=== PATIENT | male | born 1970 | race Caucasian/White ===

== ENCOUNTER 2016-11-27 19:35 | Observation (INO) ==
--- NOTE | 2016-11-27 19:54 | Emergency Department Note ---
Disposition Clinical Impression: Altered mental status Qualifiers: Altered mental status type: unspecified Qualified Code(s): R41.82 - Altered mental status, unspecified Leukopenia Qualifiers: Leukopenia type: unspecified Qualified Code(s): D72.819 - Decreased white blood cell count, unspecified Anemia Qualifiers: Anemia type: unspecified type Qualified Code(s): D64.9 - Anemia, unspecified Chest pain Qualifiers: Chest pain type: unspecified Qualified Code(s): R07.9 - Chest pain, unspecified Hypothyroidism Qualifiers: Hypothyroidism type: unspecified Qualified Code(s): E03.9 - Hypothyroidism, unspecified Disposition: Admitted As Inpatient Condition: Fair Time of Disposition: 21:48 Chest Pain HPI - General Chief Complaint: ED Chest Pain Stated Complaint: Chest Pain Time Seen by Provider: 11/27/16 19:48 Source: EMS Mode of arrival: EMS Limitations: no limitations Vital Signs Reviewed: Yes Nursing Notes Reviewed: Yes - History of Present Illness HPI Narrative: Patient is a 46-year-old male with past medical history of hyperlipidemia, GERD , hypothyroidism, stage IV colorectal cancer with mets to liver and currently on oral chemotherapy pills on 2 weeks and off 2 weeks. Currently on ""off week " and took last pill this past Sunday. He presents today via EMS due to chest pain, possible LOC. states that the patient has had some trouble with memory over the past couple weeks. Today, the patient stated that he did not fill well, states that he then passed out while he was standing in front of her. When he woke up, he is complaining of left-sided chest pain that was radiating to his left arm. He did not take any aspirin or nitroglycerin at home. Denies any cardiac history or stenting. On arrival, the patient says that his chest pain has resolved. EMS says that the patient has "gone in and out of consciousness" on their trip over, but they described this as the patient closing his eyes and going quite but was still interactive and followed commands during these episodes. Patient only complaint currently is that he feels confused. He was oriented to person and place but not time. Currently denies any chest pain, shortness of breath, nausea. Patient had one episode of vomiting en route via EMS. Patient does have a history of anxiety and depression but says that he has never had a panic attack in the past. Severity scale (1-10): 0 - Related Data Home Medications Medication Instructions Recorded Confirmed Metformin HCl [Glucophage Xr] 1,000 mg PO BID 02/23/15 11/27/16 Insulin Glargine,Hum.rec.anlog 0 unit SQ HS PRN 03/10/15 11/27/16 [Lantus Solostar] Cyclobenzaprine [Flexeril] 10 mg PO TID PRN 07/16/15 11/27/16 Zolpidem [Ambien] 10 mg PO HS PRN 10/03/16 11/27/16 Atorvastatin [Lipitor] 10 mg PO HS 11/27/16 11/27/16 Levothyroxine [Synth[place]] [place] [address]/27/16 11/27/16 Omeprazole [PriLOSEC] 40 mg PO DAILY 11/27/16 11/27/16 Pioglitazone HCl [Actos] 30 mg PO DAILY 11/27/16 11/27/16 Previous Rx's Medication Instructions Recorded Acetaminophen/Butalbital/Caffe 1 each PO TID PRN #90 tablet 04/13/15 [Fioricet] Prochlorperazine Maleate 10 mg PO Q6HR PRN #120 tablet 02/07/16 [Compazine] Ondansetron HCl [Zofran] 4 mg PO Q6H PRN #30 tablet 03/24/16 OxyCODONE/APAP 7.5/325 [Percocet 1 each PO Q6H PRN #30 tablet 03/24/16 7.5/325 MG] Hydromorphone HCl [Dilaudid] 1 tab PO Q6H PRN #90 tablet 04/17/16 Triamcinolone Acet 0.1% OINT 1 appl TP TID #1 tube 10/20/16 [Kenalog] Trifluridine/Tipiracil HCl 4 tab PO BID #80 tablet 11/01/16 [Lonsurf 20 mg-8.19 mg Tablet] Citalopram Hydrobromide [Celexa] 20 mg PO DAILY #90 tablet 11/20/16 Allergies Allergy/AdvReac Type Severity Reaction Status Date / Time capecitabine [From Xeloda] Allergy Hallucinati Verified 11/22/16 11:12 ng All systems ED: reviewed and negative except as stated. Constitutional: Denies: fever Cardiovascular: Reports: chest pain. Denies: palpitations Respiratory: Reports: dyspnea. Denies: cough, wheezes Gastrointestinal: Reports: vomiting. Denies: abdominal pain, nausea, diarrhea, constipation Genitourinary: Denies: urgency, dysuria Neurological: Reports: other (LOC). Denies: weakness, numbness, paresthesias Psychiatric: Reports: anxiety, depression Chest Pain PMH - Past Medical History Medical history: Reports: arthritis, cancer, diabetes, GERD, thyroid disease, other Surgical history: Reports: other Psychiatric history: Reports: anxiety, depression - Social History Smoking Status: Former smoker Alcohol use: Reports: none Drug use: Reports: none Physical Exam - General Limitations: no limitations General appearance: alert - Head Head exam: atraumatic, normocephalic, normal inspection - Eye Eye exam: Present: normal appearance, PERRL, EOMI - ENT ENT exam: normal exam, normal oropharynx, mucous membranes moist - Neck Neck exam: Present: normal inspection, full ROM, trachea midline - Chest Chest inspection: Present: normal inspection, symmetric chest wall rise. Absent : tenderness - Respiratory Respiratory exam: Present: normal lung sounds bilaterally. Absent: respiratory distress, wheezes - Cardiovascular Cardiovascular exam: Present: regular rate, normal rhythm, normal heart sounds - Abdominal Exam Abdominal exam: Present: soft, Non-Tender. Absent: tenderness, distention, guarding, rebound, rigidity - Extremities Exam Extremities exam: Present: normal inspection, full ROM. Absent: tenderness, pedal edema - Neurological Exam Neurological exam: Present: alert, CN II-XII intact, other (Oriented to person and place. During interview, patient closes his eyes and goes quiet but does not lose consciousness during these episodes.). Absent: motor sensory deficit - Psychiatric Psychiatric exam: Present: flat affect - Skin Skin exam: Present: warm, dry, intact, normal color Course Course Narrative: Vitals within normal limits on exam. Physical exam shows heart regular rate and rhythm, lungs clear to auscultation, abdominal exam benign. Neuro exam shows no focal deficits. However, patient only oriented to person and place. During interview, patient closes his eyes and goes quiet but does not lose consciousness during these episodes. However, he is answering questions appropriately once aroused. We will obtain altered mental status workup including CT of the head, basic blood work, urinalysis and urine drug screen, ethanol level. We will also obtain EKG, chest x-ray, troponin for evaluation of chest pain. Also obtain CT of the chest due to concern for possible PE with patient's active cancer, chest pain and shortness of breath, possible LOC, tachycardia noted per EMS. 21:45 EKG shows normal sinus rhythm with no acute ST changes. Chest x-ray negative. Head CT negative for any acute intracranial abnormality. Chest CT negative for PE. Troponin negative. Labs show leukopenia, anemia that is worsened from baseline, hypothyroidism. We will obtain the free T4 and T3. We will admit the patient for altered mental status, chest pain, leukopenia, anemia , hypothyroidism. Chest X-Ray 11/27/16 19:52 IMPRESSION: 1. No acute cardiopulmonary disease. D/ / Byron Zhong MD / Byron Zhong MD Interpreting Provider: Byron Zhong MD Head CT 11/27/16 19:52 IMPRESSION: No acute intracranial abnormality. D/ / Leyla Baron Cha, MD / Leyla Baron Cha, MD Interpreting Provider: Leyla Baron Cha, MD Chest CTA 11/27/16 19:53 IMPRESSION: No evidence of pulmonary embolism or acute pulmonary abnormality. D/ / Roland Card MD / Roland Card MD Interpreting Provider: Roland Card MD Vital Signs Temperature 0 F L 11/27/16 19:37 Pulse Rate 98 11/27/16 19:37 Respiratory Rate 18 11/27/16 19:37 Blood Pressure 133/84 11/27/16 19:37 O2 Sat by Pulse Oximetry 96 11/27/16 19:37 Temperature 98.7 F 11/27/16 23:19 Pulse Rate 70 11/27/16 23:19 Respiratory Rate 15 11/27/16 23:19 Blood Pressure 144/92 11/27/16 23:19 O2 Sat by Pulse Oximetry 99 11/27/16 23:19 Oxygen Delivery Oxygen Delivery Room Air Chest Pain - MDM Narrative Medical decision making narrative: EKG shows normal sinus rhythm with no acute ST changes. Chest x-ray negative. Head CT negative for any acute intracranial abnormality. Chest CT negative for PE. Troponin negative. Labs show leukopenia, anemia that is worsened from baseline, hypothyroidism. We will obtain the free T4 and T3. We will admit the patient for altered mental status, chest pain, leukopenia, anemia, hypothyroidism. - Medical Records Medical records reviewed: Yes I reviewed the patient's medical records. - Lab Data Lab results reviewed: Yes I reviewed the patient's lab results. Result diagrams: 11/27/16 19:56 11/27/16 19:56 Lab Results 11/27/16 11/27/16 11/27/16 Range/Units 19:56 19:56 19:56 WBC 3.9 L (4.3-11.1) K/mcL RBC 3.58 L (4.19-5.50) M/mcL Hgb 10.3 L (12.9-16.9) g/dL Hct 30.6 L (37.5-50.1) % MCV 85.5 (83.0-100.0) fL MCH 28.8 (28.0-33.3) pg MCHC 33.7 (31.6-35.5) g/dL RDW 13.5 (11.5-14.5) % Plt Count 92 L (140-400) K/mcL MPV 9.2 L (9.4-12.4) fL Immature Gran % 0.5 (0-4) % Seg Neutrophils % 65.6 % Lymphocytes % 27.2 % Monocytes % 5.1 % Eosinophils % 1.3 % Basophils % 0.3 % Neutrophils # 2.6 (1.6-8.9) K/mcL Lymphocytes # 1.1 (0.6-4.6) K/mcL Monocytes # 0.2 (0.0-1.3) K/mcL Eosinophils # 0.1 (0.0-0.6) K/mcL Basophils # 0.0 (0.0-0.2) K/mcL PT 13.1 H (9.4-12.1) Seconds INR 1.2 APTT 27.8 (26.0-36.0) Seconds Sodium (136-145) mEq/L Potassium (3.5-4.5) mEq/L Chloride (98-109) mEq/L Carbon Dioxide (19-29) mEq/L BUN (8-26) mg/dL Creatinine (0.72-1.25) mg/dL Est GFR ( Amer) (> 60) Est GFR (Non-Af Amer) (> 60) BUN/Creatinine Ratio (6-26) Glucose (70-99) mg/dL Calculated Osmolality (280-300) Calcium (8.6-10.8) mg/dL Total Bilirubin (0.2-1.2) mg/dL Direct Bilirubin (0.0-0.5) mg/dL Indirect Bilirubin (0.0-1.2) mg/dL AST (5-34) Units/L ALT (0-55) Units/L Alkaline Phosphatase (38-126) Units/L Ammonia 17 L (18-72) mcmol/L Troponin I (0-0.03) ng/mL Serum Total Protein (6.0-8.3) g/dL Albumin (3.5-5.0) g/dL Globulin (2.4-3.5) g/dL Albumin/Globulin Ratio (1.1-2.2) TSH (0.350-4.840) mcIU/mL Free T4 (0.70-1.48) ng/dl Free T3 (1.71-3.71) pg/mL Urine Color (Yellow) Urine Clarity (Clear) Urine pH (5.0-8.0) pH Units Ur Specific [place] (1.010-1.025) Urine Protein (Neg-Trace) mg/dL Urine Glucose (UA) (Normal) mg/dL Urine Ketones (Negative) mg/dL Urine Blood (Negative) Urine Nitrite (Negative) Urine Bilirubin (Negative) Urine Urobilinogen (Normal) mg/dL Ur Leukocyte Esterase (Negative) Ur Culture Indicated? (NO) Urine Opiates Screen (Mcbnkn=198) ng/mL Ur Barbiturates Screen (Uvfufo=806) ng/mL Ur Phencyclidine Scrn (Cutoff=25) ng/mL Ur Amphetamines Screen (Aczqwu=5239) ng/mL U Benzodiazepines Scrn (Fvtkzq=079) ng/mL Urine Cocaine Screen (Cutoff= 300) ng/mL U Marijuana (THC) Screen (Cutoff = 50) ng/mL Ethyl Alcohol (0-10) mg/dL 11/27/16 11/27/16 11/27/16 Range/Units 19:56 19:56 19:56 WBC (4.3-11.1) K/mcL RBC (4.19-5.50) M/mcL Hgb (12.9-16.9) g/dL Hct (37.5-50.1) % MCV (83.0-100.0) fL MCH (28.0-33.3) pg MCHC (31.6-35.5) g/dL RDW (11.5-14.5) % Plt Count (140-400) K/mcL MPV (9.4-12.4) fL Immature Gran % (0-4) % Seg Neutrophils % % Lymphocytes % % Monocytes % % Eosinophils % % Basophils % % Neutrophils # (1.6-8.9) K/mcL Lymphocytes # (0.6-4.6) K/mcL Monocytes # (0.0-1.3) K/mcL Eosinophils # (0.0-0.6) K/mcL Basophils # (0.0-0.2) K/mcL PT (9.4-12.1) Seconds INR APTT (26.0-36.0) Seconds Sodium 133 L (136-145) mEq/L Potassium 3.6 (3.5-4.5) mEq/L Chloride 97 L (98-109) mEq/L Carbon Dioxide 28 (19-29) mEq/L BUN 10 (8-26) mg/dL Creatinine 0.83 (0.72-1.25) mg/dL Est GFR ( Amer) > 60 (> 60) Est GFR (Non-Af Amer) > 60 (> 60) BUN/Creatinine Ratio 12 (6-26) Glucose 162 H (70-99) mg/dL Calculated Osmolality 279 L (280-300) Calcium 9.4 (8.6-10.8) mg/dL Total Bilirubin 1.3 H (0.2-1.2) mg/dL Direct Bilirubin 0.5 (0.0-0.5) mg/dL Indirect Bilirubin 0.8 (0.0-1.2) mg/dL AST 20 (5-34) Units/L ALT 25 (0-55) Units/L Alkaline Phosphatase 124 (38-126) Units/L Ammonia (18-72) mcmol/L Troponin I 0.01 (0-0.03) ng/mL Serum Total Protein 7.1 (6.0-8.3) g/dL Albumin 3.5 (3.5-5.0) g/dL Globulin 3.6 H (2.4-3.5) g/dL Albumin/Globulin Ratio 1.0 L (1.1-2.2) TSH 5.637 H (0.350-4.840) mcIU/mL Free T4 1.22 (0.70-1.48) ng/dl Free T3 2.61 (1.71-3.71) pg/mL Urine Color (Yellow) Urine Clarity (Clear) Urine pH (5.0-8.0) pH Units Ur Specific [place] (1.010-1.025) Urine Protein (Neg-Trace) mg/dL Urine Glucose (UA) (Normal) mg/dL Urine Ketones (Negative) mg/dL Urine Blood (Negative) Urine Nitrite (Negative) Urine Bilirubin (Negative) Urine Urobilinogen (Normal) mg/dL Ur Leukocyte Esterase (Negative) Ur Culture Indicated? (NO) Urine Opiates Screen (Oiwcao=990) ng/mL Ur Barbiturates Screen (Hwduuz=309) ng/mL Ur Phencyclidine Scrn (Cutoff=25) ng/mL Ur Amphetamines Screen (Yslnul=8507) ng/mL U Benzodiazepines Scrn (Rhlfbk=763) ng/mL Urine Cocaine Screen (Cutoff= 300) ng/mL U Marijuana (THC) Screen (Cutoff = 50) ng/mL Ethyl Alcohol < 10 (0-10) mg/dL 11/27/16 11/27/16 Range/Units 21:12 21:12 WBC (4.3-11.1) K/mcL RBC (4.19-5.50) M/mcL Hgb (12.9-16.9) g/dL Hct (37.5-50.1) % MCV (83.0-100.0) fL MCH (28.0-33.3) pg MCHC (31.6-35.5) g/dL RDW (11.5-14.5) % Plt Count (140-400) K/mcL MPV (9.4-12.4) fL Immature Gran % (0-4) % Seg Neutrophils % % Lymphocytes % % Monocytes % % Eosinophils % % Basophils % % Neutrophils # (1.6-8.9) K/mcL Lymphocytes # (0.6-4.6) K/mcL Monocytes # (0.0-1.3) K/mcL Eosinophils # (0.0-0.6) K/mcL Basophils # (0.0-0.2) K/mcL PT (9.4-12.1) Seconds INR APTT (26.0-36.0) Seconds Sodium (136-145) mEq/L Potassium (3.5-4.5) mEq/L Chloride (98-109) mEq/L Carbon Dioxide (19-29) mEq/L BUN (8-26) mg/dL Creatinine (0.72-1.25) mg/dL Est GFR ( Amer) (> 60) Est GFR (Non-Af Amer) (> 60) BUN/Creatinine Ratio (6-26) Glucose (70-99) mg/dL Calculated Osmolality (280-300) Calcium (8.6-10.8) mg/dL Total Bilirubin (0.2-1.2) mg/dL Direct Bilirubin (0.0-0.5) mg/dL Indirect Bilirubin (0.0-1.2) mg/dL AST (5-34) Units/L ALT (0-55) Units/L Alkaline Phosphatase (38-126) Units/L Ammonia (18-72) mcmol/L Troponin I (0-0.03) ng/mL Serum Total Protein (6.0-8.3) g/dL Albumin (3.5-5.0) g/dL Globulin (2.4-3.5) g/dL Albumin/Globulin Ratio (1.1-2.2) TSH (0.350-4.840) mcIU/mL Free T4 (0.70-1.48) ng/dl Free T3 (1.71-3.71) pg/mL Urine Color Yellow (Yellow) Urine Clarity Clear (Clear) Urine pH 7.0 (5.0-8.0) pH Units Ur Specific [place] 1.016 (1.010-1.025) Urine Protein Negative (Neg-Trace) mg/dL Urine Glucose (UA) Normal (Normal) mg/dL Urine Ketones Negative (Negative) mg/dL Urine Blood Negative (Negative) Urine Nitrite Negative (Negative) Urine Bilirubin Negative (Negative) Urine Urobilinogen Normal (Normal) mg/dL Ur Leukocyte Esterase Negative (Negative) Ur Culture Indicated? NO (NO) Urine Opiates Screen Negative (Zwoyop=311) ng/mL Ur Barbiturates Screen Negative (Ltrevp=966) ng/mL Ur Phencyclidine Scrn Negative (Cutoff=25) ng/mL Ur Amphetamines Screen Negative (Offhtj=0148) ng/mL U Benzodiazepines Scrn Negative (Behdxp=516) ng/mL Urine Cocaine Screen Negative (Cutoff= 300) ng/mL U Marijuana (THC) Screen Negative (Cutoff = 50) ng/mL Ethyl Alcohol (0-10) mg/dL - Radiology Data Radiology results reviewed: Yes I reviewed the patient's radiology results. Chest X-Ray 11/27/16 19:52 IMPRESSION: 1. No acute cardiopulmonary disease. D/ / Byron Zhong MD / Byron Zhong MD Interpreting Provider: Byron Zhong MD Head CT 11/27/16 19:52 IMPRESSION: No acute intracranial abnormality. D/ / Leyla Baron Cha, MD / Leyla Baron Cha, MD Interpreting Provider: Leyla Baron Cha, MD Chest CTA 11/27/16 19:53 IMPRESSION: No evidence of pulmonary embolism or acute pulmonary abnormality. D/ / Roland Card MD / Roland Card MD Interpreting Provider: Roland Card MD - EKG Data EKG attestation: Yes I reviewed and interpreted this EKG. EKG results narrative: 11/27/2016 at 19:43. Normal sinus rhythm. Rate 96. DC 155. QRS 90. QTc 49. No acute ST elevation or depression. Heart Score - Score History: Moderately Suspicious EKG: Normal Age: 45-65 Risk Factors: 1-2 risk factors Troponin: Less than normal limit HEART Score Total: 3 Attestation Statement - Attestation Attestation: I, Niranjan Lopez, examined this patient and my medical decision-making was reviewed with the [employer]/PA/Advanced Practice Nurse/Resident Physician. I agree with the documented findings, disposition and treatment plan as described except to the extent set forth below. 46-year-old male brought in by EMS after family was concerned about altered mental status. Patient takes chemotherapy for stage IV colorectal cancer however he has not taken it within the past 1-2 weeks. No history of fever. No recent history of trauma. Family states the patient is more fatigued with altered mental status today compared to what he usually is. Patient has difficulty answering questions secondary to his fatigue state however he is able to answer questions. Patient does not have any focal neurologic deficits on our initial exam. EMS state the patient "syncopized" multiple times during the EMS trip to the hospital however he was interactive with them at that time and he did not have any change in his vital signs or heart rate on the monitor at that time. Head CT was negative for acute intracranial hemorrhage or mass. TSH was elevated however I do not believe the patient is in myxedema coma. Initial troponin was negative. Urinalysis was negative UTI. Patient will be admitted to the hospital for further care and evaluation of altered mental status and elevated TSH.
[2016-11-27 20:10] LABS: Basophils % 0.3 %; Eosinophils # 0.1 K/mcL (0.0-0.6); Eosinophils % 1.3 %; Hematocrit 30.6 % (37.5-50.1); Hemoglobin 10.3 g/dL (12.9-16.9); Immature Granulocytes % 0.5 % (0-4); Lymphocytes # 1.1 K/mcL (0.6-4.6); Lymphocytes % 27.2 %; Mean Corpuscular HGB Conc 33.7 g/dL (31.6-35.5); Mean Corpuscular Hemoglobin 28.8 pg (28.0-33.3); Mean Corpuscular Volume 85.5 fL (83.0-100.0); Mean Platelet Volume 9.2 fL (9.4-12.4); Monocytes # 0.2 K/mcL (0.0-1.3); Monocytes % 5.1 %; Neutrophils # 2.6 K/mcL (1.6-8.9); Red Blood Count 3.58 M/mcL (4.19-5.50); Red Cell Distribution Width 13.5 % (11.5-14.5); Segmented Neutrophils % 65.6 %
[2016-11-27 20:11] LABS: Platelet Count 92 K/mcL (140-400)
[2016-11-27 20:17] LABS: INR 1.2; Prothrombin Time 13.1 Seconds (9.4-12.1)
[2016-11-27 20:19] LABS: Activated Partial Thrombo Time 27.8 Seconds (26.0-36.0)
[2016-11-27 20:25] LABS: Alanine Aminotransferase 25 Units/L (0-55); Albumin 3.5 g/dL (3.5-5.0); Alkaline Phosphatase 124 Units/L (38-126); Aspartate Amino Transferase 20 Units/L (5-34); BUN/Creatinine Ratio 12 (6-26); Bilirubin,Direct 0.5 mg/dL (0.0-0.5); Bilirubin,Indirect 0.8 mg/dL (0.0-1.2); Bilirubin,Total 1.3 mg/dL (0.2-1.2); Blood Urea Nitrogen 10 mg/dL (8-26); Calcium 9.4 mg/dL (8.6-10.8); Carbon Dioxide 28 mEq/L (19-29); Chloride 97 mEq/L (98-109); Globulin 3.6 g/dL (2.4-3.5); Glucose 162 mg/dL (70-99); Osmolality,Calculated 279 (280-300); Potassium 3.6 mEq/L (3.5-4.5); Sodium 133 mEq/L (136-145); Total Protein 7.1 g/dL (6.0-8.3); eGFR For African Americans > 60 (> 60); eGFR For Non-African Americans > 60 (> 60)
[2016-11-27 20:27] LABS: Ethanol < 10 mg/dL (0-10)
[2016-11-27 20:47] LABS: Thyroid Stimulating Hormone 5.637 mcIU/mL (0.350-4.840)
[2016-11-27 21:23] LABS: Bilirubin,Urine Negative (Negative); Blood,Urine Negative (Negative); Clarity,Urine Clear (Clear); Color,Urine Yellow (Yellow); Glucose,Urine (UA) Normal (Normal); Ketones,Urine Negative (Negative); Leukocyte Esterase,Urine Negative (Negative); Nitrite,Urine Negative (Negative); Protein,Urine Negative (Neg-Trace); Specific Gravity,Urine 1.016 (1.010-1.025); Urobilinogen,Urine Normal (Normal)
[2016-11-27 21:37] LABS: Amphetamine Screen,Urine Negative ng/mL (Cutoff=1000); Barbiturate Screen,Urine Negative ng/mL (Cutoff=200); Benzodiazepines Screen,Urine Negative ng/mL (Cutoff=200); Cannabinoid Screen,Urine Negative ng/mL (Cutoff = 50); Cocaine Screen,Urine Negative ng/mL (Cutoff= 300); Opiate Screen,Urine Negative ng/mL (Cutoff=300); Phencyclidine Screen,Urine Negative ng/mL (Cutoff=25)
[2016-11-27 22:25] LABS: Triiodothyronine (T3) Free 2.61 pg/mL (1.71-3.71)
--- NOTE | 2016-11-28 00:26 | Internal Med History&Physical ---
Date of Encounter: 11/28/16 Time of Encounter: 00:26 Assessment and Plan (1) Syncope Current visit: Yes Status: Acute Trend troponins. Echocardiogram. Neurology consultation Qualifiers: Syncope type: unspecified Qualified Code(s): R55 - Syncope and collapse (2) Chest pain Current visit: Yes Status: Acute Trend troponins. Echo. Consider cardiology consult Qualifiers: Chest pain type: unspecified Qualified Code(s): R07.9 - Chest pain, unspecified (3) TIA (transient ischemic attack) Current visit: Yes Status: Acute Acute right sided wekaness. CT head is negative. Discussed with Neurology at [facility] - not for TPA. MRI brain, echo, carotid doppler; Neurology consult. PT eval Qualifiers: Transient cerebral ischemia type: unspecified Qualified Code(s): G45.9 - Transient cerebral ischemic attack, unspecified (4) Acute right-sided weakness Current visit: Yes Status: Acute Acute right sided wekaness. CT head is negative. Discussed with Neurology at [facility] - not for TPA. MRI brain, echo, carotid doppler; Neurology consult. PT eval (5) Leukopenia Current visit: Yes Status: Chronic Monitor Qualifiers: Leukopenia type: unspecified Qualified Code(s): D72.819 - Decreased white blood cell count, unspecified (6) Anemia Current visit: Yes Status: Chronic normocytic. 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 Chaidez is a 46 year old male with past medical history of hyperlipidemia, GERD, hypothyroidism, stage IV colorectal cancer with mets to liver and currently on oral chemotherapy pills on 2 weeks and off 2 weeks. History obtained from pts , who is at the bedside (pt does not remember what happened at home). He apparently reported to his that he was not feeling well and tried to sleep for some time. After about 20 minutes he felt unwell and reported left-sided chest pain, radiating to the left upper extremity. He apparently passed out multiple times, while he was sitting. He apparently looked pale, but did not lose pulse. EMS was called and was brought to the ER. He is admitted to the hospitalist service for further management. At 11:59 PM, I was paged to see the pt, because of the concern that his right arm is now going numb and right leg feels harder to lift. He reports that he does not remember what happened at home, but felt OK when he came to the floor and symptoms started after coming to the medical floor. He reported numbness in the right upper extremity, with weakness (right handed person) and his right lower extremity feels heavy. He denies any facial weakness/numbness, difficulty speech, blurry vision, weakness of the left side, urinary or bowel incontinence. He reports mild diffuse headache. He denies nausea, vomiting, chest pain, shortness of breath, fever, chills, abdominal pain, dysuria, hematuria. Code stroke was called immediately and patient was taken for CT scan of the head without contrast. Radiologist called report at 00:32, and reported no acute intracranial lesions. Discussed with stroke Neurologist ([facility]), who indicated that the pt is not suitable for TPA. Recommended MRI of the brain with and w/o contrast to exclude cerebral metastases. Past Med Surg Social Fam HX - Past Medical History Medical history: arthritis, cancer, diabetes, GERD, thyroid disease, other Psychiatric history: anxiety, depression - Past Surgical History Surgical History: other - Social History Smoking Status: Former smoker Smokeless Tobacco Status: Yes Alcohol use: none Drug use: none - Family History Mother Hx Family Cardiac Disorders: Yes Internal Medicine - H&P: Meds Metformin HCl [Glucophage Xr] 1,000 mg PO BID 02/23/15 [History] Insulin Glargine,Hum.rec.anlog [Lantus Solostar] 0 unit SQ HS PRN 03/10/15 [ History] Acetaminophen/Butalbital/Caffe [Fioricet] 1 each PO TID PRN #90 tablet 04/13/15 [Rx] Cyclobenzaprine [Flexeril] 10 mg PO TID PRN 07/16/15 [History] Prochlorperazine Maleate [Compazine] 10 mg PO Q6HR PRN #120 tablet 02/07/16 [Rx] Ondansetron HCl [Zofran] 4 mg PO Q6H PRN #30 tablet 03/24/16 [Rx] OxyCODONE/APAP 7.5/325 [Percocet 7.5/325 MG] 1 each PO Q6H PRN #30 tablet [Rx] Hydromorphone HCl [Dilaudid] 1 tab PO Q6H PRN #90 tablet 04/17/16 [Rx] Zolpidem [Ambien] 10 mg PO HS PRN 10/03/16 [History] Triamcinolone Acet 0.1% OINT [Kenalog] 1 appl TP TID #1 tube 10/20/16 [Rx] Trifluridine/Tipiracil HCl [Lonsurf 20 mg-8.19 mg Tablet] 4 tab PO BID #80 tablet 11/01/16 [Rx] Citalopram Hydrobromide [Celexa] 20 mg PO DAILY #90 tablet 11/20/16 [Rx] Atorvastatin [Lipitor] 10 mg PO HS 11/27/16 [History] Levothyroxine [Synthroid] 75 mcg PO 0630 11/27/16 [History] Omeprazole [PriLOSEC] 40 mg PO DAILY 11/27/16 [History] Pioglitazone HCl [Actos] 30 mg PO DAILY 11/27/16 [History] Allergies capecitabine [From Xeloda] Allergy (Verified 11/22/16 11:12) Hallucinating All Systems PM: A 10-system review of systems was performed and is negative for pertinent findings except as documented above in the HPI. - Constitutional Vitals: Temp Pulse Resp BP Pulse Ox 98.7 F 70 15 144/92 99 11/27/16 23:19 11/27/16 23:19 11/27/16 23:19 11/27/16 23:19 11/27/16 23:19 Exam: General: Not in acute distress at the time of my evaluation HEENT: Oral mucosa is moist. No conjunctival palor or scleral icterus Neck: No obvious neck swellings Lungs: Clear to auscultation Cardiac: Regular rate and rhythm. No significant murmurs Abdomen: Soft, non tender. Bowel sounds present Genitourinary: No abraham catheter Neurological: Alert and oriented. RUE: pronator drift; power 4+/5; RLE: power: 4 /5. Plantars: Right: upgoing Psych: Not aggressive or agitated Extremities: no significant leg edema Skin: No generalized rash Internal Med - H&P Results - Labs CBC & Chem 7: 11/28/16 00:24 11/28/16 00:24 - EKG Data -: EKG Interpreted by Myself EKG shows normal: sinus rhythm Rate: normal - Impressions ITS Impressions Chest X-Ray 11/27/16 19:52 IMPRESSION: 1. No acute cardiopulmonary disease. D/ / Byron Zhong MD / Byron Zhogn MD Interpreting Provider: Byron Zhong MD Head CT 11/27/16 19:52 IMPRESSION: No acute intracranial abnormality. D/ / Leyla Baron Cha, MD / Leyla Baron Cha, MD Interpreting Provider: Leyla Baron Cha, MD Chest CTA 11/27/16 19:53 IMPRESSION: No evidence of pulmonary embolism or acute pulmonary abnormality. D/ / Roland Card MD / Roland Card MD Interpreting Provider: Roland Card MD Head CT 11/28/16 00:05 IMPRESSION: No acute intracranial abnormality. Advanced intracranial atherosclerosis for age. Findings were discussed with Edis Cabral at 12:32 am on 11/28/2016. D/ / Grecia Dubose MD / Grecia Dubose MD Interpreting Provider: Grecia Dubose MD
[2016-11-28 01:30] LABS: Basophils % 0.3 %; Eosinophils % 1.1 %; Hematocrit 33.1 % (37.5-50.1); Immature Granulocytes % 0.5 % (0-4); Mean Corpuscular HGB Conc 33.2 g/dL (31.6-35.5); Mean Corpuscular Hemoglobin 28.5 pg (28.0-33.3); Mean Corpuscular Volume 85.8 fL (83.0-100.0); Mean Platelet Volume 9.5 fL (9.4-12.4); Monocytes # 0.2 K/mcL (0.0-1.3); Monocytes % 5.4 %; Neutrophils # 2.4 K/mcL (1.6-8.9); Platelet Count 100 K/mcL (140-400); Red Blood Count 3.86 M/mcL (4.19-5.50); Red Cell Distribution Width 13.6 % (11.5-14.5); Segmented Neutrophils % 65.7 %
[2016-11-28 01:34] LABS: INR 1.2; Prothrombin Time 13.2 Seconds (9.4-12.1)
[2016-11-28 01:37] LABS: Activated Partial Thrombo Time 27.9 Seconds (26.0-36.0)
[2016-11-28 01:40] LABS: BUN/Creatinine Ratio 10 (6-26); Blood Urea Nitrogen 9 mg/dL (8-26); Calcium 9.5 mg/dL (8.6-10.8); Carbon Dioxide 27 mEq/L (19-29); Chloride 96 mEq/L (98-109); Glucose 208 mg/dL (70-99); Osmolality,Calculated 279 (280-300); Potassium 3.7 mEq/L (3.5-4.5); Sodium 132 mEq/L (136-145); eGFR For African Americans > 60 (> 60); eGFR For Non-African Americans > 60 (> 60)
[2016-11-28] MEDS ORDERED: Naloxone 0.4 MG/ML INJ IVP PRN (01:54)
[2016-11-28] MEDS ORDERED: Aspirin 325 MG TABLET PO ONE (01:57)
[2016-11-28] MEDS ORDERED: *HR* OxyCODONE/APAP 7.5/325 TABLET PO PRN (02:06)
[2016-11-28] MEDS ORDERED: Acetaminophen/Butalbital/CaffeineTABLET PO PRN (02:06)
[2016-11-28] MEDS ORDERED: *HR* HYDROmorphone 2 MG TABLET PO PRN (02:06)
[2016-11-28] MEDS ORDERED: *HR* Dextrose 50 % in Water (Syg) 50 ML SYRINGE IVP PRN (05:11)
[2016-11-28] MEDS ORDERED: Dextrose Gel 15 GM PO PRN ×2 (05:11)
[2016-11-28] MEDS ORDERED: D5% in Water 1,000 ML IVC PRN (05:11)
[2016-11-28] MEDS: Insulin LISPRO 300 UNITS/3 ML VIAL SQ SCH ×3 (09:08→17:35)
--- NOTE | 2016-11-28 13:34 | Neurology - Consult Note ---
Date of Encounter: 11/28/16 Time of Encounter: 13:29 Assessment and Plan (1) Altered mental status Current Visit: Yes Status: Acute It seems that Mr. Chaidez has experienced an episode of altered consciousness. At this time I am unable to identify a specific mechanism or cause for this. Currently he is completely back to normal. The differential diagnosis for transient alteration in mental status might include; TIA, stroke, seizure, vasovagal event, cardiac event, medication effect, anxiety and panic attack. Transient toxin exposure might also be added to this list. MRI scan of the head is pending. If the MRI scan of the head is negative then I would attribute this episode to some other nonneurologic etiology. I am not convinced that this was an episode of seizure. Further recommendations will be made pending the outcome of the MRI study. Qualifiers: Altered mental status type: unspecified Qualified Code(s): R41.82 - Altered mental status, unspecified History of Present Illness HPI: Mr. Chaidez is a 46 year old male with a history of colorectal cancer with metastasis to the liver, and diabetes mellitus who is being seen for neurologic evaluation secondary to his episode of confusion. On the day of admission he apparently simply just felt tired and drained. He told his that he did not feel good. He did complain of some chest pain. About 20 or 30 minutes later he appeared to be increasingly anxious and then passed out. He several more than one occasion to his that he felt like he could not breathe. He felt as though he had left arm numbness. He later felt as though his right arm was numb. He does have a previous history of migraines but this did not experience a headache at the time of this event. Apparently symptoms persisted for about 5-6 hours. Currently he feels back to his normal baseline. He has had 2 CAT scans of the brain which revealed no evidence of any acute process however did reveal advanced intracranial atherosclerosis considering his age. There was no generalized tonic-clonic activity. He does not have a prior history of panic or anxiety attacks. Initial troponins were negative, carotid duplex Doppler study was negative, echocardiogram was negative. He denies any lasting sequela. Past Med Surg Social Fam HX - Past Medical History Medical history: arthritis, cancer, diabetes, GERD, thyroid disease, other Psychiatric history: anxiety, depression - Past Surgical History Surgical History: other - Social History Smoking Status: Former smoker Smokeless Tobacco Status: Yes Alcohol use: none Drug use: none - Family History Mother Hx Family Cardiac Disorders: Yes Medications and Allergies Metformin HCl [Glucophage Xr] 1,000 mg PO BID 02/23/15 [History] Insulin Glargine,Hum.rec.anlog [Lantus Solostar] 0 unit SQ HS PRN 03/10/15 [ History] Acetaminophen/Butalbital/Caffe [Fioricet] 1 each PO TID PRN #90 tablet 04/13/15 [Rx] Cyclobenzaprine [Flexeril] 10 mg PO TID PRN 07/16/15 [History] Prochlorperazine Maleate [Compazine] 10 mg PO Q6HR PRN #120 tablet 02/07/16 [Rx] Ondansetron HCl [Zofran] 4 mg PO Q6H PRN #30 tablet 03/24/16 [Rx] OxyCODONE/APAP 7.5/325 [Percocet 7.5/325 MG] 1 each PO Q6H PRN #30 tablet [Rx] Hydromorphone HCl [Dilaudid] 1 tab PO Q6H PRN #90 tablet 04/17/16 [Rx] Zolpidem [Ambien] 10 mg PO HS PRN 10/03/16 [History] Triamcinolone Acet 0.1% OINT [Kenalog] 1 appl TP TID #1 tube 10/20/16 [Rx] Trifluridine/Tipiracil HCl [Lonsurf 20 mg-8.19 mg Tablet] 4 tab PO BID #80 tablet 11/01/16 [Rx] Citalopram Hydrobromide [Celexa] 20 mg PO DAILY #90 tablet 11/20/16 [Rx] Atorvastatin [Lipitor] 10 mg PO HS 11/27/16 [History] Levothyroxine [Synthroid] 75 mcg PO 0630 11/27/16 [History] Omeprazole [PriLOSEC] 40 mg PO DAILY 11/27/16 [History] Pioglitazone HCl [Actos] 30 mg PO DAILY 11/27/16 [History] Allergies capecitabine [From Xeloda] Allergy (Verified 11/22/16 11:12) Hallucinating All Systems: A 10-system review of systems was performed and is negative for pertinent findings except as documented above in the HPI. Review of Systems: A 10 point review of systems is consistent with a history of present illness and is otherwise negative. Physical Examination - Vital Signs Vital Signs: Initial Vital Signs Temp Pulse Resp BP Pulse Ox 0 F L 98 18 133/84 96 11/27/16 19:37 11/27/16 19:37 11/27/16 19:37 11/27/16 19:37 11/27/16 19:37 - Neurologic Detailed motor examination: full strength in all major muscle groups Motor examination - right side: 5/5: deltoids, biceps, triceps, wrist flexion, wrist extension, society reporter, hip flexors, tibialis Anterior, quadriceps, toe extension (EHL), plantarflexion Motor examination - left side: 5/5: deltoids, biceps, triceps, wrist flexion, wrist extension, hip flexors, society reporter, quadriceps, tibialis Anterior, toe extension (EHL), plantarflexion Mental Status Examination: awake, alert, oriented to person, oriented to place, oriented to time, follows commands appropriately, answers questions appropriately, no agnosia, no aphasia, no aproxia Cranial nerve examination: PERRL, EOMI, visual castellanos intact, corneal reflexes brisk symmetrically, sensory to face intact, mastication intact, no facial asymmetry is present, no dysarthria, hearing is intact symmetrically, soft palate elevates bilaterally upon phonation, gag reflex intact, flexes SCM and trapezius muscles symmetrically with full power, tongue protrudes midline, no atrophy or facial fasiculations present Cerebellar examination: no dysmetria, performs finger to nose and heel to hager symmetrically without ataxia, no gait ataxia, no truncal ataxia, no difficulty with rapid alternating movements Results - Laboratory Findings CBC and BMP: 11/28/16 00:24 11/28/16 00:24 Abnormal lab findings: Abnormal lab results WBC 3.7 K/mcL (4.3-11.1) L 11/28/16 00:24 RBC 3.86 M/mcL (4.19-5.50) L 11/28/16 00:24 Hgb 11.0 g/dL (12.9-16.9) L 11/28/16 00:24 Hct 33.1 % (37.5-50.1) L 11/28/16 00:24 Plt Count 100 K/mcL (140-400) L 11/28/16 00:24 PT 13.2 Seconds (9.4-12.1) H 11/28/16 00:24 Sodium 132 mEq/L (136-145) L 11/28/16 00:24 Chloride 96 mEq/L (98-109) L 11/28/16 00:24 Glucose 208 mg/dL (70-99) H 11/28/16 00:24 POC Glucose 146 (58-89) H 11/27/16 23:25 Calculated Osmolality 279 (280-300) L 11/28/16 00:24 Total Bilirubin 1.3 mg/dL (0.2-1.2) H 11/27/16 19:56 Ammonia 17 mcmol/L (18-72) L 11/27/16 19:56 Globulin 3.6 g/dL (2.4-3.5) H 11/27/16 19:56 Albumin/Globulin Ratio 1.0 (1.1-2.2) L 11/27/16 19:56 HDL Cholesterol 31 mg/dL (40-59) L 11/28/16 05:38 TSH 5.637 mcIU/mL (0.350-4.840) H 11/27/16 19:56 Consult Discharge Plan - Plan Referrals: Ander Patel MD [Primary Care Provider] -
--- NOTE | 2016-11-28 19:30 | Internal Med Progress Note ---
Date of Encounter: 11/28/16 Time of Encounter: 19:24 - Assessment and plan (1) Leukopenia Current Visit: Yes Status: Chronic Qualifiers: Leukopenia type: unspecified Qualified Code(s): D72.819 - Decreased white blood cell count, unspecified (2) Anemia Current Visit: Yes Status: Chronic Qualifiers: Anemia type: unspecified type Qualified Code(s): D64.9 - Anemia, unspecified (3) Syncope Current Visit: Yes Status: Acute Qualifiers: Syncope type: unspecified Qualified Code(s): R55 - Syncope and collapse (4) Chest pain Current Visit: Yes Status: Acute Qualifiers: Chest pain type: unspecified Qualified Code(s): R07.9 - Chest pain, unspecified (5) TIA (transient ischemic attack) Current Visit: Yes Status: Acute Qualifiers: Transient cerebral ischemia type: unspecified Qualified Code(s): G45.9 - Transient cerebral ischemic attack, unspecified (6) Diabetes mellitus Current Visit: No Status: Chronic Qualifiers: Diabetes mellitus type: type 2 Diabetes mellitus complication status: with hyperglycemia Diabetes mellitus halfway insulin use: with halfway use Qualified Code(s): E11.65 - Type 2 diabetes mellitus with hyperglycemia; Z79.4 - medical terminologist (current) use of insulin (7) Rectal cancer metastasized to liver Current Visit: Yes Status: Chronic - Subjective Interval history: Adrien Coulter is a 46-year-old male who was brought in by family after he was noted to be not feeling well and had recurrent episodes during which she would pass out for a few seconds. He also complained of left-sided recurrent substernal chest pain and felt dyspneic. As EMT were called his vitals were noted in the stable range. Patient to noted to have right-sided weakness. At this time clinically she is absolutely fine well awake alert and his examination showed no focal exam. His right-sided weakness have resolved and there is no pronator shift or abnormal reflexes. His who witnessed him denies noticing any tonic-clonic activity or loss of bladder or bowel control. No recent history of trauma no prior history of coronary artery disease though he has always major risk factors including diabetes hypertension dyslipidemia and smoking. Neurology is involved and patient had non-contrast CT had echocardiogram and ultrasound of the carotids reported negative. Apparently patient has been diagnosed with colon cancer which has metastasized to liver. He is on chemoradiation treatment and his last chemotherapy was only last week. Neurology has not put any particular reason for his symptoms though these appear to be fit well with the diagnosis of TIA. Considering history of metastatic cancer I will order an MRI with contrast and also consult his oncologist to see if chemotherapy treatment has to play any role with his symptoms. Since his echocardiogram as well as troponins are negative therefore though he needs I stress stress but that needs to be delayed for 3-4 weeks considering the fact that we are considering primary neurological disorder. Plan discussed with patient - Constitutional Vitals: Temp Pulse Resp BP Pulse Ox 97.5 F L 87 13 120/73 96 11/28/16 15:22 11/28/16 15:22 11/28/16 15:22 11/28/16 15:22 11/28/16 15:22 - Head Head exam: Present: atraumatic, normocephalic - Eye Eye exam: Present: PERRL, conjuntiva pink, sclera anicteric Pupils: Present: PERRL - Neck Neck exam general surgery: Present: supple, trachea midline. Absent: lymphadenopathy - Respiratory Respiratory exam: Present: CTAB. Absent: accessory muscle use, rales, rhonchi, wheezes - Cardiovascular Cardiovascular exam: Present: RRR, +S1, +S2. Absent: diastolic murmur, gallop, rubs, systolic murmur - GI/Abdominal GI/Abdominal exam: Present: normal bowel sounds, soft, no peritoneal signs. Absent: distended, tenderness - Extremities Exam Extremities exam: Present: warm, radial pulses palpable and symetrical. Absent : calf tenderness, cyanotic, pedal edema - Neurological Exam Neurological exam: Present: CN II-XII intact, oriented X3, no focal deficits. Absent: pronater drift, facial droop, speech deficit - Skin Skin exam: Present: dry, intact Internal Medicine: Result - Labs CBC & Chem 7: 11/28/16 00:24 11/28/16 00:24 Labs: Short CBC 11/28/16 Range/Units 00:24 WBC 3.7 L (4.3-11.1) K/mcL Hgb 11.0 L (12.9-16.9) g/dL Hct 33.1 L (37.5-50.1) % Plt Count 100 L (140-400) K/mcL Neutrophils # 2.4 (1.6-8.9) K/mcL BMP 11/28/16 00:24 Sodium 132 L Potassium 3.7 Chloride 96 L Carbon Dioxide 27 BUN 9 Creatinine 0.86 Glucose 208 H Calcium 9.5 Cardiac Enzymes 11/28/16 11/28/16 Range/Units 00:24 05:38 Troponin I 0.01 0.01 (0-0.03) ng/mL - ABG Interpretation ABG results: PT/INR, D-dimer PT 13.2 Seconds (9.4-12.1) H 11/28/16 00:24 - Impressions Impressions Head CT 11/28/16 00:05 IMPRESSION: No acute intracranial abnormality. Advanced intracranial atherosclerosis for age. Findings were discussed with Edis Cabral at 12:32 am on 11/28/2016. D/ / Grecia Dubose MD / Grecia Dubose MD Interpreting Provider: Grecia Dubose MD Consult Discharge Plan - Plan Referrals: Ander Patel MD [Primary Care Provider] -
[2016-11-28] MEDS ORDERED: Insulin LISPRO 300 UNITS/3 ML VIAL SQ SCH (21:00)
[2016-11-29 05:51] LABS: Alanine Aminotransferase 25 Units/L (0-55); Albumin 3.1 g/dL (3.5-5.0); Albumin/Globulin Ratio 0.9 (1.1-2.2); Alkaline Phosphatase 138 Units/L (38-126); Aspartate Amino Transferase 18 Units/L (5-34); BUN/Creatinine Ratio 11 (6-26); Bilirubin,Total 0.4 mg/dL (0.2-1.2); Blood Urea Nitrogen 9 mg/dL (8-26); Carbon Dioxide 28 mEq/L (19-29); Chloride 98 mEq/L (98-109); Globulin 3.5 g/dL (2.4-3.5); Glucose 348 mg/dL (70-99); Osmolality,Calculated 289 (280-300); Potassium 4.1 mEq/L (3.5-4.5); Sodium 133 mEq/L (136-145); Total Protein 6.6 g/dL (6.0-8.3); eGFR For African Americans > 60 (> 60); eGFR For Non-African Americans > 60 (> 60)
--- NOTE | 2016-11-29 07:45 | Carotid Imaging Report ---
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 Findings Carotid Duplex: Right: There is nonstenotic plaque in the right bifurcation. There is smooth heterogeneous plaque. Left: There is nonstenotic plaque in the left bifurcation. There is smooth heterogeneous plaque. Prior Study: No prior study available for comparison. Carotid Results Right PSV EDV Assessment Proximal CCA 99 24 Normal Mid CCA 100 29 Normal Distal CCA 110 33 Normal Bifurcation 94 31 Non Stenotic Plaque Proximal ICA 66 31 Normal Mid ICA 86 40 Normal Distal ICA 90 38 Normal ECA 147 19 Normal Vertebral Artery 39 11 Antegrade Flow Left PSV EDV Assessment Proximal CCA 111 28 Normal Mid CCA 118 27 Normal Distal CCA 77 26 Normal Bifurcation 94 31 Non Stenotic Plaque Proximal ICA 69 28 Normal Mid ICA 89 41 Normal Distal ICA 82 37 Normal ECA 146 28 Normal Vertebral Artery 51 23 Antegrade Flow Ratio's Right ICA/CCA Ratio: 0.90 ICA/CCA Values: 90/100 Left ICA/CCA Ratio: 0.75 ICA/CCA Values: 89/118 Updated by Sebastian Singh MD on 11/29/2016 7:40:12 AM electronically signed on 11/29/2016 7:40:24 AM with status of Final
--- NOTE | 2016-11-29 08:23 | Oncology Inp Consult Note ---
Date of Encounter: 11/29/16 Time of Encounter: 08:20 - Data of Consult Patient: known to practice within the last 3 years Consult date: 11/29/16 Requesting Physician: Liv Clemons Primary Care Provider: Ander Patel MD - Consult Narrative Reason for consult: Colorectal cancer History of present illness: Mr. Chaidez is a 46 year old gentleman who is established with the cancer grant for ongoing management of metastatic colorectal cancer with liver involvement. I have summarized patient's heme/onc background below based on Dr. Melchor's most recent office report 11/22/16. 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 K-pallavi mutation status done at [facility] and K-pallavi wild type on 08/04/2012 Chronic thrombocytopenia. TREATMENT: 1. Irinotecan, Xeloda, Avastin. After one dose he had confusion and psychotic episodes and Xeloda dropped. 2. Irinotecan with cetuximab and he did have headaches during that but he had a good response. 3. Cetuximab 500 mg mg/m2 IV every two weeks from 12/17/2012 to 02/11/2013. 4. Completed concurrent chemoradiation to the rectum with 5-FU infusion for residual 2-cm mass. 5. Panitumumab stopped after 2 doses because of significant rash on 04-22-13 6. On a 5-FU bolus and infusion D"Gramont regiemn through the port since April 2013. to September 2013. Since then he had a break in treatment 7. Increased CEA to 85 on 04-13-14. PET scan on 04-08-14 Re demonstrated about 5 lesions which was present in last PET scan in 2012. Highest SUV 11.9. Irinotecan 140 mg per meter squared every 2 weeks with cetuximab 200 mg per meter squared weekly after loading dose cycle one on 04-16-14. He developed significant rash in the scalp and face and chest wall. He has hydrocortisone cream and clindamycin ointment. Because of grade 3 rash changed chemotherapy. 8. Irinotecan 140 milligram per meter square 5-FU 200 mg per meter square bolus followed by 1800 mg per meter squared over 46 hours. Treatment from to 08/18/2014. 9. Y-90 administration to the liver right side on 09/29/2014. Had overnight admission and the pain improved rapidly 10. Oxaliplatin 70 milligrams per meter square with 5-FU infusion 2400 mg per 24 hours every 2 weeks. Cycle one on 03/30/2015 to 07/20/2015 . Increased oxaliplatin to 75 mg/m from cycle 2. Added Ramucirumab from Cycle 4 at 8 milligrams per KG on 05/11/2015. His CEA since then has come down from 45-35. He is tolerating Ramucirumab fairly well. MRI abd w/ w/o contrast on 11/13/15 shows several metastatic right hepatic lobe lesions, 2 of which increases in size since the prior postcontrast study. CEA went up to 75 on November 2015 11. Restarted chemotherapy as above oxaliplatin 20 mg/m 5-FU and a 400 mg/m over 46 hours and Ramucirumab 8 mg per KG every 2 weeks. Treatment dates from 12/06/2015 to 02/28/2016 12. He was evaluated by Dr. Jensen and received Y 90 treatment to the right lobe of the liver through right hepatic artery dose 41.85 mCi on 03/23/2016. He responded well to that treatment. CEA on 05/12/16 was 5.3 as compared to 10.4 on 04/17/16 13. 10/02/16: PET shows progression through thickening rectosigmoid, also numerous hepatic lesions. Also, CEA now 53.1 on 09/28/16. Panitumumab milligrams per KG IV every 2 weeks cycle one on 10/12/2016 he developed grade 3 rash just after 3 days. The acneform rash continued to get worse He is using clindamycin topical doxycycline 100 mg by mouth twice a day we will add triamcinolone 0.1 mg topical ointment. I did postpone cycle 2 for 12/02/2016 but with this rash getting worse he wants to stop panitumumab which is reasonable 14. Discussed at the colon tumor board 11/03/2016. The consensus is to give systemic treatment. Lonsurf 20 mg 4 tablets twice a day Sunday through Sunday for 2 consecutive weeks followed by 2 weeks off. Cycle one started on 11/13/2016 Assessment: 1. Metastatic rectal cancer. Had multiple treatments as mentioned above. PET scan on 09/21/16 shows progression through thickening rectosigmoid with hypermetabolic activity, numerous hepatic lesions. Also, CEA now increased 53.1 on 09/28/16. Genetic testing K-pallavi wild type. Complete PALLAVI panel also negative on 10/12/2016 Microsatellites stable on 11/07/2016 Lonsurf 20 mg 4 tablets by mouth twice a day Sunday through Sunday for 2 consecutive weeks followed by 2 weeks off Cycle one 11/13/2016. Tolerating it well CEA on 11/20/16 was 110.4 compared to 127.0 on 10/31/16 Continue to monitor CBC for cytopenias 2. Most of his disease is in the right lobe of the liver. He had Y 90 treatment to right lobe of the liver twice. Discussed at GI tumor Board 2016. May consider chemoembolization in the future current decision is to give systemic treatment May also consider referral to [facility] in the near future if he fails standard treatment. 3. Colonoscopy Dr. Head on 03-18-14 showed sessile mass in the mid rectum biopsy tubular adenoma with high-grade dysplasia. Currently PET scan showed increased uptake the rectosigmoid region. He had another colonoscopy scheduled with Dr. Head for 12/13/2016 4. Thrombocytopenia. Probably related to fatty liver from diabetes. Platelets table between 100-120 K Also low B12 of 230. B12 1000 g IM. This has helped Likely accounting for 225,000 in October 2016 5. Type 2 diabetes mellitus. Blood glucose improved 6. Mild hypothyroidism. On Synthroid 100 g a day for the last 2 years or so. TSH normal on October 2016 Patient is currently hospitalized for suspected syncopal episodes versus TIA after presenting with recurrent spells of passing out. Oncology is consulted re: Concern about contribution from recently started Lonsurf to his current presentation. Patient seen and examined at bedside. Chart review for details of ongoing care of the hospitalist team which is much appreciated. Shannan was present in at time of evaluation and provided additional information. He completed his most recent cycle of Lonsurf around the time of his last visit with Dr. Dsouza. He thinks he has returned to his usual baseline and feeling much better this morning. Neurology has been following and initial head CT was unremarkable. He is scheduled for brain MRI later today. I reviewed Dr. Quesada's consultation report and I proceed his input. His workup is otherwise significant for mild pancytopenia which may be related to ongoing Lonsurf therapy. Imaging studies of the brain, chest etc. unremarkable so far for acute abnormality. Patient reports similar episodes of acute neurocognitive symptoms with Xeloda and is wondering if his current episode maybe similarly related to antineoplastic therapy. Rest of past medical, surgical, family, social history detailed below and verified with patient today. Review of systems: 12 point review of systems performed with patient and positive findings noted in history of present illness. All other systems are negative: Physical exam: Vital Signs Temp 97.8 F 11/29/16 06:33 Pulse 83 11/29/16 06:33 Resp 14 11/29/16 06:33 BP 130/76 11/29/16 06:33 Pulse Ox 99 11/29/16 06:33 GENERAL: Alert and oriented, comfortable appearing. Mental Status: Affect appropriate for circumstances HEENT: Sclerae anicteric. No mucositis or thrush. No other oral or pharyngeal lesions or erythema. Skin: No rashes or petechiae. No evidence of skin malignancy Lymph nodes: No cervical, supraclavicular, axillary, or inguinal adenopathy. Lungs: Clear to auscultation bilaterally. Clear to percussion bilaterally. Cardiovascular: Regular rate and rhythm. No gallops, murmurs, or rubs. Abdomen: Soft, nontender; No organomegaly or masses palpable. Extremities: No edema. No calf swelling or tenderness. No joint deformity. Neurologic: Alert, normal gait; no focal weakness or sensory abnormalities. Results: Laboratory Last Values WBC 3.7 K/mcL (4.3-11.1) L 11/28/16 00:24 RBC 3.86 M/mcL (4.19-5.50) L 11/28/16 00:24 Hgb 11.0 g/dL (12.9-16.9) L 11/28/16 00:24 Hct 33.1 % (37.5-50.1) L 11/28/16 00:24 MCV 85.8 fL (83.0-100.0) 11/28/16 00:24 MCH 28.5 pg (28.0-33.3) 11/28/16 00:24 MCHC 33.2 g/dL (31.6-35.5) 11/28/16 00:24 RDW 13.6 % (11.5-14.5) 11/28/16 00:24 Plt Count 100 K/mcL (140-400) L 11/28/16 00:24 MPV 9.5 fL (9.4-12.4) 11/28/16 00:24 Immature Gran % 0.5 % (0-4) 11/28/16 00:24 Seg Neutrophils % 65.7 % 11/28/16 00:24 Lymphocytes % 27.0 % 11/28/16 00:24 Monocytes % 5.4 % 11/28/16 00:24 Eosinophils % 1.1 % 11/28/16 00:24 Basophils % 0.3 % 11/28/16 00:24 Neutrophils # 2.4 K/mcL (1.6-8.9) 11/28/16 00:24 Lymphocytes # 1.0 K/mcL (0.6-4.6) 11/28/16 00:24 Monocytes # 0.2 K/mcL (0.0-1.3) 11/28/16 00:24 Eosinophils # 0.0 K/mcL (0.0-0.6) 11/28/16 00:24 Basophils # 0.0 K/mcL (0.0-0.2) 11/28/16 00:24 PT 13.2 Seconds (9.4-12.1) H 11/28/16 00:24 INR 1.2 11/28/16 00:24 APTT 27.9 Seconds (26.0-36.0) 11/28/16 00:24 Sodium 133 mEq/L (136-145) L 11/29/16 04:22 Potassium 4.1 mEq/L (3.5-4.5) 11/29/16 04:22 Chloride 98 mEq/L (98-109) 11/29/16 04:22 Carbon Dioxide 28 mEq/L (19-29) 11/29/16 04:22 BUN 9 mg/dL (8-26) 11/29/16 04:22 Creatinine 0.83 mg/dL (0.72-1.25) 11/29/16 04:22 Est GFR ( Amer) > 60 (> 60) 11/29/16 04:22 Est GFR (Non-Af Amer) > 60 (> 60) 11/29/16 04:22 BUN/Creatinine Ratio 11 (6-26) 11/29/16 04:22 Glucose 348 mg/dL (70-99) H 11/29/16 04:22 POC Glucose 257 (58-89) H 11/28/16 12:22 Calculated Osmolality 289 (280-300) 11/29/16 04:22 Calcium 9.0 mg/dL (8.6-10.8) 11/29/16 04:22 Total Bilirubin 0.4 mg/dL (0.2-1.2) 11/29/16 04:22 Direct Bilirubin 0.5 mg/dL (0.0-0.5) 11/27/16 19:56 Indirect Bilirubin 0.8 mg/dL (0.0-1.2) 11/27/16 19:56 AST 18 Units/L (5-34) 11/29/16 04:22 ALT 25 Units/L (0-55) 11/29/16 04:22 Alkaline Phosphatase 138 Units/L (38-126) H 11/29/16 04:22 Ammonia 17 mcmol/L (18-72) L 11/27/16 19:56 Troponin I 0.01 ng/mL (0-0.03) 11/28/16 05:38 Serum Total Protein 6.6 g/dL (6.0-8.3) 11/29/16 04:22 Albumin 3.1 g/dL (3.5-5.0) L 11/29/16 04:22 Globulin 3.5 g/dL (2.4-3.5) 11/29/16 04:22 Albumin/Globulin Ratio 0.9 (1.1-2.2) L 11/29/16 04:22 Triglycerides 119 mg/dL (< 150) 11/28/16 05:38 Cholesterol 125 mg/dL (< 200) 11/28/16 05:38 LDL Cholesterol, Calc 70 mg/dL (0-99) 11/28/16 05:38 VLDL Cholesterol, Calc 24 mg/dL (< 31) 11/28/16 05:38 HDL Cholesterol 31 mg/dL (40-59) L 11/28/16 05:38 Cholesterol/HDL Ratio 4.0 (0-4.9) 11/28/16 05:38 TSH 5.637 mcIU/mL (0.350-4.840) H 11/27/16 19:56 Free T4 1.22 ng/dl (0.70-1.48) 11/27/16 19:56 Free T3 2.61 pg/mL (1.71-3.71) 11/27/16 19:56 Urine Color Yellow (Yellow) 11/27/16 21:12 Urine Clarity Clear (Clear) 11/27/16 21:12 Urine pH 7.0 pH Units (5.0-8.0) 11/27/16 21:12 Ur Specific [place] 1.016 (1.010-1.025) 11/27/16 21:12 Urine Protein Negative mg/dL (Neg-Trace) 11/27/16 21:12 Urine Glucose (UA) Normal mg/dL (Normal) 11/27/16 21:12 Urine Ketones Negative mg/dL (Negative) 11/27/16 21:12 Urine Blood Negative (Negative) 11/27/16 21:12 Urine Nitrite Negative (Negative) 11/27/16 21:12 Urine Bilirubin Negative (Negative) 11/27/16 21:12 Urine Urobilinogen Normal mg/dL (Normal) 11/27/16 21:12 Ur Leukocyte Esterase Negative (Negative) 11/27/16 21:12 Ur Culture Indicated? NO (NO) 11/27/16 21:12 Urine Opiates Screen Negative ng/mL (Cupwtt=227) 11/27/16 21:12 Ur Barbiturates Screen Negative ng/mL (Dzzpgp=365) 11/27/16 21:12 Ur Phencyclidine Scrn Negative ng/mL (Cutoff=25) 11/27/16 21:12 Ur Amphetamines Screen Negative ng/mL (Yxigxy=5538) 11/27/16 21:12 U Benzodiazepines Scrn Negative ng/mL (Hvivqp=283) 11/27/16 21:12 Urine Cocaine Screen Negative ng/mL (Cutoff= 300) 11/27/16 21:12 U Marijuana (THC) Screen Negative ng/mL (Cutoff = 50) 11/27/16 21:12 Ethyl Alcohol < 10 mg/dL (0-10) 11/27/16 19:56 Blood Type O POSITIVE 11/28/16 00:24 Antibody Screen NEGATIVE 11/28/16 00:24 Radiographic studies: I personally reviewed and interpreted patient's most recent imaging studies dated 11/27-09/11. I discussed the findings with the patient today. Chest X-Ray 11/27/16 19:52 IMPRESSION: 1. No acute cardiopulmonary disease. D/ / Byron Zhong MD / Byron Zhong MD Interpreting Provider: Byron Zhong MD Chest CTA 11/27/16 19:53 IMPRESSION: No evidence of pulmonary embolism or acute pulmonary abnormality. D/ / Roland Card MD / Roland Card MD Interpreting Provider: Roland Card MD Head CT 11/28/16 00:05 IMPRESSION: No acute intracranial abnormality. Advanced intracranial atherosclerosis for age. Findings were discussed with Edis Cabral at 12:32 am on 11/28/2016. D/ / Grecia Dubose MD / Grecia Dubose MD Interpreting Provider: Grecia Dubose MD Impression/recommendations: Metastatic colorectal cancer. Liver involvement. Currently on Lonsurf therapy. Appears to be tolerating treatment relatively well with no unexpected side effects. We reviewed side effects of TAS-102 patient, his and myself today. Neurocognitive symptoms is not a common side effect. In spite of that, this is a relatively new agent and if extensive neurologic workup returns negative otherwise, he will need to be monitored for recurrence of similar symptoms with subsequent cycles which would point to contribution from medication to his neurocognitive symptoms. Otherwise, since he is running out of treatment options for his metastatic colorectal cancer, I think is prudent to ascertain contribution from this medication to his presentation prior to stopping. He still has another week off medication at least prior to resuming a new cycle and he will get in to see Dr. Melchor prior to starting his new treatment cycle. No acute symptoms attributable to colorectal cancer on Lonsurf today. Pancytopenia: Mild severity. Likely related to Lonsurf. No intervention needed for his current counts. We will continue to monitor his counts and outpatient and if needed we will consider transfusion support/growth factors per Dr. Melchor. Acute neurologic symptoms: Symptoms appear to have completely resolved this morning. Neurologist following appreciative input. I will follow along with the recommendations. We will follow the patient further with you. Please call with questions. Thanks for your excellent ongoing care and for allowing us to see him while in- house. Past Med Surg Social Fam HX - Past Medical History Medical history: arthritis, cancer, diabetes, GERD, thyroid disease, other Psychiatric history: anxiety, depression - Past Surgical History Surgical History: other - Social History Smoking Status: Former smoker Smokeless Tobacco Status: Yes Alcohol use: none Drug use: none - Family History Mother Hx Family Cardiac Disorders: Yes Medications and Allergies Metformin HCl [Glucophage Xr] 1,000 mg PO BID 02/23/15 [History] Insulin Glargine,Hum.rec.anlog [Lantus Solostar] 0 unit SQ HS PRN 03/10/15 [ History] Acetaminophen/Butalbital/Caffe [Fioricet] 1 each PO TID PRN #90 tablet 04/13/15 [Rx] Cyclobenzaprine [Flexeril] 10 mg PO TID PRN 07/16/15 [History] Prochlorperazine Maleate [Compazine] 10 mg PO Q6HR PRN #120 tablet 02/07/16 [Rx] Ondansetron HCl [Zofran] 4 mg PO Q6H PRN #30 tablet 03/24/16 [Rx] OxyCODONE/APAP 7.5/325 [Percocet 7.5/325 MG] 1 each PO Q6H PRN #30 tablet [Rx] Hydromorphone HCl [Dilaudid] 1 tab PO Q6H PRN #90 tablet 04/17/16 [Rx] Zolpidem [Ambien] 10 mg PO HS PRN 10/03/16 [History] Triamcinolone Acet 0.1% OINT [Kenalog] 1 appl TP TID #1 tube 10/20/16 [Rx] Trifluridine/Tipiracil HCl [Lonsurf 20 mg-8.19 mg Tablet] 4 tab PO BID #80 tablet 11/01/16 [Rx] Citalopram Hydrobromide [Celexa] 20 mg PO DAILY #90 tablet 11/20/16 [Rx] Atorvastatin [Lipitor] 10 mg PO HS 11/27/16 [History] Levothyroxine [Synthroid] 75 mcg PO 0630 11/27/16 [History] Omeprazole [PriLOSEC] 40 mg PO DAILY 11/27/16 [History] Pioglitazone HCl [Actos] 30 mg PO DAILY 11/27/16 [History] Allergies capecitabine [From Xeloda] Allergy (Verified 11/22/16 11:12) Hallucinating Oncology - Exam - Constitutional Vitals: Temp Pulse Resp BP Pulse Ox 97.8 F 83 14 130/76 99 11/29/16 06:33 11/29/16 06:33 11/29/16 06:33 11/29/16 06:33 11/29/16 06:33 Oncology - Results - Labs Labs: [facility] 11/29/16 04:22 Sodium 133 L Potassium 4.1 Chloride 98 Carbon Dioxide 28 BUN 9 Creatinine 0.83 Glucose 348 H Calcium 9.0 Liver Function 11/29/16 Range/Units 04:22 Total Bilirubin 0.4 (0.2-1.2) mg/dL AST 18 (5-34) Units/L ALT 25 (0-55) Units/L Alkaline Phosphatase 138 H (38-126) Units/L Albumin 3.1 L (3.5-5.0) g/dL Consult Discharge Plan - Plan Referrals: Ander Patel MD [Primary Care Provider] -
[2016-11-29] MEDS: Insulin LISPRO 300 UNITS/3 ML VIAL SQ SCH ×2 (10:47→12:28)
--- NOTE | 2016-11-29 13:11 | Electrocardiograph Report ---
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
[2016-11-29 14:10] VITALS: BP 113/76
--- NOTE | 2016-11-29 15:41 | Neurology Progress Note ---
Date of Encounter: 11/29/16 Time of Encounter: 15:39 Assessment and Plan (1) Altered mental status Current Visit: Yes Status: Acute At this juncture Mr. Chaidez is back at his normal neurologic baseline. I am not able to identify a specific etiology to explain this phenomenon. However etiologies to consider waking and include TIA, vasovagal event, medication event , anxiety/panic attack as well as transient global amnesia. I am not convinced that this is a seizure. However, believe that from a neurologic perspective is stable for discharge. I will reevaluate him at your request. Qualifiers: Altered mental status type: unspecified Qualified Code(s): R41.82 - Altered mental status, unspecified Subjective Interval history: I had the pleasure of following up with Adrien Chaidez today regarding an episode of altered mental status. His mental status has been back to baseline since admission. He did have an MRI scan of his brain completed which is essentially normal. He reveals no evidence of an acute infarct, reveals no evidence of a metastatic process. There is no focal atrophy. At this point he is back at his normal baseline at least from a neurologic perspective. Objective - Constitutional Vitals: Temp Pulse Resp BP Pulse Ox 98.5 F 92 16 113/76 100 11/29/16 14:08 11/29/16 14:08 11/29/16 14:08 11/29/16 14:08 11/29/16 14:08 - Neurological Exam Motor Examination: Present: full strength in all major muscle groups Motor examination - right side: 5/5: deltoids, biceps, triceps, wrist flexion, wrist extension, public policy coordinator, hip flexors, tibialis Anterior, quadriceps, toe extension (EHL), plantarflexion Motor examination - left side: 5/5: deltoids, biceps, triceps, wrist flexion, wrist extension, hip flexors, public policy coordinator, quadriceps, tibialis Anterior, toe extension (EHL), plantarflexion Sensation intact: Present: intact Mental Status Examination: Present: awake, alert, oriented to person, oriented to place, oriented to time, follows commands appropriately, answers questions appropriately, no agnosia, no aphasia, no aproxia Cranial nerve examination: Present: PERRL, EOMI, visual castellanos intact, corneal reflexes brisk symmetrically, sensory to face intact, mastication intact, no facial asymmetry is present, no dysarthria, hearing is intact symmetrically, soft palate elevates bilaterally upon phonation, gag reflex intact, flexes SCM and trapezius muscles symmetrically with full power, tongue protrudes midline, no atrophy or facial fasiculations present Cerebellar examination: Present: no dysmetria, performs finger to nose and heel to hager symmetrically without ataxia, no gait ataxia, no truncal ataxia, no difficulty with rapid alternating movements Results - Laboratory Findings CBC and BMP: 11/28/16 00:24 11/29/16 04:22 Abnormal lab findings: Abnormal lab results WBC 3.7 K/mcL (4.3-11.1) L 11/28/16 00:24 RBC 3.86 M/mcL (4.19-5.50) L 11/28/16 00:24 Hgb 11.0 g/dL (12.9-16.9) L 11/28/16 00:24 Hct 33.1 % (37.5-50.1) L 11/28/16 00:24 Plt Count 100 K/mcL (140-400) L 11/28/16 00:24 PT 13.2 Seconds (9.4-12.1) H 11/28/16 00:24 Sodium 133 mEq/L (136-145) L 11/29/16 04:22 Glucose 348 mg/dL (70-99) H 11/29/16 04:22 POC Glucose 293 (58-89) H 11/28/16 19:52 Alkaline Phosphatase 138 Units/L (38-126) H 11/29/16 04:22 Ammonia 17 mcmol/L (18-72) L 11/27/16 19:56 Albumin 3.1 g/dL (3.5-5.0) L 11/29/16 04:22 Albumin/Globulin Ratio 0.9 (1.1-2.2) L 11/29/16 04:22 HDL Cholesterol 31 mg/dL (40-59) L 11/28/16 05:38 TSH 5.637 mcIU/mL (0.350-4.840) H 11/27/16 19:56 Consult Discharge Plan - Plan Referrals: Ander Patel MD [Primary Care Provider] -
--- NOTE | 2016-11-29 17:21 | Discharge Summary ---
Date of Encounter: 11/29/16 Time of Encounter: 17:16 - Discharge Diagnosis (1) Leukopenia Priority: Secondary Status: Chronic Qualifiers: Leukopenia type: unspecified Qualified Code(s): D72.819 - Decreased white blood cell count, unspecified (2) Anemia Priority: Secondary Status: Chronic Qualifiers: Anemia type: unspecified type Qualified Code(s): D64.9 - Anemia, unspecified (3) Syncope Priority: Primary Status: Acute Qualifiers: Syncope type: unspecified Qualified Code(s): R55 - Syncope and collapse (4) Chest pain Priority: Primary Status: Acute Qualifiers: Chest pain type: unspecified Qualified Code(s): R07.9 - Chest pain, unspecified (5) TIA (transient ischemic attack) Priority: Primary Status: Acute Qualifiers: Transient cerebral ischemia type: unspecified Qualified Code(s): G45.9 - Transient cerebral ischemic attack, unspecified (6) Diabetes mellitus Priority: Secondary Status: Chronic Qualifiers: Diabetes mellitus type: type 2 Diabetes mellitus complication status: with hyperglycemia Diabetes mellitus detention insulin use: with detention use Qualified Code(s): E11.65 - Type 2 diabetes mellitus with hyperglycemia; Z79.4 - residential (current) use of insulin (7) Rectal cancer metastasized to liver Priority: Secondary Status: Chronic - Discharge Medications Prescriptions: Aspirin [Ecotrin] 325 mg PO QAM #30 tablet.dr Acharya Medications: Metformin HCl [Glucophage Xr] 1,000 mg PO BID 02/23/15 [History] Insulin Glargine,Hum.rec.anlog [Lantus Solostar] 0 unit SQ HS PRN 03/10/15 [ History] Acetaminophen/Butalbital/Caffe [Fioricet] 1 each PO TID PRN #90 tablet 04/13/15 [Rx] Cyclobenzaprine [Flexeril] 10 mg PO TID PRN 07/16/15 [History] Prochlorperazine Maleate [Compazine] 10 mg PO Q6HR PRN #120 tablet 02/07/16 [Rx] Ondansetron HCl [Zofran] 4 mg PO Q6H PRN #30 tablet 03/24/16 [Rx] OxyCODONE/APAP 7.5/325 [Percocet 7.5/325 MG] 1 each PO Q6H PRN #30 tablet [Rx] Hydromorphone HCl [Dilaudid] 1 tab PO Q6H PRN #90 tablet 04/17/16 [Rx] Zolpidem [Ambien] 10 mg PO HS PRN 10/03/16 [History] Triamcinolone Acet 0.1% OINT [Kenalog] 1 appl TP TID #1 tube 10/20/16 [Rx] Trifluridine/Tipiracil HCl [Lonsurf 20 mg-8.19 mg Tablet] 4 tab PO BID #80 tablet 11/01/16 [Rx] Citalopram Hydrobromide [Celexa] 20 mg PO DAILY #90 tablet 11/20/16 [Rx] Atorvastatin [Lipitor] 10 mg PO HS 11/27/16 [History] Levothyroxine [Synthroid] 75 mcg PO 0630 11/27/16 [History] Omeprazole [PriLOSEC] 40 mg PO DAILY 11/27/16 [History] Pioglitazone HCl [Actos] 30 mg PO DAILY 11/27/16 [History] Aspirin [Ecotrin] 325 mg PO QAM #30 tablet. 11/29/16 [Rx] Allergies/Adverse Reactions: Allergies capecitabine [From Xeloda] Allergy (Verified 11/22/16 11:12) Hallucinating Procedures/tests Complete & Pending: Procedures Performed prior 72 hours Category Date Time Status CT stroke alert head wo con [CT] Stat Cat Scan 11/28/16 00:05 Completed MR head/brain wo/w con [MR] Routine MRI 11/28/16 02:04 Completed EV carotid duplex imaging BI Routine Y 11/28/16 02:04 Completed EV echocardiogram Routine Y 11/28/16 02:04 Completed Date of admission: 11/27/16 22:50 Primary care physician: Ander Patel MD Consults: 11/28/16 02:04 Consult to Neurology [CONS] Routine Consulting Provider: Neurology [facility] Reason for Consult: Syncope; suspected TIA/CVA Call Completed: No PT [Consult to Physical Therapy] [CONS] Routine Comment: Evaluate, develop and implement POC Reason for Consult: Syncope; suspected TIA/CVA 11/28/16 19:31 Consult to Oncology [CONS] Routine Consulting Provider: On[facility] Reason for Consult: TIA question related to chemotherapy Time Notified: 19:32 Call Completed: No Discharging clinician: Ann Smith Anticipated date of discharge: 11/29/16 - Patient Status Disposition: Home, Self-Care Condition: Fair Overall status at discharge: patient is back to baseline - Discharge Instructions Instructions: Transient Ischemic Attack (DC) Follow Up With: Ander Patel MD [Primary Care Provider] - - Diet and Activity Diet: advance to your usual diet Interval History: Adrien Coulter is a 46-year-old male who was brought in by family after he was noted to be not feeling well and had recurrent episodes during which she would pass out for a few seconds. He also complained of left-sided recurrent substernal chest pain and felt dyspneic. As EMT were called his vitals were noted in the stable range. Patient to noted to have right-sided weakness. At this time clinically she is absolutely fine well awake alert and his examination showed no focal exam. His right-sided weakness have resolved and there is no pronator shift or abnormal reflexes. His who witnessed him denies noticing any tonic-clonic activity or loss of bladder or bowel control. No recent history of trauma no prior history of coronary artery disease though he has always major risk factors including diabetes hypertension dyslipidemia and smoking. Neurology is involved and patient had non-contrast CT had echocardiogram and ultrasound of the carotids reported negative. Apparently patient has been diagnosed with colon cancer which has metastasized to liver. He is on chemoradiation treatment and his last chemotherapy was only last week. Neurology has not put any particular reason for his symptoms though these appear to be fit well with the diagnosis of TIA. Considering history of metastatic cancer I will order an MRI with contrast and also consult his oncologist to see if chemotherapy treatment has to play any role with his symptoms. Since his echocardiogram as well as troponins are negative therefore though he needs I stress stress but that needs to be delayed for 3-4 weeks considering the fact that we are considering primary neurological disorder. Plan discussed with patient Hospital course: Adrien Coulter is a 46-year-old male who was brought in by family after he was noted to be not feeling well and had recurrent episodes during which she would pass out for a few seconds. He also complained of left-sided recurrent substernal chest pain and felt dyspneic. As EMT were called his vitals were noted in the stable range. Patient to noted to have right-sided weakness. At this time clinically he is absolutely fine well awake alert and his examination showed no focal exam. His right-sided weakness have resolved and there is no pronator shift or abnormal reflexes. His who witnessed him denies noticing any tonic-clonic activity or loss of bladder or bowel control. No recent history of trauma no prior history of coronary artery disease though he has always major risk factors including diabetes hypertension dyslipidemia and smoking. Neurology is involves and non-contrast CT had echocardiogram and ultrasound of the carotids reported negative. Apparently patient has been diagnosed with colon cancer which has metastasized to liver. He is on chemoradiation treatment and his last chemotherapy was only last week. Neurology has not put any particular reason for his symptoms though these appear to be fit well with the diagnosis of TIA. Considering history of metastatic cancer I will order an MRI with contrast and also consult his oncologist to see if chemotherapy treatment has to play any role with his symptoms. Since his echocardiogram as well as troponins are negative therefore though he needs I stress stress but that needs to be delayed for 3-4 weeks considering the fact that we are considering primary neurological disorder. Plan discussed with patient - Time Spent with Patient Total time spent providing and/or coordinating discharge services: Greater than 30 minutes - Constitutional Vitals: Temp Pulse Resp BP Pulse Ox 98.5 F 92 16 113/76 100 11/29/16 14:08 11/29/16 14:08 11/29/16 14:08 11/29/16 14:08 11/29/16 14:08 - Head Head exam: Present: atraumatic, normocephalic - Eye Eye exam: Present: PERRL, conjuntiva pink, sclera anicteric Pupils: Present: PERRL - Neck Neck exam general surgery: Present: supple, trachea midline. Absent: lymphadenopathy - Respiratory Respiratory exam: Present: CTAB. Absent: accessory muscle use, rales, rhonchi, wheezes - Cardiovascular Cardiovascular exam: Present: RRR, +S1, +S2. Absent: diastolic murmur, gallop, rubs, systolic murmur - GI/Abdominal GI/Abdominal exam: Present: normal bowel sounds, soft, no peritoneal signs. Absent: distended, tenderness - Extremities Exam Extremities exam: Present: warm, radial pulses palpable and symetrical. Absent : calf tenderness, cyanotic, pedal edema - Neurological Exam Neurological exam: Present: CN II-XII intact, oriented X3, no focal deficits. Absent: pronater drift, facial droop, speech deficit - Skin Skin exam: Present: dry, intact
== END 2016-11-29 17:41 | disposition home or self-care (01) ==
LOC: EMEROO 19:35 → 3BNU 19:35
PROVIDERS: ADMIT Internal Medicine; ATTEND Nurse Practitioner Family

== ENCOUNTER 2017-05-18 10:07 | Inpatient (IN) ==
[2017-05-18] MEDS ORDERED: 0.9 % Sodium Chloride 1,000 ML IVC ONE (10:51)
[2017-05-18] MEDS ORDERED: Vancomycin 1,500 MG in D5% in Water 250 ML IVPB ONE (10:51)
[2017-05-18] MEDS ORDERED: Piperacillin/Tazobactam 3.375 GM in Water for inj. (sterile) 20 ML IVP ONE (10:51)
[2017-05-18] MEDS ORDERED: Ondansetron 4 MG/2 ML VIAL IVP ONE (11:05)
[2017-05-18] MEDS ORDERED: *HR* Morphine 2 MG/ML SYRINGE IVP ONE (11:05)
--- NOTE | 2017-05-18 11:05 | Emergency Department Note ---
Disposition Clinical Impression: Colitis Abdominal pain Qualifiers: Abdominal location: generalized Qualified Code(s): R10.84 - Generalized abdominal pain Anemia Qualifiers: Anemia type: unspecified type Qualified Code(s): D64.9 - Anemia, unspecified Ascites Qualifiers: Ascites type: malignant Qualified Code(s): R18.0 - Malignant ascites Disposition: Admitted As Inpatient Condition: Fair Referrals: Ander Patel MD [Primary Care Provider] - Forms: ED Satisfaction Letter, Work/School Release Time of Disposition: 13:34 General Adult HPI - General Chief complaint: ED Abdominal Pain Stated complaint: abd pain/distention Time Seen by Provider: 05/18/17 10:29 Source: patient Mode of arrival: ambulatory Limitations: no limitations Nursing Notes Reviewed: Yes Vital Signs Reviewed: Yes - History of Present Illness HPI Narrative: Patient presents to emergency room with complaint of abdominal pain distention and decreased stool output. Patient has long-standing history of liver cancer as well as colon cancer. He had a recent colectomy and colostomy placed. Patient has noticed some abdominal distention bloating and pain radiating up under his diaphragm. Denies any chest pain shortness of breath fevers chills nausea vomiting or diarrhea. Denies any headache or vision change. Urine output is been about the same as it always has been. Patient denies any acute changes or issues no trauma or injury at this time. Just concerned because of the distention and pain Onset (ago): day(s) Location: abdomen Radiation: non-radiation Pain Severity: moderate Pain Scale: 10 Quality: constant Consistency: constant Improves with: nothing Associated symptoms: Reports: fever/chills, loss of appetite, malaise Treatments Prior to Arrival: none - Related Data Home Medications Medication Instructions Recorded Confirmed Metformin HCl [Glucophage Xr] 1,000 mg PO BID 02/23/15 05/15/17 Cyclobenzaprine [Flexeril] 10 mg PO TID PRN 07/16/15 05/15/17 Zolpidem [Ambien] 10 mg PO HS PRN 10/03/16 05/15/17 Atorvastatin [Lipitor] 10 mg PO HS 11/27/16 05/15/17 Levothyroxine [Synthroid] 75 mcg PO 0630 11/27/16 05/15/17 Omeprazole [PriLOSEC] 40 mg PO DAILY 11/27/16 05/15/17 Pioglitazone HCl [Actos] 30 mg PO DAILY 11/27/16 05/15/17 Docusate [Colace] 100 mg PO BID 05/15/17 05/15/17 Gabapentin [Neurontin] 300 mg PO TID 05/15/17 05/15/17 Methocarbamol [Robaxin] 500 mg PO Q8HR PRN 05/15/17 05/15/17 Previous Rx's Medication Instructions Recorded Acetaminophen/Butalbital/Caffe 1 each PO TID PRN #90 tablet 04/13/15 [Fioricet] Prochlorperazine Maleate 10 mg PO Q6HR PRN #120 tablet 02/07/16 [Compazine] Ondansetron HCl [Zofran] 4 mg PO Q6H PRN #30 tablet 03/24/16 OxyCODONE/APAP 7.5/325 [Percocet 1 each PO Q6H PRN #30 tablet 03/24/16 7.5/325 MG] Hydromorphone HCl [Dilaudid] 1 tab PO Q6H PRN #90 tablet 04/17/16 Citalopram Hydrobromide [Celexa] 20 mg PO DAILY #90 tablet 11/20/16 Allergies Allergy/AdvReac Type Severity Reaction Status Date / Time capecitabine [From Xeloda] AdvReac Hallucinati Verified 05/18/17 13:17 ng All systems ED: reviewed and negative except as stated. Review of Systems: As Per HPI Constitutional: Reports: fever. Denies: chills, weakness Cardiovascular: Denies: chest pain, palpitations, dyspnea on exertion, orthopnea Respiratory: Reports: dyspnea. Denies: cough, wheezes, hemoptysis, stridor, sputum production Gastrointestinal: Reports: abdominal pain. Denies: nausea, vomiting, diarrhea, constipation Genitourinary: Denies: urgency, dysuria, frequency Musculoskeletal: Denies: back pain, neck pain Integumentary: Denies: rash Neurological: Denies: headache Psychiatric: Denies: anxiety Past Medical History - Past Medical History Attestation: Yes The following information was validated with the patient. Source: patient Medical history: Reports: arthritis, cancer, diabetes, GERD, thyroid disease, other Surgical history: Reports: other Psychiatric history: Reports: anxiety, depression - Social History Smoking Status: Former smoker Smokeless Tobacco Status: No Alcohol use: Reports: rarely Drug use: Reports: none Physical Exam - General Limitations: no limitations General appearance: alert - Head Head exam: atraumatic, normocephalic, normal inspection - Eye Eye exam: Present: normal appearance. Absent: scleral icterus, conjunctival injection - ENT ENT exam: normal exam, normal oropharynx, mucous membranes moist - Neck Neck exam: Present: normal inspection, full ROM, trachea midline. Absent: tenderness, meningismus, lymphadenopathy - Chest Chest inspection: Present: normal inspection, symmetric chest wall rise. Absent : tenderness - Respiratory Respiratory exam: Present: normal lung sounds bilaterally. Absent: respiratory distress, wheezes, stridor, accessory muscle use - Cardiovascular Cardiovascular exam: Present: normal rhythm, tachycardia, normal heart sounds - Abdominal Exam Abdominal exam: Present: soft, tenderness, distention. Absent: guarding, rebound, rigidity, normal bowel sounds, Jones's sign, Rovsing's sign, tenderness at McBurney's Point - Extremities Exam Extremities exam: Present: normal inspection, full ROM, normal capillary refill. Absent: tenderness, pedal edema - Back Exam Back exam: Present: normal inspection, full ROM. Absent: tenderness - Neurological Exam Neurological exam: Present: alert, oriented X3, CN II-XII intact, normal gait - Skin Skin exam: Present: warm, dry, intact, normal color Course Course Narrative: Patient seen and examined the time of arrival. See history of present illness. 46-year-old male presents to emergency room with chief complaint of abdominal distention pain and decreased output from his colostomy. Patient had a colostomy placed on 04/03/17 secondary to colon cancer. This colon cancer required a total colectomy. This was done in [facility]. Patient denied any complications or issues since the event. On presentation here patient is resting in the bed he does appear to be slightly pale with possible anicteric presentation to the skin. No jaundice noted on eye exam. Patient has dry mucous membranes. Abdomen is distended and tender to palpation diffusely. The ostomy appears to be patent with pink coloration to the ostomy site at this time with what appears to be firm output. Patient has no acute signs of abscesses or herniation at the laparoscopic incision sites. Patient's lungs are clear heart is regular but tachycardic. Patient does not have a fever. He is concerning for infectious or intra-abdominal pathology including ascites, progression of his cancer, SPEP, obstruction, intestinal inflammation or urinary tract symptoms with stone. Patient will have definitive evaluation treated at this time. Sepsis order set utilized that initial presentation including IV vancomycin and Zosyn. Patient will also have the screening laboratory workup included urinalysis chest x-ray and CT imaging of the abdomen without contrast. Bedside ultrasound completed showing what appears to be some mild free fluid around the intestine at this time consistent with ascites. Patient is afebrile. Disposition pending workup and treatment course. Patient will most likely need admission and is requesting to stay at this facility if we are capable of treating his conditions here. Patient is not currently in chemotherapy or radiation treatment. It has been over 3 months since his last chemotherapy treatment. - Reevaluation(s) Reevaluation #1: Patient's pain is better at this time. Will repeat dose at this point. Patient is what appears to be inflammatory transverse colitis with potential for metastases. He also has inflammatory versus metastatic ascites in the abdomen. Of note there is a renal stone in the proximal ureter at the opening. There is mild hydronephrosis. Patient has never had an obstructing stone in the past. Multiple medical issues presenting at this time including tachycardia abdominal discomfort along with possible intra-abdominal infectious etiology. Patient does not meet sepsis criteria at this time. Fluids and pain medication to be provided antibiotic regimen are restarted. Disposition will be admission to this facility. Hospitalist paged at this time Time: 13:08 Reevaluation #2: Detailed discussion was had with the hospitalist Dr. Harp. No other recommendations at this time. Patient will be admitted for symptomatic treatment and disposition. Time: 13:33 Vital Signs Temperature 98.6 F 05/18/17 10:25 Pulse Rate 125 05/18/17 10:25 Respiratory Rate 20 05/18/17 10:25 Blood Pressure 131/92 05/18/17 10:25 O2 Sat by Pulse Oximetry 96 05/18/17 10:25 Temperature 98.6 F 05/18/17 10:25 Pulse Rate 112 05/18/17 12:21 Respiratory Rate 20 05/18/17 12:21 Blood Pressure 128/90 05/18/17 12:21 O2 Sat by Pulse Oximetry 100 05/18/17 12:21 Oxygen Delivery Oxygen Delivery Nasal Cannula Medical Decision Making - MDM Narrative Medical decision making narrative: Abdominal pain, distention - Medical Records Medical records reviewed: Yes I reviewed the patient's medical records. - Lab Data Lab results reviewed: Yes I reviewed the patient's lab results. Result diagrams: 05/18/17 11:06 05/18/17 11:06 Lab Results 05/18/17 05/18/17 05/18/17 Range/Units 11:06 11:06 11:06 WBC 5.2 (4.3-11.1) K/mcL RBC 3.55 L (4.19-5.50) M/mcL Hgb 9.7 L (12.9-16.9) g/dL Hct 32.2 L (37.5-50.1) % MCV 90.7 (83.0-100.0) fL MCH 27.3 L (28.0-33.3) pg MCHC 30.1 L (31.6-35.5) g/dL RDW 14.6 H (11.5-14.5) % Plt Count 131 L (140-400) K/mcL MPV 10.2 (9.4-12.4) fL Immature Gran % 0.4 (0-4) % Seg Neutrophils % 77.0 % Lymphocytes % 11.2 % Monocytes % 10.6 % Eosinophils % 0.6 % Basophils % 0.2 % Neutrophils # 4.0 (1.6-8.9) K/mcL Lymphocytes # 0.6 (0.6-4.6) K/mcL Monocytes # 0.6 (0.0-1.3) K/mcL Eosinophils # 0.0 (0.0-0.6) K/mcL Basophils # 0.0 (0.0-0.2) K/mcL PT 14.1 H (9.4-12.1) Seconds INR 1.3 APTT 30.0 (26.0-36.0) Seconds Sodium 136 (136-145) mEq/L Potassium 3.0 L (3.5-5.1) mEq/L Chloride 98 (98-107) mEq/L Carbon Dioxide 29 (23-29) mEq/L BUN 9 (6-20) mg/dL Creatinine 0.46 L (0.70-1.30) mg/dL Est GFR ( Amer) > 60 (> 60) Est GFR (Non-Af Amer) > 60 (> 60) BUN/Creatinine Ratio 20 (6-26) Glucose 228 H (70-105) mg/dL Calculated Osmolality 288 (280-300) Lactic Acid (0.5-2.2) mmol/L Calcium 8.9 (8.6-10.3) mg/dL Phosphorus 2.6 L (2.7-4.5) mg/dL Magnesium 1.4 L (1.6-2.6) mg/dL Total Bilirubin 0.9 (0.3-1.0) mg/dL Direct Bilirubin 0.2 (0.0-0.2) mg/dL Indirect Bilirubin 0.7 (0.0-1.2) mg/dL AST 36 (13-39) Units/L ALT 19 (7-52) Units/L Alkaline Phosphatase 155 H (34-104) Units/L Ammonia (16-53) mcmol/L Troponin I (< 0.04) ng/mL B-Natriuretic Peptide (Less than 100) pg/mL Serum Total Protein 7.5 (6.4-8.9) g/dL Albumin 2.7 L (3.5-5.7) g/dL Globulin 4.8 H (2.4-3.5) g/dL Albumin/Globulin Ratio 0.6 L (1.1-2.2) Lipase 5 L (11-82) Units/L Blood Type Antibody Screen 05/18/17 05/18/17 05/18/17 Range/Units 11:06 11:06 11:06 WBC (4.3-11.1) K/mcL RBC (4.19-5.50) M/mcL Hgb (12.9-16.9) g/dL Hct (37.5-50.1) % MCV (83.0-100.0) fL MCH (28.0-33.3) pg MCHC (31.6-35.5) g/dL RDW (11.5-14.5) % Plt Count (140-400) K/mcL MPV (9.4-12.4) fL Immature Gran % (0-4) % Seg Neutrophils % % Lymphocytes % % Monocytes % % Eosinophils % % Basophils % % Neutrophils # (1.6-8.9) K/mcL Lymphocytes # (0.6-4.6) K/mcL Monocytes # (0.0-1.3) K/mcL Eosinophils # (0.0-0.6) K/mcL Basophils # (0.0-0.2) K/mcL PT (9.4-12.1) Seconds INR APTT (26.0-36.0) Seconds Sodium (136-145) mEq/L Potassium (3.5-5.1) mEq/L Chloride (98-107) mEq/L Carbon Dioxide (23-29) mEq/L BUN (6-20) mg/dL Creatinine (0.70-1.30) mg/dL Est GFR ( Amer) (> 60) Est GFR (Non-Af Amer) (> 60) BUN/Creatinine Ratio (6-26) Glucose (70-105) mg/dL Calculated Osmolality (280-300) Lactic Acid 1.5 (0.5-2.2) mmol/L Calcium (8.6-10.3) mg/dL Phosphorus (2.7-4.5) mg/dL Magnesium (1.6-2.6) mg/dL Total Bilirubin (0.3-1.0) mg/dL Direct Bilirubin (0.0-0.2) mg/dL Indirect Bilirubin (0.0-1.2) mg/dL AST (13-39) Units/L ALT (7-52) Units/L Alkaline Phosphatase (34-104) Units/L Ammonia (16-53) mcmol/L Troponin I < 0.03 (< 0.04) ng/mL B-Natriuretic Peptide 47 (Less than 100) pg/mL Serum Total Protein (6.4-8.9) g/dL Albumin (3.5-5.7) g/dL Globulin (2.4-3.5) g/dL Albumin/Globulin Ratio (1.1-2.2) Lipase (11-82) Units/L Blood Type Antibody Screen 05/18/17 05/18/17 Range/Units 11:06 11:21 WBC (4.3-11.1) K/mcL RBC (4.19-5.50) M/mcL Hgb (12.9-16.9) g/dL Hct (37.5-50.1) % MCV (83.0-100.0) fL MCH (28.0-33.3) pg MCHC (31.6-35.5) g/dL RDW (11.5-14.5) % Plt Count (140-400) K/mcL MPV (9.4-12.4) fL Immature Gran % (0-4) % Seg Neutrophils % % Lymphocytes % % Monocytes % % Eosinophils % % Basophils % % Neutrophils # (1.6-8.9) K/mcL Lymphocytes # (0.6-4.6) K/mcL Monocytes # (0.0-1.3) K/mcL Eosinophils # (0.0-0.6) K/mcL Basophils # (0.0-0.2) K/mcL PT (9.4-12.1) Seconds INR APTT (26.0-36.0) Seconds Sodium (136-145) mEq/L Potassium (3.5-5.1) mEq/L Chloride (98-107) mEq/L Carbon Dioxide (23-29) mEq/L BUN (6-20) mg/dL Creatinine (0.70-1.30) mg/dL Est GFR ( Amer) (> 60) Est GFR (Non-Af Amer) (> 60) BUN/Creatinine Ratio (6-26) Glucose (70-105) mg/dL Calculated Osmolality (280-300) Lactic Acid (0.5-2.2) mmol/L Calcium (8.6-10.3) mg/dL Phosphorus (2.7-4.5) mg/dL Magnesium (1.6-2.6) mg/dL Total Bilirubin (0.3-1.0) mg/dL Direct Bilirubin (0.0-0.2) mg/dL Indirect Bilirubin (0.0-1.2) mg/dL AST (13-39) Units/L ALT (7-52) Units/L Alkaline Phosphatase (34-104) Units/L Ammonia 29 (16-53) mcmol/L Troponin I (< 0.04) ng/mL B-Natriuretic Peptide (Less than 100) pg/mL Serum Total Protein (6.4-8.9) g/dL Albumin (3.5-5.7) g/dL Globulin (2.4-3.5) g/dL Albumin/Globulin Ratio (1.1-2.2) Lipase (11-82) Units/L Blood Type O POSITIVE Antibody Screen NEGATIVE - Radiology Data Radiology results reviewed: Yes I reviewed the patient's radiology results. - EKG Data EKG #1 EKG attestation: Yes I reviewed and interpreted this EKG. EKG results narrative: EKG shows sinus tachycardia. Intervals appear to be within normal limits. No acute signs of ST segment elevation or myocardial infarction. [place] appears to be normal. No acute signs of WPW, Brugada syndrome, electrolyte abnormality this time. No comparable EKG noted at this point Critical Care Time Critical Care Time: Yes Total Critical Care Time: 35 Attestation: Critical care performed: Time is exclusive of separately billable procedures. Time includes: direct patient care, patient reassessment, coordination of patient care, interpretation of data (laboratory data, radiology data, and respiratory data), review of patient's medical records, medical consultation and documentation of patient care. Procedures included in critical care time: Procedures excluded from critical care time:
[2017-05-18 11:15] LABS: Basophils % 0.2 %; Eosinophils % 0.6 %; Hematocrit 32.2 % (37.5-50.1); Hemoglobin 9.7 g/dL (12.9-16.9); Immature Granulocytes % 0.4 % (0-4); Lymphocytes # 0.6 K/mcL (0.6-4.6); Lymphocytes % 11.2 %; Mean Corpuscular HGB Conc 30.1 g/dL (31.6-35.5); Mean Corpuscular Hemoglobin 27.3 pg (28.0-33.3); Mean Corpuscular Volume 90.7 fL (83.0-100.0); Mean Platelet Volume 10.2 fL (9.4-12.4); Monocytes # 0.6 K/mcL (0.0-1.3); Monocytes % 10.6 %; Platelet Count 131 K/mcL (140-400); Red Blood Count 3.55 M/mcL (4.19-5.50); Red Cell Distribution Width 14.6 % (11.5-14.5)
[2017-05-18 11:20] LABS: INR 1.3; Prothrombin Time 14.1 Seconds (9.4-12.1)
[2017-05-18 11:44] LABS: Alanine Aminotransferase 19 Units/L (7-52); Albumin 2.7 g/dL (3.5-5.7); Albumin/Globulin Ratio 0.6 (1.1-2.2); Alkaline Phosphatase 155 Units/L (34-104); Aspartate Amino Transferase 36 Units/L (13-39); BUN/Creatinine Ratio 20 (6-26); Bilirubin,Direct 0.2 mg/dL (0.0-0.2); Bilirubin,Indirect 0.7 mg/dL (0.0-1.2); Bilirubin,Total 0.9 mg/dL (0.3-1.0); Blood Urea Nitrogen 9 mg/dL (6-20); Calcium 8.9 mg/dL (8.6-10.3); Carbon Dioxide 29 mEq/L (23-29); Chloride 98 mEq/L (98-107); Globulin 4.8 g/dL (2.4-3.5); Glucose 228 mg/dL (70-105); Lipase 5 Units/L (11-82); Magnesium 1.4 mg/dL (1.6-2.6); Osmolality,Calculated 288 (280-300); Phosphorous 2.6 mg/dL (2.7-4.5); Sodium 136 mEq/L (136-145); Total Protein 7.5 g/dL (6.4-8.9); eGFR For African Americans > 60 (> 60); eGFR For Non-African Americans > 60 (> 60)
[2017-05-18] MEDS ORDERED: Magnesium Sulfate 1 GM in D5% in Water 100 ML IVPB ONE (11:45)
[2017-05-18] MEDS ORDERED: Potassium Chloride 40 MEQ, Lidocaine 1% 2 ML in D5% in Water 500 ML IVPB ONE (11:46)
[2017-05-18] MEDS ORDERED: *HR* HYDROmorphone (PF) 1 MG/ML SYRINGE IVP ONE (13:08)
[2017-05-18] MEDS ORDERED: *HR* Promethazine 25 MG/ML VIAL IVP PRN (14:26)
[2017-05-18] MEDS ORDERED: Naloxone 0.4 MG/ML INJ IVP PRN (14:26)
[2017-05-18] MEDS ORDERED: Methocarbamol 500 MG TABLET PO PRN (14:36)
[2017-05-18] MEDS ORDERED: Acetaminophen/Butalbital/CaffeineTABLET PO PRN (14:36)
[2017-05-18] MEDS ORDERED: *HR* OxyCODONE/APAP 7.5/325 TABLET PO PRN (14:36)
[2017-05-18] MEDS ORDERED: Pantoprazole 40 MG VIAL IVP SCH (14:45)
--- NOTE | 2017-05-18 15:05 | Internal Med History&Physical ---
Date of Encounter: 05/18/17 Time of Encounter: 14:00 Assessment and Plan (1) Colitis Current visit: Yes Status: Acute Acute abdominal pain related to acute colitis versus metastatic disease. CT of the abdomen/pelvis today without contrast shows interval mural wall thickening and surrounding inflammatory change of the descending/proximal transverse colon. Findings may represent acute colitis however underlying malignancy/ metastatic disease is possible. Pt. reports bleeding from his colostomy yesterday. After admission, pt. began to bleed bright blood from colostomy. Surgery consult ordered and discussed w/Dr. Pena w/recommendation for NG tube placement, close monitoring of bleeding, and possible transfer if pts. bleeding increases. I appreciate the consult. IVPB Zosyn 3.375 gm Q8 for infection coverage. Stair-step pain medication for pain mgmt. Monitor I&O. Pt. discussed w /Dr. Harp who agrees w/plan of care. Pt. is at high risk for further morbidity based on suspected colitis, hx of metastatic cancer, sx, and risk factors. Inpatient. (2) Abdominal pain Current visit: Yes Status: Acute Acute abdominal pain and swelling for the past week. Pt. reports SOB associated w/increased pressure under his ribcage and diaphragm. Will continue pts. pain medications and add Dilaudid for severe pain. Monitor pt. for signs of pain. Qualifiers: Abdominal location: generalized Qualified Code(s): R10.84 - Generalized abdominal pain (3) Ascites Current visit: Yes Status: Acute Acute increased abdominal girth and pain over the past week. CT of the abdomen/ pelvis today without contrast shows interval distal colonic/rectal resection. Left lower quadrant colostomy. Moderate to large amount of ascites is either postsurgical or possibly related to malignant ascites. IR consult placed/ message left on IR voicemail for possible tapping to remove moderate to large amount of fluid. Qualifiers: Ascites type: malignant Qualified Code(s): R18.0 - Malignant ascites (4) Left ureteral stone Current visit: Yes Status: Acute CT of the abdomen/pelvis today shows interval migration of left lower pole renal calculus now within the proximal left ureter resulting in mild hydronephrosis. Monitor I&O. Urology consult ordered and discussed with Dr. Dsouza and I appreciate consult. (5) Tachycardia Current visit: Yes Status: Acute Pt. is acutely tachycardic most likely d/t current pain and SOB r/t ascites. Continuous cardiac telemetry. Pt. received 1L fluid bolus in ED. Will administer 75 mL/HR w/one 500 mL bag d/t bleeding from colostomy. Monitor pt. closely for signs of cardiac and/or respiratory distress. 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 reports dx of colorectal cancer and placement of colostomy in March [address] Chavis in [place]. Pt. reports bleeding from his colostomy yesterday. After admission, pt. began to bleed bright blood from colostomy. Surgery consult ordered and discussed w/Dr. Pena w/recommendation for NG tube placement , close monitoring of bleeding, and possible transfer if pts. bleeding increases. I appreciate the consult. H/H Q6. Continuous cardiac telemetry. Pt. to be monitored closely. (7) Metastatic cancer Current visit: Yes Status: Chronic Hx of chronic colorectal cnacer with placement of colostomy on April 03. Pt. also has hs of metastatic liver cancer and adenocarcinoma of the rectum. Oncology consult ordered and discussed w/Camille Iirzarry and I appreciate the consult. Oncology diet ordered. Nutrition consult ordered for PO supplementation. (8) Anemia Current visit: Yes Status: Chronic Hx of chronic anemia. Pts. Hgb is 9.7 and Hct is 32.2 on admission which is at or near his recent baseline. Will monitor H/H in a.m. labs and pt. for signs of bleeding. Qualifiers: Anemia type: unspecified type Qualified Code(s): D64.9 - Anemia, unspecified (9) Type 2 diabetes mellitus Current visit: Yes Status: Chronic Hx of diabetes controlled with oral anti-hyperglycemic medications. Will hold oral meds and administer low-dose correction insulin sliding scale and hypoglycemia protocol. BG checks before meals and at bedtime. A1c in a.m. labs. Qualifiers: Diabetes mellitus complication status: with unspecified complications Diabetes mellitus predatory animal exterminator insulin use: without predatory animal exterminator use Qualified Code( s): E11.8 - Type 2 diabetes mellitus with unspecified complications (10) DVT prophylaxis Current visit: Yes Status: Acute Bilateral SCDs on LEs for DVT prophylaxis d/t pts. report of bright red blood in colostomy bag yesterday. Monitor pt. for signs of bleeding. Internal Medicine - H&P: HPI Chief complaint: Abdominal pain/Swelling Admitted From: Emergency Dept Plans for Post Hospital Care: Home History of present illness: Mr. Chaidez is a 46 year old male with medical history of arthritis, colorectal cancer, metastatic liver cancer, adenocarcinoma of the rectum, diabetes controlled by oral antihyperglycemic medications, GERD, and thyroid disease presents from the ED with chief complaint of abdominal pain and swelling , decreased stool output, and shortness of breath related to abdominal pain for the past week. Patient reports bright blood in his colostomy bag yesterday. Patient states he was diagnosed with colorectal cancer and had colostomy bag placed on April 03. Patient reports weakness and loss of appetite but denies recent illness, fever, chills, nausea, vomiting , changes in vision, headache, numbness, tingling, chest pain, palpitations, pre-syncope, or syncope. Past Med Surg Social Fam HX - Past Medical History Source: patient, old records reviewed, obtained from family Medical history: arthritis, cancer (Colorectal, metastatic liver, adenocarcinoma of the rectum), diabetes, GERD (Controlled by oral anti- hyperglycemic medications), thyroid disease, other Psychiatric history: anxiety, depression - Past Surgical History Surgical History: colostomy, other - Social History Smoking Status: Former smoker Packs per day: 1-1.5 PPD - Reports quitting 20 years ago Smokeless Tobacco Status: Yes (Quit many years ago) Alcohol use: rarely Drug use: none Current living situation: Home, With Family Activity Level: Independent ambulation Recent Out of Country Travel Within the Last 8 Weeks: No Exposure or Possible Exposure to Illness During Travel: No - Family History Mother History Unknown: Yes Adopted: Yes Hx Family Cardiac Disorders: Yes Father History Unknown: Yes Adopted: Yes Sister Race: Family Member Ethnicity: Non- Living Status: Still Living Hx Family Medical Disorders: No Internal Medicine - H&P: Meds Metformin HCl [Glucophage Xr] 1,000 mg PO BID 02/23/15 [History] Acetaminophen/Butalbital/Caffe [Fioricet] 1 each PO TID PRN #90 tablet 04/13/15 [Rx] Cyclobenzaprine [Flexeril] 10 mg PO TID PRN 07/16/15 [History] Prochlorperazine Maleate [Compazine] 10 mg PO Q6HR PRN #120 tablet 02/07/16 [Rx] Ondansetron HCl [Zofran] 4 mg PO Q6H PRN #30 tablet 10/28/16 [Rx] OxyCODONE/APAP 7.5/325 [Percocet 7.5/325 MG] 1 each PO Q6H PRN #30 tablet [Rx] Hydromorphone HCl [Dilaudid] 1 tab PO Q6H PRN #90 tablet 04/17/16 [Rx] Zolpidem [Ambien] 10 mg PO HS PRN 10/03/16 [History] Citalopram Hydrobromide [Celexa] 20 mg PO DAILY #90 tablet 11/20/16 [Rx] Atorvastatin [Lipitor] 10 mg PO HS 11/27/16 [History] Levothyroxine [Synthroid] 75 mcg PO 30 11/27/16 [History] Omeprazole [PriLOSEC] 40 mg PO DAILY 11/27/16 [History] Pioglitazone HCl [Actos] 30 mg PO DAILY 11/27/16 [History] Docusate [Colace] 100 mg PO BID 05/15/17 [History] Gabapentin [Neurontin] 300 mg PO TID 05/15/17 [History] Methocarbamol [Robaxin] 500 mg PO Q8HR PRN 05/15/17 [History] 3 Allergy/AdvReac Type Severity Reaction Status Date / Time capecitabine [From Xeloda] AdvReac Hallucinati Verified 05/18/17 13:17 ng All Systems PM: A 10-system review of systems was performed and is negative for pertinent findings except as documented above in the HPI. - Constitutional Constitutional: as per HPI, anorexia, weakness, no chills, no fever(s), no night sweats - EENT Eyes: no change in vision, no discharge, no pain, no photophobia Ears: no ear discharge, no ear pain, no tinnitus Nose, mouth and throat: no dysphagia, no nasal discharge, no neck pain, no sore throat - Breasts Breasts: as per HPI - Cardiovascular Cardiovascular ROS IM: as per HPI, dyspnea, dyspnea on exertion, no chest pain, no diaphoresis, no lightheadedness, no palpitations, no syncope - Respiratory Respiratory: as per HPI, dyspnea, dyspnea on exertion, no cough, no wheezing, no excessive phlegm production - Gastrointestinal Gastrointestinal: as per HPI, abdominal pain, change in bowel habits, hematochezia, other (Abdominal swelling), no diarrhea, no hematemesis, no melena , no nausea, no vomiting - Genitourinary Genitourinary ROS male: as per HPI - Musculoskeletal Musculoskeletal ROS IM: no numbness, no tingling - Integumentary Integumentary IM: no rash, no unusual bruising - Neurological Neurological ROS: as per HPI, weakness, no confusion, no convulsions, no focal weakness, no numbness, no tingling, no tremor(s) - Psychiatric Psychiatric: as per HPI - Endocrine Endocrine IM: as per HPI - Hematologic/Lymphatic Hematologic/Lymphatic: no easy bruising - Allergic/Immunologic Allergic/Immunologic: as per HPI - Constitutional Vitals: Temp Pulse Resp BP Pulse Ox 98.6 F 72 16 129/88 98 05/18/17 10:25 05/18/17 14:13 05/18/17 14:32 05/18/17 14:32 05/18/17 14:13 General appearance: Present: cooperative, mild distress, A&O X 3, pleasant, obese, answers questions appropriately - Head Head exam: Present: atraumatic, normocephalic - Eye Eye exam: Present: PERRL, conjuntiva pink, sclera anicteric Pupils: Present: PERRL - ENT ENT exam: Present: normal exam, normal external ear exam - Neck Neck exam general surgery: Present: normal inspection, supple, trachea midline. Absent: lymphadenopathy - Respiratory Respiratory exam: Present: CTAB. Absent: accessory muscle use, rales, rhonchi, wheezes - Cardiovascular Cardiovascular exam: Present: +S1, +S2, tachycardia - GI/Abdominal GI/Abdominal exam: Present: diminished bowel sounds, soft, no peritoneal signs. Absent: distended, tenderness - Rectal Rectal exam: Present: deferred - Additional comments: exam deferred. - Extremities Exam Extremities exam: Present: warm, radial pulses palpable and symmetrical. Absent : calf tenderness, cyanotic, pedal edema - Back Exam Back exam: Present: normal inspection - Neurological Exam Neurological exam: Present: CN II-XII intact, oriented X3, no focal deficits. Absent: pronater drift, facial droop, speech deficit - Psychiatric Psychiatric exam: Present: normal affect, normal mood - Skin Skin exam: Present: dry, intact Internal Med - H&P Results - Labs CBC & Chem 7: 05/18/17 17:39 05/18/17 11:06 - EKG Data EKG shows normal: sinus rhythm Rate: tachycardia - EKG Data Prior EKG available for review: no Interpretation IM: suggestive of ischemia EKG comments: 05/18/17 15:12 EKG dated 05/18/17 shows sinus tachycardia with possible anterior myocardial infarction, probably old.
[2017-05-18] MEDS ORDERED: *HR* Dextrose 50 % in Water (Syg) 50 ML SYRINGE IVP PRN (15:21)
[2017-05-18] MEDS ORDERED: Dextrose Gel 15 GM/37.5 ML TUBE PO PRN ×2 (15:21)
[2017-05-18] MEDS ORDERED: D5% in Water 1,000 ML IVC PRN (15:21)
[2017-05-18] MEDS: *HR* HYDROmorphone (PF) 1 MG/ML SYRINGE IVP PRN ×2 (16:24→20:37)
[2017-05-18] MEDS: Gabapentin 300 MG CAPSULE PO SCH ×2 (16:24→19:46)
[2017-05-18] MEDS: Insulin LISPRO 300 UNITS/3 ML VIAL SQ SCH (16:24)
--- NOTE | 2017-05-18 17:21 | Oncology Inp Consult Note ---
Date of Encounter: 05/18/17 Time of Encounter: 16:30 Assessment and Plan (1) Abdominal pain Status: Acute Assessment and plan: Stage IV adenocarcinoma rectum s/p APR on 04/03/17. Possible malignant ascitis, consider paracentesis with cytology for both diagnostic and therapeutic reasoning. Pain currently controlled with use of IV Dilaudid. Patient has received multiple treatments since 2012 with resistance and progression of metastatic disease, most recent treatment included Lonsurf which was stopped due to progression in January. Bleeding from ostomy site-s/p AP resection 04/13, appreciate GI/surgical evaluation for recommendation and management. Anemia likely from recent surgery and bleeding, chronic thrombocytopenia likely related to cirrhosis secondary to uncontrolled type 2 diabetes. Due to recent APR, unable to determine at this time whether changes on CT are related to inflammatory response/colitis vs malignant disease. Qualifiers: Abdominal location: generalized Qualified Code(s): R10.84 - Generalized abdominal pain - Data of Consult Requesting Physician: Jason Corey Primary Care Provider: Ander Patel MD - Consult Narrative Reason for consult: Stage IV Adenocarcinoma rectum History of present illness: Mr. Chaidez is a 46 year old male with past medical history significant for arthritis, diabetes controlled by oral antihyperglycemic medications, GERD, thyroid disease, chronic thrombocytopenia likely from cirrhosis and Stage IV adenocarcinoma of the rectum [id number] with multiple liver metastases originally diagnosed in 2012, presents from the ED with chief complaint of worsening abdominal pain and ascites, decreased stool output/blood in colostomy bag, and shortness of breath related to abdominal pain for the past week. Patient has received multiple treatments since 2012 with resistance and progression of metastatic disease, most recent treatment included Lonsurf which was stopped due to progression in January. Underwent APR on 04/03/17 with permanent colostomy. He is not a candidate for liver resection. Dr. Melchor, his treating oncologist, had planned to recovery from APR prior to beginning further systemic chemotherapy. Past Med Surg Social Fam HX - Past Medical History Medical history: arthritis, cancer (Colorectal, metastatic liver, adenocarcinoma of the rectum), diabetes, GERD (Controlled by oral anti- hyperglycemic medications), thyroid disease, other Psychiatric history: anxiety, depression - Past Surgical History Surgical History: colostomy, other - Social History Smoking Status: Former smoker Packs per day: 1-1.5 PPD - Reports quitting 20 years ago Smokeless Tobacco Status: Yes (Quit many years ago) Alcohol use: rarely Drug use: none - Family History Father History Unknown: Yes Adopted: Yes Sister Race: Family Member Ethnicity: Non- Living Status: Still Living Hx Family Medical Disorders: No Mother History Unknown: Yes Adopted: Yes Hx Family Cardiac Disorders: Yes Medications and Allergies Metformin HCl [Glucophage Xr] 1,000 mg PO BID 02/23/15 [History] Acetaminophen/Butalbital/Caffe [Fioricet] 1 each PO TID PRN #90 tablet 04/13/15 [Rx] Cyclobenzaprine [Flexeril] 10 mg PO TID PRN 07/16/15 [History] Prochlorperazine Maleate [Compazine] 10 mg PO Q6HR PRN #120 tablet 02/07/16 [Rx] Ondansetron HCl [Zofran] 4 mg PO Q6H PRN #30 tablet 03/24/16 [Rx] OxyCODONE/APAP 7.5/325 [Percocet 7.5/325 MG] 1 each PO Q6H PRN #30 tablet [Rx] Hydromorphone HCl [Dilaudid] 1 tab PO Q6H PRN #90 tablet 04/17/16 [Rx] Zolpidem [Ambien] 10 mg PO HS PRN 10/03/16 [History] Citalopram Hydrobromide [Celexa] 20 mg PO DAILY #90 tablet 11/20/16 [Rx] Atorvastatin [Lipitor] 10 mg PO HS 11/27/16 [History] Levothyroxine [Synthroid] 75 mcg PO 0630 11/27/16 [History] Omeprazole [PriLOSEC] 40 mg PO DAILY 11/27/16 [History] Pioglitazone HCl [Actos] 30 mg PO DAILY 11/27/16 [History] Docusate [Colace] 100 mg PO BID 05/15/17 [History] Gabapentin [Neurontin] 300 mg PO TID 05/15/17 [History] Methocarbamol [Robaxin] 500 mg PO Q8HR PRN 05/15/17 [History] 3 Allergy/AdvReac Type Severity Reaction Status Date / Time capecitabine [From Xeloda] AdvReac Hallucinati Verified 12/22/17 13:17 ng Constitutional: Present: weakness. Absent: chills, fever(s), frequent falls Eyes: Absent: blurry vision Ears: Absent: decreased hearing Cardiovascular: Absent: chest pain, edema, irregular heart rhythm, palpitations Respiratory: Present: dyspnea. Absent: cough Gastrointestinal: Present: abdominal pain. Absent: nausea, vomiting Additional comments: bloody drainage in colostomy, reports bloating/abdominal fluid accumulation Additional comments: Denies dysuria or hematuria, reports decreased stream Musculoskeletal: Present: arthralgias, back pain, muscle weakness Additional comments: colostomy, continues to need dressing changes to rectal area 2x weekly for APR performed in March Neurological: Absent: abnormal hearing, dizziness, focal weakness, headache(s), vertigo Psychiatric: Absent: depression Endocrine: Absent: change in body appearance Hematologic/Lymphatic: Absent: lymphadenopathy Oncology - Exam - Constitutional Vitals: Temp Pulse Resp BP Pulse Ox 98.3 F 115 11 138/89 97 05/18/17 15:19 05/18/17 15:19 05/18/17 15:19 05/18/17 15:19 05/18/17 15:19 General appearance: cooperative, no acute distress, obese, no febrile - Head Head exam: Present: normal inspection - Eye Eye exam: Present: PERRL - ENT ENT exam: Present: mucous membranes moist - Neck Neck exam: Absent: lymphadenopathy, tenderness - Respiratory Respiratory exam: Present: CTAB - Cardiovascular Cardiovascular exam: Present: RRR - GI/Abdominal GI/Abdominal exam: Present: diminished bowel sounds, distended, tenderness - Extremities Exam Extremities exam: Present: full ROM. Absent: pedal edema - Neurological Exam Neurological exam: Present: alert, CN II-XII intact, oriented X3, strengths equal and symetr throughout - Psychiatric Psychiatric exam: Present: normal affect - Skin Skin exam: Present: normal color Oncology - Results CT/CT abd pelvis wo no iv no oral IMPRESSION: Interval migration of left lower pole renal calculus, now within the proximal left ureter resulting in mild hydronephrosis. Interval distal colonic/ rectal resection. Left lower quadrant colostomy. [id number] amount of ascites is either postsurgical or possibly related to malignant ascites. Interval mural wall thickening and surrounding inflammatory change of the ascending/proximal transverse colon. Findings may represent acute colitis, however underlying malignancy/metastatic disease is possible. Cholelithiasis. Questionable developing fluid collection within the region of the rectum with suspected diffusely tract formation to the skin surface. Direct visualization/inspection suggested. D/ / Nathan Daniel MD / Nathan Daniel MD Consult Discharge Plan - Plan Referrals: Ander Patel MD [Primary Care Provider] -
--- NOTE | 2017-05-18 17:43 | Event Note ---
Date of Encounter: 05/18/17 Time of Encounter: 17:38 Patient seen and examined with nurse practitioner. Patient presents with a main complain of abdominal pain and distention. Patient has moderate to large ascitis. Likely related to spread of his colorectal cancer. He has thickening in the colon with fluid surrounding collection so will keep on zosyn for now.Will ask for oncology evaluation regarding further management and goals of care. He wants to be full code. 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 Inpatient admission
[2017-05-18 17:58] LABS: Hematocrit 30.5 % (37.5-50.1); Hemoglobin 9.3 g/dL (12.9-16.9)
--- NOTE | 2017-05-18 17:58 | Urology - Consult Note ---
Date of Encounter: 05/18/17 Time of Encounter: 17:52 - Assessment and Plan (1) Left ureteral stone Current Visit: Yes Status: Acute Assessment and plan: 46-year-old man with metastatic colon cancer presents with a left proximal ureteral stone. His renal function is normal. His urinalysis does not appear infected. He is having some pain associated with it. I recommend proceeding with a cystoscopy and left ureteral stent placement. I discussed the risks of the surgery which include but are not limited to bleeding, infection, injury to other structures, need for further procedures, stent irritation, need for nephrostomy tube, and the risk of anesthesia. He is willing to proceed. I discussed that we would then treat his stone definitively with ureteroscopy at a later date as an outpatient. Urology [id number] Consult date: 05/18/17 Reason for consult Urology: Other (Left ureteral stone) History of present illness: 46-year-old man presented with abdominal pain, nausea, and vomiting. He has a history of metastatic colon cancer. His CT which was obtained emergency room showed evidence of approximately 6 mm left proximal ureteral stone causing some hydronephrosis. He says he is having some back pain, but attributed to his chronic back issues. He denies any fevers or chills. He reports some slowing of his stream but no other urinary issues. He denies any history of kidney stones. Past Med Surg Social Fam HX - Past Medical History Medical history: arthritis, cancer (Colorectal, metastatic liver, adenocarcinoma of the rectum), diabetes, GERD (Controlled by oral anti- hyperglycemic medications), thyroid disease, other Psychiatric history: anxiety, depression - Past Surgical History Surgical History: colostomy, other - Social History Smoking Status: Former smoker Packs per day: 1-1.5 PPD - Reports quitting 20 years ago Smokeless Tobacco Status: Yes (Quit many years ago) Alcohol use: rarely Drug use: none - Family History Father History Unknown: Yes Adopted: Yes Sister Race: Family Member Ethnicity: Non- Living Status: Still Living Hx Family Medical Disorders: No Mother History Unknown: Yes Adopted: Yes Hx Family Cardiac Disorders: Yes Medications and Allergies Metformin HCl [Glucophage Xr] 1,000 mg PO BID 02/23/15 [History] Acetaminophen/Butalbital/Caffe [Fioricet] 1 each PO TID PRN #90 tablet 04/13/15 [Rx] Cyclobenzaprine [Flexeril] 10 mg PO TID PRN 07/16/15 [History] Prochlorperazine Maleate [Compazine] 10 mg PO Q6HR PRN #120 tablet 02/07/16 [Rx] Ondansetron HCl [Zofran] 4 mg PO Q6H PRN #30 tablet 03/24/16 [Rx] OxyCODONE/APAP 7.5/325 [Percocet 7.5/325 MG] 1 each PO Q6H PRN #30 tablet [Rx] Hydromorphone HCl [Dilaudid] 1 tab PO Q6H PRN #90 tablet 04/17/16 [Rx] Zolpidem [Ambien] 10 mg PO HS PRN 10/03/16 [History] Citalopram Hydrobromide [Celexa] 20 mg PO DAILY #90 tablet 11/20/16 [Rx] Atorvastatin [Lipitor] 10 mg PO HS 11/27/16 [History] Levothyroxine [Synthroid] 75 mcg PO 0630 11/27/16 [History] Omeprazole [PriLOSEC] 40 mg PO DAILY 11/27/16 [History] Pioglitazone HCl [Actos] 30 mg PO DAILY 11/27/16 [History] Docusate [Colace] 100 mg PO BID 05/15/17 [History] Gabapentin [Neurontin] 300 mg PO TID 05/15/17 [History] Methocarbamol [Robaxin] 500 mg PO Q8HR PRN 05/15/17 [History] 3 Allergy/AdvReac Type Severity Reaction Status Date / Time capecitabine [From Xeloda] AdvReac Hallucinati Verified 05/18/17 13:17 ng Review of Systems - Constitutional no chills, no fever(s) - EENT Nose, mouth and throat: no dizziness - Cardiovascular no chest pain - Respiratory no dyspnea - Gastrointestinal nausea - Genitourinary flank pain, no hematuria - Musculoskeletal no back pain - Integumentary no erythema, no rash - Neurological no weakness - Psychiatric no suicidal ideation - Hematologic/Lymphatic no easy bleeding - Allergic/Immunologic no wheezing Exam Initial Vital Signs Temp Pulse Resp BP Pulse Ox 98.6 F 125 20 131/92 96 05/18/17 10:25 05/18/17 10:25 05/18/17 10:25 05/18/17 10:25 05/18/17 10:25 - General physical appearance Present: well developed, well nourished, no distress - Eyes Absent: icteric - ENT Present: normal mucosa - Neck Present: trachea midline - Respiratory Present: normal respiratory effort - Cardiovascular Cardiovascular exam IM: RRR - Abdomen Abdomen: Present: soft Urology Results - Labs 05/18/17 11:06 05/18/17 11:06 Abnormal lab results RBC 3.55 M/mcL (4.19-5.50) L 05/18/17 11:06 Hgb 9.7 g/dL (12.9-16.9) L 05/18/17 11:06 Hct 32.2 % (37.5-50.1) L 05/18/17 11:06 MCH 27.3 pg (28.0-33.3) L 05/18/17 11:06 MCHC 30.1 g/dL (31.6-35.5) L 05/18/17 11:06 RDW 14.6 % (11.5-14.5) H 05/18/17 11:06 Plt Count 131 K/mcL (140-400) L 05/18/17 11:06 PT 14.1 Seconds (9.4-12.1) H 05/18/17 11:06 Potassium 3.0 mEq/L (3.5-5.1) L 05/18/17 11:06 Creatinine 0.46 mg/dL (0.70-1.30) L 05/18/17 11:06 Glucose 228 mg/dL (70-105) H 05/18/17 11:06 POC Glucose 255 (58-89) H 05/18/17 15:21 Phosphorus 2.6 mg/dL (2.7-4.5) L 05/18/17 11:06 Magnesium 1.4 mg/dL (1.6-2.6) L 05/18/17 11:06 Alkaline Phosphatase 155 Units/L (34-104) H 05/18/17 11:06 Albumin 2.7 g/dL (3.5-5.7) L 05/18/17 11:06 Globulin 4.8 g/dL (2.4-3.5) H 05/18/17 11:06 Albumin/Globulin Ratio 0.6 (1.1-2.2) L 05/18/17 11:06 Lipase 5 Units/L (11-82) L 05/18/17 11:06 All other labs normal. - Imaging CT scan - abdomen: report reviewed, image reviewed CT scan - pelvis: report reviewed, image reviewed Consult Discharge Plan - Plan Referrals: Ander Patel MD [Primary Care Provider] -
--- NOTE | 2017-05-18 18:00 | Event Note ---
Date of Encounter: 05/18/17 Time of Encounter: 16:00 PAtient was seen examined and plan discussed bed side with patient and family., Pl refer to Carolyn Irizarry NP's consultation note for full details. Possible malignant ascitis, consider paracentesis diagnostic and therapeutic. Per pt multiple chemotherapy and recurrent malignancy metastatic--last Rx lonsurf prior to surgery Bleeding from ostomy site-s/p PA resection 04/13, GI/surgical evaluation. Anemia likely from recent surgery and bleeding, Ct imaging findings noted, review surg path results--per patient he has had complete resection of gross tumor.
[2017-05-18] MEDS ORDERED: Pantoprazole 80 MG in 0.9 % Sodium Chloride 250 ML IVC SCH (18:30)
[2017-05-18] MEDS: Piperacillin/Tazobactam 3.375 GM/200 ML BAG IVPB SCH (19:43)
[2017-05-18] MEDS: 0.9 % Sodium Chloride 500 ML IVC SCH (19:44)
[2017-05-18 19:47] LABS: Bilirubin,Urine Small (Negative); Blood,Urine Negative (Negative); Clarity,Urine Clear (Clear); Color,Urine Dark Yellow (Yellow); Glucose,Urine (UA) Normal (Normal); Ketones,Urine Negative (Negative); Leukocyte Esterase,Urine Trace (Negative); Nitrite,Urine Negative (Negative); Protein,Urine 30 mg/dL (Neg-Trace); Specific Gravity,Urine > 1.030 (1.010-1.025); Urobilinogen,Urine Normal (Normal)
[2017-05-18 19:51] LABS: Bacteria,Urine None Seen per hpf (None-Few); Hyaline Casts,Urine Moderate per lpf (None-Few); Squamous Epithelial Cell,Urine Many per lpf (None-Few); WBC,Urine 30-50 per hpf (0-3)
[2017-05-18] MEDS ORDERED: Insulin LISPRO 300 UNITS/3 ML VIAL SQ SCH (21:00)
[2017-05-18 23:23] LABS: Hematocrit 30.1 % (37.5-50.1); Hemoglobin 9.3 g/dL (12.9-16.9)
[2017-05-19] MEDS: 0.9 % Sodium Chloride 500 ML IVC SCH ×2 (02:00→10:19)
[2017-05-19] MEDS: Piperacillin/Tazobactam 3.375 GM/200 ML BAG IVPB SCH ×3 (02:41→18:09)
[2017-05-19 06:01] LABS: Basophils % 0.2 %; Eosinophils # 0.1 K/mcL (0.0-0.6); Eosinophils % 1.4 %; Hematocrit 27.5 % (37.5-50.1); Hemoglobin 8.3 g/dL (12.9-16.9); Immature Granulocytes % 0.2 % (0-4); Lymphocytes # 0.7 K/mcL (0.6-4.6); Lymphocytes % 17.1 %; Mean Corpuscular HGB Conc 30.2 g/dL (31.6-35.5); Mean Corpuscular Hemoglobin 27.8 pg (28.0-33.3); Mean Platelet Volume 10.5 fL (9.4-12.4); Monocytes # 0.5 K/mcL (0.0-1.3); Monocytes % 11.5 %; Platelet Count 111 K/mcL (140-400); Red Blood Count 2.99 M/mcL (4.19-5.50); Red Cell Distribution Width 14.9 % (11.5-14.5); Segmented Neutrophils % 69.6 %
[2017-05-19] MEDS: *HR* HYDROmorphone (PF) 1 MG/ML SYRINGE IVP PRN ×4 (06:11→22:49)
[2017-05-19 06:20] LABS: Alanine Aminotransferase 17 Units/L (7-52); Albumin 2.2 g/dL (3.5-5.7); Albumin/Globulin Ratio 0.6 (1.1-2.2); Alkaline Phosphatase 127 Units/L (34-104); Aspartate Amino Transferase 30 Units/L (13-39); BUN/Creatinine Ratio 15 (6-26); Bilirubin,Total 0.5 mg/dL (0.3-1.0); Blood Urea Nitrogen 7 mg/dL (6-20); Calcium 8.2 mg/dL (8.6-10.3); Carbon Dioxide 28 mEq/L (23-29); Chloride 102 mEq/L (98-107); Globulin 3.9 g/dL (2.4-3.5); Glucose 207 mg/dL (70-105); Magnesium 1.5 mg/dL (1.6-2.6); Osmolality,Calculated 286 (280-300); Phosphorous 3.3 mg/dL (2.7-4.5); Potassium 3.2 mEq/L (3.5-5.1); Sodium 136 mEq/L (136-145); Total Protein 6.1 g/dL (6.4-8.9); eGFR For African Americans > 60 (> 60); eGFR For Non-African Americans > 60 (> 60)
[2017-05-19 06:21] LABS: Hemoglobin A1C 6.4 %
--- NOTE | 2017-05-19 07:14 | Anesthesia Evaluation PreOp ---
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 Any Significant HX Other Medical History: Renal (stones), Diabetes Type II, Thyroid, GERD, Other ( hx metastatic colorectal cancer - s/p chemo (on hold due to surgery); no radiation; has colostomy) Anesthesia History: No Prior Anesthetic Complications Alcohol Use: rarely Drug use: none Medications and Allergies Metformin HCl [Glucophage Xr] 1,000 mg PO BID 02/23/15 [History] Acetaminophen/Butalbital/Caffe [Fioricet] 1 each PO TID PRN #90 tablet 04/13/15 [Rx] Cyclobenzaprine [Flexeril] 10 mg PO TID PRN 07/16/15 [History] Prochlorperazine Maleate [Compazine] 10 mg PO Q6HR PRN #120 tablet 02/07/16 [Rx] Ondansetron HCl [Zofran] 4 mg PO Q6H PRN #30 tablet 03/24/16 [Rx] OxyCODONE/APAP 7.5/325 [Percocet 7.5/325 MG] 1 each PO Q6H PRN #30 tablet [Rx] Hydromorphone HCl [Dilaudid] 1 tab PO Q6H PRN #90 tablet 04/17/16 [Rx] Zolpidem [Ambien] 10 mg PO HS PRN 10/03/16 [History] Citalopram Hydrobromide [Celexa] 20 mg PO DAILY #90 tablet 11/20/16 [Rx] Atorvastatin [Lipitor] 10 mg PO HS 11/27/16 [History] Levothyroxine [Synthroid] 75 mcg PO 0630 11/27/16 [History] Omeprazole [PriLOSEC] 40 mg PO DAILY 11/27/16 [History] Pioglitazone HCl [Actos] 30 mg PO DAILY 11/27/16 [History] Docusate [Colace] 100 mg PO BID 05/15/17 [History] Gabapentin [Neurontin] 300 mg PO TID 05/15/17 [History] Methocarbamol [Robaxin] 500 mg PO Q8HR PRN 12/19/17 [History] 3 Allergy/AdvReac Type Severity Reaction Status Date / Time capecitabine [From Xeloda] AdvReac Hallucinati Verified 05/18/17 13:17 ng - Meds/Allergy Pre-op Review Medications Reviewed: Yes Allergies Reviewed: Yes Beta Blockers on Current Med List: No Anesthesia Results - Labs 05/19/17 05:43 05/19/17 05:43 - Imaging EKG: report reviewed, image reviewed (SINUS TACHYCARDIA POSSIBLE ANTERIOR MYOCARDIAL INFARCTION [30 ms Q WAVE IN V3/V4, OR R < 0.2 mV IN V4], PROBABLY OLD ABNORMAL RHYTHM ECG) Additional studies: TTE: Impressions: LVEF 60-65%. Normal LV chamber size, wall thickness and function. Mild left ventricular diastolic dysfunction. Normal right ventricular structure and function. No evidence of PFO with agitated saline contrast. No evidence of pulmonary hypertension. No significant valvular dysfunction. 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
[2017-05-19] MEDS ORDERED: *HR* Propofol 200 MG/20 ML VIAL IVP ONE (07:30)
[2017-05-19] MEDS ORDERED: Lidocaine -MPF 2% 2 ML VIAL ONE (07:31)
[2017-05-19] MEDS ORDERED: *HR* Succinylcholine 200 MG/10 ML VIAL IVP ONE (07:31)
[2017-05-19] MEDS ORDERED: *HR* Midazolam HCl 2 MG/2 ML VIAL ONE (07:35)
[2017-05-19] MEDS ORDERED: *HR* FentaNYL (PF) 100 MCG/2 ML VIAL ONE (07:35)
[2017-05-19] MEDS ORDERED: *HR* Phenylephrine 10 MG/ML VIAL ONE (07:36)
--- NOTE | 2017-05-19 07:44 | Electrocardiograph Report ---
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
[2017-05-19] MEDS ORDERED: *HR* HYDROmorphone (PF) 1 MG/ML SYRINGE IVP PRN (08:03)
[2017-05-19] MEDS ORDERED: *HR* Promethazine 25 MG/ML VIAL IVP PRN ×2 (08:03→09:38)
--- NOTE | 2017-05-19 08:10 | Urology Progress Note ---
Date of Encounter: 05/19/17 Time of Encounter: 08:09 - Assessment and Plan (1) Left ureteral stone Current Visit: Yes Status: Acute Assessment and plan: Left ureteral stone in patient with metastatic cancer. 1. Plan for cystoscopy and left ureteral stent placement. All risks were informed. He is willing to proceed. 2. He is currently on Zosyn. Progress Note Narrative: Patient with left ureteral stone. Doing well overnight. He had some elevated PVR on bladder scan, but he feels he is voiding well. No fevers overnight. Objective Initial Vital Signs Temp Pulse Resp BP Pulse Ox 98.6 F 125 20 131/92 96 05/18/17 10:25 05/18/17 10:25 05/18/17 10:25 05/18/17 10:25 05/18/17 10:25 - General physical appearance Present: well developed, well nourished, no distress - Respiratory Present: normal respiratory effort - Abdomen Present: soft - Labs 05/19/17 05:43 05/19/17 05:43 Diabetes panel 05/19/17 05/19/17 Range/Units 05:43 05:43 Sodium 136 (136-145) mEq/L Potassium 3.2 L (3.5-5.1) mEq/L Chloride 102 (98-107) mEq/L Carbon Dioxide 28 (23-29) mEq/L BUN 7 (6-20) mg/dL Creatinine 0.48 L (0.70-1.30) mg/dL Glucose 207 H (70-105) mg/dL Hemoglobin A1c 6.4 H ( - 5.6) % Calcium 8.2 L (8.6-10.3) mg/dL AST 30 (13-39) Units/L ALT 17 (7-52) Units/L Alkaline Phosphatase 127 H (34-104) Units/L Albumin 2.2 L (3.5-5.7) g/dL Calcium panel 05/19/17 Range/Units 05:43 Calcium 8.2 L (8.6-10.3) mg/dL Phosphorus 3.3 (2.7-4.5) mg/dL Albumin 2.2 L (3.5-5.7) g/dL Pituitary panel 05/19/17 Range/Units 05:43 Sodium 136 (136-145) mEq/L Potassium 3.2 L (3.5-5.1) mEq/L Chloride 102 (98-107) mEq/L Carbon Dioxide 28 (23-29) mEq/L BUN 7 (6-20) mg/dL Creatinine 0.48 L (0.70-1.30) mg/dL Glucose 207 H (70-105) mg/dL Calcium 8.2 L (8.6-10.3) mg/dL Adrenal panel 05/19/17 Range/Units 05:43 Sodium 136 (136-145) mEq/L Potassium 3.2 L (3.5-5.1) mEq/L Chloride 102 (98-107) mEq/L Carbon Dioxide 28 (23-29) mEq/L BUN 7 (6-20) mg/dL Creatinine 0.48 L (0.70-1.30) mg/dL Glucose 207 H (70-105) mg/dL Calcium 8.2 L (8.6-10.3) mg/dL Total Bilirubin 0.5 (0.3-1.0) mg/dL AST 30 (13-39) Units/L ALT 17 (7-52) Units/L Alkaline Phosphatase 127 H (34-104) Units/L Albumin 2.2 L (3.5-5.7) g/dL Consult Discharge Plan - Plan Referrals: Ander Patel MD [Primary Care Provider] -
[2017-05-19] MEDS ORDERED: Dexamethasone 4 MG/ML VIAL ONE (08:21)
[2017-05-19] MEDS ORDERED: Ondansetron 4 MG/2 ML VIAL ONE (08:21)
[2017-05-19] MEDS ORDERED: Ketorolac 30 MG/ML VIAL ONE (08:39)
--- NOTE | 2017-05-19 08:47 | Operative Note ---
Date of procedure: 05/19/17 Pre-op diagnosis: Left ureteral stone Post-op diagnosis: same Procedure: Cystoscopy, left ureteral stent placement. Implants: 4.8 [place] x 28 cm JJ stent. Complications: none. Anesthesia: DAKSHAA Surgeon: Federico Dsouza Estimated blood loss (cc): 1 Specimen: none. Condition: stable Disposition: PACU Procedure in Detail: Indications: Mr. Chaidez is a 46-year-old male who has a history of nephrolithiasis. He had a CT which showed a left proximal ureteral stone. He elected to undergo a cystoscopy and left ureteral stent placement. He was aware of the risks of the procedure including but not limited to bleeding, infection, injury to other structures, need for further procedures, stent irritation, need for nephrostomy tube, need for open repair, risks otherwise unforeseen, and the risk of anesthesia. He is willing to proceed. Procedure in Detail: After informed consent was obtained the patient was brought back to the operating room and placed in supine position. A time out was performed. General anesthesia was administered and an endotracheal tube was placed. He was then placed in the lithotomy position. He was prepped and draped in the usual sterile fashion. There was an open wound in the perineum just anterior to the rectum with drainage of serous fluid. Cystoscopy was performed. The anterior urethra was normal. There was no evidence of bladder tumors. The ureteral orifices were in the normal orthotopic position. There was no duplication of the ureteral orifices. The Sensor wire was placed in the left ureteral orifice. The wire was then brought up into the kidney under fluoroscopic guidance with the assistance of an open-ended catheter. A 4.8 [place] by 28cm JJ stent was then placed. The dangle strings were removed. The patient was then awakened from general anesthesia and brought to recovery room in good condition. All sponge, needle, and instrument counts were correct.
[2017-05-19] MEDS ORDERED: *HR* Pioglitazone 30 MG TABLET PO SCH (09:00)
--- NOTE | 2017-05-19 09:07 | Anesthesia Evaluation Post Op ---
Date of Encounter: 05/19/17 Time of Encounter: 09:07 - Vital Signs Vital Signs: Last Vital Signs Temp 98.2 F 05/19/17 09:00 Pulse 103 05/19/17 09:00 Resp 18 05/19/17 09:00 BP 113/79 05/19/17 09:00 Pulse Ox 94 05/19/17 09:00 - Lungs Lungs: Clear Ascult./Percussion - Airway Airway: Non-obstructed - Cardiovascular Regular Rate - Mental Status Mental Status: Alert & Oriented, Answers Appropriately - Pain Pain Scale: 2 - Nausea Vomiting Nausea Vomiting: Not Present - Hydration Hydration: Ice chips - Discharge PostOp Status: Transfer Patient to floor
[2017-05-19] MEDS ORDERED: Potassium Chloride 40 MEQ, Lidocaine 1% 2 ML in D5% in Water 500 ML IVPB ONE (09:35)
[2017-05-19] MEDS ORDERED: Pantoprazole 80 MG in 0.9 % Sodium Chloride 250 ML IVC SCH (09:38)
[2017-05-19] MEDS ORDERED: Dextrose Gel 15 GM/37.5 ML TUBE PO PRN ×2 (09:38)
[2017-05-19] MEDS ORDERED: D5% in Water 1,000 ML IVC PRN (09:38)
[2017-05-19] MEDS ORDERED: Naloxone 0.4 MG/ML INJ IVP PRN (09:38)
[2017-05-19] MEDS ORDERED: Methocarbamol 500 MG TABLET PO PRN (09:38)
[2017-05-19] MEDS ORDERED: *HR* Dextrose 50 % in Water (Syg) 50 ML SYRINGE IVP PRN (09:38)
[2017-05-19] MEDS: Insulin LISPRO 300 UNITS/3 ML VIAL SQ SCH ×3 (11:49→22:51)
[2017-05-19] MEDS: *HR* OxyCODONE/APAP 7.5/325 TABLET PO PRN ×2 (12:00→20:24)
[2017-05-19] MEDS: Gabapentin 300 MG CAPSULE PO SCH ×2 (15:36→22:50)
--- NOTE | 2017-05-19 15:44 | General Surgery Consult Note ---
Date of Encounter: 05/19/17 Time of Encounter: 10:00 Assessment and Plan (1) Open wound of perineum Current Visit: Yes Status: Acute patient with what appears purulent drainage from perineum surgical wound from apr, drainage is not significant and CT scan reviewed, in area of rectum (no rectum present due to APR) there appears to be air within the fluid, concern for abscess given appearance of drainage and air in pelvis, will call and discuss with IR for possible drain placement wash perineum with soap and water, apply dry 4x4 gauze pads or ABD pads and secure with tape, change BID and prn soilage (2) Colitis Current Visit: Yes Status: Acute patient with diffuse abdominal tenderness, colon wall thickening of distal transverse and proximal ascending colon of unclear etiology - either colitis, metastatic rectal cancer, Cdiff was negative abdominal pain could also be due to ascites or combination of issues ok for paracentesis from surgery standpoint, may give patient some relief agree with and continue antibiotics trend wbc patient is a terrible operative candidate given his multiple comorbidities and what appears to be more recent development of ascites serial abdominal exams prn pain control (3) Ascites Current Visit: Yes Status: Acute Qualifiers: Ascites type: malignant Qualified Code(s): R18.0 - Malignant ascites (4) Metastatic cancer Current Visit: Yes Status: Chronic oncology following (5) DVT prophylaxis Current Visit: Yes Status: Acute heparin sq (6) Colostomy in place Current Visit: Yes Status: Chronic colostomy care ensure opening on face plate does not touch/rub on colostomy itself for any bleeding apply surgicel History of Present Illness Consult date: 05/19/17 Reason for consult: abdominal pain History of present illness: patient is a 46 yo male with diagnosis of metastatic rectal cancer in 2012. Patient underwent chemotherapy, most recently on lonsurf which was stopped in january. On april 03 due to colon obstruction patient underwent APR and diverting colostomy. He has had several days of diffuse abdominal distention and pain which is constant. He does not report nausea/emesis. No fevers but he always has sweats. He has been having bleeding into his colostomy and his thinks it is coming from the side of colostomy not from the bowel itself. CT in ED showed moderate to large ascites. Colon wall thickening of distal and transverse colon - etiology uncertain and fluid collection in rectal space tracking to peritoneum. wbc 4.3, Hb 8.3. Past Med Surg Social Fam HX - Past Medical History Source: patient Medical history: arthritis, cancer (Colorectal, metastatic liver, adenocarcinoma of the rectum), diabetes, GERD (Controlled by oral anti- hyperglycemic medications), thyroid disease, other Psychiatric history: anxiety, depression - Past Surgical History Surgical History: colostomy, other (APR 04/03/17) - Social History Smoking Status: Former smoker Packs per day: 1-1.5 PPD - Reports quitting 20 years ago Smokeless Tobacco Status: Yes (Quit many years ago) Alcohol use: rarely Drug use: none - Family History Father History Unknown: Yes Adopted: Yes Sister Race: Family Member Ethnicity: Non- Living Status: Still Living Hx Family Medical Disorders: No Mother History Unknown: Yes Adopted: Yes Hx Family Cardiac Disorders: Yes Medications and Allergies Metformin HCl [Glucophage Xr] 1,000 mg PO BID 02/23/15 [History] Acetaminophen/Butalbital/Caffe [Fioricet] 1 each PO TID PRN #90 tablet 04/13/15 [Rx] Cyclobenzaprine [Flexeril] 10 mg PO TID PRN 07/16/15 [History] Prochlorperazine Maleate [Compazine] 10 mg PO Q6HR PRN #120 tablet 02/07/16 [Rx] Ondansetron HCl [Zofran] 4 mg PO Q6H PRN #30 tablet 03/24/16 [Rx] OxyCODONE/APAP 7.5/325 [Percocet 7.5/325 MG] 1 each PO Q6H PRN #30 tablet [Rx] Hydromorphone HCl [Dilaudid] 1 tab PO Q6H PRN #90 tablet 04/17/16 [Rx] Zolpidem [Ambien] 10 mg PO HS PRN 10/03/16 [History] Citalopram Hydrobromide [Celexa] 20 mg PO DAILY #90 tablet 11/20/16 [Rx] Atorvastatin [Lipitor] 10 mg PO HS 11/27/16 [History] Levothyroxine [Synthroid] 75 mcg PO 0630 11/27/16 [History] Omeprazole [PriLOSEC] 40 mg PO DAILY 11/27/16 [History] Pioglitazone HCl [Actos] 30 mg PO DAILY 11/27/16 [History] Docusate [Colace] 100 mg PO BID 05/15/17 [History] Gabapentin [Neurontin] 300 mg PO TID 05/15/17 [History] Methocarbamol [Robaxin] 500 mg PO Q8HR PRN 05/15/17 [History] 3 Allergy/AdvReac Type Severity Reaction Status Date / Time capecitabine [From Xeloda] AdvReac Hallucinati Verified 05/18/17 13:17 ng Review of Systems All systems PM: reviewed and no additional remarkable complaints except as stated All systems PM: A 10-system review of systems was performed and is negative for pertinent findings except as documented above in the HPI. General Surgery Exam Initial Vital Signs Temp Pulse Resp BP Pulse Ox 98.6 F 125 20 131/92 96 05/18/17 10:25 05/18/17 10:25 05/18/17 10:25 05/18/17 10:25 05/18/17 10:25 - General physical appearance moderate distress, chronically ill - Eyes normal ocular movement - ENT normal mucosa, normocephalic - Neck trachea midline - Respiratory normal expansion, clear to auscultation - Cardiovascular Cardiovascular exam: Present: RRR - Abdomen Abdomen general surgery: Present: soft, distended, tender. Absent: guarding, rebound Abdominal Tenderness: Present: diffusely - Incision Incision: Present: open (perineum (APR incision)/draining small amount purulent appearing drainage ) - Integumentary Integumentary general surgery: Present: warm and dry, no abnormal pigmentation - Neurologic Present: CN 2-12 grossly intact - Musculoskeletal Present: normal posture - Psychiatric Psychiatric general surgery: Present: A&Ox3, speech is normal Exam Initial Vital Signs Temp Pulse Resp BP Pulse Ox 98.6 F 125 20 131/92 96 05/18/17 10:25 05/18/17 10:25 05/18/17 10:25 05/18/17 10:25 05/18/17 10:25 Results - Labs 05/19/17 05:43 05/19/17 05:43 Short CBC 05/19/17 05/18/17 05/18/17 Range/Units 05:43 23:11 17:39 WBC 4.3 (4.3-11.1) K/mcL Hgb 8.3 L 9.3 L 9.3 L (12.9-16.9) g/dL Hct 27.5 L 30.1 L 30.5 L (37.5-50.1) % Plt Count 111 L (140-400) K/mcL Neutrophils # 3.0 (1.6-8.9) K/mcL BMP 05/19/17 Range/Units 05:43 Sodium 136 (136-145) mEq/L Potassium 3.2 L (3.5-5.1) mEq/L Chloride 102 (98-107) mEq/L Carbon Dioxide 28 (23-29) mEq/L BUN 7 (6-20) mg/dL Creatinine 0.48 L (0.70-1.30) mg/dL Glucose 207 H (70-105) mg/dL Calcium 8.2 L (8.6-10.3) mg/dL Liver Function 05/19/17 Range/Units 05:43 Total Bilirubin 0.5 (0.3-1.0) mg/dL AST 30 (13-39) Units/L ALT 17 (7-52) Units/L Alkaline Phosphatase 127 H (34-104) Units/L Albumin 2.2 L (3.5-5.7) g/dL Urine 05/18/17 Range/Units 19:35 Urine Color Dark Yellow (Yellow) Urine Clarity Clear (Clear) Urine pH 6.0 (5.0-8.0) pH Units Ur Specific [place] > 1.030 H (1.010-1.025) Urine Protein 30 H (Neg-Trace) mg/dL Urine Glucose (UA) Normal (Normal) mg/dL Vital Signs Temp Pulse Resp BP Pulse Ox 05/19/17 09:20 98.3 F 102 18 103/78 96 05/19/17 09:10 98.3 F 101 18 105/81 94 05/19/17 09:00 98.2 F 103 18 113/79 94 05/19/17 08:50 99.8 F H 101 20 130/89 95 05/19/17 06:55 98 F 105 16 105/72 97 05/19/17 03:45 98.1 F 120 14 105/70 98 05/19/17 00:17 98.1 F 128 14 111/76 99 05/18/17 20:20 98.9 F 114 14 138/87 98 Intake and Output 05/18/17 05/19/17 05/19/17 23:59 07:59 15:59 Intake Total 200 / 200 800 / 800 320 / 320 Output Total 60 / 60 700 / 700 Balance 140 / 140 100 / 100 319 / 319 Intake: IV Fluids 200 / 200 500 / 500 200 / 200 0.9 % Sodium Chloride 500 ML @ 500 / 500 75 mls/hr IVC .[id number] ANTHONY Rx#: [id number] Zosyn Premix 3.375 GM/200 ML 3. 200 / 200 200 / 200 375 gm In 200 ml @ 50 mls/hr IVPB Q8H ANTHONY Rx#:[id number] Oral 0 / 0 300 / 300 120 / 120 Output: Urine 60 / 60 700 / 700 Stool 0 / 0 0 / 0 Estimated Blood Loss Other: Meal Lunch Percent of Meal Consumed 90% Weight 104.78 kg Blood Glucose* 181 221 227 Patient Weight 05/19/17 23:59 Weight 104.78 kg - Imaging CT scan - abdomen: report reviewed, image reviewed CT scan - pelvis: report reviewed, image reviewed Consult Discharge Plan - Plan Referrals: Ander Patel MD [Primary Care Provider] -
[2017-05-19] MEDS ORDERED: 0.9 % Sodium Chloride 250 ML ONE (16:37)
--- NOTE | 2017-05-19 16:51 | Internal Med Progress Note ---
Date of Encounter: 05/19/17 Time of Encounter: 16:49 - Assessment and plan (1) Anemia Current Visit: Yes Status: Acute Assessment and plan: Multifactorial including anemia of chronic disease in addition to acute blood loss anemia. Patient has had about funnel 50 amounts of blood in the colostomy back today. Surgery team has evaluated the patient thinks that the bleeding is due to sloughing from the colostomy end. Because patient is symptomatic with hemoglobin is 8.3 I will give them one unit of blood transfusion. Qualifiers: Qualified Code(s): D64.9 - Anemia, unspecified (2) Left ureteral stone Current Visit: Yes Status: Acute Assessment and plan: Left uretral stent with hydronephrosis status post ureteral stent placement under general anesthesia today. (3) Tachycardia Current Visit: Yes Status: Acute Assessment and plan: Likely due to sepsis, anemia, pain. Pulmonary embolism is ruled out. (4) Colon cancer metastasized to liver Current Visit: No Status: Chronic Assessment and plan: Patient has stopped chemotherapy 3 months ago. (5) Colitis Current Visit: Yes Status: Acute Assessment and plan: Etiology of colitis is unclear whether infectious inflammatory or ischemic however lactic acid was normal yesterday arguing against ischemic colitis will repeat lactic acid. C diff was negative. Continue current antibiotic regimen was Zosyn. There is concern by surgery team the patient may have fluid collection in the rectal area or possible abscess. Surgery team will discuss with interventional radiologist regarding placement [place]. I have also discussed with surgery team regarding paracentesis and we decided to wait one more day given the lack of significant accumulation of fluid abdomen (only moderate ascitis) and lack of significant effect on respiratory status - Subjective Interval history: Patient seen and examined. Patient had left ureteral stent placed today under general anesthesia. Patient still main complaint is abdominal pain and distention. Tmax is 99.8. Remain slightly tachycardic in the 100s range - Constitutional Vitals: Temp Pulse Resp BP Pulse Ox 97.5 F L 102 15 117/80 96 05/19/17 16:23 05/19/17 16:23 05/19/17 16:23 05/19/17 16:23 05/19/17 16:23 General appearance: Present: cooperative, mild distress, A&O X 3, pleasant, obese, answers questions appropriately Exam: Gen.: patient is alert oriented times 3 not in distress. Cardiac: normal S1 S2 no additional sounds, tachycardic chest: clear auscultation abdomen: distended. Diffuse tenderness. No peritoneal signs Neuro: no focal deficits LE: lax calf muscles Internal Medicine: Result - Labs CBC & Chem 7: 05/19/17 05:43 05/19/17 05:43 Labs: Short CBC 05/18/17 05/18/17 05/19/17 Range/Units 17:39 23:11 05:43 WBC 4.3 (4.3-11.1) K/mcL Hgb 9.3 L 9.3 L 8.3 L (12.9-16.9) g/dL Hct 30.5 L 30.1 L 27.5 L (37.5-50.1) % Plt Count 111 L (140-400) K/mcL Neutrophils # 3.0 (1.6-8.9) K/mcL BMP 05/19/17 05:43 Sodium 136 Potassium 3.2 L Chloride 102 Carbon Dioxide 28 BUN 7 Creatinine 0.48 L Glucose 207 H Calcium 8.2 L Liver Function 05/19/17 Range/Units 05:43 Total Bilirubin 0.5 (0.3-1.0) mg/dL AST 30 (13-39) Units/L ALT 17 (7-52) Units/L Alkaline Phosphatase 127 H (34-104) Units/L Albumin 2.2 L (3.5-5.7) g/dL Urine 05/18/17 Range/Units 19:35 Urine Color Dark Yellow (Yellow) Urine Clarity Clear (Clear) Urine pH 6.0 (5.0-8.0) pH Units Ur Specific [place] > 1.030 H (1.010-1.025) Urine Protein 30 H (Neg-Trace) mg/dL Urine Glucose (UA) Normal (Normal) mg/dL - ABG Interpretation ABG results: PT/INR, D-dimer PT 14.1 Seconds (9.4-12.1) H 05/18/17 11:06 - Impressions Impressions Chest CTA 05/18/17 18:28 IMPRESSION: 1. No evidence of pulmonary embolism or acute pulmonary abnormality. 2. Stable right lung nodules compatible with metastatic disease. 3. Stable heterogeneity of the right hepatic dome and incompletely visualized posterior segment of the right lobe of the liver are also concerning for metastatic disease. Could consider contrast-enhanced cross-sectional imaging for further evaluation, as indicated. 4. Nonspecific ascites in the incompletely visualized upper abdomen. D/ / Federico Tyler / Federico Tyler Interpreting Provider: Federico Tyler Fluoroscopy 05/19/17 08:25 IMPRESSION: Intraprocedural fluoroscopic spot images as above. See separate procedure report for more information. D/ / Atif Schulz MD / Atif Schulz MD Interpreting Provider: Atif Schulz MD X-Ray 05/19/17 08:25 IMPRESSION: Intraprocedural fluoroscopic spot images as above. See separate procedure report for more information. D/ / Atif Schulz MD / Atif Schulz MD Interpreting Provider: Atif Schulz MD Consult Discharge Plan - Plan Referrals: Ander Patel MD [Primary Care Provider] -
[2017-05-20] MEDS: Piperacillin/Tazobactam 3.375 GM/200 ML BAG IVPB SCH ×3 (02:43→17:51)
[2017-05-20 04:50] LABS: Basophils % 0.2 %; Eosinophils % 0.7 %; Hematocrit 30.4 % (37.5-50.1); Hemoglobin 9.3 g/dL (12.9-16.9); Immature Granulocytes % 0.2 % (0-4); Lymphocytes # 0.7 K/mcL (0.6-4.6); Lymphocytes % 12.8 %; Mean Corpuscular HGB Conc 30.6 g/dL (31.6-35.5); Mean Corpuscular Hemoglobin 27.8 pg (28.0-33.3); Mean Platelet Volume 10.5 fL (9.4-12.4); Monocytes # 0.5 K/mcL (0.0-1.3); Monocytes % 9.5 %; Neutrophils # 4.1 K/mcL (1.6-8.9); Platelet Count 120 K/mcL (140-400); Red Blood Count 3.34 M/mcL (4.19-5.50); Red Cell Distribution Width 15.2 % (11.5-14.5); Segmented Neutrophils % 76.6 %
[2017-05-20 04:59] LABS: Alanine Aminotransferase 16 Units/L (7-52); Albumin 2.4 g/dL (3.5-5.7); Albumin/Globulin Ratio 0.6 (1.1-2.2); Alkaline Phosphatase 126 Units/L (34-104); Aspartate Amino Transferase 27 Units/L (13-39); BUN/Creatinine Ratio 17 (6-26); Bilirubin,Total 0.5 mg/dL (0.3-1.0); Blood Urea Nitrogen 10 mg/dL (6-20); Calcium 8.6 mg/dL (8.6-10.3); Carbon Dioxide 28 mEq/L (23-29); Chloride 103 mEq/L (98-107); Globulin 4.2 g/dL (2.4-3.5); Glucose 285 mg/dL (70-105); Magnesium 1.6 mg/dL (1.6-2.6); Osmolality,Calculated 291 (280-300); Potassium 3.6 mEq/L (3.5-5.1); Sodium 136 mEq/L (136-145); Total Protein 6.6 g/dL (6.4-8.9); eGFR For African Americans > 60 (> 60); eGFR For Non-African Americans > 60 (> 60)
[2017-05-20] MEDS: Insulin LISPRO 300 UNITS/3 ML VIAL SQ SCH ×4 (08:46→21:51)
[2017-05-20] MEDS: Gabapentin 300 MG CAPSULE PO SCH ×3 (08:46→21:52)
[2017-05-20] MEDS ORDERED: *HR* HYDROmorphone 2 MG/ML SYRINGE ONE (09:16)
[2017-05-20] MEDS: *HR* HYDROmorphone (PF) 1 MG/ML SYRINGE IVP PRN ×4 (09:23→21:53)
[2017-05-20] MEDS: 0.9 % Sodium Chloride 500 ML IVC SCH ×4 (10:01→23:20)
--- NOTE | 2017-05-20 10:18 | Urology Progress Note ---
Date of Encounter: 05/20/17 Time of Encounter: : - Assessment and Plan (1) Left ureteral stone Current Visit: Yes Status: Acute Assessment and plan: Status post cystoscopy and left ureteral stent placement. We will arrange for treatment of the stone as an outpatient. Urology will sign off. Please call with any questions. Progress Note Narrative: Postoperative day #1 status post cystoscopy and left stent placement. He is doing well. He is able to urinate. Objective Initial Vital Signs Temp Pulse Resp BP Pulse Ox 98.6 F 125 20 131/92 96 05/18/17 10:25 05/18/17 10:25 05/18/17 10:25 05/18/17 10:25 05/18/17 10:25 - General physical appearance Present: well developed, well nourished, no distress - Respiratory Present: normal respiratory effort - Abdomen Present: soft - Labs 05/20/17 04:29 05/20/17 04:29 Diabetes panel 05/20/17 Range/Units 04:29 Sodium 136 (136-145) mEq/L Potassium 3.6 (3.5-5.1) mEq/L Chloride 103 (98-107) mEq/L Carbon Dioxide 28 (23-29) mEq/L BUN 10 (6-20) mg/dL Creatinine 0.59 L (0.70-1.30) mg/dL Glucose 285 H (70-105) mg/dL Calcium 8.6 (8.6-10.3) mg/dL AST 27 (13-39) Units/L ALT 16 (7-52) Units/L Alkaline Phosphatase 126 H (34-104) Units/L Albumin 2.4 L (3.5-5.7) g/dL Calcium panel 05/20/17 Range/Units 04:29 Calcium 8.6 (8.6-10.3) mg/dL Albumin 2.4 L (3.5-5.7) g/dL Pituitary panel 05/20/17 Range/Units 04:29 Sodium 136 (136-145) mEq/L Potassium 3.6 (3.5-5.1) mEq/L Chloride 103 (98-107) mEq/L Carbon Dioxide 28 (23-29) mEq/L BUN 10 (6-20) mg/dL Creatinine 0.59 L (0.70-1.30) mg/dL Glucose 285 H (70-105) mg/dL Calcium 8.6 (8.6-10.3) mg/dL Adrenal panel 05/20/17 Range/Units 04:29 Sodium 136 (136-145) mEq/L Potassium 3.6 (3.5-5.1) mEq/L Chloride 103 (98-107) mEq/L Carbon Dioxide 28 (23-29) mEq/L BUN 10 (6-20) mg/dL Creatinine 0.59 L (0.70-1.30) mg/dL Glucose 285 H (70-105) mg/dL Calcium 8.6 (8.6-10.3) mg/dL Total Bilirubin 0.5 (0.3-1.0) mg/dL AST 27 (13-39) Units/L ALT 16 (7-52) Units/L Alkaline Phosphatase 126 H (34-104) Units/L Albumin 2.4 L (3.5-5.7) g/dL - VTE Documentation of Mechanical Device: Intermittent pneumatic compression device Consult Discharge Plan - Plan Referrals: Ander Patel MD [Primary Care Provider] -
[2017-05-20] MEDS: *HR* OxyCODONE/APAP 7.5/325 TABLET PO PRN (14:13)
[2017-05-20] MEDS: Vancomycin 1,500 MG in D5% in Water 250 ML IVPB SCH (14:16)
--- NOTE | 2017-05-20 16:05 | Internal Med Progress Note ---
Date of Encounter: 05/20/17 Time of Encounter: 15:25 - Assessment and plan (1) Anemia Current Visit: Yes Status: Acute Assessment and plan: Multifactorial including anemia of chronic disease in addition to acute blood loss anemia. Patient has had some blood in colostomy. Surgery team has evaluated the patient thinks that the bleeding is due to sloughing from the colostomy end. He has received one unit of blood transfusion.. Hemoglobin 9.3. Qualifiers: Qualified Code(s): D64.9 - Anemia, unspecified (2) Left ureteral stone Current Visit: Yes Status: Acute Assessment and plan: Left uretral stent with hydronephrosis status post ureteral stent placement under general anesthesia today. (3) Tachycardia Current Visit: Yes Status: Acute Assessment and plan: Likely due to abscess in the rectal area, anemia, pain. Pulmonary embolism is ruled out. (4) Colon cancer metastasized to liver Current Visit: No Status: Chronic Assessment and plan: Patient has stopped chemotherapy 3 months ago. I have discussed with the patient as well as oncologist goals of care and consideration for palliative care and hospice care. He refuses hospice care. Await discussion with his main oncologist Dr. Melchor regarding conservation palliative care (5) Colitis Current Visit: Yes Status: Acute Assessment and plan: Etiology of colitis is unclear whether infectious inflammatory or ischemic however lactic acid was normal arguing against ischemic colitis. C diff was negative. Continue current antibiotic regimen was Zosyn. (6) Pelvic abscess Current Visit: Yes Status: Acute Assessment and plan: Patient is having an abscess in the pelvic area. Drain was placed today in the perineal area with retrieval of 25 mL of pus. Antibiotic therapy was broadened to include vancomycin to cover for Major is also on Zosyn. - Subjective Interval history: Patient seen and examined. Patient went to interventional radiology today had the drain placed in the perennial area for drainage of abscess in the rectal area. - Constitutional Vitals: Temp Pulse Resp BP Pulse Ox 98.2 F 104 17 117/80 98 05/20/17 15:00 05/20/17 15:00 05/20/17 15:00 05/20/17 15:00 05/20/17 15:00 General appearance: Present: cooperative, mild distress, A&O X 3, pleasant, obese, answers questions appropriately Exam: Gen.: patient is alert oriented times 3 not in distress. Cardiac: normal S1 S2 no additional sounds or murmurs. Chest: clear to auscultation Abdomen: distended, diffuse tenderness to deep palpation. No rebound lower extremity: lax calf muscles neuro: no focal deficit Drain placed in perineal area. Internal Medicine: Result - Labs CBC & Chem 7: 05/20/17 04:29 05/20/17 04:29 Labs: Short CBC 05/20/17 Range/Units 04:29 WBC 5.4 (4.3-11.1) K/mcL Hgb 9.3 L (12.9-16.9) g/dL Hct 30.4 L (37.5-50.1) % Plt Count 120 L (140-400) K/mcL Neutrophils # 4.1 (1.6-8.9) K/mcL BMP 05/20/17 04:29 Sodium 136 Potassium 3.6 Chloride 103 Carbon Dioxide 28 BUN 10 Creatinine 0.59 L Glucose 285 H Calcium 8.6 Liver Function 05/20/17 Range/Units 04:29 Total Bilirubin 0.5 (0.3-1.0) mg/dL AST 27 (13-39) Units/L ALT 16 (7-52) Units/L Alkaline Phosphatase 126 H (34-104) Units/L Albumin 2.4 L (3.5-5.7) g/dL - ABG Interpretation ABG results: PT/INR, D-dimer PT 14.1 Seconds (9.4-12.1) H 05/18/17 11:06 - VTE Documentation of Mechanical Device: Intermittent pneumatic compression device Consult Discharge Plan - Plan Referrals: Ander Patel MD [Primary Care Provider] -
[2017-05-21] MEDS: Vancomycin 1,500 MG in D5% in Water 250 ML IVPB SCH ×2 (01:40→13:21)
[2017-05-21] MEDS: Piperacillin/Tazobactam 3.375 GM/200 ML BAG IVPB SCH ×3 (01:45→17:39)
[2017-05-21] MEDS: *HR* HYDROmorphone (PF) 1 MG/ML SYRINGE IVP PRN ×5 (01:45→23:05)
[2017-05-21 05:09] LABS: Basophils % 0.6 %; Eosinophils # 0.1 K/mcL (0.0-0.6); Eosinophils % 1.7 %; Hematocrit 29.2 % (37.5-50.1); Immature Granulocytes % 0.8 % (0-4); Lymphocytes # 0.7 K/mcL (0.6-4.6); Lymphocytes % 19.3 %; Mean Corpuscular HGB Conc 30.8 g/dL (31.6-35.5); Mean Corpuscular Hemoglobin 28.1 pg (28.0-33.3); Mean Corpuscular Volume 91.3 fL (83.0-100.0); Mean Platelet Volume 9.9 fL (9.4-12.4); Monocytes # 0.4 K/mcL (0.0-1.3); Monocytes % 10.2 %; Neutrophils # 2.5 K/mcL (1.6-8.9); Platelet Count 126 K/mcL (140-400); Red Cell Distribution Width 15.2 % (11.5-14.5); Segmented Neutrophils % 67.4 %
[2017-05-21 05:23] LABS: Alanine Aminotransferase 16 Units/L (7-52); Albumin 2.3 g/dL (3.5-5.7); Albumin/Globulin Ratio 0.6 (1.1-2.2); Alkaline Phosphatase 148 Units/L (34-104); Aspartate Amino Transferase 29 Units/L (13-39); BUN/Creatinine Ratio 13 (6-26); Bilirubin,Total 0.4 mg/dL (0.3-1.0); Blood Urea Nitrogen 7 mg/dL (6-20); Calcium 8.4 mg/dL (8.6-10.3); Carbon Dioxide 30 mEq/L (23-29); Chloride 103 mEq/L (98-107); Glucose 243 mg/dL (70-105); Osmolality,Calculated 290 (280-300); Potassium 3.5 mEq/L (3.5-5.1); Sodium 137 mEq/L (136-145); Total Protein 6.3 g/dL (6.4-8.9); eGFR For African Americans > 60 (> 60); eGFR For Non-African Americans > 60 (> 60)
[2017-05-21] MEDS: 0.9 % Sodium Chloride 500 ML IVC SCH ×2 (05:57→19:18)
[2017-05-21] MEDS: Gabapentin 300 MG CAPSULE PO SCH ×4 (08:08→20:14)
[2017-05-21] MEDS: Insulin LISPRO 300 UNITS/3 ML VIAL SQ SCH ×5 (08:08→20:10)
[2017-05-21] MEDS: *HR* OxyCODONE/APAP 7.5/325 TABLET PO PRN ×2 (08:08→20:17)
--- NOTE | 2017-05-21 10:52 | Internal Med Progress Note ---
Date of Encounter: 05/21/17 Time of Encounter: 10:50 - Assessment and plan (1) Anemia Current Visit: Yes Status: Acute Assessment and plan: Multifactorial including anemia of chronic disease in addition to acute blood loss anemia. Patient has had some blood in colostomy. Surgery team has evaluated the patient thinks that the bleeding is due to sloughing from the colostomy end. He has received one unit of blood transfusion.. Hemoglobin stable in 9 range Qualifiers: Qualified Code(s): D64.9 - Anemia, unspecified (2) Left ureteral stone Current Visit: Yes Status: Acute (3) Tachycardia Current Visit: Yes Status: Acute Assessment and plan: Likely due to abscess in the rectal area, anemia, pain. Pulmonary embolism is ruled out. (4) Colon cancer metastasized to liver Current Visit: No Status: Chronic Assessment and plan: Patient has stopped chemotherapy 3 months ago. I have discussed with the patient as well as oncologist goals of care and consideration for palliative care and hospice care. He refuses hospice care. Await discussion with his main oncologist Dr. Melchor regarding conservation palliative care. Discuss case with Dr. Laughlin. Prefers Dr. Melchor to perform this conversation (5) Colitis Current Visit: Yes Status: Acute Assessment and plan: Etiology of colitis is unclear whether infectious inflammatory or infectious or ischemic however lactic acid was normal arguing against ischemic colitis. C diff was negative. Continue current antibiotic regimen was Zosyn. Vancomycin added for abscess till cultures are back (6) Pelvic abscess Current Visit: Yes Status: Acute Assessment and plan: Patient is having an abscess in the pelvic area. Drain was placed today in the perineal area with retrieval of 25 mL of pus. Antibiotic therapy was broadened to include vancomycin to cover for MRSA is also on Zosyn. Await cultures and sensitivity (7) DVT prophylaxis Current Visit: Yes Status: Acute Assessment and plan: Unfortunately patient is often happen because of bleeding from colostomy. He is definitely at risk of having. I have discussed this with them and encourage ambulation at home. (8) Physical deconditioning Current Visit: Yes Status: Acute Assessment and plan: Patient is very weak also drain in the perineal area limits sitting position. He will need home physical therapy on discharge. - Subjective Interval history: Patient seen and examined. Patient went had a drain placed yesterday for drainage of abscess in the rectal area. Patient is somewhat uncomfortable because of that. Has about 30 miles of thick purulent Fluid. - Constitutional Vitals: Temp Pulse Resp BP Pulse Ox 97.8 F 113 16 112/72 98 05/21/17 07:34 05/21/17 07:34 05/21/17 07:34 05/21/17 07:34 05/21/17 07:34 General appearance: Present: cooperative, mild distress, A&O X 3, pleasant, obese, answers questions appropriately Exam: Gen.: patient is alert oriented times 3 not in distress. Cardiac: normal S1 S2 no additional sounds, tachycardic chest: clear auscultation abdomen: diffuse abdominal tenderness. No rebound. Blood in colostomy bag Neuro: no focal deficits LE: no swelling Internal Medicine: Result - Labs CBC & Chem 7: 05/21/17 04:58 05/21/17 04:58 Labs: Short CBC 05/21/17 Range/Units 04:58 WBC 3.6 L (4.3-11.1) K/mcL Hgb 9.0 L (12.9-16.9) g/dL Hct 29.2 L (37.5-50.1) % Plt Count 126 L (140-400) K/mcL Neutrophils # 2.5 (1.6-8.9) K/mcL BMP 05/21/17 04:58 Sodium 137 Potassium 3.5 Chloride 103 Carbon Dioxide 30 H BUN 7 Creatinine 0.54 L Glucose 243 H Calcium 8.4 L Liver Function 05/21/17 Range/Units 04:58 Total Bilirubin 0.4 (0.3-1.0) mg/dL AST 29 (13-39) Units/L ALT 16 (7-52) Units/L Alkaline Phosphatase 148 H (34-104) Units/L Albumin 2.3 L (3.5-5.7) g/dL - ABG Interpretation ABG results: PT/INR, D-dimer PT 14.1 Seconds (9.4-12.1) H 05/18/17 11:06 - Impressions Impressions Needle Aspiration CT 05/20/17 00:00 IMPRESSION: Successful CT guided placement of pelvic abscess drainage catheter. D/ / 05/21/2017 10:37:44 More Jones MD / fred Interpreting Provider: More Jones MD - VTE Documentation of Mechanical Device: Intermittent pneumatic compression device Consult Discharge Plan - Plan Referrals: Ander Patel MD [Primary Care Provider] -
[2017-05-22 00:41] LABS: Basophils % 0.5 %; Eosinophils # 0.1 K/mcL (0.0-0.6); Eosinophils % 1.4 %; Hematocrit 27.9 % (37.5-50.1); Hemoglobin 8.6 g/dL (12.9-16.9); Immature Granulocytes % 0.8 % (0-4); Lymphocytes # 0.8 K/mcL (0.6-4.6); Lymphocytes % 20.5 %; Mean Corpuscular HGB Conc 30.8 g/dL (31.6-35.5); Mean Corpuscular Volume 90.9 fL (83.0-100.0); Mean Platelet Volume 10.4 fL (9.4-12.4); Monocytes # 0.4 K/mcL (0.0-1.3); Monocytes % 10.4 %; Neutrophils # 2.4 K/mcL (1.6-8.9); Platelet Count 122 K/mcL (140-400); Red Blood Count 3.07 M/mcL (4.19-5.50); Red Cell Distribution Width 14.9 % (11.5-14.5); Segmented Neutrophils % 66.4 %
[2017-05-22 01:39] LABS: Alanine Aminotransferase 17 Units/L (7-52); Albumin 2.4 g/dL (3.5-5.7); Albumin/Globulin Ratio 0.6 (1.1-2.2); Alkaline Phosphatase 153 Units/L (34-104); Aspartate Amino Transferase 33 Units/L (13-39); BUN/Creatinine Ratio 14 (6-26); Bilirubin,Total 0.4 mg/dL (0.3-1.0); Blood Urea Nitrogen 9 mg/dL (6-20); Calcium 8.5 mg/dL (8.6-10.3); Carbon Dioxide 30 mEq/L (23-29); Chloride 107 mEq/L (98-107); Glucose 232 mg/dL (70-105); Osmolality,Calculated 284 (280-300); Potassium 3.2 mEq/L (3.5-5.1); Sodium 134 mEq/L (136-145); Total Protein 6.4 g/dL (6.4-8.9); eGFR For African Americans > 60 (> 60); eGFR For Non-African Americans > 60 (> 60)
[2017-05-22] MEDS: *HR* HYDROmorphone (PF) 1 MG/ML SYRINGE IVP PRN ×4 (02:15→21:27)
[2017-05-22] MEDS: Piperacillin/Tazobactam 3.375 GM/200 ML BAG IVPB SCH ×3 (02:15→17:02)
[2017-05-22] MEDS: Vancomycin 1,500 MG in D5% in Water 250 ML IVPB SCH ×2 (02:16→12:47)
[2017-05-22] MEDS: Insulin LISPRO 300 UNITS/3 ML VIAL SQ SCH ×4 (08:04→21:58)
[2017-05-22] MEDS: Gabapentin 300 MG CAPSULE PO SCH ×3 (08:05→22:13)
--- NOTE | 2017-05-22 09:35 | Internal Med Progress Note ---
Date of Encounter: 05/22/17 Time of Encounter: 09:26 - Assessment and plan (1) Rectal cancer metastasized to liver Current Visit: No Status: Chronic Assessment and plan: patient was diagnosed of metastatic rectal cancer in 2012. Patient underwent chemotherapy, stopped in 01/2017. On april 03 due to colon obstruction patient underwent diverting colostomy. He has been having bleeding into his colostomy and possible abscess, surgery was consulted, IR placed a draining tube mon 05/20. Recent CT showed liver and lung matastatic disease. Patient complaint of abdominal distention, he has no stool output from colostomy bag since admission. His is at the bedside and they concern about a bowel obstruction. I discussed the option of acute abdominal series. I reviewed her medical history and consult notes, discussed with patient about advanced metastatic rectal cancer, large ascites, very poor prognosis recommended palliative care consult, they want to discuss with their own oncologist. await for oncology to talk about goal of care (2) Anemia Current Visit: Yes Status: Acute Assessment and plan: Multifactorial including anemia of chronic disease in addition to acute blood loss anemia. Patient has had some blood in colostomy. Surgery team has evaluated the patient thinks that the bleeding is due to sloughing from the colostomy end. He has received one unit of blood transfusion.. Hemoglobin stable Qualifiers: Anemia type: iron deficiency Iron deficiency anemia type: chronic blood loss Qualified Code(s): D50.0 - Iron deficiency anemia secondary to blood loss (chronic) (3) Pelvic abscess Current Visit: Yes Status: Acute Assessment and plan: Patient is having an abscess in the pelvic area. Drain was placed on in the perineal area with retrieval of 25 mL of pus. Antibiotic therapy was broadened to include vancomycin to cover for MRSA is also on Zosyn. continue ATB (4) Ascites Current Visit: Yes Status: Acute Assessment and plan: likley malignancy Qualifiers: Ascites type: malignant Qualified Code(s): R18.0 - Malignant ascites (5) Left ureteral stone Current Visit: Yes Status: Acute Assessment and plan: Left uretral stent with hydronephrosis status post ureteral stent placement under general anesthesia on 05/19. (6) Colostomy in place Current Visit: Yes Status: Chronic Assessment and plan: some dark blood, but no stool, will check acute abdominal series (7) Colitis Current Visit: Yes Status: Acute Assessment and plan: Assessment and plan: Etiology of colitis is unclear whether infectious inflammatory or infectious or ischemic however lactic acid was normal arguing against ischemic colitis. C diff was negative. Continue current antibiotic regimen was Zosyn. Vancomycin added for abscess till cultures are back (8) DVT prophylaxis Current Visit: Yes Status: Acute Assessment and plan: Unfortunately patient is often happen because of bleeding from colostomy. He is definitely at risk of having. I have discussed this with them and encourage ambulation at home. - Time Spent With Patient 25 - 35 minutes - Subjective Interval history: Mr. Chaidez is a 46 year old male with medical history of arthritis, colorectal cancer, metastatic liver cancer, adenocarcinoma of the rectum, diabetes controlled by oral antihyperglycemic medications, GERD, and thyroid disease presents from the ED with chief complaint of abdominal pain and swelling , decreased stool output, and shortness of breath related to abdominal pain for the past week. Patient states he was diagnosed with colorectal cancer and had colostomy bag placed on April 03. Patient reports weakness and loss of appetite. patient kwas admitted on 05/18 for abdominal pain from possible colitis and metastasis colon cancer. he was also found having left ureteral stone s/o stent placement on 05/19. patient was diagnosed of metastatic rectal cancer in 2012. Patient underwent chemotherapy, stopped in 01/2017. On april 03 due to colon obstruction patient underwent diverting colostomy. He has been having bleeding into his colostomy and possible abscess, surgery was consulted, IR placed a draining tube mon 05/20. Patient complaint of abdominal distention, he has no stool output from colostomy bag since admission. His is at the bedside and they concern about a bowel obstruction. I discussed the option of acute abdominal series. I reviewed her medical history and consult notes, discussed with patient about advanced metastatic rectal cancer, large ascites, very poor prognosis recommended palliative care consult, they want to discuss with their own oncologist. - Constitutional Vitals: Temp Pulse Resp BP Pulse Ox 97.9 F 115 18 102/68 97 05/22/17 07:12 05/22/17 07:12 05/22/17 07:12 05/22/17 07:12 05/22/17 08:33 General appearance: Present: cooperative, mild distress, A&O X 3, pleasant, obese, answers questions appropriately Exam: CONSTITUTIONAL: patient appears as an age appropriate male in no acute distress. EYES Clear sclerae, bilateral pupils are equal, reactive to light. EMOI. RESPIRATORY: No accessory muscle use, bilateral clear to auscultation, no wheezing, no crackles/rales. CARDIOVASCULAR: Regular heart rate, normal S1 and S2, no murmurs GASTROINTESTINAL: bowel sounds present, distended abdomen, no tenderness. MUSCULOSKELETAL: Joints in normal range of motion, no clubbing, no edema, no cyanosis. Bilateral peripheral pulses 2+. NEUROLOGIC: CN II to XII are grossly intact, no focal neurological deficit. Internal Medicine: Result - Labs CBC & Chem 7: 05/22/17 00:22 05/22/17 00:22 Labs: Short CBC 05/22/17 Range/Units 00:22 WBC 3.7 L (4.3-11.1) K/mcL Hgb 8.6 L (12.9-16.9) g/dL Hct 27.9 L (37.5-50.1) % Plt Count 122 L (140-400) K/mcL Neutrophils # 2.4 (1.6-8.9) K/mcL BMP 05/22/17 00:22 Sodium 134 L Potassium 3.2 L Chloride 107 Carbon Dioxide 30 H BUN 9 Creatinine 0.64 L Glucose 232 H Calcium 8.5 L Liver Function 05/22/17 Range/Units 00:22 Total Bilirubin 0.4 (0.3-1.0) mg/dL AST 33 (13-39) Units/L ALT 17 (7-52) Units/L Alkaline Phosphatase 153 H (34-104) Units/L Albumin 2.4 L (3.5-5.7) g/dL - ABG Interpretation ABG results: PT/INR, D-dimer PT 14.1 Seconds (9.4-12.1) H 05/18/17 11:06 - Impressions Impressions Needle Aspiration CT 05/20/17 00:00 IMPRESSION: Successful CT guided placement of pelvic abscess drainage catheter. D/ / 05/21/2017 10:37:44 More Jones MD / fred Interpreting Provider: More Jones MD - VTE Documentation of Mechanical Device: Intermittent pneumatic compression device Consult Discharge Plan - Plan Referrals: Ander Patel MD [Primary Care Provider] -
[2017-05-22] MEDS ORDERED: Potassium Chloride 40 MEQ, Lidocaine 1% 2 ML in D5% in Water 500 ML IVPB ONE (10:08)
[2017-05-22] MEDS: *HR* OxyCODONE/APAP 7.5/325 TABLET PO PRN ×2 (12:53→19:30)
--- NOTE | 2017-05-22 16:55 | Oncology Inp Progress Note ---
Date of Encounter: 05/22/17 Time of Encounter: 17:00 (1) Metastatic cancer Current Visit: Yes Status: Chronic Assessment and plan: Metastatic, recurrent colon cancer status post reresection/APR, which showed adenocarcinoma moderately differentiated up to 8 cm no lymphovascular invasion 22 lymph nodes were negative for carcinoma, circumferential resection margin was positive for carcinoma patient was maintained on lonsurf prior to that We reviewed the surgical findings, radiology report again with patient and palliative treatment options available. It appears that pt had not progressed on lonsurf, this may be an option to consider vs regorafenib/other therapies (pallavi not mutated). Code status addressed--patient wants to be a full code and is not willing to consider hospice. Gm negative rods--fluid cx, continue abcx Imaging ileus pattern. Continue aggressive supportive treatment Will re-visit comfort care options at later date Discussed with patient's primary oncologist Dr Melchor. Patient and family are aware of the above plan Oncology: Subj Interval history: Patient and family seen bedside. Abd discomfort +. New drainage tube sero sanguinous fluid draining+, ostomy drainage with some blood. - Constitutional Vitals: Vital Signs Temp Pulse Resp BP Pulse Ox 05/22/17 16:11 98.3 F 112 18 117/77 99 05/22/17 11:12 98.1 F 113 18 110/73 99 05/22/17 08:33 97 05/22/17 07:12 97.9 F 115 18 102/68 97 05/22/17 03:24 97.8 F 118 14 99/68 97 05/21/17 23:56 97.9 F 106 17 101/68 97 05/21/17 20:25 100 05/21/17 20:17 98.1 F 107 17 113/76 100 Intake and Output 05/22/17 05/22/17 05/22/17 07:59 15:59 23:59 Intake Total 750 / 750 1602 / 1602 120 / 120 Output Total 0 / 0 475 / 475 700 / 700 Balance 750 / 750 1127 / 1127 -580 / -580 Intake: IV Fluids 650 / 650 1022 / 1022 Magnesium Sulfate Premix 2gm/ 50 / 50 50mL 2 gm In 50 ml @ 48.077 mls /hr IVPB ONCE ONE Rx#: [id number] Zosyn Premix 3.375 GM/200 ML 3. 400 / 400 200 / 200 375 gm In 200 ml @ 50 mls/hr IVPB Q8H [facility] [place] Rx#:[id number] KCl 40 MEQ Xylocaine 2 ML In 522 / 522 Dextrose 5% 500 ML @ 130.5 mls/ hr IVPB ONCE ONE Rx#:[id number] Vancocin 1,500 MG In Dextrose 5 250 / 250 250 / 250 % 250 ML @ 167 mls/hr IVPB Q12H [facility] [place] Rx#:[id number] Oral 100 / 100 580 / 580 120 / 120 Output: Urine 0 / 0 475 / 475 700 / 700 Wound Drainage 0 / 0 0 / 0 Sacrum 0 / 0 0 / 0 Other: Meal Lunch Percent of Meal Consumed 100% Blood Glucose* 186 165 274 General appearance: no acute distress - Head Head exam: Present: atraumatic, normal inspection - Eye Eye exam: Present: sclera anicteric - ENT ENT exam: Present: mucous membranes moist - Respiratory Respiratory exam: Present: CTAB - Cardiovascular Cardiovascular exam: Present: +S1, +S2 - GI/Abdominal GI/Abdominal exam: Present: normal bowel sounds, soft Additional comments: BS+, diff tender. Distension+ - Extremities Exam Additional comments: no edema - Neurological Exam Neurological exam: Present: alert, CN II-XII intact, oriented X3 - Psychiatric Psychiatric exam: Present: normal mood Oncology: Obj Data - Labs CBC & Chem 7: 05/22/17 00:22 05/22/17 00:22 Labs: Laboratory Results - last 24 hr 05/21/17 05/22/17 05/22/17 20:08 00:22 00:22 WBC 3.7 L RBC 3.07 L Hgb 8.6 L Hct 27.9 L MCV 90.9 MCH 28.0 MCHC 30.8 L RDW 14.9 H Plt Count 122 L MPV 10.4 Immature Gran % 0.8 Seg Neutrophils % 66.4 Lymphocytes % 20.5 Monocytes % 10.4 Eosinophils % 1.4 Basophils % 0.5 Neutrophils # 2.4 Lymphocytes # 0.8 Monocytes # 0.4 Eosinophils # 0.1 Basophils # 0.0 Sodium 134 L Potassium 3.2 L Chloride 107 Carbon Dioxide 30 H BUN 9 Creatinine 0.64 L Est GFR ( Amer) > 60 Est GFR (Non-Af Amer) > 60 BUN/Creatinine Ratio 14 Glucose 232 H POC Glucose 169 H Calculated Osmolality 284 Calcium 8.5 L Magnesium Total Bilirubin 0.4 AST 33 ALT 17 Alkaline Phosphatase 153 H Serum Total Protein 6.4 Albumin 2.4 L Globulin 4.0 H Albumin/Globulin Ratio 0.6 L Vancomycin Trough 05/22/17 05/22/17 05/22/17 00:22 00:22 07:11 WBC RBC Hgb Hct MCV MCH MCHC RDW Plt Count MPV Immature Gran % Seg Neutrophils % Lymphocytes % Monocytes % Eosinophils % Basophils % Neutrophils # Lymphocytes # Monocytes # Eosinophils # Basophils # Sodium Potassium Chloride Carbon Dioxide BUN Creatinine Est GFR ( Amer) Est GFR (Non-Af Amer) BUN/Creatinine Ratio Glucose POC Glucose 186 H Calculated Osmolality Calcium Magnesium 1.4 L Total Bilirubin AST ALT Alkaline Phosphatase Serum Total Protein Albumin Globulin Albumin/Globulin Ratio Vancomycin Trough 13.4 05/22/17 05/22/17 11:21 16:06 WBC RBC Hgb Hct MCV MCH MCHC RDW Plt Count MPV Immature Gran % Seg Neutrophils % Lymphocytes % Monocytes % Eosinophils % Basophils % Neutrophils # Lymphocytes # Monocytes # Eosinophils # Basophils # Sodium Potassium Chloride Carbon Dioxide BUN Creatinine Est GFR ( Amer) Est GFR (Non-Af Amer) BUN/Creatinine Ratio Glucose POC Glucose 165 H 274 H Calculated Osmolality Calcium Magnesium Total Bilirubin AST ALT Alkaline Phosphatase Serum Total Protein Albumin Globulin Albumin/Globulin Ratio Vancomycin Trough - Impressions Impressions Chest/Abdomen X-ray 05/22/17 10:09 IMPRESSION: 1. New multiple dilated loops of small bowel throughout the abdomen favoring an adynamic ileus rather than a partial small bowel obstruction. D/ / Atif Holcomb MD / Atif Holcomb MD Interpreting Provider: Atif Holcomb MD - ABG Interpretation ABG results: PT/INR, D-dimer PT 14.1 Seconds (9.4-12.1) H 05/18/17 11:06 Consult Discharge Plan - Plan Referrals: Ander Patel MD [Primary Care Provider] -
[2017-05-23] MEDS: Insulin LISPRO 300 UNITS/3 ML VIAL SQ SCH ×5 (00:31→20:11)
[2017-05-23] MEDS: *HR* HYDROmorphone (PF) 1 MG/ML SYRINGE IVP PRN ×5 (01:20→20:14)
[2017-05-23] MEDS: Vancomycin 1,500 MG in D5% in Water 250 ML IVPB SCH ×2 (01:20→15:49)
[2017-05-23] MEDS: Piperacillin/Tazobactam 3.375 GM/200 ML BAG IVPB SCH (03:22)
[2017-05-23 05:41] LABS: Basophils % 0.6 %; Eosinophils % 0.8 %; Immature Granulocytes % 0.6 % (0-4); Lymphocytes # 0.7 K/mcL (0.6-4.6); Lymphocytes % 18.8 %; Mean Corpuscular Hemoglobin 27.4 pg (28.0-33.3); Mean Corpuscular Volume 91.5 fL (83.0-100.0); Mean Platelet Volume 10.6 fL (9.4-12.4); Monocytes # 0.4 K/mcL (0.0-1.3); Monocytes % 11.2 %; Neutrophils # 2.4 K/mcL (1.6-8.9); Platelet Count 136 K/mcL (140-400); Red Blood Count 3.28 M/mcL (4.19-5.50)
[2017-05-23 05:55] LABS: Alanine Aminotransferase 16 Units/L (7-52); Albumin 2.5 g/dL (3.5-5.7); Albumin/Globulin Ratio 0.6 (1.1-2.2); Alkaline Phosphatase 163 Units/L (34-104); Aspartate Amino Transferase 30 Units/L (13-39); BUN/Creatinine Ratio 13 (6-26); Bilirubin,Total 0.4 mg/dL (0.3-1.0); Blood Urea Nitrogen 9 mg/dL (6-20); Calcium 8.8 mg/dL (8.6-10.3); Carbon Dioxide 28 mEq/L (23-29); Chloride 102 mEq/L (98-107); Globulin 4.1 g/dL (2.4-3.5); Glucose 193 mg/dL (70-105); Osmolality,Calculated 288 (280-300); Potassium 3.6 mEq/L (3.5-5.1); Sodium 137 mEq/L (136-145); Total Protein 6.6 g/dL (6.4-8.9); eGFR For African Americans > 60 (> 60); eGFR For Non-African Americans > 60 (> 60)
[2017-05-23] MEDS: Gabapentin 300 MG CAPSULE PO SCH ×3 (07:35→20:10)
[2017-05-23] MEDS: cefTRIAXone 2,000 MG in Water for inj. (sterile) 20 ML 20 ML IVP SCH (08:53)
[2017-05-23] MEDS: *HR* OxyCODONE/APAP 7.5/325 TABLET PO PRN ×2 (10:37→18:03)
--- NOTE | 2017-05-23 15:41 | Internal Med Progress Note ---
Date of Encounter: 05/23/17 Time of Encounter: 11:15 - Assessment and plan (1) Pelvic abscess Current Visit: Yes Status: Acute Assessment and plan: With multiple bacteria growing. Infectious disease consult placed. For now change antibiotics to ceftriaxone and Flagyl and continue vancomycin. Moderate risk for complications. (2) Anemia Current Visit: Yes Status: Chronic Assessment and plan: Hemoglobin levels are stable. We will continue to monitor. Qualifiers: Anemia type: iron deficiency Iron deficiency anemia type: chronic blood loss Qualified Code(s): D50.0 - Iron deficiency anemia secondary to blood loss (chronic) (3) Ascites Current Visit: Yes Status: Acute Assessment and plan: Malignant ascites related to rectal cancer with metastases to liver. Qualifiers: Ascites type: malignant Qualified Code(s): R18.0 - Malignant ascites (4) Colitis Current Visit: Yes Status: Acute Assessment and plan: Currently being treated as infective colitis. Antibiotics have been changed to ceftriaxone. We will stop Zosyn and add Flagyl. C. difficile negative. Could also be related to underlying malignancy. WBC count. Patient has not had any fever. (5) Colostomy in place Current Visit: Yes Status: Chronic Assessment and plan: No signs of obstruction. Patient started to have formed stools (6) Left ureteral stone Current Visit: Yes Status: Acute Assessment and plan: Status post ureteral stent placement. Patient is doing well. Having good urine output. (7) Rectal cancer metastasized to liver Current Visit: Yes Status: Chronic Assessment and plan: Oncology consult appreciated. Patient appears to be responding to Lonsurf. Currently not considering hospice. Remains full code. Follow-up outpatient after discharge with oncology. (8) DVT prophylaxis Current Visit: Yes Status: Acute Assessment and plan: Not on medical anticoagulation due to recent bleeding from colostomy site. SCDs in place - Subjective Interval history: Patient is doing better today. Still has some drainage from his pelvic abscess drain. Starting to have some solid stools. Denies any fever or chills. No nausea or vomiting. No fever or chills reported overnight. - Constitutional Vitals: Temp Pulse Resp BP Pulse Ox 98.0 F 117 18 127/87 96 05/23/17 14:00 05/23/17 14:00 05/23/17 14:00 05/23/17 14:00 05/23/17 14:00 General appearance: Present: cooperative, mild distress, A&O X 3, pleasant, obese, answers questions appropriately - Neck Neck exam general surgery: Present: supple, trachea midline. Absent: lymphadenopathy - Respiratory Respiratory exam: Present: CTAB. Absent: accessory muscle use, rales, rhonchi, wheezes - Cardiovascular Cardiovascular exam: Present: RRR, +S1, +S2. Absent: diastolic murmur, gallop, rubs, systolic murmur - GI/Abdominal GI/Abdominal exam: Present: normal bowel sounds, soft, no peritoneal signs. Absent: distended, tenderness Additional comments: Stools present in colostomy bag. Pelvic abscess drain in place - Extremities Exam Extremities exam: Present: warm, radial pulses palpable and symmetrical. Absent : calf tenderness, cyanotic, pedal edema - Neurological Exam Neurological exam: Present: alert, oriented X3, no focal deficits. Absent: facial droop, speech deficit - Skin Skin exam: Present: dry, intact Internal Medicine: Result - Labs CBC & Chem 7: 05/23/17 04:58 05/23/17 04:58 Labs: Short CBC 05/23/17 Range/Units 04:58 WBC 3.6 L (4.3-11.1) K/mcL Hgb 9.0 L (12.9-16.9) g/dL Hct 30.0 L (37.5-50.1) % Plt Count 136 L (140-400) K/mcL Neutrophils # 2.4 (1.6-8.9) K/mcL BMP 05/23/17 04:58 Sodium 137 Potassium 3.6 Chloride 102 Carbon Dioxide 28 BUN 9 Creatinine 0.67 L Glucose 193 H Calcium 8.8 Liver Function 05/23/17 Range/Units 04:58 Total Bilirubin 0.4 (0.3-1.0) mg/dL AST 30 (13-39) Units/L ALT 16 (7-52) Units/L Alkaline Phosphatase 163 H (34-104) Units/L Albumin 2.5 L (3.5-5.7) g/dL - ABG Interpretation ABG results: PT/INR, D-dimer PT 14.1 Seconds (9.4-12.1) H 05/18/17 11:06 - Impressions Impressions Abdomen/Pelvis CT 05/22/17 16:47 IMPRESSION: No change in small bowel dilation or volume of ascites. No identifiable residual fluid collection in the perirectal space after drain placement. D/ / Valente Franklin MD / Valente Franklin MD Interpreting Provider: Valente Franklin MD - VTE Documentation of Mechanical Device: Intermittent pneumatic compression device Consult Discharge Plan - Plan Referrals: Ander Patel MD [Primary Care Provider] -
[2017-05-23] MEDS: metroNIDAZOLE 500 MG TABLET PO SCH (20:10)
[2017-05-24] MEDS: Vancomycin 1,500 MG in D5% in Water 250 ML IVPB SCH ×2 (04:16→16:03)
[2017-05-24] MEDS: *HR* OxyCODONE/APAP 7.5/325 TABLET PO PRN ×3 (04:16→17:26)
[2017-05-24] MEDS: Insulin LISPRO 300 UNITS/3 ML VIAL SQ SCH ×4 (07:46→21:52)
[2017-05-24] MEDS: Gabapentin 300 MG CAPSULE PO SCH ×3 (09:07→21:52)
[2017-05-24] MEDS: metroNIDAZOLE 500 MG TABLET PO SCH ×3 (09:07→21:51)
[2017-05-24] MEDS: cefTRIAXone 2,000 MG in Water for inj. (sterile) 20 ML 20 ML IVP SCH (09:07)
[2017-05-24] MEDS: *HR* HYDROmorphone (PF) 1 MG/ML SYRINGE IVP PRN ×4 (10:17→21:52)
--- NOTE | 2017-05-24 16:16 | Internal Med Progress Note ---
Date of Encounter: 05/24/17 Time of Encounter: 09:50 - Assessment and plan (1) Pelvic abscess Current Visit: Yes Status: Acute Assessment and plan: Status post drainage with RACHANA drain in place. Patient has had about 60 mL out since this morning. Cultures positive for Escherichia coli, Klebsiella, enterococcus faecalis and group B streptococcus. Patient is currently on vancomycin, ceftriaxone. We will continue these antibiotics. Infectious disease has been consulted but currently would not be available until at least tomorrow. (2) Anemia Current Visit: Yes Status: Chronic Assessment and plan: Hemoglobin levels are stable. Continue current management. Qualifiers: Anemia type: iron deficiency Iron deficiency anemia type: chronic blood loss Qualified Code(s): D50.0 - Iron deficiency anemia secondary to blood loss (chronic) (3) Ascites Current Visit: Yes Status: Acute Assessment and plan: Follow-up outpatient with oncology after discharge Qualifiers: Ascites type: malignant Qualified Code(s): R18.0 - Malignant ascites (4) Colitis Current Visit: Yes Status: Acute Assessment and plan: Continue Flagyl and ceftriaxone. (5) Colostomy in place Current Visit: Yes Status: Chronic Assessment and plan: Good colostomy output. Continue local colostomy care (6) Left ureteral stone Current Visit: Yes Status: Acute (7) Rectal cancer metastasized to liver Current Visit: Yes Status: Chronic Assessment and plan: Follow-up outpatient with oncology (8) DVT prophylaxis Current Visit: Yes Status: Acute Assessment and plan: [facility] medical anticoagulation due to recent bleeding from colostomy site (9) Type 2 diabetes mellitus Current Visit: Yes Status: Chronic Assessment and plan: Continue current insulin coverage. We will add long-acting insulin as patient' s blood sugars were persistently greater than 200. Qualifiers: Diabetes mellitus complication status: with unspecified complications Diabetes mellitus terminal press operator insulin use: without terminal press operator use Qualified Code( s): E11.8 - Type 2 diabetes mellitus with unspecified complications - Subjective Interval history: Patient continues to improve. Abdominal pain is improving overall. Feels less distended today. Does continue to have drainage into his pelvic abscess drain. No fever or chills reported. - Constitutional Vitals: Temp Pulse Resp BP Pulse Ox 97.9 F 116 16 119/82 95 05/24/17 14:50 05/24/17 14:50 05/24/17 14:50 05/24/17 14:50 05/24/17 14:50 General appearance: Present: cooperative, mild distress, A&O X 3, pleasant, obese, answers questions appropriately - Neck Neck exam general surgery: Present: supple, trachea midline. Absent: lymphadenopathy - Respiratory Respiratory exam: Present: CTAB. Absent: accessory muscle use, rales, rhonchi, wheezes - Cardiovascular Cardiovascular exam: Present: RRR, +S1, +S2, tachycardia. Absent: diastolic murmur, gallop, rubs, systolic murmur - GI/Abdominal GI/Abdominal exam: Present: normal bowel sounds, soft, no peritoneal signs. Absent: distended, tenderness - Extremities Exam Extremities exam: Present: warm, radial pulses palpable and symmetrical. Absent : calf tenderness, cyanotic, pedal edema Internal Medicine: Result - Labs CBC & Chem 7: 05/23/17 04:58 05/23/17 04:58 - ABG Interpretation ABG results: PT/INR, D-dimer PT 14.1 Seconds (9.4-12.1) H 05/18/17 11:06 - VTE Documentation of Mechanical Device: Intermittent pneumatic compression device Consult Discharge Plan - Plan Referrals: Ander Patel MD [Primary Care Provider] -
[2017-05-24] MEDS: Insulin DETEMIR 100 UNIT/ML X5UNITS SQ SCH (21:53)
[2017-05-25 03:16] LABS: Basophils % 0.5 %; Eosinophils # 0.1 K/mcL (0.0-0.6); Eosinophils % 1.2 %; Hematocrit 27.8 % (37.5-50.1); Hemoglobin 8.4 g/dL (12.9-16.9); Immature Granulocytes % 0.5 % (0-4); Immature Platelets 2.9 % (1.1-6.1); Lymphocytes # 0.7 K/mcL (0.6-4.6); Lymphocytes % 15.9 %; Mean Corpuscular HGB Conc 30.2 g/dL (31.6-35.5); Mean Corpuscular Hemoglobin 27.5 pg (28.0-33.3); Mean Corpuscular Volume 91.1 fL (83.0-100.0); Mean Platelet Volume 10.1 fL (9.4-12.4); Monocytes # 0.4 K/mcL (0.0-1.3); Monocytes % 10.1 %; Platelet Count 121 K/mcL (140-400); Red Blood Count 3.05 M/mcL (4.19-5.50); Red Cell Distribution Width 15.1 % (11.5-14.5); Segmented Neutrophils % 71.8 %
[2017-05-25 03:35] LABS: BUN/Creatinine Ratio 13 (6-26); Blood Urea Nitrogen 13 mg/dL (6-20); Calcium 8.8 mg/dL (8.6-10.3); Carbon Dioxide 28 mEq/L (23-29); Chloride 103 mEq/L (98-107); Glucose 207 mg/dL (70-105); Osmolality,Calculated 292 (280-300); Potassium 3.3 mEq/L (3.5-5.1); Sodium 138 mEq/L (136-145); eGFR For African Americans > 60 (> 60); eGFR For Non-African Americans > 60 (> 60)
[2017-05-25] MEDS: *HR* HYDROmorphone (PF) 1 MG/ML SYRINGE IVP PRN ×5 (04:00→22:09)
[2017-05-25] MEDS: cefTRIAXone 2,000 MG in Water for inj. (sterile) 20 ML 20 ML IVP SCH (08:51)
[2017-05-25] MEDS: metroNIDAZOLE 500 MG TABLET PO SCH ×3 (08:52→22:09)
[2017-05-25] MEDS: Gabapentin 300 MG CAPSULE PO SCH ×3 (08:52→22:09)
[2017-05-25] MEDS: Insulin LISPRO 300 UNITS/3 ML VIAL SQ SCH ×4 (08:52→21:57)
[2017-05-25] MEDS ORDERED: Lidocaine -MPF 1% 5 ML AMPUL INFILT ONE (10:25)
--- NOTE | 2017-05-25 14:05 | Internal Med Progress Note ---
Date of Encounter: 05/25/17 Time of Encounter: 09:40 - Assessment and plan (1) Pelvic abscess Current Visit: Yes Status: Acute Assessment and plan: CT scan of the abdomen and pelvis done today. No residual abscess. Will DC RACHANA drain. Continue current antibiotics. Given the multiple organisms growing in the abscess, consulted infectious disease but currently not available for consults. Patient is currently on ceftriaxone and vancomycin to cover the organisms growing from his pelvic abscess. Would recommend treatment with IV antibiotics for a total duration of at least 2 weeks at this time pending infectious disease consultation. (2) Anemia Current Visit: Yes Status: Chronic Assessment and plan: Hemoglobin levels are stable. We will place patient on iron supplements. Qualifiers: Anemia type: iron deficiency Iron deficiency anemia type: chronic blood loss Qualified Code(s): D50.0 - Iron deficiency anemia secondary to blood loss (chronic) (3) Ascites Current Visit: Yes Status: Acute Assessment and plan: Malignant ascites. Likely causing his significant pain and abdominal distention. May consider palliative paracentesis if continues to get worse. Qualifiers: Ascites type: malignant Qualified Code(s): R18.0 - Malignant ascites (4) Colitis Current Visit: Yes Status: Acute Assessment and plan: Patient has been treated with antibiotics since hospitalization. Currently on ceftriaxone and Flagyl. Would recommend stopping Flagyl after 10 days of treatment. Today is day 8. (5) Colostomy in place Current Visit: Yes Status: Chronic (6) Left ureteral stone Current Visit: Yes Status: Acute Assessment and plan: Status post left ureteral stent placement. Follow-up outpatient with urology (7) Rectal cancer metastasized to liver Current Visit: Yes Status: Chronic Assessment and plan: With significant cancer related pain. We will consult palliative care to help manage patient's pain. CT scan of the abdomen and pelvis done today showed multiple new and enlarging hepatic masses suggesting progression of metastatic disease of the liver. Also right lower lobe subpleural nodule is also increasing in size concerning for possible metastasis. Oncology following. (8) DVT prophylaxis Current Visit: Yes Status: Acute Assessment and plan: Patient not on medical anticoagulation due to recent episodes of sloughing and bleeding from colostomy site. On IPCD's. (9) Type 2 diabetes mellitus Current Visit: Yes Status: Chronic Assessment and plan: Started on Levemir last night with some improvement in and his blood sugars. Will monitor and add long-acting insulin coverage in the morning also. Qualifiers: Diabetes mellitus complication status: with unspecified complications Diabetes mellitus custodial insulin use: without termite technician use Qualified Code( s): E11.8 - Type 2 diabetes mellitus with unspecified complications (10) Cancer related pain Current Visit: Yes Status: Acute Assessment and plan: Patient having significant abdominal pain. Most likely related to his cancer. We will consult palliative care to help manage his condition. Currently receiving intravenous Dilaudid. High risk for complications. - Subjective Interval history: 46-year-old male patient with history of rectal cancer with metastatic lesions to the liver status post colostomy admitted for colitis, gastritis and pelvic abscess. Patient also had a left ureteral stone. She underwent stenting for the left ureteral stone. Underwent RACHANA drain placement for the pelvic abscess. Hematology/oncology followed regarding patient's rectal cancer and reported that he has had good response to Lonsurf. However patient continues to have pain in his abdomen likely due to malignant ascites. Patient complains of abdominal pain and distention and also complains of some distention in the lower back pelvic region just above the site of his pelvic abscess drainage catheter. He does report a decrease in his stool output. Denies any fever or chills. No nausea or vomiting. Tolerating oral diet well. Minimal output from pelvic abscess. - Constitutional Vitals: Temp Pulse Resp BP Pulse Ox 98 F 114 16 130/82 94 05/25/17 11:09 05/25/17 11:09 05/25/17 11:09 05/25/17 11:09 05/25/17 11:09 General appearance: Present: cooperative, mild distress, A&O X 3, pleasant, obese, answers questions appropriately - Neck Neck exam general surgery: Present: supple, trachea midline. Absent: lymphadenopathy - Respiratory Respiratory exam: Present: CTAB. Absent: accessory muscle use, rales, rhonchi, wheezes - Cardiovascular Cardiovascular exam: Present: RRR, +S1, +S2. Absent: diastolic murmur, gallop, rubs, systolic murmur - GI/Abdominal GI/Abdominal exam: Present: normal bowel sounds, soft, no peritoneal signs. Absent: distended, tenderness Additional comments: Colostomy site appears clean. Patient does have some tenderness in the left lumbar paraspinal region. Do not appreciate any significant swelling in this region. Pelvic abscess draining catheter has minimal drainage. - Extremities Exam Extremities exam: Present: warm, radial pulses palpable and symmetrical. Absent : calf tenderness, cyanotic, pedal edema - Neurological Exam Neurological exam: Present: CN II-XII intact, oriented X3, no focal deficits. Absent: facial droop, speech deficit - Skin Skin exam: Present: dry, intact Internal Medicine: Result - Labs CBC & Chem 7: 05/25/17 03:06 05/25/17 03:06 Labs: Short CBC 05/25/17 Range/Units 03:06 WBC 4.2 L (4.3-11.1) K/mcL Hgb 8.4 L (12.9-16.9) g/dL Hct 27.8 L (37.5-50.1) % Plt Count 121 L (140-400) K/mcL Neutrophils # 3.0 (1.6-8.9) K/mcL BMP 05/25/17 03:06 Sodium 138 Potassium 3.3 L Chloride 103 Carbon Dioxide 28 BUN 13 Creatinine 0.98 Glucose 207 H Calcium 8.8 - ABG Interpretation ABG results: PT/INR, D-dimer PT 14.1 Seconds (9.4-12.1) H 05/18/17 11:06 - Impressions Impressions Abdomen/Pelvis CT 05/25/17 09:25 IMPRESSION: Trans gluteal percutaneous drainage catheter in the presacral space without significant measurable remaining fluid collection. Moderate to large amount of abdominal and pelvic ascites stable to slightly increased in amount compared to prior examination. Postsurgical changes status post rectal resection and left lower quadrant colostomy. No evidence of bowel obstruction. Mild distention of the small and large bowel suggesting mild postoperative ileus. Multiple new and enlarging hepatic masses compared to January examinations suggesting progression of metastatic disease of the liver. Splenomegaly again noted. Right lower lobe subpleural 9 mm nodule that is slowly increasing when compared to 2016 examination suspicious for possible metastasis. D/ / 05/25/2017 10:48:04 Angelo Guevara MD / bcarter Interpreting Provider: Angelo Guevara MD - VTE Documentation of Mechanical Device: Intermittent pneumatic compression device Consult Discharge Plan - Plan Referrals: Ander Patel MD [Primary Care Provider] -
--- NOTE | 2017-05-25 14:32 | Palliative - Consult Note ---
<Naren Galan - Last Filed: 05/25/17 15:34> Date of Encounter: 05/25/17 Time of Encounter: 14:29 - Assessment and Plan (1) Goals of care, counseling/discussion Current Visit: Yes Status: Acute Assessment and plan: Patient in room with Mother (Dinorah) during visit. Discussed goals of care: Patient has expressed wishes to live as long as possible to see grandchildren grow up, is comfortable if he has to use wheelchair for the rest of his life due to weakness, reports plan is to restart chemotherapy after this hospital stay, discussed code status and understands scenarios and prefers to be Full Code, will be making POA (-Meredith), would like to draft the paperwork. Pain: abdominal pain radiating to back, stretching sensation, 10/10, not well controlled at home while on dilaudid and oxycodone, controlled on current pain regimen in hospital (2mg dilaudid and percocet 7.5mg) to 3-4/10 and lower, no significant sedation from medication Bowels: colostomy. Reportedly regular bowel movements while on pain medications N/V: good appetites, no nausea, no vomiting OARRS reviewed and had multiple providers providing multiple medications. Past month had Oxycodone 10mg and Dilaudid 2mg as well as gabapentin 300mg. Previously was on percocet and oxycodone and gabapentin. Recommendations: Palliative Medicine is not available over this weekend and will be available again on Sunday. Because we will not be available over the weekend, we will not be managing this patient's pain medication orders and will be making only recommendations and will not be filling this medication for the patient. CODE: FULL CODE Pain: Dilaudid 2mg po q3h and oxycodone 10mg q4h prn. Avoid Percocet due to the liver mets and concern for acetaminophen toxicity. Wean down Dilaudid IV during hospital stay. Recommend patient use one provider who will prescribe the pain medication to provide continuity of pain management. May continue to use the gabapentin as prescribed by Sports Medicine physician. Bowel regimen: continue current bowel regimen POA/Advance Directives: Patient has expressed that (Meredith) is to be his POA, but will attempt to draft the paperwork on Sunday if the patient is still here or to have completed when following up with Cancer Center. 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 Current Visit: Yes Status: Chronic (3) Cancer related pain Current Visit: Yes Status: Acute (4) Abdominal pain Current Visit: Yes Status: Acute Qualifiers: Abdominal location: generalized Qualified Code(s): R10.84 - Generalized abdominal pain (5) Colitis Current Visit: Yes Status: Acute (6) Ascites Current Visit: Yes Status: Acute Qualifiers: Ascites type: malignant Qualified Code(s): R18.0 - Malignant ascites (7) Left ureteral stone Current Visit: Yes Status: Acute (8) Tachycardia Current Visit: Yes Status: Acute (9) Type 2 diabetes mellitus Current Visit: Yes Status: Chronic Qualifiers: Diabetes mellitus complication status: with unspecified complications Diabetes mellitus [employer] insulin use: without [employer] use Qualified Code( s): E11.8 - Type 2 diabetes mellitus with unspecified complications (10) Hypothyroidism Current Visit: Yes Status: Chronic Qualifiers: Hypothyroidism type: unspecified Qualified Code(s): E03.9 - Hypothyroidism , unspecified Palliative-CN HPI - Data of Consult Consult date: 05/25/17 Requesting Physician: Niles Nunez MD Primary Care Provider: Ander Patel MD - Consult Narrative Reason for consult: Pain management, goals of care History of present illness: Mr. Chaidez is a 46 year old male with history of colorectal cancer with mets to liver with diverting colostomy 04/03/17, type II diabetes, hypothyroidism, gerd, low back pain, hld, hx of TIA, arthritis, gerd, and anxiety and depression who presented to the ED on 05/18/17 with complaint of abdominal pain and swelling, decreased stool output, and hematochezia. During this hospital stay patient has had active problems of colitis on antibiotics, acute blood loss anemia, hematochezia, ascites, rectal cancer with mets, and pelvic abscess s/p IR drain placement 05/20/17. Our team was consulted to discuss goals of care and recommendations for pain management. Patient was alert and awake when entering room with mother (Dinorah) present in the room. Patient reports that he has been fighting this colorectal cancer for the past 5 years and has been undergoing chemotherapy up until 01/2017 when it was stopped prior to diverting colostomy surgery. Lives at home with hist (Meredith), arvind, arvind's girlfriend, and two grandchildren. Reports that during his past five years he has been keeping active around the house and mows his multiple acres regularly. Past couple months has had increasing weakness which resulted in 3 falls. He does walk at home without assistance, but has a cane that he uses at times. Currently not working, previously worked at [employer] , currently on disability since cancer diagnosis. His goal is to "live as long as possible." He would like to partake in additional cancer treatments and reports the plan is for him to restart chemotherapy once he is better from his current hospitalization. He reports that he wants to live as long as possible to watch his grandchildren grow up. He has said he is open to using a wheelchair for the rest of his life if we are unable to improve his weakness enough for him to walk safely. Discussed with patient about code status and patient has consistently expressed that he would live everything done possible to prolong his life. He has expressed understanding the possible poor outcomes of resuscitation and has expressed understanding that he would be okay to be intubated on ventilator for a short period of time after resuscitation and if prolonged ventilation is necessary his POA () would make the final decision. He has expressed that he would like to draft the POA paperwork at this visit. Reports no nausea or vomiting over the past couple months. Had significant nausea and vomiting with 40Lb weight loss when first starting chemotherapy years ago. Patient reports that his appetite is good and he has not lost significant weight recently. Reports pain is "manageable" at home to a point, but could use improvement. Reports he was taking oxycontin and percocet for pain, denied using dilaudid. Because of the uncertainty we checked OARRS. Has received script for oxycodone 10mg, dilaudid 2mg, and gabapentin 300mg over the past month from provider at [facility] and sports med physician at [place]. Looking further back the patient has previously had some percocets and oxycodone, no previous scripts of dilaudid. Has had multiple different providers over the past couple months. Pain is mainly located over entire abdomen and stretching to lower back, but patient reports chronic low back pain. Reports pain is 10/ 10 and the 2mg dilaudid iv during this stay has decreased pain to 3-4/10 and the additional percocet brings the pain to almost none. No significant sedation from meds. Reports constant achy feeling of the pain and stretching sensation over entire abdomen. Has some areas, particularly epigastric region that is more painful than other areas. Worsening of pain when trying to get up from a supine position and is so severe at times he is unable to get out of bed. Reports being in bed for the past 2 days, but was able to get to standing position to urinate in urinal without any assistance. Bowel movements have been regular while on medication regimen at home and while in hospital, no additional hematochezia. Denies fevers, chills, sweats, nausea, vomiting, chest pain, shortness of breath , changes in urination, or rash. CC: Niles Nunez MD Past Med Surg Social Fam HX - Past Medical History Medical history: arthritis, cancer (Colorectal, metastatic liver, adenocarcinoma of the rectum), diabetes, GERD (Controlled by oral anti- hyperglycemic medications), thyroid disease, other Psychiatric history: anxiety, depression - Past Surgical History Surgical History: colostomy, other (04/03/17) - Social History Smoking Status: Former smoker Packs per day: 1-1.5 PPD - Reports quitting 20 years ago Smokeless Tobacco Status: Yes (Quit many years ago) Alcohol use: rarely Drug use: none - Family History Father History Unknown: Yes Adopted: Yes Sister Race: Family Member Ethnicity: Non- Living Status: Still Living Hx Family Medical Disorders: No Mother History Unknown: Yes Adopted: Yes Hx Family Cardiac Disorders: Yes Medications and Allergies Metformin HCl [Glucophage Xr] 1,000 mg PO BID 02/23/15 [History] Acetaminophen/Butalbital/Caffe [Fioricet] 1 each PO TID PRN #90 tablet 04/13/15 [Rx] Cyclobenzaprine [Flexeril] 10 mg PO TID PRN 07/16/15 [History] Prochlorperazine Maleate [Compazine] 10 mg PO Q6HR PRN #120 tablet 02/07/16 [Rx] Ondansetron HCl [Zofran] 4 mg PO Q6H PRN #30 tablet 03/24/16 [Rx] OxyCODONE/APAP 7.5/325 [Percocet 7.5/325 MG] 1 each PO Q6H PRN #30 tablet [Rx] Hydromorphone HCl [Dilaudid] 1 tab PO Q6H PRN #90 tablet 04/17/16 [Rx] Zolpidem [Ambien] 10 mg PO HS PRN 10/03/16 [History] Citalopram Hydrobromide [Celexa] 20 mg PO DAILY #90 tablet 11/20/16 [Rx] Atorvastatin [Lipitor] 10 mg PO HS 11/27/16 [History] Levothyroxine [Synthroid] 75 mcg PO 0630 11/27/16 [History] Omeprazole [PriLOSEC] 40 mg PO DAILY 11/27/16 [History] Pioglitazone HCl [Actos] 30 mg PO DAILY 11/27/16 [History] Docusate [Colace] 100 mg PO BID 05/15/17 [History] Gabapentin [Neurontin] 300 mg PO TID 05/15/17 [History] Methocarbamol [Robaxin] 500 mg PO Q8HR PRN 05/15/17 [History] 3 Allergy/AdvReac Type Severity Reaction Status Date / Time capecitabine [From Xeloda] AdvReac Hallucinati Verified 05/18/17 13:17 ng - Constitutional Constitutional ROS PAL: as per HPI - EENT Eyes: as per HPI Ears: as per HPI - Cardiovascular Cardiovascular ROS: as per HPI - Respiratory Respiratory: as per HPI - Gastrointestinal Gastrointestinal: as per HPI, abdominal pain - Genitourinary Genitourinary ROS male: as per HPI - Musculoskeletal Musculoskeletal ROS IM: as per HPI, back pain, muscle weakness - Integumentary ROS Integumentary: as per HPI - Neurological Neurological ROS: as per HPI Palliative Care-Exam - Constitutional Vitals: Temp Pulse Resp BP Pulse Ox 98 F 114 16 130/82 94 05/25/17 11:09 05/25/17 11:09 05/25/17 11:09 05/25/17 11:09 05/25/17 11:09 General appearance: Present: no acute distress - Head Head Exam: Present: atraumatic, normal inspection, normocephalic - Eye Eye exam: Present: EOMI, PERRL. Absent: scleral icterus - ENT ENT exam: Present: mucous membranes moist, normal external ear exam, normal oropharynx - Neck Neck exam: Present: full ROM - Respiratory Respiratory exam: Present: CTAB. Absent: rales, rhonchi, wheezes - Cardiovascular Cardiovascular exam: Present: +S1, +S2, tachycardia. Absent: JVD - GI/Abdominal Exam GI/Abdominal exam: Present: distended, normal bowel sounds, tenderness. Absent : rebound, rigid additional comments: colostomy LLQ with brown loose stool, multiple surgical scars - Expanded GI/Abdominal Exam GI/Abdominal exam: Present: ascites - Extremities Exam Extremities exam: Present: pedal edema (2+ pitting edema bilateral lower ext). Absent: tenderness - Neurological Exam Neurological exam: Present: alert, oriented X3, no focal deficits, strengths equal and symetr throughout - Psychiatric Psychiatric exam: Present: normal affect, normal mood - Skin Skin exam: Present: dry, intact, normal color, warm. Absent: rash Internal Medicine - CN: Reslt - Labs CBC & Chem 7: 05/25/17 03:06 05/25/17 03:06 Labs: Short CBC 05/25/17 Range/Units 03:06 WBC 4.2 L (4.3-11.1) K/mcL Hgb 8.4 L (12.9-16.9) g/dL Hct 27.8 L (37.5-50.1) % Plt Count 121 L (140-400) K/mcL Neutrophils # 3.0 (1.6-8.9) K/mcL BMP 05/25/17 03:06 Sodium 138 Potassium 3.3 L Chloride 103 Carbon Dioxide 28 BUN 13 Creatinine 0.98 Glucose 207 H Calcium 8.8 - ABG Interpretation ABG results: PT/INR, D-dimer PT 14.1 Seconds (9.4-12.1) H 05/18/17 11:06 - Impressions Impressions Abdomen/Pelvis CT 05/25/17 09:25 IMPRESSION: Trans gluteal percutaneous drainage catheter in the presacral space without significant measurable remaining fluid collection. Moderate to large amount of abdominal and pelvic ascites stable to slightly increased in amount compared to prior examination. Postsurgical changes status post rectal resection and left lower quadrant colostomy. No evidence of bowel obstruction. Mild distention of the small and large bowel suggesting mild postoperative ileus. Multiple new and enlarging hepatic masses compared to January examinations suggesting progression of metastatic disease of the liver. Splenomegaly again noted. Right lower lobe subpleural 9 mm nodule that is slowly increasing when compared to 2016 examination suspicious for possible metastasis. D/ / 05/25/2017 10:48:04 Angelo Guevara MD / [email or web address] Interpreting Provider: Angelo Guevara MD Consult Discharge Plan - Plan Referrals: Ander Patel MD [Primary Care Provider] - Palliative Quality Palliative Quality: Screen for Code Status: Yes, Screen for Goals of Care: Yes, Screen for Pain: Yes, If Pain Regimen Started, Initiate Bowel Regimen: Yes, Screen for Nausea/Vomitting: Yes Code Status: 05/18/17 14:26 Resuscitation Status: Active [RES] Routine Comment: Resuscitation Status: Full Code <Jeffrey Parmar L - Last Filed: 05/25/17 16:27> Date of Encounter: 05/25/17 Palliative-CN HPI - Data of Consult Requesting Physician: Niles Nunez MD Primary Care Provider: Ander Patel MD - Consult Narrative History of present illness: Mr. Chaidez is a 46 year old male CC: Niles Nunez MD Palliative Care-Exam - Constitutional Vitals: Temp Pulse Resp BP Pulse Ox 98.4 F 114 16 123/81 96 05/25/17 15:40 05/25/17 15:40 05/25/17 15:40 05/25/17 15:40 05/25/17 15:40 Internal Medicine - CN: Reslt - Labs CBC & Chem 7: 05/25/17 03:06 05/25/17 03:06 Labs: Short CBC 05/25/17 Range/Units 03:06 WBC 4.2 L (4.3-11.1) K/mcL Hgb 8.4 L (12.9-16.9) g/dL Hct 27.8 L (37.5-50.1) % Plt Count 121 L (140-400) K/mcL Neutrophils # 3.0 (1.6-8.9) K/mcL BMP 05/25/17 03:06 Sodium 138 Potassium 3.3 L Chloride 103 Carbon Dioxide 28 BUN 13 Creatinine 0.98 Glucose 207 H Calcium 8.8 - ABG Interpretation ABG results: PT/INR, D-dimer PT 14.1 Seconds (9.4-12.1) H 05/18/17 11:06 - Impressions Impressions Abdomen/Pelvis CT 05/25/17 09:25 IMPRESSION: Trans gluteal percutaneous drainage catheter in the presacral space without significant measurable remaining fluid collection. Moderate to large amount of abdominal and pelvic ascites stable to slightly increased in amount compared to prior examination. Postsurgical changes status post rectal resection and left lower quadrant colostomy. No evidence of bowel obstruction. Mild distention of the small and large bowel suggesting mild postoperative ileus. Multiple new and enlarging hepatic masses compared to January examinations suggesting progression of metastatic disease of the liver. Splenomegaly again noted. Right lower lobe subpleural 9 mm nodule that is slowly increasing when compared to 2016 examination suspicious for possible metastasis. D/ / 05/25/2017 10:48:04 Angelo Guevara MD / asia Interpreting Provider: Angelo Guevara MD - Attending Attestation I examined this patient and my medical decision-making was reviewed with the Resident Physician. I agree with the documented findings, disposition and treatment plan as described except to the extent set forth below. Palliative Quality Code Status: 05/18/17 14:26 Resuscitation Status: Active [RES] Routine Comment: Resuscitation Status: Full Code
--- NOTE | 2017-05-25 15:32 | Oncology Inp Progress Note ---
Date of Encounter: 05/25/17 Time of Encounter: 15:32 (1) Abdominal pain Current Visit: Yes Status: Acute Assessment and plan: Stage IV adenocarcinoma rectum s/p APR on 04/03/17. Discussed CT Abdomen/Pelvis results from today with patient which shows progression of liver lesions along with moderate to large amount stable to slightly increased ascites, discussed for consideration of paracentesis with cytology with hospitalist for both diagnostic and therapeutic reasoning. Palliative care consulted for pain control, appreciate recommendations. Code status and goals of care discussion initiated, patient continues to request full code status and aggressive treatment. Plan for pain control and medical clearance for discharge, followed with outpatient oncology follow up for discussion on systemic treatment options. Shall his performance status regress or adequate pain control become unobtainable, code status and treatment options will need to be readdressed at that juncture. Surgical consult reviewed, appreciate recommendations. Bleeding from ostomy site -s/p AP resection 04/13, has ceased at this time. No residual abscess, RACHANA to be removed, need for continued ATB tx and ID consult. Due to recent APR, unable to determine at this time whether changes on CT are related to inflammatory response/colitis vs malignant disease. Qualifiers: Abdominal location: generalized Qualified Code(s): R10.84 - Generalized abdominal pain Oncology: Subj Interval history: Reports increasing pain and distention to abdomen. Increased weakness from lying in bed, encouraged PT participation and increased activity as tolerated. Port accessed and patent. Appetite good. Denies nausea, vomiting. Stool output in colostomy more loose than normal, no blood in colostomy. - Constitutional Vitals: Vital Signs Temp Pulse Resp BP Pulse Ox 05/25/17 11:09 98 F 114 16 130/82 94 05/25/17 07:24 98 F 118 16 119/85 96 05/25/17 03:40 98.1 F 125 16 117/76 93 05/24/17 23:27 97.8 F 122 16 128/88 97 05/24/17 19:30 98 05/24/17 18:58 98.1 F 117 16 157/89 98 Intake and Output 05/24/17 05/25/17 05/25/17 23:59 07:59 15:59 Intake Total 500 / 500 400 / 400 260 / 260 Output Total 920 / 920 750 / 750 820 / 820 Balance -420 / -420 -350 / -350 -560 / -560 Intake: IV Fluids Rocephin 2,000 MG In Water for inj. (sterile) 20 ML @ 600 mls/ hr IVP Q24H [facility] Rx#:[id number] Oral 500 / 500 400 / 400 240 / 240 Output: Urine 650 / 650 750 / 750 500 / 500 Stool 250 / 250 0 / 0 300 / 300 Wound Drainage 0 / 0 20 / 20 Sacrum / 0 / 0 Other: Meal Breakfast Percent of Meal Consumed 35% Stool Consistency loose liquid soft Stool Color Brown Weight 106.5 kg Blood Glucose* 233 174 201 Patient Weight 05/25/17 23:59 Weight 106.5 kg General appearance: cooperative, no acute distress, no febrile - Head Head exam: Present: normal inspection - Neck Neck exam: Absent: lymphadenopathy, tenderness - Respiratory Respiratory exam: Present: CTAB - Cardiovascular Cardiovascular exam: Present: RRR, +S1, +S2 - GI/Abdominal GI/Abdominal exam: Present: distended, firm, normal bowel sounds, tenderness - Extremities Exam Extremities exam: Present: pedal edema. Absent: calf tenderness - Neurological Exam Neurological exam: Present: alert, oriented X3, strengths equal and symetr throughout - Psychiatric Psychiatric exam: Present: normal mood - Skin Skin exam: Present: normal color Oncology: Obj Data - Labs CBC & Chem 7: 05/25/17 03:06 05/25/17 03:06 Labs: Laboratory Results - last 24 hr 05/24/17 05/24/17 05/25/17 16:22 20:32 03:06 WBC RBC Hgb Hct MCV MCH MCHC RDW Plt Count MPV Immature Gran % Seg Neutrophils % Lymphocytes % Monocytes % Eosinophils % Basophils % Neutrophils # Lymphocytes # Monocytes # Eosinophils # Basophils # Immature Plt Fraction Sodium Potassium Chloride Carbon Dioxide BUN Creatinine Est GFR ( Amer) Est GFR (Non-Af Amer) BUN/Creatinine Ratio Glucose POC Glucose 200 H 233 H Calculated Osmolality Calcium Vancomycin Trough 24.5 H* 05/25/17 05/25/17 05/25/17 03:06 03:06 07:29 WBC 4.2 L RBC 3.05 L Hgb 8.4 L Hct 27.8 L MCV 91.1 MCH 27.5 L MCHC 30.2 L RDW 15.1 H Plt Count 121 L MPV 10.1 Immature Gran % 0.5 Seg Neutrophils % 71.8 Lymphocytes % 15.9 Monocytes % 10.1 Eosinophils % 1.2 Basophils % 0.5 Neutrophils # 3.0 Lymphocytes # 0.7 Monocytes # 0.4 Eosinophils # 0.1 Basophils # 0.0 Immature Plt Fraction 2.9 Sodium 138 Potassium 3.3 L Chloride 103 Carbon Dioxide 28 BUN 13 Creatinine 0.98 Est GFR ( Amer) > 60 Est GFR (Non-Af Amer) > 60 BUN/Creatinine Ratio 13 Glucose 207 H POC Glucose 174 H Calculated Osmolality 292 Calcium 8.8 Vancomycin Trough - Impressions Impressions Abdomen/Pelvis CT 05/25/17 09:25 IMPRESSION: Trans gluteal percutaneous drainage catheter in the presacral space without significant measurable remaining fluid collection. Moderate to large amount of abdominal and pelvic ascites stable to slightly increased in amount compared to prior examination. Postsurgical changes status post rectal resection and left lower quadrant colostomy. No evidence of bowel obstruction. Mild distention of the small and large bowel suggesting mild postoperative ileus. Multiple new and enlarging hepatic masses compared to January examinations suggesting progression of metastatic disease of the liver. Splenomegaly again noted. Right lower lobe subpleural 9 mm nodule that is slowly increasing when compared to 2016 examination suspicious for possible metastasis. D/ / 05/25/2017 10:48:04 Angelo Guevara MD / bcarter Interpreting Provider: Angelo Guevara MD - ABG Interpretation ABG results: PT/INR, D-dimer PT 14.1 Seconds (9.4-12.1) H 05/18/17 11:06 Consult Discharge Plan - Plan Referrals: Ander Patel MD [Primary Care Provider] -
[2017-05-25] MEDS: Vancomycin 750 MG in D5% in Water 250 ML IVPB SCH (17:41)
[2017-05-25] MEDS: Lactobacillus 1 EACH CAP.SPRINK PO SCH (22:09)
[2017-05-25] MEDS: *HR* OxyCODONE/APAP 7.5/325 TABLET PO PRN (22:09)
[2017-05-25] MEDS: Insulin DETEMIR 100 UNIT/ML X5UNITS SQ SCH (22:15)
[2017-05-26] MEDS: *HR* OxyCODONE/APAP 7.5/325 TABLET PO PRN ×3 (04:14→21:27)
[2017-05-26] MEDS: *HR* HYDROmorphone (PF) 1 MG/ML SYRINGE IVP PRN ×3 (04:15→22:59)
[2017-05-26] MEDS: Vancomycin 750 MG in D5% in Water 250 ML IVPB SCH ×2 (04:17→17:36)
[2017-05-26 05:20] LABS: Basophils % 0.6 %; Eosinophils # 0.1 K/mcL (0.0-0.6); Hematocrit 27.6 % (37.5-50.1); Hemoglobin 8.3 g/dL (12.9-16.9); Immature Granulocytes % 0.6 % (0-4); Lymphocytes # 0.6 K/mcL (0.6-4.6); Lymphocytes % 12.5 %; Mean Corpuscular HGB Conc 30.1 g/dL (31.6-35.5); Mean Corpuscular Hemoglobin 27.5 pg (28.0-33.3); Mean Corpuscular Volume 91.4 fL (83.0-100.0); Mean Platelet Volume 10.8 fL (9.4-12.4); Monocytes # 0.6 K/mcL (0.0-1.3); Monocytes % 10.9 %; Neutrophils # 3.8 K/mcL (1.6-8.9); Platelet Count 128 K/mcL (140-400); Red Blood Count 3.02 M/mcL (4.19-5.50); Red Cell Distribution Width 15.3 % (11.5-14.5); Segmented Neutrophils % 74.4 %
[2017-05-26 05:39] LABS: BUN/Creatinine Ratio 12 (6-26); Blood Urea Nitrogen 14 mg/dL (6-20); Calcium 8.7 mg/dL (8.6-10.3); Carbon Dioxide 30 mEq/L (23-29); Chloride 102 mEq/L (98-107); Glucose 194 mg/dL (70-105); Osmolality,Calculated 290 (280-300); Potassium 3.7 mEq/L (3.5-5.1); Sodium 137 mEq/L (136-145); eGFR For African Americans > 60 (> 60); eGFR For Non-African Americans > 60 (> 60)
[2017-05-26] MEDS: Gabapentin 300 MG CAPSULE PO SCH ×3 (08:14→21:28)
[2017-05-26] MEDS: metroNIDAZOLE 500 MG TABLET PO SCH ×3 (08:14→21:27)
[2017-05-26] MEDS: Lactobacillus 1 EACH CAP.SPRINK PO SCH ×2 (08:14→21:28)
[2017-05-26] MEDS: cefTRIAXone 2,000 MG in Water for inj. (sterile) 20 ML 20 ML IVP SCH (08:15)
[2017-05-26] MEDS: Insulin LISPRO 300 UNITS/3 ML VIAL SQ SCH ×4 (08:15→21:29)
[2017-05-26] MEDS: Insulin DETEMIR 100 UNIT/ML X5UNITS SQ SCH ×2 (08:16→21:28)
--- NOTE | 2017-05-26 16:52 | Internal Med Progress Note ---
Date of Encounter: 05/26/17 Time of Encounter: 09:20 - Assessment and plan (1) Ascites Current Visit: Yes Status: Acute Assessment and plan: Malignant ascites - Likely causing his significant pain and abdominal distention IR consult for therapeutic paracentesis Qualifiers: Ascites type: malignant Qualified Code(s): R18.0 - Malignant ascites (2) Pelvic abscess Current Visit: Yes Status: Acute Assessment and plan: CT scan of the abdomen and pelvis done today. No residual abscess. RACHANA drain has been discontinued Continue IV Rocephin, IV Flagyl, IV Vancomycin Body fluid culture - no organisms Infectious disease consult, on available this weekend Recommend to continue IV antibiotics for at least 2 weeks (3) Left ureteral stone Current Visit: Yes Status: Acute Assessment and plan: Status post left ureteral stent placement Follow-up outpatient with urology (4) Rectal cancer metastasized to liver Current Visit: Yes Status: Chronic Assessment and plan: With significant cancer related pain. We will consult palliative care to help manage patient's pain CT abdomen and pelvis - multiple new and enlarging hepatic masses suggesting progression of metastatic disease of the liver, Also right lower lobe subpleural nodule is also increasing in size concerning for possible metastasis Oncology following (5) Anemia Current Visit: Yes Status: Chronic Assessment and plan: Hemoglobin levels are stable. We will place patient on iron supplements. 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 Patient is awake and alert. Not in any distress. Denies chest pain or shortness of breath. Tolerating oral diet. Complains of mild abdominal pain and distention. States he feels bloated. No fever. Hemodynamically stable. Continues to be tachycardic. Admitted for acute colitis and pelvic abscess. Underwent RACHANA drain placement for the pelvic abscess, which has now been removed. Patient does have rectal cancer with metastasis to liver. Patient does have moderate to large ascites. IR consult for possible paracentesis. Patient also found to have a left ureteral stone and is underwent cystoscopy with left ureteral stent placement. Oncology is also following patient. - Constitutional Vitals: Temp Pulse Resp BP Pulse Ox 98.7 F 115 16 142/89 96 05/26/17 14:55 05/26/17 14:55 05/26/17 14:55 05/26/17 14:55 05/26/17 14:55 General appearance: Present: cooperative, A&O X 3, pleasant, no acute distress, obese, answers questions appropriately - Head Head exam: Present: atraumatic - Eye Eye exam: Present: EOMI - ENT ENT exam: Present: mucous membranes moist - Respiratory Respiratory exam: Present: CTAB. Absent: accessory muscle use, chest wall tenderness, rales, respiratory distress, rhonchi, wheezes, tachypnea - Cardiovascular Cardiovascular exam: Present: RRR, +S1, +S2 - GI/Abdominal GI/Abdominal exam: Present: distended (Ascites present), soft, no peritoneal signs. Absent: firm, guarding, tenderness Additional comments: Abdomen is distended and patient does have ascites. Colostomy site looks okay. Mild tenderness in the left lumbar paraspinal region. - Extremities Exam Extremities exam: Present: pedal edema (Bilateral), radial pulses palpable and symmetrical. Absent: calf tenderness, cyanotic - Neurological Exam Neurological exam: Present: alert, oriented X3, no focal deficits. Absent: facial droop, speech deficit Internal Medicine: Result - Labs CBC & Chem 7: 05/26/17 04:06 05/26/17 04:06 Labs: Short CBC 05/26/17 Range/Units 04:06 WBC 5.1 (4.3-11.1) K/mcL Hgb 8.3 L (12.9-16.9) g/dL Hct 27.6 L (37.5-50.1) % Plt Count 128 L (140-400) K/mcL Neutrophils # 3.8 (1.6-8.9) K/mcL BMP 05/26/17 04:06 Sodium 137 Potassium 3.7 Chloride 102 Carbon Dioxide 30 H BUN 14 Creatinine 1.17 Glucose 194 H Calcium 8.7 - ABG Interpretation ABG results: PT/INR, D-dimer PT 14.1 Seconds (9.4-12.1) H 05/18/17 11:06 - VTE Documentation of Mechanical Device: Intermittent pneumatic compression device Consult Discharge Plan - Plan Referrals: Ander Patel MD [Primary Care Provider] -
[2017-05-27] MEDS: *HR* HYDROmorphone (PF) 1 MG/ML SYRINGE IVP PRN ×5 (04:09→22:51)
[2017-05-27 04:17] LABS: Basophils % 0.4 %; Eosinophils # 0.1 K/mcL (0.0-0.6); Hematocrit 27.5 % (37.5-50.1); Hemoglobin 8.2 g/dL (12.9-16.9); Immature Granulocytes % 0.4 % (0-4); Lymphocytes # 0.6 K/mcL (0.6-4.6); Lymphocytes % 13.1 %; Mean Corpuscular HGB Conc 29.8 g/dL (31.6-35.5); Mean Corpuscular Hemoglobin 27.2 pg (28.0-33.3); Mean Corpuscular Volume 91.1 fL (83.0-100.0); Mean Platelet Volume 10.9 fL (9.4-12.4); Monocytes # 0.5 K/mcL (0.0-1.3); Monocytes % 10.1 %; Neutrophils # 3.4 K/mcL (1.6-8.9); Platelet Count 111 K/mcL (140-400); Red Blood Count 3.02 M/mcL (4.19-5.50); Red Cell Distribution Width 15.5 % (11.5-14.5)
[2017-05-27 04:38] LABS: BUN/Creatinine Ratio 14 (6-26); Blood Urea Nitrogen 16 mg/dL (6-20); Calcium 8.7 mg/dL (8.6-10.3); Carbon Dioxide 29 mEq/L (23-29); Chloride 103 mEq/L (98-107); Glucose 150 mg/dL (70-105); Osmolality,Calculated 288 (280-300); Potassium 3.5 mEq/L (3.5-5.1); Sodium 137 mEq/L (136-145); eGFR For African Americans > 60 (> 60); eGFR For Non-African Americans > 60 (> 60)
[2017-05-27] MEDS: *HR* OxyCODONE/APAP 7.5/325 TABLET PO PRN ×3 (06:05→17:50)
[2017-05-27] MEDS: Insulin LISPRO 300 UNITS/3 ML VIAL SQ SCH ×4 (07:23→22:53)
[2017-05-27] MEDS: Gabapentin 300 MG CAPSULE PO SCH ×3 (08:21→22:52)
[2017-05-27] MEDS: Lactobacillus 1 EACH CAP.SPRINK PO SCH ×2 (08:21→22:52)
[2017-05-27] MEDS: cefTRIAXone 2,000 MG in Water for inj. (sterile) 20 ML 20 ML IVP SCH (08:22)
[2017-05-27] MEDS: metroNIDAZOLE 500 MG TABLET PO SCH ×3 (08:23→22:52)
[2017-05-27] MEDS: Insulin DETEMIR 100 UNIT/ML X5UNITS SQ SCH ×2 (10:06→22:51)
[2017-05-27] MEDS ORDERED: Furosemide 40 MG/4 ML VIAL IVP ONE (15:43)
--- NOTE | 2017-05-27 15:58 | Internal Med Progress Note ---
Date of Encounter: 05/27/17 Time of Encounter: 09:20 - Assessment and plan (1) Ascites Current Visit: Yes Status: Acute Assessment and plan: Malignant ascites - Likely causing his significant pain and abdominal distention IR consult for therapeutic paracentesis - discussed with IR physician Trial of IV Lasix and Aldactone today Cardiac telemetry, labs in a.m., monitor closely Qualifiers: Ascites type: malignant Qualified Code(s): R18.0 - Malignant ascites (2) Pelvic abscess Current Visit: Yes Status: Acute Assessment and plan: CT scan of the abdomen and pelvis done - No residual abscess, RACHANA drain has been discontinued Continue IV Rocephin, IV Flagyl, IV Vancomycin Body fluid culture - Escherichia coli, Klebsiella, enterococcus faecalis, strep agalactiae Infectious disease consult - not available this weekend Patient will need to continue IV antibiotics for at least 2 weeks (3) Left ureteral stone Current Visit: Yes Status: Acute Assessment and plan: Status post left ureteral stent placement Neurology has signed off Follow-up outpatient with urology (4) Rectal cancer metastasized to liver Current Visit: Yes Status: Chronic Assessment and plan: With significant cancer related pain. We will consult palliative care to help manage patient's pain does have a colostomy on the left side, and has mild oozing from the colostomy site CT abdomen and pelvis - multiple new and enlarging hepatic masses suggesting progression of metastatic disease of the liver, also right lower lobe subpleural nodule is also increasing in size concerning for possible metastasis Oncology following Palliative care following (5) Anemia Current Visit: Yes Status: Chronic Assessment and plan: Hemoglobin levels are stable. 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 deficiency, cancer and chemotherapy Monitor H&H closely Qualifiers: Anemia type: iron deficiency Iron deficiency anemia type: chronic blood loss Qualified Code(s): D50.0 - Iron deficiency anemia secondary to blood loss (chronic) (6) Type 2 diabetes mellitus Current Visit: Yes Status: Chronic Assessment and plan: Type 2 diabetes mellitus, [id number], hyperglycemia Continue Levemir, insulin sliding scale glucose checks Patient is on Metformin and Actos at home Qualifiers: Diabetes mellitus complication status: with unspecified complications Diabetes mellitus remote computer terminal 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 Patient is awake and alert. Not in any distress. Denies chest pain or shortness of breath. Tolerating oral diet and ambulating well. Complains of abdominal pain and distention, which seems to be worse this morning. No fever. Hemodynamically stable. Continues to be tachycardic. RN states patient has mild bleeding/oozing around the ostomy site. Patient also complains of worsening bilateral leg edema. No other acute events or complaints. We will give IV Lasix and Aldactone today. Admitted for acute colitis and pelvic abscess. Underwent RACHANA drain placement for the pelvic abscess, which has now been removed. Patient does have rectal cancer with metastasis to liver. Patient does have moderate to large ascites. IR consult for possible paracentesis. Patient also found to have a left ureteral stone and is underwent cystoscopy with left ureteral stent placement. Oncology is also following patient. Overall prognosis is guarded. I have discussed with interventional radiology physician regarding paracentesis. Patient is on the list for paracentesis, which could be possibly done today. - Constitutional Vitals: Temp Pulse Resp BP Pulse Ox 98.2 F 114 14 110/74 92 05/27/17 14:38 05/27/17 14:38 05/27/17 14:38 05/27/17 14:38 05/27/17 14:38 General appearance: Present: cooperative, A&O X 3, pleasant, no acute distress, obese, answers questions appropriately - Head Head exam: Present: atraumatic - Eye Eye exam: Present: EOMI - ENT ENT exam: Present: mucous membranes moist - Respiratory Respiratory exam: Present: decreased breath sounds (Slightly decreased in both bases, otherwise clear to auscultation). Absent: accessory muscle use, rales, respiratory distress, rhonchi, wheezes, tachypnea - Cardiovascular Cardiovascular exam: Present: RRR, +S1, +S2 - GI/Abdominal GI/Abdominal exam: Present: distended (Large amount of ascites present), soft, tenderness (Mild generalized tenderness), no peritoneal signs. Absent: firm, guarding Additional comments: Abdomen is distended and patient does have ascites. Colostomy site looks okay with minimal oozing. Mild tenderness in the left lumbar paraspinal region. - Extremities Exam Extremities exam: Present: pedal edema (Bilateral 2+ edema), radial pulses palpable and symmetrical. Absent: calf tenderness, cyanotic - Neurological Exam Neurological exam: Present: alert, CN II-XII intact, oriented X3, no focal deficits. Absent: facial droop, speech deficit Internal Medicine: Result - Labs CBC & Chem 7: 05/27/17 03:19 05/27/17 03:19 Labs: Short CBC 05/27/17 Range/Units 03:19 WBC 4.6 (4.3-11.1) K/mcL Hgb 8.2 L (12.9-16.9) g/dL Hct 27.5 L (37.5-50.1) % Plt Count 111 L (140-400) K/mcL Neutrophils # 3.4 (1.6-8.9) K/mcL BMP 05/27/17 03:19 Sodium 137 Potassium 3.5 Chloride 103 Carbon Dioxide 29 BUN 16 Creatinine 1.18 Glucose 150 H Calcium 8.7 - ABG Interpretation ABG results: PT/INR, D-dimer PT 14.1 Seconds (9.4-12.1) H 05/18/17 11:06 - VTE Documentation of Mechanical Device: Intermittent pneumatic compression device Consult Discharge Plan - Plan Referrals: Ander Patel MD [Primary Care Provider] -
[2017-05-27] MEDS: Spironolactone 25 MG TABLET PO SCH (16:23)
[2017-05-27] MEDS: Vancomycin 1,250 MG in D5% in Water 250 ML IVPB SCH (16:23)
[2017-05-27] MEDS: Vancomycin 750 MG in D5% in Water 250 ML IVPB SCH (19:45)
[2017-05-28] MEDS: *HR* OxyCODONE/APAP 7.5/325 TABLET PO PRN ×2 (03:56→20:36)
[2017-05-28 05:33] LABS: Basophils % 0.6 %; Eosinophils # 0.1 K/mcL (0.0-0.6); Eosinophils % 1.2 %; Hematocrit 27.2 % (37.5-50.1); Hemoglobin 8.1 g/dL (12.9-16.9); Immature Granulocytes % 0.4 % (0-4); Lymphocytes # 0.6 K/mcL (0.6-4.6); Lymphocytes % 11.1 %; Mean Corpuscular HGB Conc 29.8 g/dL (31.6-35.5); Mean Corpuscular Hemoglobin 27.4 pg (28.0-33.3); Mean Corpuscular Volume 91.9 fL (83.0-100.0); Monocytes # 0.6 K/mcL (0.0-1.3); Monocytes % 12.5 %; Neutrophils # 3.7 K/mcL (1.6-8.9); Platelet Count 106 K/mcL (140-400); Red Blood Count 2.96 M/mcL (4.19-5.50); Red Cell Distribution Width 15.6 % (11.5-14.5); Segmented Neutrophils % 74.2 %
[2017-05-28 05:38] LABS: INR 1.4
[2017-05-28] MEDS: Insulin LISPRO 300 UNITS/3 ML VIAL SQ SCH ×4 (07:46→20:38)
[2017-05-28] MEDS: Gabapentin 300 MG CAPSULE PO SCH ×3 (07:47→20:36)
[2017-05-28] MEDS: Spironolactone 25 MG TABLET PO SCH (07:47)
[2017-05-28] MEDS: Lactobacillus 1 EACH CAP.SPRINK PO SCH ×2 (07:48→20:36)
[2017-05-28] MEDS: cefTRIAXone 2,000 MG in Water for inj. (sterile) 20 ML 20 ML IVP SCH (07:48)
[2017-05-28] MEDS: metroNIDAZOLE 500 MG TABLET PO SCH ×3 (07:48→20:36)
[2017-05-28] MEDS: *HR* HYDROmorphone (PF) 1 MG/ML SYRINGE IVP PRN ×5 (07:48→23:23)
[2017-05-28] MEDS: Insulin DETEMIR 100 UNIT/ML X5UNITS SQ SCH ×2 (10:48→20:35)
[2017-05-28] MEDS ORDERED: Furosemide 40 MG/4 ML VIAL IVP ONE (11:52)
[2017-05-28] MEDS ORDERED: Furosemide 40 MG/4 ML VIAL ONE (11:57)
--- NOTE | 2017-05-28 14:09 | Oncology Inp Progress Note ---
Date of Encounter: 05/29/17 Time of Encounter: 14:07 (1) Ascites Current Visit: Yes Status: Acute Assessment and plan: currently on Lasix 40 mg a day and Aldactone 25 mg daily. Recommend increasing Aldactone to 100 mg a day. His potassium normal at 3.5 His symptoms improved after 4.4 L removed on 05/29/2017 through interventional radiology Qualifiers: Ascites type: malignant Qualified Code(s): R18.0 - Malignant ascites (2) Colon cancer metastasized to liver Current Visit: No Status: Chronic Assessment and plan: his CEA has increased more than 850 from 450 on Octob Some of the increase could be relate other abdominal process Treatment options are limited. Would consider resuming lonsurf once he is better Anemia hemoglobin 8.5. On oral iron. Iron levels okay. B12 f Creatinine 1.18. This is multifactorial including sepsis is playing a role. Currently his blood glucose is fairly well-controlled at 150 Oncology: Subj Interval history: Admitted with Intraabdominal absecess post RACHANA drain which was discontinued. His course was complicated by asitus which in turn is due to cirrhosis the IR consult has been obtained for possible paracentesis. He's also on antibiotics body fluid culture grew E. coli and Klebsiella pneumonia both sensitive to Rocephin Enterococcus faecalis and S.aga both sensitive to vancomycin CT abdomen and pelvis May 25, 2017 showed progression. He has may be three or so sub centimeter lung no deals. Largest on the right lung boat 8 mm. This hasn't changed a lot the last six months His treatment options for cancer are limited. May be able to repeat K-PALLAVI mutat He couldn't tolerate Panitumumab which was attempted twice May resume lonsurf once is clinical condition is stable Oncological History Diagnosis Stage IV adenocarcinoma rectum Tx N2 M1, multiple liver metastasis, diagnosis July 2012. K-pallavi mutation status done at [facility] and K-pallavi wild type on 08/04/2012 Chronic thrombocytopenia likely from cirrhosis which in turn is from long- standing uncontrolled type 2 diabetes mellitus TREATMENT: 1. Irinotecan, Xeloda, Avastin. After one dose he had confusion and psychotic episodes and Xeloda dropped. 2. Irinotecan with cetuximab and he did have headaches during that but he had a good response. 3. Cetuximab 500 mg mg/m2 IV every two weeks from 12/17/2012 to 02/11/2013. 4. Completed concurrent chemoradiation to the rectum with 5-FU infusion for residual 2-cm mass. 5. Panitumumab stopped after 2 doses because of significant rash on 04-22-13 6. On a 5-FU bolus and infusion D"Gramont regiemn through the port since April 2013. to September 2013. Since then he had a break in treatment 7. Increased CEA to 85 on 04-13-14. PET scan on 04-08-14 Re demonstrated about 5 lesions which was present in last PET scan in 2012. Highest SUV 11.9. Irinotecan 140 mg per meter squared every 2 weeks with cetuximab 200 mg per meter squared weekly after loading dose cycle one on 04-16-14. He developed significant rash in the scalp and face and chest wall. He has hydrocortisone cream and clindamycin ointment. Because of grade 3 rash changed chemotherapy. 8. Irinotecan 140 milligram per meter square 5-FU 200 mg per meter square bolus followed by 1800 mg per meter squared over 46 hours. Treatment from to 08/18/2014. 9. Y-90 administration to the liver right side on 09/29/2014. Had overnight admission and the pain improved rapidly 10. Oxaliplatin 70 milligrams per meter square with 5-FU infusion 2400 mg per 24 hours every 2 weeks. Cycle one on 03/30/2015 to 07/20/2015 . Increased oxaliplatin to 75 mg/m from cycle 2. Added Ramucirumab from Cycle 4 at 8 milligrams per KG on 05/11/2015. His CEA since then has come down from 45-35. He is tolerating Ramucirumab fairly well. MRI abd w/ w/o contrast on 11/13/15 shows several metastatic right hepatic lobe lesions, 2 of which increases in size since the prior postcontrast study. CEA went up to 75 on November 2015 11. Restarted chemotherapy as above oxaliplatin 20 mg/m 5-FU and a 400 mg/m over 46 hours and Ramucirumab 8 mg per KG every 2 weeks. Treatment dates from 12/06/2015 to 02/28/2016 12. He was evaluated by Dr. Jensen and received Y 90 treatment to the right lobe of the liver through right hepatic artery dose 41.85 mCi on 03/23/2016. He responded well to that treatment. CEA on 05/12/16 was 5.3 as compared to 10.4 on 04/17/16 13. 10/02/16: PET shows progression through thickening rectosigmoid, also numerous hepatic lesions. Also, CEA now 53.1 on 09/28/16. Panitumumab milligrams per KG IV every 2 weeks cycle one on 10/12/2016 he developed grade 3 rash just after 3 days. The acneform rash continued to get worse Spite of clindamycin topical doxycycline 100 mg by mouth twice a day and triamcinolone 0.1 mg topical ointment his rash continued to progress. Panitumumab stopped after one dose 14. Discussed at the colon tumor board 11/03/2016. The consensus is to give systemic treatment. Lonsurf 20 mg 4 tablets twice a day Sunday through Sunday for 2 consecutive weeks followed by 2 weeks off. Treatment dates 11/13/2016. to 02/08/2017 15. His rectal cancer progressed. Discussed at colon tumor board on 2016. Dr. Sonido gongora colonoscopy, 2016 showed obstructing rectal carcinoma extending to distal rectum. CT abdomen and pelvis 02/20/2017 showed progression of liver metastasis and Taxol noted in the right side of the liver. Rectosigmoid cancer with small ROMERO lymph nodes 16. [facility]. He has permanent colostomy left lower quadrant working well. Circumferential margin positive. Lymphnodes negative - Constitutional Vitals: Vital Signs Temp Pulse Resp BP Pulse Ox 05/28/17 10:39 97.6 F 114 16 123/79 95 05/28/17 07:06 97.6 F 115 14 128/86 97 05/28/17 04:01 98.0 F 121 20 150/92 95 05/27/17 22:28 98.0 F 112 18 133/74 96 05/27/17 18:33 98.7 F 105 18 114/80 97 05/27/17 14:38 98.2 F 114 14 110/74 92 Intake and Output 05/27/17 05/28/17 05/28/17 23:59 07:59 15:59 Intake Total 890 / 890 0 / 0 380 / 380 Output Total 1200 / 1200 575 / 575 300 / 300 Balance -310 / -310 -575 / -575 80 / 80 Intake: IV Fluids 250 / 250 20 / 20 Rocephin 2,000 MG In Water for 20 / 20 inj. (sterile) 20 ML @ 600 mls/ hr IVP Q24H [facility] Rx#:[id number] Vancocin 1,250 MG In Dextrose 5 250 / 250 % 250 ML @ 166.667 mls/hr IVPB Q[facility]H [facility] Rx#:[id number] Oral 640 / 640 0 / 0 360 / 360 Output: Urine 1200 / 1200 400 / 400 300 / 300 Stool 175 / 175 Other: Meal Dinner Lunch Percent of Meal Consumed 75% 100% Blood Glucose* 220 127 156 Exam: GENERAL: Alert and oriented, well appearing. Mental Status: Affect appropriate for circumstances HEENT: Sclerae anicteric. No mucositis or thrush. No other oral or pharyngeal lesions or erythema. Skin: No rashes or petechiae. No evidence of skin malignancy Lymph nodes: No cervical, supraclavicular, axillary, or inguinal adenopathy. Lungs: Air entry normal with normal breath sounds. No rhonchi or wheezing Cardiovascular: Regular rate and rhythm. No skipped beats Abdomen: Soft, distended especially upper part of the abdomen. Medial left lower quadrant. He has subcutaneous edema mainly in the back. Extremities: No edema. No calf swelling or tenderness. No joint deformity. Neurologic: Alert, cranial nerves II-XII intact; normal gait; no focal weakness or sensory abnormalities Oncology: Obj Data - Labs CBC & Chem 7: 05/29/17 07:14 05/29/17 07:14 Labs: Laboratory Results - last 24 hr 05/27/17 05/27/17 05/28/17 16:59 19:58 05:03 WBC 5.0 RBC 2.96 L Hgb 8.1 L Hct 27.2 L MCV 91.9 MCH 27.4 L MCHC 29.8 L RDW 15.6 H Plt Count 106 L MPV 11.0 Immature Gran % 0.4 Seg Neutrophils % 74.2 Lymphocytes % 11.1 Monocytes % 12.5 Eosinophils % 1.2 Basophils % 0.6 Neutrophils # 3.7 Lymphocytes # 0.6 Monocytes # 0.6 Eosinophils # 0.1 Basophils # 0.0 PT INR POC Glucose 232 H 220 H 05/28/17 05:03 WBC RBC Hgb Hct MCV MCH MCHC RDW Plt Count MPV Immature Gran % Seg Neutrophils % Lymphocytes % Monocytes % Eosinophils % Basophils % Neutrophils # Lymphocytes # Monocytes # Eosinophils # Basophils # PT 15.0 H INR 1.4 POC Glucose - ABG Interpretation ABG results: PT/INR, D-dimer PT 15.0 Seconds (9.4-12.1) H 05/28/17 05:03 Consult Discharge Plan - Plan Referrals: Ander Patel MD [Primary Care Provider] -
--- NOTE | 2017-05-28 14:43 | Internal Med Progress Note ---
Date of Encounter: 05/28/17 Time of Encounter: 09:40 - Assessment and plan (1) Ascites Current Visit: Yes Status: Acute Assessment and plan: Malignant ascites - Likely causing his significant pain and abdominal distention IR consult for therapeutic paracentesis - discussed with IR physician again today, patient is on the list Continue Aldactone, IV Lasix Cardiac telemetry, labs in a.m., monitor closely I have discussed with the patient's GI surgeon today and she has stated that patient's overall prognosis is guarded and that the malignant ascites could possibly be from portal vein thrombosis or obstruction and the patient may need a catheter placement for continuous drainage of the ascitic fluid. Qualifiers: Ascites type: malignant Qualified Code(s): R18.0 - Malignant ascites (2) Pelvic abscess Current Visit: Yes Status: Acute Assessment and plan: CT scan of the abdomen and pelvis done - No residual abscess, RACHANA drain has been removed Continue IV Rocephin, IV Flagyl, IV Vancomycin Body fluid culture - Escherichia coli, Klebsiella, enterococcus faecalis, strep agalactiae Treating according to sensitivities Infectious disease consult - not available this weekend Patient will need to continue IV antibiotics for at least 2 weeks (3) Left ureteral stone Current Visit: Yes Status: Acute Assessment and plan: Status post left ureteral stent placement Urology has signed off Follow-up outpatient with urology (4) Rectal cancer metastasized to liver Current Visit: Yes Status: Chronic Assessment and plan: With significant cancer related pain. We will consult palliative care to help manage patient's pain does have a colostomy on the left side, and has mild oozing from the colostomy site CT abdomen and pelvis - multiple new and enlarging hepatic masses suggesting progression of metastatic disease of the liver, also right lower lobe subpleural nodule is also increasing in size concerning for possible metastasis Oncology following - appreciate input Palliative care following - appreciate input (5) Anemia Current Visit: Yes Status: Chronic Assessment and plan: Hemoglobin levels are stable. 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 deficiency, cancer and chemotherapy Monitor H&H closely Qualifiers: Anemia type: iron deficiency Iron deficiency anemia type: chronic blood loss Qualified Code(s): D50.0 - Iron deficiency anemia secondary to blood loss (chronic) (6) Type 2 diabetes mellitus Current Visit: Yes Status: Chronic Assessment and plan: Type 2 diabetes mellitus, [id number], hyperglycemia Continue Levemir, insulin sliding scale glucose checks Patient is on Metformin and Actos at home Qualifiers: Diabetes mellitus complication status: with unspecified complications Diabetes mellitus intermediate project manager insulin use: without correction use Qualified Code( s): E11.8 - Type 2 diabetes mellitus with unspecified complications (7) DVT prophylaxis Current Visit: Yes Status: Acute Assessment and plan: Patient not on medical anticoagulation due to recent episodes of bleeding from colostomy site Continue IPCDs - Time Spent With Patient 25 - 35 minutes - Subjective Interval history: Examined this morning. Patient is awake and alert. Not in any distress. Denies chest pain or shortness of breath. Tolerating oral diet and ambulating well. Complains of abdominal pain and distention, which is worse this morning. No fever. Hemodynamically stable. Continues to be tachycardic. Patient also complains of worsening bilateral leg edema. No other acute events or complaints. Continue Aldactone and one more dose of IV Lasix today. Good urine output. Admitted for acute colitis and pelvic abscess. Underwent RACHANA drain placement for the pelvic abscess, which has now been removed. Patient does have rectal cancer with metastasis to liver. Patient does have moderate to large ascites. IR consult for possible paracentesis. Patient also found to have a left ureteral stone and is underwent cystoscopy with left ureteral stent placement. Oncology is also following patient. Overall prognosis is guarded. This morning I have discussed with interventional radiology physician regarding paracentesis. Patient is on the list for paracentesis, which could be possibly done today. - Constitutional Vitals: Temp Pulse Resp BP Pulse Ox 97.6 F 114 16 123/79 95 05/28/17 10:39 05/28/17 10:39 05/28/17 10:39 05/28/17 10:39 05/28/17 10:39 General appearance: Present: cooperative, A&O X 3, pleasant, no acute distress, obese, answers questions appropriately - Head Head exam: Present: atraumatic - Eye Eye exam: Present: EOMI - ENT ENT exam: Present: mucous membranes moist - Respiratory Respiratory exam: Present: decreased breath sounds (Slightly decreased in both bases, otherwise clear to auscultation). Absent: accessory muscle use, rales, respiratory distress, rhonchi, wheezes, tachypnea - Cardiovascular Cardiovascular exam: Present: RRR, +S1, +S2 - GI/Abdominal GI/Abdominal exam: Present: distended (Massive ascites present), soft, no peritoneal signs. Absent: firm, guarding, tenderness Additional comments: Abdomen is distended and patient does have ascites. Colostomy site looks okay with minimal oozing. Mild tenderness in the left lumbar paraspinal region. - Extremities Exam Extremities exam: Present: pedal edema (Bilateral 1+ edema), radial pulses palpable and symmetrical. Absent: calf tenderness, cyanotic - Neurological Exam Neurological exam: Present: alert, oriented X3, no focal deficits. Absent: facial droop, speech deficit Internal Medicine: Result - Labs CBC & Chem 7: 05/28/17 05:03 05/27/17 03:19 Labs: Short CBC 05/28/17 Range/Units 05:03 WBC 5.0 (4.3-11.1) K/mcL Hgb 8.1 L (12.9-16.9) g/dL Hct 27.2 L (37.5-50.1) % Plt Count 106 L (140-400) K/mcL Neutrophils # 3.7 (1.6-8.9) K/mcL - ABG Interpretation ABG results: PT/INR, D-dimer PT 15.0 Seconds (9.4-12.1) H 05/28/17 05:03 - VTE Documentation of Mechanical Device: Intermittent pneumatic compression device Consult Discharge Plan - Plan Referrals: Ander Patel MD [Primary Care Provider] -
[2017-05-28] MEDS: Vancomycin 1,250 MG in D5% in Water 250 ML IVPB SCH (18:24)
[2017-05-29] MEDS: *HR* HYDROmorphone (PF) 1 MG/ML SYRINGE IVP PRN ×3 (03:40→11:09)
[2017-05-29] MEDS: *HR* OxyCODONE/APAP 7.5/325 TABLET PO PRN (06:11)
[2017-05-29] MEDS: Gabapentin 300 MG CAPSULE PO SCH ×3 (08:14→20:01)
[2017-05-29] MEDS: metroNIDAZOLE 500 MG TABLET PO SCH ×3 (08:14→20:01)
[2017-05-29] MEDS: Spironolactone 25 MG TABLET PO SCH (08:15)
[2017-05-29] MEDS: Lactobacillus 1 EACH CAP.SPRINK PO SCH ×2 (08:15→20:01)
[2017-05-29] MEDS: cefTRIAXone 2,000 MG in Water for inj. (sterile) 20 ML 20 ML IVP SCH (08:15)
[2017-05-29 08:16] LABS: Basophils % 0.7 %; Eosinophils # 0.1 K/mcL (0.0-0.6); Eosinophils % 1.5 %; Hematocrit 25.7 % (37.5-50.1); Hemoglobin 7.6 g/dL (12.9-16.9); Immature Granulocytes % 0.4 % (0-4); Lymphocytes # 0.6 K/mcL (0.6-4.6); Lymphocytes % 12.6 %; Mean Corpuscular HGB Conc 29.6 g/dL (31.6-35.5); Mean Corpuscular Volume 91.5 fL (83.0-100.0); Mean Platelet Volume 10.9 fL (9.4-12.4); Monocytes # 0.5 K/mcL (0.0-1.3); Monocytes % 11.7 %; Neutrophils # 3.3 K/mcL (1.6-8.9); Platelet Count 121 K/mcL (140-400); Red Blood Count 2.81 M/mcL (4.19-5.50); Red Cell Distribution Width 15.7 % (11.5-14.5); Segmented Neutrophils % 73.1 %
[2017-05-29] MEDS: Insulin LISPRO 300 UNITS/3 ML VIAL SQ SCH ×4 (08:16→20:02)
[2017-05-29] MEDS: Insulin DETEMIR 100 UNIT/ML X5UNITS SQ SCH ×2 (09:17→20:01)
[2017-05-29] MEDS ORDERED: *HR* OxyCODONE/APAP 10/325 TABLET PO PRN (09:33)
[2017-05-29 09:38] LABS: BUN/Creatinine Ratio 13 (6-26); Blood Urea Nitrogen 15 mg/dL (6-20); Calcium 8.7 mg/dL (8.6-10.3); Carbon Dioxide 31 mEq/L (23-29); Chloride 102 mEq/L (98-107); Glucose 95 mg/dL (70-105); Osmolality,Calculated 287 (280-300); Potassium 3.6 mEq/L (3.5-5.1); Sodium 138 mEq/L (136-145); eGFR For African Americans > 60 (> 60); eGFR For Non-African Americans > 60 (> 60)
--- NOTE | 2017-05-29 09:39 | Internal Med Progress Note ---
<Luisa Maki - Last Filed: 05/29/17 14:47> Date of Encounter: 05/29/17 Time of Encounter: 09:00 - Assessment and plan (1) Ascites Current Visit: Yes Status: Acute Assessment and plan: Malignant Ascites vs Acute colitis - likely cause for his abdominal pain and distention. IR performed paracentesis for therapeutic purposes. Removed 4.4 L during the procedure. Fluid sent for culture and gram stain to differentiate between exudative vs transudative etiology. Continue on Aldactone and IV Lasix. Will order Albumin. On cardiac telemetry, Labs in a.m. Maybe need permanent catheter placement for massive ascitic fluid. Qualifiers: Ascites type: malignant Qualified Code(s): R18.0 - Malignant ascites (2) Pelvic abscess Current Visit: Yes Status: Acute Assessment and plan: CT scan Abdomen and pelvis showed no residual abscess. RACHANA drain has been removed. Body Fluid culture- Ecoli, Klebsiella, Enterococcus faecalis, and strep aalactiae Currently on IV rocephin, IV flagyl, and IV vancomycin. Will continue antibiotics at least for 2 weeks. Infectious disease has been consulted. Will change Abx per ID's recommendations. (3) Left ureteral stone Current Visit: Yes Status: Acute Assessment and plan: S/p left ureteral stent placemenent. Urology has signed off. Patient will follow up outpatient with urology. Urology discussed it with the patient. (4) Rectal cancer metastasized to liver Current Visit: Yes Status: Chronic Assessment and plan: CT abdomen and pelvis - multiple new and enlarging hepatic masses suggesting progression of metastatic disease of the liver, also right lower lobe subpleural nodule is also increasing in size concerning for possible metastasis Patient is s/p colectomy, and does have a colostomy on the left side, and has minimal oozing from the colostomy site on exam today. Oncology is following the patient. Recommendations are appreciated. With significant pain and prognosis. Palliative is also following the patient. Recommendations are appreciated. (5) Anemia Current Visit: Yes Status: Chronic Assessment and plan: Patients H/H have been stable since hospitalizations. will continue to monitor H /H closely. Chronic anemia most likely secondary to iron deficiency, cancer, and cancer treatment. Continue iron supplements. Qualifiers: Anemia type: iron deficiency Iron deficiency anemia type: chronic blood loss Qualified Code(s): D50.0 - Iron deficiency anemia secondary to blood loss (chronic) (6) Type 2 diabetes mellitus Current Visit: Yes Status: Chronic Assessment and plan: Continue Levemir, insulin sliding scale with glucose checks Last 4 glucose checks: 207, 194, 150, and 95. Currently stable. Patient is on metformin and Actos at home. Qualifiers: Diabetes mellitus complication status: with unspecified complications Diabetes mellitus longterm insulin use: without longterm use Qualified Code( s): E11.8 - Type 2 diabetes mellitus with unspecified complications (7) DVT prophylaxis Current Visit: Yes Status: Acute Assessment and plan: Patient not on medical anticoagulation due to recent episodes of bleeding from colostomy site Continue IPCD's for now. - Subjective Interval history: Patient examined at bedside this morning. Alert and oriented, not in acute distress. Patient c/o still having abdominal pain and distention with worsening bilateral leg edema. Denies any chest pain or shortness of breath. Patient is hemodynamically stable. No acute events or other complaints overnight. - Constitutional Vitals: Temp Pulse Resp BP Pulse Ox 98.5 F 117 11 122/75 95 05/29/17 07:52 05/29/17 07:52 05/29/17 07:52 05/29/17 07:52 05/29/17 07:52 General appearance: Present: cooperative, A&O X 3, pleasant, no acute distress, obese, answers questions appropriately - Eye Eye exam: Present: EOMI, normal appearance - ENT ENT exam: Present: mucous membranes moist - Respiratory Respiratory exam: Present: decreased breath sounds. Absent: accessory muscle use, respiratory distress, rhonchi, stridor, wheezes Additional comments: Breath sounds decresed b/l in both bases - Cardiovascular Cardiovascular exam: Present: RRR, +S1, +S2, tachycardia - GI/Abdominal GI/Abdominal exam: Present: distended, soft, tenderness, no peritoneal signs. Absent: firm, guarding Additional comments: Distented d/t significant ascites. Colostomy site has minimal oozing. Mild tenderness in left lumbar paraspinal region. - Extremities Exam Extremities exam: Present: pedal edema, radial pulses palpable and symmetrical. Absent: cyanotic, joint swelling - Neurological Exam Neurological exam: Present: alert, altered, oriented X3, no focal deficits. Absent: facial droop, speech deficit Internal Medicine: Result - Labs CBC & Chem 7: 05/29/17 07:14 05/29/17 07:14 Labs: Short CBC 05/29/17 Range/Units 07:14 WBC 4.5 (4.3-11.1) K/mcL Hgb 7.6 L (12.9-16.9) g/dL Hct 25.7 L (37.5-50.1) % Plt Count 121 L (140-400) K/mcL Neutrophils # 3.3 (1.6-8.9) K/mcL BMP 05/29/17 07:14 Sodium 138 Potassium 3.6 Chloride 102 Carbon Dioxide 31 H BUN 15 Creatinine 1.16 Glucose 95 Calcium 8.7 - ABG Interpretation ABG results: PT/INR, D-dimer PT 15.0 Seconds (9.4-12.1) H 05/28/17 05:03 - VTE Documentation of Mechanical Device: Intermittent pneumatic compression device Consult Discharge Plan - Plan Referrals: Ander Patel MD [Primary Care Provider] - <Jasbir Srivastava - Last Filed: 05/29/17 19:01> Date of Encounter: 05/29/17 - Assessment and plan (1) Pelvic abscess Current Visit: Yes Status: Acute 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 Current Visit: Yes Status: Chronic (3) Ascites Current Visit: Yes Status: Acute Qualifiers: Ascites type: malignant Qualified Code(s): R18.0 - Malignant ascites (4) Cancer related pain Current Visit: Yes Status: Acute (5) Anemia Current Visit: Yes Status: Chronic Qualifiers: Anemia type: other cause Other causes of anemia: chronic disease, neoplastic Qualified Code(s): D63.0 - Anemia in neoplastic disease (6) Hypothyroidism Current Visit: Yes Status: Chronic Qualifiers: Hypothyroidism type: acquired Qualified Code(s): E03.9 - Hypothyroidism, unspecified (7) DC (obstructive sleep apnea) Current Visit: No Status: Chronic (8) Diabetes mellitus Current Visit: No Status: Chronic Qualifiers: Diabetes mellitus type: type 2 Diabetes mellitus complication status: with hyperglycemia Diabetes mellitus terminal operator insulin use: with longterm use Qualified Code(s): E11.65 - Type 2 diabetes mellitus with hyperglycemia; Z79.4 - [facility] (current) use of insulin (9) Sepsis Current Visit: Yes Status: Ruled-out Qualifiers: Sepsis type: sepsis due to unspecified organism Qualified Code(s): A41.9 - Sepsis, unspecified organism - Constitutional Vitals: Temp Pulse Resp BP Pulse Ox 98.6 F 111 12 122/82 93 05/29/17 14:55 05/29/17 14:55 05/29/17 14:55 05/29/17 14:55 05/29/17 14:55 Internal Medicine: Result - Labs CBC & Chem 7: 05/29/17 07:14 05/29/17 07:14 Labs: Short CBC 05/29/17 Range/Units 07:14 WBC 4.5 (4.3-11.1) K/mcL Hgb 7.6 L (12.9-16.9) g/dL Hct 25.7 L (37.5-50.1) % Plt Count 121 L (140-400) K/mcL Neutrophils # 3.3 (1.6-8.9) K/mcL BMP 05/29/17 07:14 Sodium 138 Potassium 3.6 Chloride 102 Carbon Dioxide 31 H BUN 15 Creatinine 1.16 Glucose 95 Calcium 8.7 - ABG Interpretation ABG results: PT/INR, D-dimer PT 15.0 Seconds (9.4-12.1) H 05/28/17 05:03 - Impressions Impressions Paracentesis Ultrasound 05/29/17 00:00 IMPRESSION: Successful ultrasound guided paracentesis. D/ / Mayco Matt MD / Mayco Matt MD Interpreting Provider: Mayco Matt MD - Attending Attestation I examined this patient and my medical decision-making was reviewed with the Resident Physician on 05/29/17. I agree with the documented findings, disposition and treatment plan as described except to the extent set forth below. Mr Chaidez is currently admitted for acute pelvic abscess and ascites. He remains moderate to high risk due to potential for worsening clinical status. Mr Chaidez just got pain medication. He is frustrated about para not done till today. Pain is somewhat better after para. No fever or chills. Exam alert. Comfortable at this time Mucus membranes dry Heart reg No wheeze Abd with fluid. Soft. I/P 1. Ascites 2. Pelvic abscess Further diagnoses and plan as above.
--- NOTE | 2017-05-29 09:43 | Oncology Inp Progress Note ---
Date of Encounter: 05/29/17 Time of Encounter: 09:00 (1) Abdominal pain Current Visit: Yes Status: Acute Assessment and plan: CT Abdomen/Pelvis results from 05/25/17 shows progression of liver lesions along with moderate to large amount stable to slightly increased ascites, planned paracentesis with cytology today for both diagnostic and therapeutic reasoning. 4.4 Liters removed, awaiting path Palliative care consulted for pain control, appreciate recommendations. Abdominal pain currently uncontrolled, discussed with Dr. Parmar, will consult with patient and make further recommendations. Bleeding from ostomy site-s/p AP resection 04/13, has ceased at this time. No residual abscess, RACHANA to removed, need for continued ATB tx and ID consult managed per hospitalist team. Qualifiers: Qualified Code(s): R10.84 - Generalized abdominal pain (2) Colon cancer metastasized to liver Current Visit: No Status: Chronic Assessment and plan: Stage IV adenocarcinoma rectum s/p APR on 04/03/17. CT Abdomen/Pelvis shows progression of liver lesions. CEA has increased more than 850 from 450 on February Some of the increase could be relate other abdominal process Treatment options are limited, goals of care discussion with palliative team appreciated, he continues to wish to pursue treatment once acute issues resolved /pain controlled. Would consider resuming lonsurf once acute issues resolved Anemia, hemoglobin 7.6. On oral iron. Iron levels okay, he has needed IV iron in past. Creatinine 1.18. This is multifactorial including sepsis is playing a role. Currently his blood glucose is fairly well-controlled at 150 Oncology: Subj Interval history: Patient appears uncomfortable and in pain. Reports increasing abdominal pain to abdomen, pressure and distention. No bloody bms per colostomy. Denies chest pain /SOB. - Constitutional Vitals: Vital Signs Temp Pulse Resp BP Pulse Ox 05/29/17 07:52 98.5 F 117 11 122/75 95 05/29/17 04:42 98.0 F 114 16 129/82 97 05/29/17 00:11 98.4 F 115 16 105/64 97 05/28/17 19:48 98.2 F 121 16 126/80 94 05/28/17 16:02 98.0 F 115 16 123/82 97 05/28/17 10:39 97.6 F 114 16 123/79 95 Intake and Output 05/28/17 05/29/17 05/29/17 23:59 07:59 15:59 Intake Total 250 / 250 700 / 700 Output Total 0 / 0 875 / 875 Balance 250 / 250 -175 / -175 Intake: IV Fluids 250 / 250 Vancocin 1,250 MG In Dextrose 5 250 / 250 % 250 ML @ 166.667 mls/hr IVPB Q24H ANTHONY Rx#:[id number] Oral 0 / 0 700 / 700 Output: Urine 0 / 0 875 / 875 Other: Weight 106.1 kg Blood Glucose* 164 100 Patient Weight 05/29/17 23:59 Weight 106.1 kg General appearance: cooperative, no febrile, no no acute distress - Eye Eye exam: Present: PERRL - ENT ENT exam: Present: mucous membranes moist - Respiratory Respiratory exam: Present: CTAB - Cardiovascular Cardiovascular exam: Present: RRR, +S1, +S2 - GI/Abdominal GI/Abdominal exam: Present: distended, normal bowel sounds, tenderness Additional comments: colostomy with brown stool, no blood noted - Rectal Additional comments: RACHANA removed, dressing/wound from APR in March - Extremities Exam Extremities exam: Present: pedal edema - Expanded Lower Extremity Exam Lower leg exam: Present: swelling - Neurological Exam Neurological exam: Present: alert, oriented X3, strengths equal and symetr throughout. Absent: no focal deficits - Skin Skin exam: Present: normal color Oncology: Obj Data - Labs CBC & Chem 7: 05/29/17 07:14 05/29/17 07:14 - ABG Interpretation ABG results: PT/INR, D-dimer PT 15.0 Seconds (9.4-12.1) H 05/28/17 05:03 Consult Discharge Plan - Plan Referrals: Ander Patel MD [Primary Care Provider] -
--- NOTE | 2017-05-29 10:15 | IR Procedure Note ---
Date of procedure: 05/29/17 Consent Obtained: Verbal consent, Written consent Timeout: Correct patient and procedure verified, Correct site verified, Time out performed, Skin prep completed Local anesthetic: Lidocaine 1% Indications: ascites Procedure Performed: paracentesis Was there an electrical assistant present: No Site/Technique: LLQ Results/Findings: serous fluid Estimated blood loss (cc): 1 Complications: None; Tolerated procedure well Specimen: none
[2017-05-29] MEDS: *HR* HYDROmorphone 2 MG/ML SYRINGE IVP PRN ×4 (12:48→23:53)
[2017-05-29] MEDS: *HR* FentaNYL PATCH 50 MCG PATCH TD SCH (12:49)
[2017-05-29 13:52] LABS: RBC,Peritoneal Fluid < 0.002 M/mcL
--- NOTE | 2017-05-29 14:00 | Infectious Disease Consult ---
Date of Encounter: 05/29/17 Time of Encounter: 13:55 Assessment and Plan (1) Tachycardia Status: Acute Assessment and plan: Likely secondary to infectious process, but consider non-infectious etiologies. Check TSH. (2) Pelvic abscess Status: Acute Assessment and plan: Causative organism E. coli, K. pneumoniae, GBS, and E. faecalis. Likely secondary to recent surgical procedure. CT scan showed findings consistent with fluid collection in the rectum. Status post CT-guided drain placement by IR 05/20/17. 30ml of pus removed and drain placed. Repeat CT scan showed resolution of the abscess. Drain removed 05/27/17. Blood cultures drawn 05/18/17 are negative 2/2 sets. Continue Rocephin 2 grams IV daily. Continue Flagyl 500mg IV TID. Can switch to PO when ready for discharge. Continue Vancomycin IV. Pharmacy to dose. Goal trough ~15. Duration of treatment depends on the clinical picture, but likely 14 days from drain placement. Monitor renal function and for drug toxicity and dose-adjust antibiotics. (3) Colitis Status: Acute Assessment and plan: CT scan of the abdomen and pelvis showed bowel wall thickening consistent with colitis vs. malignancy. Due to recent surgery, it is difficult to tell if the findings are post-op changes vs. colitis. Clinically, the patient is improved. C. diff was negative. Continue antibiotics as above. (4) Ascites Status: Acute Assessment and plan: Likely multifactorial: malignancy + liver cirrhosis. Concern for SBP contributing to the patient's symptoms as well. MELD score 11. CT scan showed findings consistent with moderate ascites on admission, but paracentesis not done until today. 4500ml cloudy green-tinged fluid removed. Send fluid for cell count with differential, LDH, protein, amylase, and gram stain/culture. Qualifiers: Ascites type: malignant Qualified Code(s): R18.0 - Malignant ascites (5) Ileus Status: Acute Assessment and plan: CT scan showed findings consistent with mild post-op ileus. Management per the primary team. (6) Left ureteral stone Status: Acute Assessment and plan: CT scan showed findings consistent with left ureteral stone with mild hydronephrosis. Urology consulted. Status post cystoscopy with ureteral stent placement. Additional urology follow-up as an outpatient. (7) Anemia Status: Chronic Assessment and plan: Hgb down to 7.6 today. No evidence of active bleeding noted. Further workup and management per the primary team. Qualifiers: Anemia type: unspecified type Qualified Code(s): D64.9 - Anemia, unspecified (8) Colostomy in place Status: Chronic Assessment and plan: Status post APR with diverting colostomy 04/03/17. (9) Hypothyroidism Status: Chronic Assessment and plan: Check TSH. Qualifiers: Hypothyroidism type: unspecified Qualified Code(s): E03.9 - Hypothyroidism , unspecified (10) Type 2 diabetes mellitus Status: Chronic Assessment and plan: Controlled. HgbA1C 6.4%. Recommend aggressive glucose monitoring and control to promote wound healing and prevent re-infection. Management per the primary team. Qualifiers: Diabetes mellitus complication status: with unspecified complications Diabetes mellitus penitentiary insulin use: without penitentiary use Qualified Code( s): E11.8 - Type 2 diabetes mellitus with unspecified complications (11) Rectal cancer metastasized to liver Status: Chronic Assessment and plan: Diagnosed in 2012. Status post APR 03/2017. Follows with [facility] Oncology at [place]. Hem/Onc consulted and following. Infectious Disease HPI - Data of Consult Patient: new to practice Consult date: 05/29/17 Requesting Physician: Niles Nunez MD Primary Care Provider: Ander Patel MD - Consult Narrative Reason for consult: Rectal abscess History of present illness: Mr. Chaidez is a 46 year old male with a past medical history of metastatic colorectal carcinoma status post APR in March 2017, arthritis, diabetes, hypothyroidism, anxiety, and depression. The patient was admitted to the hospital May 18 for colitis, abdominal pain, and ascites. We are consulted May 29 for antibiotic recommendations regarding rectal abscess. Briefly, the patient's a 46 her old male with past medical history as stated above. Patient was originally diagnosed with metastatic colorectal cancer in 2012. He had chemotherapy until January 2017 when it was discontinued. He underwent an APR with diverting colostomy in March 2017. He states he did well postoperatively until about 3 days prior to admission when he began to notice increased abdominal pain and distention. Upon presentation to the ER, the patient was afebrile, but he was tachycardic. His white blood cell count was normal. He had a lactic acidosis. A CT the abdomen and pelvis that showed left kidney stone with mild hydronephrosis, ascites, and a of the bowel wall consistent with colitis versus malignancy and a possible fluid collection in the rectum. Blood cultures were obtained 2 sets have been negative. He had a chest x-ray that was negative. He had a CTA of the chest that was negative for PE, but did show stable right lung nodules as well as liver metastases and ascites. He was started on IV antibiotics and admitted to the hospital for further evaluation. Since admission, the patient has been evaluated by urology. He underwent a cystoscopy the left ureteral stent placement on May 19. Noted to have some bleeding from his colostomy and was evaluated by general surgery who thought the bleeding was likely secondary to sloughing of the stoma. He was evaluated by interventional radiology and underwent a CT-guided drain placement in the rectal abscess. Approximately 30 ml of pus was aspirated and the cultures grew Escherichia coli, Klebsiella, enterococcus, and group B strep. The drainage eventually stopped and the drain was removed. Antibiotics were the escalated to Rocephin and Flagyl and vancomycin. He has had some mild leukopenia while hospitalized, but this seems to have resolved. Most recent abdominal shows stable ascites with mild postoperative ileus. He did undergo a paracentesis this afternoon and had about 4 1/2 liters of cloudy green tinged fluid drained from his abdomen. During my exam today, the patient states that overall he feels better. He endorses a history of abdominal distention and pain prior to admission. He states that the distention cause some shortness of breath. He denied any fevers or chills or rigors. He denies any chest pain or cough. He states he was able to eat normally and did not have any nausea or vomiting or diarrhea. He reported normal stool output from his colostomy. He did report some drainage from the APR surgical site, but states he was told that this was normal by his surgeon. He feels better since having the paracentesis this morning. CC: Niles Nunez MD Past Med Surg Social Fam HX - Past Medical History Attestation: Yes The following information was validated with the patient. Source: patient, old records reviewed, nursing notes reviewed Medical history: arthritis, cancer (Colorectal, metastatic liver, adenocarcinoma of the rectum), diabetes, GERD (Controlled by oral anti- hyperglycemic medications), thyroid disease, other Psychiatric history: anxiety, depression - Past Surgical History Surgical History: colostomy, other (APR 04/03/17) - Social History Smoking Status: Former smoker Packs per day: 1-1.5 PPD - Reports quitting 20 years ago Smokeless Tobacco Status: Yes (Quit many years ago) Alcohol use: rarely Drug use: none Occupational status: unemployed Current living situation: Home, With Family Activity Level: Independent ambulation Recent Out of Country Travel Within the Last 8 Weeks: No Exposure or Possible Exposure to Illness During Travel: No - Family History Father History Unknown: Yes Adopted: Yes Sister Race: Family Member Ethnicity: Non- Living Status: Still Living Hx Family Medical Disorders: No Mother History Unknown: Yes Adopted: Yes Hx Family Cardiac Disorders: Yes Infectious Disease-CN:Meds Metformin HCl [Glucophage Xr] 1,000 mg PO BID 02/23/15 [History] Acetaminophen/Butalbital/Caffe [Fioricet] 1 each PO TID PRN #90 tablet 04/13/15 [Rx] Cyclobenzaprine [Flexeril] 10 mg PO TID PRN 07/16/15 [History] Prochlorperazine Maleate [Compazine] 10 mg PO Q6HR PRN #120 tablet 02/07/16 [Rx] Ondansetron HCl [Zofran] 4 mg PO Q6H PRN #30 tablet 03/24/16 [Rx] OxyCODONE/APAP 7.5/325 [Percocet 7.5/325 MG] 1 each PO Q6H PRN #30 tablet [Rx] Hydromorphone HCl [Dilaudid] 1 tab PO Q6H PRN #90 tablet 04/17/16 [Rx] Zolpidem [Ambien] 10 mg PO HS PRN 10/03/16 [History] Citalopram Hydrobromide [Celexa] 20 mg PO DAILY #90 tablet 11/20/16 [Rx] Atorvastatin [Lipitor] 10 mg PO HS 11/27/16 [History] Levothyroxine [Synthroid] 75 mcg PO 0630 11/27/16 [History] Omeprazole [PriLOSEC] 40 mg PO DAILY 11/27/16 [History] Pioglitazone HCl [Actos] 30 mg PO DAILY 11/27/16 [History] Docusate [Colace] 100 mg PO BID 05/15/17 [History] Gabapentin [Neurontin] 300 mg PO TID 05/15/17 [History] Methocarbamol [Robaxin] 500 mg PO Q8HR PRN 05/15/17 [History] 3 Allergy/AdvReac Type Severity Reaction Status Date / Time capecitabine [From Xeloda] AdvReac Hallucinati Verified 05/18/17 13:17 ng All systems: reviewed and no additional remarkable complaints except as stated Exam - Constitutional Vitals: Temp Pulse Resp BP Pulse Ox 98.5 F 114 14 107/74 96 05/29/17 10:32 05/29/17 10:32 05/29/17 10:32 05/29/17 10:32 05/29/17 10:32 General appearance: average body habitus, cooperative, no acute distress - Head Head exam: Present: atraumatic, normal inspection, normocephalic - Eye Eye exam: Present: EOMI, normal appearance, PERRL Pupils: Present: normal accommodation - ENT ENT exam: Present: mucous membranes moist - Neck Neck exam: Present: normal inspection - Respiratory Respiratory exam: Present: CTAB. Absent: rales, respiratory distress, rhonchi, wheezes - Cardiovascular Cardiovascular exam: Present: +S1, +S2, tachycardia. Absent: irregular rhythm - GI/Abdominal GI/Abdominal exam: Present: distended, normal bowel sounds, soft, tenderness ( generalized) - Rectal Additional comments: Dressing C/D/I. - Extremities Exam Extremities exam: Present: normal inspection. Absent: joint swelling, pedal edema, tenderness - Back Exam Back exam: Present: normal inspection. Absent: paraspinal tenderness, vertebral tenderness - Neurological Exam Neurological exam: Present: alert, oriented X3, no focal deficits - Psychiatric Psychiatric exam: Present: normal affect, normal mood - Skin Skin exam: Present: dry, intact, normal color, warm Infectious Disease CN: Results - Labs CBC & Chem 7: 05/29/17 07:14 05/29/17 07:14 Cultures: Cultures 05/20/17 Unknown Body Fluid Culture - Final Other-Specify in Comments Escherichia coli Klebsiella pneu.ssp pneumoniae Enterococcus faecalis Strep agalactiae - (Group B) 05/20/17 Unknown Anaerobic Culture - Final Abdomen No anaerobes were recovered. Serology: Serology 05/29/17 05/19/17 05/18/17 Range/Units 12:35 13:12 19:35 Urine Color Dark Yellow (Yellow) Urine Clarity Clear (Clear) Urine pH 6.0 (5.0-8.0) pH Units Ur Specific [place] > 1.030 H (1.010-1.025) Urine Protein 30 H (Neg-Trace) mg/dL Urine Glucose (UA) Normal (Normal) mg/dL Urine Ketones Negative (Negative) mg/dL Urine Blood Negative (Negative) Urine Nitrite Negative (Negative) Urine Bilirubin Small H (Negative) Urine Urobilinogen Normal (Normal) mg/dL Ur Leukocyte Esterase Trace H (Negative) Urine Microscopic RBC 3-5 H (0-3) per hpf Urine Microscopic WBC 30-50 H (0-3) per hpf Ur Squamous Epith Cells Many H (None-Few) per lpf Urine Bacteria None Seen (None-Few) per hpf Hyaline Casts Moderate H (None-Few) per lpf Ur Culture Indicated? NO (NO) Peritoneal RBC < 0.002 (0.000 - 0.002) M/mcL Periton Tot Nuc Cells 112 (0-300) TNC/mcL Stl C. diff Tox B Gene Negative (Negative) - VTE Documentation of Mechanical Device: Intermittent pneumatic compression device Consult Discharge Plan - Plan Referrals: Ander Patel MD [Primary Care Provider] - - Attending Attestation I examined this patient and my medical decision-making was reviewed with the Resident Physician. I agree with the documented findings, disposition and treatment plan as described except to the extent set forth below. This is an addendum addendum to original report dictated by Josefa Ernst CNP. Please refer to Hien diaz for full detail. Patient is an unfortunate 46-year-old gentleman who was initially diagnosed with colorectal cancer with metastases back in 2012. Patient has been on multiple treatments including surgical intervention done at [place]. Patient had an and ileostomy. Patient also has metastases to the liver. Patient was admitted on May 18 for colitis, abdominal pain, drainage from around the surgical wound and ascites. He shouldnt during hospital stay was noted to have a perirectal abscess that was drained and a RACHANA drain was placed. Patient also was noted to have cultures growing Escherichia coli, Klebsiella, enterococcus faecalis and group B strep. The Enterococcus faecalis was ampicillin resistant to. Patient also had obstructive uropathy due to nephrolithiasis and had cystoscopy with stent placement. Patient has been on vancomycin, Rocephin and Flagyl. During the hospital stay patient was noted to have ascites and today he had a paracentesis done on 4 L of biliary greenish fluid was removed. Postprocedure patient tells me he is doing much better clinically and he feels better. Patient states overall he feels well and he has good appetite. Patient denied any chest pain or shortness of breath or pleuritic chest pain or cough on deep inspiration. Patient states he has good output from his colostomy. At this point agree with continuing broad-spectrum antibiotics. We will continue vancomycin with goal vancomycin trough around 10, continue Rocephin and Flagyl. Duration of treatment depends on the clinical picture. As for the paracentesis, fluid has been sent for cell count with differential, Gram stain and cultures, LDH, protein and amylase levels. Monitor labs and for drug toxicity Overall prognosis guarded at best Well discuss with her on to see what the overall prognosis is for this patient with the metastases.
[2017-05-29 14:03] LABS: LDH,Peritoneal Fluid 87 Units/L (No Ref Range); Total Protein,Peritoneal Fluid < 3.0 g/dL (No Ref Range)
[2017-05-29 14:59] LABS: Appearance of Peritoneal Fl CLEAR (Clear)
[2017-05-29] MEDS: Albumin 25% 25gram/100mL 25 GM/100 ML IV.SOLN IVC SCH ×2 (15:04→16:46)
--- NOTE | 2017-05-29 15:05 | Palliative Progress Note ---
Date of Encounter: 05/29/17 Time of Encounter: 11:55 - Assessment and plan (1) Ascites Current Visit: Yes Status: Acute Assessment and plan: Reported 4200 mL removed today. Patient feeling much better plan per hospitalist team Qualifiers: Ascites type: malignant Qualified Code(s): R18.0 - Malignant ascites (2) Cancer related pain Current Visit: Yes Status: Acute Assessment and plan: Noted that patient's oxycodone has been changed, is going to DC it, however I will leave it there as this is the wish of the hospitalist team I have increased the dye allotted by a small amount to 2.5 mg 2 mg. We will also start a fentanyl patch 50 mics. Have asked the patient's nurse to administer the oral medication preferentially to the IV. We will continue to follow. (3) Colon cancer metastasized to liver Current Visit: No Status: Chronic Assessment and plan: Patient wishes to avail himself of any and all available treatments and remained aggressive at this point in time. (4) Goals of care, counseling/discussion Current Visit: Yes Status: Acute Assessment and plan: Full code, patient wishes to avail himself all treatments available for his cancer. Continue with the cancer Center for this. - Time Spent With Patient Total time spent is greater than 50% in coordination of care (as documented) at patient's floor/unit and/or counseling patient: - Subjective Interval history: Patient complaining about a lot of pain, however much improved since she will had his paracentesis done. Large amount of fluid was removed and the pain is much better, however the patient also states that the pain medication not adequate wears off or too soon. - Constitutional Vitals: Abnormal lab results RBC 2.81 M/mcL (4.19-5.50) L 05/29/17 07:14 Hgb 7.6 g/dL (12.9-16.9) L 05/29/17 07:14 Hct 25.7 % (37.5-50.1) L 05/29/17 07:14 MCH 27.0 pg (28.0-33.3) L 05/29/17 07:14 MCHC 29.6 g/dL (31.6-35.5) L 05/29/17 07:14 RDW 15.7 % (11.5-14.5) H 05/29/17 07:14 Plt Count 121 K/mcL (140-400) L 05/29/17 07:14 PT 15.0 Seconds (9.4-12.1) H 05/28/17 05:03 Carbon Dioxide 31 mEq/L (23-29) H 05/29/17 07:14 POC Glucose 138 (58-89) H 05/29/17 11:20 Hemoglobin A1c 6.4 % (-5.6) H 05/19/17 05:43 Alkaline Phosphatase 163 Units/L (34-104) H 05/23/17 04:58 C-Reactive Protein 137 mg/L (Less than 10) H 05/20/17 04:29 Albumin 2.5 g/dL (3.5-5.7) L 05/23/17 04:58 Globulin 4.1 g/dL (2.4-3.5) H 05/23/17 04:58 Albumin/Globulin Ratio 0.6 (1.1-2.2) L 05/23/17 04:58 Lipase 5 Units/L (11-82) L 05/18/17 11:06 Ur Specific [place] > 1.030 (1.010-1.025) H 05/18/17 19:35 Urine Protein 30 mg/dL (Neg-Trace) H 05/18/17 19:35 Urine Bilirubin Small (Negative) H 05/18/17 19:35 Ur Leukocyte Esterase Trace (Negative) H 05/18/17 19:35 Urine Microscopic RBC 3-5 per hpf (0-3) H 05/18/17 19:35 Urine Microscopic WBC 30-50 per hpf (0-3) H 05/18/17 19:35 Ur Squamous Epith Cells Many per lpf (None-Few) H 05/18/17 19:35 Hyaline Casts Moderate per lpf (None-Few) H 05/18/17 19:35 General appearance: Present: no acute distress - Head Head exam: Present: atraumatic, normal inspection - Eye Eye exam: Present: normal appearance - ENT ENT exam: Present: mucous membranes moist - Respiratory Respiratory exam: Present: decreased breath sounds - Cardiovascular Cardiovascular exam: Present: RRR, tachycardia - GI/Abdominal GI/Abdominal exam: Present: normal bowel sounds, soft, tenderness ( just underwent a paracentesis) - Extremities Exam Extremities exam: Present: normal inspection. Absent: pedal edema, tenderness - Neurological Exam Neurological exam: Present: alert - Psychiatric Psychiatric exam: Absent: agitated, anxious - Skin Skin exam: Present: dry, warm Palliative Quality Palliative Quality: Screen for Code Status: Yes, Screen for Goals of Care: Yes, Screen for Pain: Yes, If Pain Regimen Started, Initiate Bowel Regimen: Yes, Screen for Nausea/Vomitting: Yes Code Status: 05/18/17 14:26 Resuscitation Status: Active [RES] Routine Comment: Resuscitation Status: Full Code - Labs CBC & Chem 7: 05/29/17 07:14 05/29/17 07:14 Labs: Laboratory Results - last 24 hr 05/28/17 05/28/17 05/28/17 07:04 10:38 16:01 WBC RBC Hgb Hct MCV MCH MCHC RDW Plt Count MPV Immature Gran % Seg Neutrophils % Lymphocytes % Monocytes % Eosinophils % Basophils % Neutrophils # Lymphocytes # Monocytes # Eosinophils # Basophils # Sodium Potassium Chloride Carbon Dioxide BUN Creatinine Est GFR ( Amer) Est GFR (Non-Af Amer) BUN/Creatinine Ratio Glucose POC Glucose 127 H 156 H 149 H Calculated Osmolality Calcium Peritoneal Appearance Peritoneal Volume Peritoneal pH Peritoneal RBC Periton Tot Nuc Cells Periton Neutrophils Periton Band Neuts Peritoneal Eosinophils Peritoneal Basophils Periton Lymphocytes % Periton Monocytes % Periton Other Cells % Peritoneal Tot Protein Peritoneal Albumin Peritoneal LDH 05/28/17 05/29/17 05/29/17 20:16 07:14 07:14 WBC 4.5 RBC 2.81 L Hgb 7.6 L Hct 25.7 L MCV 91.5 MCH 27.0 L MCHC 29.6 L RDW 15.7 H Plt Count 121 L MPV 10.9 Immature Gran % 0.4 Seg Neutrophils % 73.1 Lymphocytes % 12.6 Monocytes % 11.7 Eosinophils % 1.5 Basophils % 0.7 Neutrophils # 3.3 Lymphocytes # 0.6 Monocytes # 0.5 Eosinophils # 0.1 Basophils # 0.0 Sodium 138 Potassium 3.6 Chloride 102 Carbon Dioxide 31 H BUN 15 Creatinine 1.16 Est GFR ( Amer) > 60 Est GFR (Non-Af Amer) > 60 BUN/Creatinine Ratio 13 Glucose 95 POC Glucose 164 H Calculated Osmolality 287 Calcium 8.7 Peritoneal Appearance Peritoneal Volume Peritoneal pH Peritoneal RBC Periton Tot Nuc Cells Periton Neutrophils Periton Band Neuts Peritoneal Eosinophils Peritoneal Basophils Periton Lymphocytes % Periton Monocytes % Periton Other Cells % Peritoneal Tot Protein Peritoneal Albumin Peritoneal LDH 05/29/17 05/29/17 05/29/17 07:49 11:20 12:35 WBC RBC Hgb Hct MCV MCH MCHC RDW Plt Count MPV Immature Gran % Seg Neutrophils % Lymphocytes % Monocytes % Eosinophils % Basophils % Neutrophils # Lymphocytes # Monocytes # Eosinophils # Basophils # Sodium Potassium Chloride Carbon Dioxide BUN Creatinine Est GFR ( Amer) Est GFR (Non-Af Amer) BUN/Creatinine Ratio Glucose POC Glucose 100 H 138 H Calculated Osmolality Calcium Peritoneal Appearance CLEAR Peritoneal Volume 5000.0 Peritoneal pH 8.00 Peritoneal RBC < 0.002 Periton Tot Nuc Cells 112 Periton Neutrophils 44.2 Periton Band Neuts TNP Peritoneal Eosinophils TNP Peritoneal Basophils TNP Periton Lymphocytes % 51.2 Periton Monocytes % TNP Periton Other Cells % 4.7 Peritoneal Tot Protein < 3.0 Peritoneal Albumin < 1.5 Peritoneal LDH 87 - Impressions Impressions Paracentesis Ultrasound 05/29/17 00:00 IMPRESSION: Successful ultrasound guided paracentesis. D/ / Mayco Matt MD / Mayco Matt MD Interpreting Provider: Mayco Matt MD - ABG Interpretation ABG results: PT/INR, D-dimer PT 15.0 Seconds (9.4-12.1) H 05/28/17 05:03 Consult Discharge Plan - Plan Referrals: Ander Patel MD [Primary Care Provider] -
[2017-05-29] MEDS: *HR* OxyCODONE/APAP 10/325 TABLET PO PRN (15:07)
[2017-05-29] MEDS: Vancomycin 1,250 MG in D5% in Water 250 ML IVPB SCH (16:49)
--- NOTE | 2017-05-30 00:06 | Event Note ---
Date of Encounter: 05/29/17 Time of Encounter: 23:00 Pt c/o abd pain. CT abd reveal recurrent abscess. Pt is on vanco, rocephin, and flagyl already. Will cont abx. Pain control. Pt has rectal cancer with liver metastasis. Oncology and palliative care on case. Day shift to determined further management regarding the recurrent abscess.
[2017-05-30 07:28] LABS: Basophils % 0.6 %; Eosinophils # 0.1 K/mcL (0.0-0.6); Hematocrit 26.5 % (37.5-50.1); Hemoglobin 7.9 g/dL (12.9-16.9); Immature Granulocytes % 0.6 % (0-4); Lymphocytes # 0.6 K/mcL (0.6-4.6); Lymphocytes % 12.4 %; Mean Corpuscular HGB Conc 29.8 g/dL (31.6-35.5); Mean Corpuscular Hemoglobin 27.4 pg (28.0-33.3); Mean Platelet Volume 10.9 fL (9.4-12.4); Monocytes # 0.6 K/mcL (0.0-1.3); Monocytes % 11.8 %; Neutrophils # 3.6 K/mcL (1.6-8.9); Nucleated Red Blood Cells 0.6 /100 WBC (0); Platelet Count 110 K/mcL (140-400); Red Blood Count 2.88 M/mcL (4.19-5.50); Red Cell Distribution Width 15.8 % (11.5-14.5); Segmented Neutrophils % 73.6 %
[2017-05-30 07:42] LABS: BUN/Creatinine Ratio 12 (6-26); Blood Urea Nitrogen 14 mg/dL (6-20); Calcium 8.9 mg/dL (8.6-10.3); Carbon Dioxide 32 mEq/L (23-29); Chloride 100 mEq/L (98-107); Glucose 167 mg/dL (70-105); Osmolality,Calculated 286 (280-300); Potassium 4.6 mEq/L (3.5-5.1); Sodium 136 mEq/L (136-145); eGFR For African Americans > 60 (> 60); eGFR For Non-African Americans > 60 (> 60)
--- NOTE | 2017-05-30 07:56 | Palliative Progress Note ---
Date of Encounter: 05/30/17 Time of Encounter: 07:10 - Assessment and plan (1) Ascites Current Visit: Yes Status: Acute Assessment and plan: Reported 4200 mL removed yesterday. Patient feels much improved. Noted that they found an another abscess last night. May continue to impact pain for now the pain medications appear to be adequate. Qualifiers: Ascites type: malignant Qualified Code(s): R18.0 - Malignant ascites (2) Cancer related pain Current Visit: Yes Status: Acute Assessment and plan: Noted that patient's oxycodone has been changed, yesterday. I have now encouraged the patient to use that preferentially over the IV Dilaudid. Back the fentanyl patch take full effect by the end of the day today. May be able to fully switch over to oral meds tomorrow. (3) Colon cancer metastasized to liver Current Visit: No Status: Chronic Assessment and plan: Patient wishes to avail himself of any and all available treatments and remained aggressive at this point in time. (4) Goals of care, counseling/discussion Current Visit: Yes Status: Acute Assessment and plan: Full code, patient wishes to avail himself all treatments available for his cancer. Continue with the cancer Center for this. No changes, to this patient continues to confirm - Time Spent With Patient Total time spent is greater than 50% in coordination of care (as documented) at patient's floor/unit and/or counseling patient: - Subjective Interval history: Patient states medications working much much better since the paracentesis and addition of the fentanyl patch. He also states his bowels are moving well. - Constitutional Vitals: Abnormal lab results RBC 2.81 M/mcL (4.19-5.50) L 05/29/17 07:14 Hgb 7.6 g/dL (12.9-16.9) L 05/29/17 07:14 Hct 25.7 % (37.5-50.1) L 05/29/17 07:14 MCH 27.0 pg (28.0-33.3) L 05/29/17 07:14 MCHC 29.6 g/dL (31.6-35.5) L 05/29/17 07:14 RDW 15.7 % (11.5-14.5) H 05/29/17 07:14 Plt Count 121 K/mcL (140-400) L 05/29/17 07:14 PT 15.0 Seconds (9.4-12.1) H 05/28/17 05:03 Carbon Dioxide 32 mEq/L (23-29) H 05/30/17 06:41 Glucose 167 mg/dL (70-105) H 05/30/17 06:41 POC Glucose 166 (58-89) H 05/30/17 07:12 Hemoglobin A1c 6.4 % (-5.6) H 05/19/17 05:43 Alkaline Phosphatase 163 Units/L (34-104) H 05/23/17 04:58 C-Reactive Protein 137 mg/L (Less than 10) H 05/20/17 04:29 Albumin 2.5 g/dL (3.5-5.7) L 05/23/17 04:58 Globulin 4.1 g/dL (2.4-3.5) H 05/23/17 04:58 Albumin/Globulin Ratio 0.6 (1.1-2.2) L 05/23/17 04:58 Lipase 5 Units/L (11-82) L 05/18/17 11:06 Ur Specific [place] > 1.030 (1.010-1.025) H 05/18/17 19:35 Urine Protein 30 mg/dL (Neg-Trace) H 05/18/17 19:35 Urine Bilirubin Small (Negative) H 05/18/17 19:35 Ur Leukocyte Esterase Trace (Negative) H 05/18/17 19:35 Urine Microscopic RBC 3-5 per hpf (0-3) H 05/18/17 19:35 Urine Microscopic WBC 30-50 per hpf (0-3) H 05/18/17 19:35 Ur Squamous Epith Cells Many per lpf (None-Few) H 05/18/17 19:35 Hyaline Casts Moderate per lpf (None-Few) H 05/18/17 19:35 General appearance: Present: no acute distress - Head Head exam: Present: atraumatic, normal inspection - ENT ENT exam: Present: mucous membranes moist - Respiratory Respiratory exam: Present: decreased breath sounds - Cardiovascular Cardiovascular exam: Present: RRR, tachycardia - GI/Abdominal GI/Abdominal exam: Present: normal bowel sounds, soft, tenderness (Somewhat tender) - Extremities Exam Extremities exam: Present: normal inspection. Absent: pedal edema, tenderness - Neurological Exam Neurological exam: Present: alert, oriented X3 - Psychiatric Psychiatric exam: Absent: agitated, anxious - Skin Skin exam: Present: dry, warm Palliative Quality Palliative Quality: Screen for Code Status: Yes, Screen for Goals of Care: Yes, Screen for Pain: Yes, If Pain Regimen Started, Initiate Bowel Regimen: Yes, Screen for Nausea/Vomitting: Yes Code Status: 05/18/17 14:26 Resuscitation Status: Active [RES] Routine Comment: Resuscitation Status: Full Code - Labs CBC & Chem 7: 05/29/17 07:14 05/30/17 06:41 Labs: Laboratory Results - last 24 hr 05/29/17 05/29/17 05/29/17 07:14 07:14 11:20 WBC 4.5 RBC 2.81 L Hgb 7.6 L Hct 25.7 L MCV 91.5 MCH 27.0 L MCHC 29.6 L RDW 15.7 H Plt Count 121 L MPV 10.9 Immature Gran % 0.4 Seg Neutrophils % 73.1 Lymphocytes % 12.6 Monocytes % 11.7 Eosinophils % 1.5 Basophils % 0.7 Neutrophils # 3.3 Lymphocytes # 0.6 Monocytes # 0.5 Eosinophils # 0.1 Basophils # 0.0 Sodium 138 Potassium 3.6 Chloride 102 Carbon Dioxide 31 H BUN 15 Creatinine 1.16 Est GFR ( Amer) > 60 Est GFR (Non-Af Amer) > 60 BUN/Creatinine Ratio 13 Glucose 95 POC Glucose 138 H Calculated Osmolality 287 Calcium 8.7 Peritoneal Appearance Peritoneal Volume Peritoneal pH Peritoneal RBC Periton Tot Nuc Cells Periton Neutrophils Periton Band Neuts Peritoneal Eosinophils Peritoneal Basophils Periton Lymphocytes % Periton Monocytes % Periton Other Cells % Peritoneal Tot Protein Peritoneal Albumin Peritoneal LDH Vancomycin Trough 05/29/17 05/29/17 05/29/17 12:35 16:46 16:53 WBC RBC Hgb Hct MCV MCH MCHC RDW Plt Count MPV Immature Gran % Seg Neutrophils % Lymphocytes % Monocytes % Eosinophils % Basophils % Neutrophils # Lymphocytes # Monocytes # Eosinophils # Basophils # Sodium Potassium Chloride Carbon Dioxide BUN Creatinine Est GFR ( Amer) Est GFR (Non-Af Amer) BUN/Creatinine Ratio Glucose POC Glucose 188 H Calculated Osmolality Calcium Peritoneal Appearance CLEAR Peritoneal Volume 5000.0 Peritoneal pH 8.00 Peritoneal RBC < 0.002 Periton Tot Nuc Cells 112 Periton Neutrophils 44.2 Periton Band Neuts TNP Peritoneal Eosinophils TNP Peritoneal Basophils TNP Periton Lymphocytes % 51.2 Periton Monocytes % TNP Periton Other Cells % 4.7 Peritoneal Tot Protein < 3.0 Peritoneal Albumin < 1.5 Peritoneal LDH 87 Vancomycin Trough 13.4 05/29/17 05/30/17 05/30/17 21:11 06:41 07:12 WBC RBC Hgb Hct MCV MCH MCHC RDW Plt Count MPV Immature Gran % Seg Neutrophils % Lymphocytes % Monocytes % Eosinophils % Basophils % Neutrophils # Lymphocytes # Monocytes # Eosinophils # Basophils # Sodium 136 Potassium 4.6 D Chloride 100 Carbon Dioxide 32 H BUN 14 Creatinine 1.15 Est GFR ( Amer) > 60 Est GFR (Non-Af Amer) > 60 BUN/Creatinine Ratio 12 Glucose 167 H POC Glucose 216 H 166 H Calculated Osmolality 286 Calcium 8.9 Peritoneal Appearance Peritoneal Volume Peritoneal pH Peritoneal RBC Periton Tot Nuc Cells Periton Neutrophils Periton Band Neuts Peritoneal Eosinophils Peritoneal Basophils Periton Lymphocytes % Periton Monocytes % Periton Other Cells % Peritoneal Tot Protein Peritoneal Albumin Peritoneal LDH Vancomycin Trough - Impressions Impressions Paracentesis Ultrasound 05/29/17 00:00 IMPRESSION: Successful ultrasound guided paracentesis. D/ / Mayco Matt MD / Mayco Matt MD Interpreting Provider: Mayco Matt MD Abdomen/Pelvis CT 05/29/17 20:43 IMPRESSION: 1. Moderate to large amount of diffuse abdominal ascites, similar to previous CT. No hemorrhagic component or free intraperitoneal air. Anasarca with diffuse infiltration of the peritoneal fat consistent with third-spacing of fluid. 2. Interval removal of drainage catheter within the pelvis. Recurrent abscess measuring 3.3 x 3.1 cm. 3. The hepatic metastatic disease is less well defined on the current study. Moderate splenomegaly. 4. No acute bowel findings. Small bowel distention persists, similar to the previous study, possibly an ileus. 5. Small left pleural effusion with dependent left basilar atelectasis. 6. Left ureteral stent with no hydronephrosis. Nonobstructive right-sided nephrolithiasis. D/ / 05/30/2017 07:03:20 Bhanu Nevarez MD / [facility] Interpreting Provider: Bhanu Nevarez MD - ABG Interpretation ABG results: PT/INR, D-dimer PT 15.0 Seconds (9.4-12.1) H 05/28/17 05:03 Consult Discharge Plan - Plan Referrals: Ander Patel MD [Primary Care Provider] -
[2017-05-30] MEDS: cefTRIAXone 2,000 MG in Water for inj. (sterile) 20 ML 20 ML IVP SCH (08:22)
[2017-05-30] MEDS: Insulin DETEMIR 100 UNIT/ML X5UNITS SQ SCH ×2 (08:23→21:31)
[2017-05-30] MEDS: Insulin LISPRO 300 UNITS/3 ML VIAL SQ SCH ×4 (08:23→21:29)
[2017-05-30] MEDS: Lactobacillus 1 EACH CAP.SPRINK PO SCH ×2 (08:24→21:31)
[2017-05-30] MEDS: Gabapentin 300 MG CAPSULE PO SCH ×3 (08:24→21:31)
[2017-05-30] MEDS: metroNIDAZOLE 500 MG TABLET PO SCH ×3 (08:24→21:31)
[2017-05-30] MEDS: Spironolactone 25 MG TABLET PO SCH (08:24)
[2017-05-30 09:21] LABS: Platelet Estimate Slight Decrease (Normal)
--- NOTE | 2017-05-30 09:32 | Internal Med Progress Note ---
<Luisa Maki - Last Filed: 05/30/17 13:50> Date of Encounter: 05/30/17 Time of Encounter: 09:15 - Assessment and plan (1) Pelvic abscess Current Visit: Yes Status: Acute Assessment and plan: - CT A/P on 05/18/17 found questionable developing fluid collection within the region of the rectum with suspected diffusely tract formation to the skin surface concerning of abscess. - Patient had RACHANA drain placed by IR likely on 05/20/17. The RACHANA drain was likely removed after 05/27/17. - Perirectal drainage culture from 05/20/17 grew Ecoli, Klebsiella, Enterococcus faecalis, and Strep agalactiae - CT A/P on 05/22/17 and 05/25/17 found no significant measurable remaining fluid collection. in the presacral space. - Continue IV ceftriaxone, IV metronidazole, and IV vancomycin. Per ID, will likely need 14-day course of antibiotic treatment from drain placement. Appreciate input from ID. - CT A/P on 05/29/17 showed recurrent pelvis abscess measuring 3.3 x 3.1 cm. - Case was discussed with interventional radiologist Dr. Matt who has concern of possible small bowel fistula and small track formation based on the image. Dr. Matt recommends re-consult surgery before proceeding to percutaneous draining. - Case was discussed with [place] general surgery nurse practitioner about the concern and the need of re-consult. Appreciate surgery input. (2) Ascites Current Visit: Yes Status: Acute Assessment and plan: - Status post US-guided paracentesis by IR with removal of 4.4L of ascitic fluid. - The ascitic fluid does not meet criteria of SBP. - Likely malignant ascites. Cytology pending. - Continue to monitor. Qualifiers: Ascites type: malignant Qualified Code(s): R18.0 - Malignant ascites (3) Left ureteral stone Current Visit: Yes Status: Acute Assessment and plan: - Status post left ureteral stent placemenent. - Patient will follow up outpatient with urology after discharge. (4) Rectal cancer metastasized to liver Current Visit: Yes Status: Chronic Assessment and plan: - Status post colectomy with left colostomy bag in place. - CT A/P showed multiple new and enlarging hepatic masses suggesting progression of metastatic disease of the liver, also right lower lobe subpleural nodule is also increasing in size concerning for possible metastasis - Patient still wishes to pursue cancer treatment. Oncology on board and patient will have outpatient oncology follow-up after discharge. - Palliative care on board and appreciate recommendation regarding patient's pain control. (5) Anemia Current Visit: Yes Status: Chronic Assessment and plan: - Hgb as low as 7.6 on 05/29/17 - Likely chronic anemia related to iron deficiency, cancer, and cancer treatment. - Slightly improves as Hgb 7.9 today. - Continue iron supplements. - Continue to monitor. Qualifiers: Anemia type: iron deficiency Iron deficiency anemia type: chronic blood loss Qualified Code(s): D50.0 - Iron deficiency anemia secondary to blood loss (chronic) (6) Type 2 diabetes mellitus Current Visit: Yes Status: Chronic Assessment and plan: - Glucose 167 this morning. - Continue basal and sliding scale insulin with glucose monitoring. Qualifiers: Diabetes mellitus complication status: with unspecified complications Diabetes mellitus rn long term care insulin use: without care home use Qualified Code( s): E11.8 - Type 2 diabetes mellitus with unspecified complications (7) DVT prophylaxis Current Visit: Yes Status: Acute Assessment and plan: - Not on anticoagulation due to recent episodes of bleeding from colostomy site - Continue EPCD as mechanical DVT prophylaxis. - Subjective Interval history: Patient was seen and examined this morning. Patient reports having no pain this morning. The paracentesis yesterday did help a lot for his pain per patient. Patient denies fever, chills, shortness of breath, chest pain, nausea, vomiting , diarrhea. - Constitutional Vitals: Temp Pulse Resp BP Pulse Ox 98.4 F 114 12 108/75 97 05/30/17 07:16 05/30/17 07:16 05/30/17 07:16 05/30/17 07:16 05/30/17 07:16 General appearance: Present: cooperative, A&O X 3, pleasant, no acute distress, obese, answers questions appropriately - Head Head exam: Present: normal inspection - Eye Eye exam: Present: EOMI, conjuntiva pink, sclera anicteric - Neck Neck exam general surgery: Present: normal inspection, supple, trachea midline - Respiratory Respiratory exam: Present: CTAB. Absent: accessory muscle use - Cardiovascular Cardiovascular exam: Present: tachycardia - GI/Abdominal GI/Abdominal exam: Present: normal bowel sounds, soft, no peritoneal signs. Absent: tenderness - Extremities Exam Extremities exam: Present: pedal edema (Moderate BLE edema), warm. Absent: cyanotic - Neurological Exam Neurological exam: Present: alert, oriented X3, no focal deficits. Absent: facial droop, speech deficit - Skin Skin exam: Present: dry, warm Internal Medicine: Result - Labs CBC & Chem 7: 05/30/17 06:41 05/30/17 06:41 Labs: Short CBC 05/30/17 Range/Units 06:41 WBC 4.9 (4.3-11.1) K/mcL Hgb 7.9 L (12.9-16.9) g/dL Hct 26.5 L (37.5-50.1) % Plt Count 110 L (140-400) K/mcL Neutrophils # 3.6 (1.6-8.9) K/mcL BMP 05/29/17 05/30/17 07:14 06:41 Sodium 138 136 Potassium 3.6 4.6 D Chloride 102 100 Carbon Dioxide 31 H 32 H BUN 15 14 Creatinine 1.16 1.15 Glucose 95 167 H Calcium 8.7 8.9 - ABG Interpretation ABG results: PT/INR, D-dimer PT 15.0 Seconds (9.4-12.1) H 05/28/17 05:03 - Impressions Impressions Abdomen/Pelvis CT 05/25/17 09:25 IMPRESSION: Trans gluteal percutaneous drainage catheter in the presacral space without significant measurable remaining fluid collection. Moderate to large amount of abdominal and pelvic ascites stable to slightly increased in amount compared to prior examination. Postsurgical changes status post rectal resection and left lower quadrant colostomy. No evidence of bowel obstruction. Mild distention of the small and large bowel suggesting mild postoperative ileus. Multiple new and enlarging hepatic masses compared to January examinations suggesting progression of metastatic disease of the liver. Splenomegaly again noted. Right lower lobe subpleural 9 mm nodule that is slowly increasing when compared to 2016 examination suspicious for possible metastasis. D/ / 05/25/2017 10:48:04 Angelo Guevara MD / [place] Interpreting Provider: Angelo Guevara MD Paracentesis Ultrasound 05/29/17 00:00 IMPRESSION: Successful ultrasound guided paracentesis. D/ / Mayco Matt MD / Mayco Matt MD Interpreting Provider: Mayco Matt MD Abdomen/Pelvis CT 05/29/17 20:43 IMPRESSION: 1. Moderate to large amount of diffuse abdominal ascites, similar to previous CT. No hemorrhagic component or free intraperitoneal air. Anasarca with diffuse infiltration of the peritoneal fat consistent with third-spacing of fluid. 2. Interval removal of drainage catheter within the pelvis. Recurrent abscess measuring 3.3 x 3.1 cm. 3. The hepatic metastatic disease is less well defined on the current study. Moderate splenomegaly. 4. No acute bowel findings. Small bowel distention persists, similar to the previous study, possibly an ileus. 5. Small left pleural effusion with dependent left basilar atelectasis. 6. Left ureteral stent with no hydronephrosis. Nonobstructive right-sided nephrolithiasis. D/ / 05/30/2017 07:03:20 Bhanu Nevarez MD / [facility] Interpreting Provider: Bhanu Nevarez MD - VTE Documentation of Mechanical Device: Intermittent pneumatic compression device Consult Discharge Plan - Plan Referrals: Ander Patel MD [Primary Care Provider] - <Jasbir Srivastava - Last Filed: 05/30/17 18:27> Date of Encounter: 05/30/17 - Assessment and plan (1) Pelvic abscess Current Visit: Yes Status: Acute 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 Current Visit: Yes Status: Chronic (3) Ascites Current Visit: Yes Status: Acute Qualifiers: Ascites type: malignant Qualified Code(s): R18.0 - Malignant ascites (4) Cancer related pain Current Visit: Yes Status: Acute (5) Anemia Current Visit: Yes Status: Chronic Qualifiers: Anemia type: other cause Other causes of anemia: chronic disease, neoplastic Qualified Code(s): D63.0 - Anemia in neoplastic disease (6) Hypothyroidism Current Visit: Yes Status: Chronic Qualifiers: Hypothyroidism type: acquired Qualified Code(s): E03.9 - Hypothyroidism, unspecified (7) DC (obstructive sleep apnea) Current Visit: No Status: Chronic (8) Diabetes mellitus Current Visit: No Status: Chronic Qualifiers: Diabetes mellitus type: type 2 Diabetes mellitus complication status: with hyperglycemia Diabetes mellitus rn long term care insulin use: with rn long term care use Qualified Code(s): E11.65 - Type 2 diabetes mellitus with hyperglycemia; Z79.4 - senior living (current) use of insulin (9) Sepsis Current Visit: Yes Status: Ruled-out Qualifiers: Sepsis type: sepsis due to unspecified organism Qualified Code(s): A41.9 - Sepsis, unspecified organism - Constitutional Vitals: Temp Pulse Resp BP Pulse Ox 98.1 F 106 12 117/79 94 05/30/17 16:35 05/30/17 16:35 05/30/17 16:35 05/30/17 16:35 05/30/17 16:35 Internal Medicine: Result - Labs CBC & Chem 7: 05/30/17 06:41 05/30/17 06:41 Labs: Short CBC 05/30/17 Range/Units 06:41 WBC 4.9 (4.3-11.1) K/mcL Hgb 7.9 L (12.9-16.9) g/dL Hct 26.5 L (37.5-50.1) % Plt Count 110 L (140-400) K/mcL Neutrophils # 3.6 (1.6-8.9) K/mcL BMP 05/30/17 06:41 Sodium 136 Potassium 4.6 D Chloride 100 Carbon Dioxide 32 H BUN 14 Creatinine 1.15 Glucose 167 H Calcium 8.9 - ABG Interpretation ABG results: PT/INR, D-dimer PT 15.0 Seconds (9.4-12.1) H 05/28/17 05:03 - Impressions Impressions Abdomen/Pelvis CT 05/25/17 09:25 IMPRESSION: Trans gluteal percutaneous drainage catheter in the presacral space without significant measurable remaining fluid collection. Moderate to large amount of abdominal and pelvic ascites stable to slightly increased in amount compared to prior examination. Postsurgical changes status post rectal resection and left lower quadrant colostomy. No evidence of bowel obstruction. Mild distention of the small and large bowel suggesting mild postoperative ileus. Multiple new and enlarging hepatic masses compared to January examinations suggesting progression of metastatic disease of the liver. Splenomegaly again noted. Right lower lobe subpleural 9 mm nodule that is slowly increasing when compared to 2016 examination suspicious for possible metastasis. D/ / 05/25/2017 10:48:04 Angelo Guevara MD / [facility] Interpreting Provider: Angelo Guevara MD Abdomen/Pelvis CT 05/29/17 20:43 IMPRESSION: 1. Moderate to large amount of diffuse abdominal ascites, similar to previous CT. No hemorrhagic component or free intraperitoneal air. Anasarca with diffuse infiltration of the peritoneal fat consistent with third-spacing of fluid. 2. Interval removal of drainage catheter within the pelvis. Recurrent abscess measuring 3.3 x 3.1 cm. 3. The hepatic metastatic disease is less well defined on the current study. Moderate splenomegaly. 4. No acute bowel findings. Small bowel distention persists, similar to the previous study, possibly an ileus. 5. Small left pleural effusion with dependent left basilar atelectasis. 6. Left ureteral stent with no hydronephrosis. Nonobstructive right-sided nephrolithiasis. D/ / 05/30/2017 07:03:20 Bhanu Nevarez MD / [facility] Interpreting Provider: Bhanu Nevarez MD - Attending Attestation I examined this patient and my medical decision-making was reviewed with the Resident Physician on 05/30/17. I agree with the documented findings, disposition and treatment plan as described except to the extent set forth below. Mr Chaidez is currently admitted for ascites and pelvic abscess. He remains moderate to high risk due to potential for worsening clinical status. Mr Chaidez feels his pain is better controlled with increased pain med. Breathing better with para. Has recurrent pelvic abscess on CT. No fever or chills. Exam Alert. Comfortable Mucus membranes dry Heart reg No wheeze Abd soft I/P 1. Pelvic abscess - IR to place drain tomorrow 2. Ascites Further diagnoses and plan as above.
--- NOTE | 2017-05-30 13:26 | Infectious Disease Progress No ---
Date of Encounter: 05/30/17 Time of Encounter: 13:24 - Assessment and Plan (1) Tachycardia Current Visit: Yes Status: Acute Likely secondary to infectious process, but consider non-infectious etiologies. Check TSH. (2) Pelvic abscess Current Visit: Yes Status: Acute Causative organism E. coli, K. pneumoniae, GBS, and E. faecalis. Likely secondary to recent surgical procedure. CT scan showed findings consistent with fluid collection in the rectum. Status post CT-guided drain placement by IR 05/20/17. 30ml of pus removed and drain placed. Repeat CT scan showed resolution of the abscess and drain removed 05/27/17. Repeat CT scan 05/29/16 post-paracentesis shows recurrence of abscess. Blood cultures drawn 05/18/17 are negative 2/2 sets. Recommend discussing situation with our surgery team and/or the patient's surgical oncologist at [place] as he may require additional surgery to prevent recurrence. If no surgical intervention, may need to consider re-placing drain. Continue Rocephin 2 grams IV daily. Continue Flagyl 500mg IV TID. Can switch to PO when ready for discharge. Continue Vancomycin IV. Pharmacy to dose. Goal trough ~15. Duration of treatment depends on the clinical picture. Monitor renal function and for drug toxicity and dose-adjust antibiotics. (3) Colitis Current Visit: Yes Status: Acute CT scan of the abdomen and pelvis showed bowel wall thickening consistent with colitis vs. malignancy. Due to recent surgery, it is difficult to tell if the findings are post-op changes vs. colitis. Clinically, the patient is improved. C. diff was negative. Continue antibiotics as above. (4) Ascites Current Visit: Yes Status: Acute Likely multifactorial: malignancy + liver cirrhosis. MELD score 11. CT scan showed findings consistent with moderate ascites on admission, but paracentesis not done until 05/29/16. 4500ml cloudy green-tinged fluid removed. Cell count and preliminary culture does not indicate SBP. Qualifiers: Ascites type: malignant Qualified Code(s): R18.0 - Malignant ascites (5) Ileus Current Visit: Yes Status: Acute CT scan showed findings consistent with mild post-op ileus. Management per the primary team. (6) Left ureteral stone Current Visit: Yes Status: Acute CT scan showed findings consistent with left ureteral stone with mild hydronephrosis. Urology consulted. Status post cystoscopy with ureteral stent placement. Additional urology follow-up as an outpatient. (7) Anemia Current Visit: Yes Status: Chronic Hgb down to 7.9 today. No evidence of active bleeding noted. Further workup and management per the primary team. Qualifiers: Anemia type: other cause Other causes of anemia: chronic disease, neoplastic Qualified Code(s): D63.0 - Anemia in neoplastic disease (8) Colostomy in place Current Visit: Yes Status: Chronic Status post APR with diverting colostomy 04/03/17. (9) Hypothyroidism Current Visit: Yes Status: Chronic Check TSH. Qualifiers: Hypothyroidism type: acquired Qualified Code(s): E03.9 - Hypothyroidism, unspecified (10) Type 2 diabetes mellitus Current Visit: Yes Status: Chronic Controlled. HgbA1C 6.4%. Recommend aggressive glucose monitoring and control to promote wound healing and prevent re-infection. Management per the primary team. Qualifiers: Diabetes mellitus complication status: with unspecified complications Diabetes mellitus middle or intermediate school principal insulin use: without middle or intermediate school principal use Qualified Code( s): E11.8 - Type 2 diabetes mellitus with unspecified complications (11) Rectal cancer metastasized to liver Current Visit: Yes Status: Chronic Diagnosed in 2012. Status post SEP 0503/2017. Follows with [facility] at [facility]. Hem/Onc consulted and following. - Subjective Interval history: Patient seen and examined. Repeat CAT scan results reviewed. Current of rectal abscess noted. Patient states that overall he feels well today. He denies any fevers or chills or rigors. He denies any chest pain, shortness of breath, or cough. He denies any abdominal pain, nausea, vomiting, or increased output from his colostomy. He denies any urinary complaints or appetite changes, but does state that he thinks there might be a little bit of blood in his urine today. Denies any oral thrush or new skin lesions. Infect Dis PN-Objective Data - Labs CBC & Chem 7: 05/30/17 06:41 05/30/17 06:41 Labs: Laboratory Results - last 24 hr 05/29/17 05/29/17 05/29/17 12:35 16:46 16:53 WBC RBC Hgb Hct MCV MCH MCHC RDW Plt Count MPV Immature Gran % Seg Neutrophils % Lymphocytes % Monocytes % Eosinophils % Basophils % Neutrophils # Lymphocytes # Monocytes # Eosinophils # Basophils # Nucleated RBCs/100 WBC Platelet Estimate Sodium Potassium Chloride Carbon Dioxide BUN Creatinine Est GFR ( Amer) Est GFR (Non-Af Amer) BUN/Creatinine Ratio Glucose POC Glucose 188 H Calculated Osmolality Calcium Peritoneal Appearance CLEAR Peritoneal Volume 5000.0 Peritoneal pH 8.00 Peritoneal RBC < 0.002 Periton Tot Nuc Cells 112 Periton Neutrophils 44.2 Periton Band Neuts TNP Peritoneal Eosinophils TNP Peritoneal Basophils TNP Periton Lymphocytes % 51.2 Periton Monocytes % TNP Periton Other Cells % 4.7 Peritoneal Tot Protein < 3.0 Peritoneal Albumin < 1.5 Peritoneal LDH 87 Vancomycin Trough 13.4 05/29/17 05/30/17 05/30/17 21:11 06:41 06:41 WBC 4.9 RBC 2.88 L Hgb 7.9 L Hct 26.5 L MCV 92.0 MCH 27.4 L MCHC 29.8 L RDW 15.8 H Plt Count 110 L MPV 10.9 Immature Gran % 0.6 Seg Neutrophils % 73.6 Lymphocytes % 12.4 Monocytes % 11.8 Eosinophils % 1.0 Basophils % 0.6 Neutrophils # 3.6 Lymphocytes # 0.6 Monocytes # 0.6 Eosinophils # 0.1 Basophils # 0.0 Nucleated RBCs/100 WBC 0.6 H Platelet Estimate Slight Decrease L Sodium 136 Potassium 4.6 D Chloride 100 Carbon Dioxide 32 H BUN 14 Creatinine 1.15 Est GFR ( Amer) > 60 Est GFR (Non-Af Amer) > 60 BUN/Creatinine Ratio 12 Glucose 167 H POC Glucose 216 H Calculated Osmolality 286 Calcium 8.9 Peritoneal Appearance Peritoneal Volume Peritoneal pH Peritoneal RBC Periton Tot Nuc Cells Periton Neutrophils Periton Band Neuts Peritoneal Eosinophils Peritoneal Basophils Periton Lymphocytes % Periton Monocytes % Periton Other Cells % Peritoneal Tot Protein Peritoneal Albumin Peritoneal LDH Vancomycin Trough 05/30/17 05/30/17 07:12 11:51 WBC RBC Hgb Hct MCV MCH MCHC RDW Plt Count MPV Immature Gran % Seg Neutrophils % Lymphocytes % Monocytes % Eosinophils % Basophils % Neutrophils # Lymphocytes # Monocytes # Eosinophils # Basophils # Nucleated RBCs/100 WBC Platelet Estimate Sodium Potassium Chloride Carbon Dioxide BUN Creatinine Est GFR ( Amer) Est GFR (Non-Af Amer) BUN/Creatinine Ratio Glucose POC Glucose 166 H 155 H Calculated Osmolality Calcium Peritoneal Appearance Peritoneal Volume Peritoneal pH Peritoneal RBC Periton Tot Nuc Cells Periton Neutrophils Periton Band Neuts Peritoneal Eosinophils Peritoneal Basophils Periton Lymphocytes % Periton Monocytes % Periton Other Cells % Peritoneal Tot Protein Peritoneal Albumin Peritoneal LDH Vancomycin Trough Cultures: Cultures 05/29/17 12:35 Gram Stain - Final Peritoneal Fluid Body Fluid Culture - Preliminary 05/20/17 Unknown Body Fluid Culture - Final Other-Specify in Comments Escherichia coli Klebsiella pneu.ssp pneumoniae Enterococcus faecalis Strep agalactiae - (Group B) 05/20/17 Unknown Anaerobic Culture - Final Abdomen No anaerobes were recovered. Serology 05/29/17 05/19/17 05/18/17 Range/Units 12:35 13:12 19:35 Urine Color Dark Yellow (Yellow) Urine Clarity Clear (Clear) Urine pH 6.0 (5.0-8.0) pH Units Ur Specific [place] > 1.030 H (1.010-1.025) Urine Protein 30 H (Neg-Trace) mg/dL Urine Glucose (UA) Normal (Normal) mg/dL Urine Ketones Negative (Negative) mg/dL Urine Blood Negative (Negative) Urine Nitrite Negative (Negative) Urine Bilirubin Small H (Negative) Urine Urobilinogen Normal (Normal) mg/dL Ur Leukocyte Esterase Trace H (Negative) Urine Microscopic RBC 3-5 H (0-3) per hpf Urine Microscopic WBC 30-50 H (0-3) per hpf Ur Squamous Epith Cells Many H (None-Few) per lpf Urine Bacteria None Seen (None-Few) per hpf Hyaline Casts Moderate H (None-Few) per lpf Ur Culture Indicated? NO (NO) Peritoneal Appearance CLEAR (Clear) Peritoneal Volume 5000.0 mL Peritoneal pH 8.00 (No Ref Range) pH Units Peritoneal RBC < 0.002 (0.000 - 0.002) M/mcL Periton Tot Nuc Cells 112 (0-300) TNC/mcL Periton Neutrophils 44.2 % Periton Band Neuts TNP Peritoneal Eosinophils TNP Peritoneal Basophils TNP Periton Lymphocytes % 51.2 % Periton Monocytes % TNP Periton Other Cells % 4.7 % Peritoneal Tot Protein < 3.0 (No Ref Range) g/dL Peritoneal Albumin < 1.5 (No Ref Range) g/dL Peritoneal LDH 87 (No Ref Range) Units/L Stl C. diff Tox B Gene Negative (Negative) - Impressions Impressions Abdomen/Pelvis CT 05/25/17 09:25 IMPRESSION: Trans gluteal percutaneous drainage catheter in the presacral space without significant measurable remaining fluid collection. Moderate to large amount of abdominal and pelvic ascites stable to slightly increased in amount compared to prior examination. Postsurgical changes status post rectal resection and left lower quadrant colostomy. No evidence of bowel obstruction. Mild distention of the small and large bowel suggesting mild postoperative ileus. Multiple new and enlarging hepatic masses compared to January examinations suggesting progression of metastatic disease of the liver. Splenomegaly again noted. Right lower lobe subpleural 9 mm nodule that is slowly increasing when compared to 2016 examination suspicious for possible metastasis. D/ / 05/25/2017 10:48:04 Angelo Guevara MD / [facility] Interpreting Provider: Angelo Guevara MD Abdomen/Pelvis CT 05/29/17 20:43 IMPRESSION: 1. Moderate to large amount of diffuse abdominal ascites, similar to previous CT. No hemorrhagic component or free intraperitoneal air. Anasarca with diffuse infiltration of the peritoneal fat consistent with third-spacing of fluid. 2. Interval removal of drainage catheter within the pelvis. Recurrent abscess measuring 3.3 x 3.1 cm. 3. The hepatic metastatic disease is less well defined on the current study. Moderate splenomegaly. 4. No acute bowel findings. Small bowel distention persists, similar to the previous study, possibly an ileus. 5. Small left pleural effusion with dependent left basilar atelectasis. 6. Left ureteral stent with no hydronephrosis. Nonobstructive right-sided nephrolithiasis. D/ / 05/30/2017 07:03:20 Bhanu Nevarez MD / [facility] Interpreting Provider: Bhanu Nevarez MD Exam - Constitutional Vitals: Temp Pulse Resp BP Pulse Ox 98.1 F 110 16 119/81 93 05/30/17 11:57 05/30/17 11:57 05/30/17 11:57 05/30/17 11:57 05/30/17 11:57 General appearance: average body habitus, cooperative, no acute distress - Head Head exam: Present: atraumatic, normal inspection, normocephalic - Eye Eye exam: Present: EOMI, normal appearance, PERRL Pupils: Present: normal accommodation - ENT ENT exam: Present: mucous membranes moist - Neck Neck exam: Present: normal inspection - Respiratory Respiratory exam: Present: CTAB. Absent: rales, respiratory distress, rhonchi, wheezes - Cardiovascular Cardiovascular exam: Present: RRR, +S1, +S2 - GI/Abdominal GI/Abdominal exam: Present: normal bowel sounds, soft. Absent: distended, tenderness Additional comments: To be noted to the left lower quadrant with soft somewhat formed stool noted in the collection device. Stoma is beefy pink without acute bleeding noted. - Rectal Additional comments: Dressing to the rectal area is clean, dry, and intact no fluctuance, tenderness , or erythema noted. - Extremities Exam Extremities exam: Present: normal inspection, pedal edema (Trace bilateral lower extremities). Absent: joint swelling, tenderness - Neurological Exam Neurological exam: Present: alert, oriented X3, no focal deficits - Psychiatric Psychiatric exam: Present: normal affect, normal mood - Skin Skin exam: Present: dry, intact, normal color, warm - VTE Documentation of Mechanical Device: Intermittent pneumatic compression device Consult Discharge Plan - Plan Referrals: Ander Patel MD [Primary Care Provider] - - Attending Attestation I examined this patient and my medical decision-making was reviewed with the Resident Physician. I agree with the documented findings, disposition and treatment plan as described except to the extent set forth below.
[2017-05-30] MEDS: *HR* HYDROmorphone 2 MG/ML SYRINGE IVP PRN (14:18)
--- NOTE | 2017-05-30 14:57 | Event Note ---
Date of Encounter: 05/30/17 Time of Encounter: 14:30 Mr. Chaidez is a 46-year-old male with a history of advanced metastatic rectal cancer. His cancer was initially diagnosed in 2012 is a Stage 4 [id number] with multiple liver metastasis. He is status post chemotherapy and radiation treatments which were completely in 2012 and then subsequent chemotherapy treatments in 2014, 2015, 2016. He did demonstrate obstructive symptoms which were confirmed by colonoscopy in January of [address] Head. The patient was referred to a surgical oncologist Dr. Yan Chavis at [facility]. The patient did undergo an anterior-posterior resection with diverting colostomy on 04/03/2017. The patient has continued to follow with Dr. Melchor and is currently being treated with [facility]. He reported to the emergency department on 05/18/2017 with complaints of abdominal pain. The patient was found to have transverse colon thickening consistent with colitis, a fluid collection in the rectal space with tracking to the perineum, and significant abdominal ascites. Dr. Pena did see and evaluate the patient at that time and recommended interventional radiology for drainage of pelvic abscess. IR drainage was complete on May 202016 and a drain was left in place. Microbiology from the drainage shows growth of Escherichia coli, Klebsiella, enterococcus faecalis, and group B strep. The patient is being treated with ceftriaxone, Flagyl, vancomycin. Infectious disease has been consult is following along for antibiotic recommendations. The patient's drain was removed on 05/25/2017 per the hospitalist recommendations. This decision was made after a CAT scan on 05/25/2017 was complete and showed no residual fluid collection. The patient had a repeat CAT scan on 05/29/2017 after completion of a paracentesis and removal of 4400 mL's of ascites. The CT shows reaccumulation of pelvic fluid measuring 3.1 X 3.3cm. Surgery has been asked to review the patient's case for recommendations. After thorough review and discussion with Dr. Cornejo, there continues to be no role for surgical intervention in this patient's case. Recommendation would be for interventional radiology to assess for replacement of drain in the pelvis. Continue IV antibiotics. The patient will likely need the drain to be in place for several weeks to assist in the possibility clearance of contamination in the pelvis. The patient may also be given the option of transferring back to [facility] for a second opinion should they desire to pursue aggressive surgical intervention.
[2017-05-30] MEDS: Vancomycin 1,250 MG in D5% in Water 250 ML IVPB SCH (16:45)
[2017-05-31] MEDS: *HR* HYDROmorphone 2 MG/ML SYRINGE IVP PRN ×3 (03:58→21:55)
[2017-05-31 05:57] LABS: Basophils % 0.4 %; Eosinophils # 0.1 K/mcL (0.0-0.6); Eosinophils % 1.5 %; Hematocrit 26.3 % (37.5-50.1); Immature Granulocytes % 0.4 % (0-4); Lymphocytes # 0.6 K/mcL (0.6-4.6); Lymphocytes % 12.2 %; Mean Corpuscular HGB Conc 30.4 g/dL (31.6-35.5); Mean Corpuscular Hemoglobin 27.4 pg (28.0-33.3); Mean Corpuscular Volume 90.1 fL (83.0-100.0); Mean Platelet Volume 11.1 fL (9.4-12.4); Monocytes # 0.6 K/mcL (0.0-1.3); Neutrophils # 3.4 K/mcL (1.6-8.9); Platelet Count 116 K/mcL (140-400); Red Blood Count 2.92 M/mcL (4.19-5.50); Red Cell Distribution Width 15.9 % (11.5-14.5); Segmented Neutrophils % 73.5 %
[2017-05-31 06:29] LABS: BUN/Creatinine Ratio 13 (6-26); Blood Urea Nitrogen 13 mg/dL (6-20); Calcium 8.8 mg/dL (8.6-10.3); Carbon Dioxide 30 mEq/L (23-29); Chloride 101 mEq/L (98-107); Glucose 137 mg/dL (70-105); Osmolality,Calculated 284 (280-300); Potassium 3.9 mEq/L (3.5-5.1); Sodium 136 mEq/L (136-145); eGFR For African Americans > 60 (> 60); eGFR For Non-African Americans > 60 (> 60)
[2017-05-31] MEDS: Insulin LISPRO 300 UNITS/3 ML VIAL SQ SCH ×4 (07:57→21:45)
--- NOTE | 2017-05-31 08:53 | Internal Med Progress Note ---
<Luisa Maki - Last Filed: 05/31/17 08:58> Date of Encounter: 05/31/17 Time of Encounter: 07:30 - Assessment and plan (1) Pelvic abscess Current Visit: Yes Status: Acute Assessment and plan: - CT A/P on 05/18/17 found questionable developing fluid collection within the region of the rectum with suspected diffusely tract formation to the skin surface concerning of abscess. - Patient had RACHANA drain placed by IR likely on 05/20/17. The RACHANA drain was likely removed after 05/27/17. - Perirectal drainage culture from 05/20/17 grew Ecoli, Klebsiella, Enterococcus faecalis, and Strep agalactiae - CT A/P on 05/22/17 and 05/25/17 found no significant measurable remaining fluid collection. in the presacral space. - Continue IV ceftriaxone, IV metronidazole, and IV vancomycin. Per ID, will likely need 14-day course of antibiotic treatment from drain placement. Appreciate input from ID. - CT A/P on 05/29/17 showed recurrent pelvis abscess measuring 3.3 x 3.1 cm. - Case was discussed with interventional radiologist Dr. Matt who has concern of possible small bowel fistula and small track formation based on the image. Dr. Matt recommends re-consult surgery before proceeding to percutaneous draining. - [facility] was reconsulted and recommends drain placement by IR but should keep the drain for few weeks before considering removal. Patient can follow up with [facility] outpatiently after discharge regarding the drain removal. - Plan to have drain placement by IR today. (2) Ascites Current Visit: Yes Status: Acute Assessment and plan: - Status post US-guided paracentesis by IR with removal of 4.4L of ascitic fluid. - The ascitic fluid does not meet criteria of SBP. - Likely malignant ascites. Cytology pending. - Continue to monitor. Qualifiers: Ascites type: malignant Qualified Code(s): R18.0 - Malignant ascites (3) Left ureteral stone Current Visit: Yes Status: Acute Assessment and plan: - Status post left ureteral stent placemenent. - Patient will follow up outpatient with urology after discharge. (4) Rectal cancer metastasized to liver Current Visit: Yes Status: Chronic Assessment and plan: - Status post colectomy with left colostomy bag in place. - CT A/P showed multiple new and enlarging hepatic masses suggesting progression of metastatic disease of the liver, also right lower lobe subpleural nodule is also increasing in size concerning for possible metastasis - Patient still wishes to pursue cancer treatment. Oncology on board and patient will have outpatient oncology follow-up after discharge. - Palliative care on board and appreciate recommendation regarding patient's pain control. (5) Anemia Current Visit: Yes Status: Chronic Assessment and plan: - Hgb as low as 7.6 on 05/29/17 - Likely chronic anemia related to iron deficiency, cancer, and cancer treatment. - Stable as Hgb 8.0 today. - Continue iron supplements. - Continue to monitor. Qualifiers: Anemia type: iron deficiency Iron deficiency anemia type: chronic blood loss Qualified Code(s): D50.0 - Iron deficiency anemia secondary to blood loss (chronic) (6) Type 2 diabetes mellitus Current Visit: Yes Status: Chronic Assessment and plan: - Better-controlled as glucose 137 this morning. - Continue basal and sliding scale insulin with glucose monitoring. Qualifiers: Diabetes mellitus complication status: with unspecified complications Diabetes mellitus mannequin wig maker insulin use: without mannequin wig maker use Qualified Code( s): E11.8 - Type 2 diabetes mellitus with unspecified complications (7) DVT prophylaxis Current Visit: Yes Status: Acute Assessment and plan: - Not on anticoagulation due to recent episodes of bleeding from colostomy site - Continue EPCD as mechanical DVT prophylaxis. - Subjective Interval history: Patient was seen and examined this morning. Patient reports abdominal pain remains well-controlled and no noticeable increase in abdominal distension. Patient denies fever, chills, shortness of breath, chest pain, nausea, vomiting , diarrhea. - Constitutional Vitals: Temp Pulse Resp BP Pulse Ox 98.5 F 109 14 102/62 92 05/31/17 04:52 05/31/17 04:52 05/31/17 04:52 05/31/17 04:52 05/31/17 04:52 General appearance: Present: cooperative, A&O X 3, pleasant, no acute distress, answers questions appropriately - Head Head exam: Present: normal inspection - Eye Eye exam: Present: EOMI, conjuntiva pink, sclera anicteric - Neck Neck exam general surgery: Present: normal inspection, supple, trachea midline - Respiratory Respiratory exam: Present: CTAB. Absent: accessory muscle use - Cardiovascular Cardiovascular exam: Present: tachycardia - GI/Abdominal GI/Abdominal exam: Present: normal bowel sounds, soft, no peritoneal signs. Absent: tenderness - Extremities Exam Extremities exam: Present: pedal edema (Moderate BLE edema), warm. Absent: cyanotic - Neurological Exam Neurological exam: Present: alert, oriented X3, no focal deficits. Absent: facial droop, speech deficit - Skin Skin exam: Present: dry, warm Internal Medicine: Result - Labs CBC & Chem 7: 05/31/17 05:17 05/31/17 05:17 Labs: Short CBC 05/30/17 05/31/17 Range/Units 06:41 05:17 WBC 4.7 (4.3-11.1) K/mcL Hgb 8.0 L (12.9-16.9) g/dL Hct 26.3 L (37.5-50.1) % Plt Count 116 L (140-400) K/mcL Neutrophils # 3.6 3.4 (1.6-8.9) K/mcL BMP 05/31/17 05:17 Sodium 136 Potassium 3.9 Chloride 101 Carbon Dioxide 30 H BUN 13 Creatinine 0.99 Glucose 137 H Calcium 8.8 - ABG Interpretation ABG results: PT/INR, D-dimer PT 15.0 Seconds (9.4-12.1) H 05/28/17 05:03 - Impressions Impressions Abdomen/Pelvis CT 05/29/17 20:43 IMPRESSION: 1. Moderate to large amount of diffuse abdominal ascites, similar to previous CT. No hemorrhagic component or free intraperitoneal air. Anasarca with diffuse infiltration of the peritoneal fat consistent with third-spacing of fluid. 2. Interval removal of drainage catheter within the pelvis. Recurrent abscess measuring 3.3 x 3.1 cm. 3. The hepatic metastatic disease is less well defined on the current study. Moderate splenomegaly. 4. No acute bowel findings. Small bowel distention persists, similar to the previous study, possibly an ileus. 5. Small left pleural effusion with dependent left basilar atelectasis. 6. Left ureteral stent with no hydronephrosis. Nonobstructive right-sided nephrolithiasis. D/ / 05/30/2017 07:03:20 Bhanu Nevarez MD / [facility] Interpreting Provider: Bhanu Nevarez MD - VTE Documentation of Mechanical Device: Intermittent pneumatic compression device Consult Discharge Plan - Plan Referrals: Ander Patel MD [Primary Care Provider] - <Jasbir Srivastava - Last Filed: 05/31/17 18:44> Date of Encounter: 05/31/17 - Assessment and plan (1) Pelvic abscess Current Visit: Yes Status: Acute 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 Current Visit: Yes Status: Chronic (3) Ascites Current Visit: Yes Status: Acute Qualifiers: Ascites type: malignant Qualified Code(s): R18.0 - Malignant ascites (4) Cancer related pain Current Visit: No Status: Acute (5) Anemia Current Visit: Yes Status: Chronic Qualifiers: Anemia type: other cause Other causes of anemia: chronic disease, neoplastic Qualified Code(s): D63.0 - Anemia in neoplastic disease (6) Hypothyroidism Current Visit: Yes Status: Chronic Qualifiers: Hypothyroidism type: acquired Qualified Code(s): E03.9 - Hypothyroidism, unspecified (7) DC (obstructive sleep apnea) Current Visit: No Status: Chronic (8) Diabetes mellitus Current Visit: No Status: Chronic Qualifiers: Diabetes mellitus type: type 2 Diabetes mellitus complication status: with hyperglycemia Diabetes mellitus mannequin wig maker insulin use: with mcc use Qualified Code(s): E11.65 - Type 2 diabetes mellitus with hyperglycemia; Z79.4 - half-way (current) use of insulin (9) Sepsis Current Visit: Yes Status: Ruled-out Qualifiers: Sepsis type: sepsis due to unspecified organism Qualified Code(s): A41.9 - Sepsis, unspecified organism - Constitutional Vitals: Temp Pulse Resp BP Pulse Ox 98.6 F 104 16 125/80 98 05/31/17 15:09 05/31/17 15:09 05/31/17 15:09 05/31/17 15:09 05/31/17 15:09 Internal Medicine: Result - Labs CBC & Chem 7: 05/31/17 05:17 05/31/17 05:17 Labs: Short CBC 05/31/17 Range/Units 05:17 WBC 4.7 (4.3-11.1) K/mcL Hgb 8.0 L (12.9-16.9) g/dL Hct 26.3 L (37.5-50.1) % Plt Count 116 L (140-400) K/mcL Neutrophils # 3.4 (1.6-8.9) K/mcL BMP 05/31/17 05:17 Sodium 136 Potassium 3.9 Chloride 101 Carbon Dioxide 30 H BUN 13 Creatinine 0.99 Glucose 137 H Calcium 8.8 - ABG Interpretation ABG results: PT/INR, D-dimer PT 15.0 Seconds (9.4-12.1) H 05/28/17 05:03 - Impressions Impressions Needle Aspiration CT 05/31/17 00:[address]ION: 1[address] Successful CT-guided placement of a 10 [place] pelvic abscess drain. 2. Therapeutic CT-guided paracentesis performed. D/ / Federico Jensen MD / Federico Jensen MD Interpreting Provider: Federico Jensen MD Retroperitoneal Abscess Drainage 05/31/17 00:00 IMPRESSION: 1. Successful CT-guided placement of a 10 [place] pelvic abscess drain. 2. Therapeutic CT-guided paracentesis performed. D/ / Federico Jensen MD / Federico Jensen MD Interpreting Provider: Federico Jensen MD - Attending Attestation I examined this patient and my medical decision-making was reviewed with the Resident Physician on 05/31/17. I agree with the documented findings, disposition and treatment plan as described except to the extent set forth below. Mr Chaidez is currently admitted for pelvic abscess and ascites. He remains moderate to high risk due to potential for worsening clinical status. Mr Chaidez is feeling better after drain placed. He is up in room. No fever or chills. Pain controlled. Exam alert. Comfortable Mucus membranes dry Heart not tachy Lungs diminished I/P 1. Pelvic abscess 2. Ascites Further diagnoses and plan as above.
[2017-05-31] MEDS ORDERED: *HR* Midazolam HCl 2 MG/2 ML VIAL IVP ONE (09:11)
[2017-05-31] MEDS ORDERED: 0.9 % Sodium Chloride 500 ML ONE (09:39)
[2017-05-31] MEDS: *HR* FentaNYL (PF) 100 MCG/2 ML VIAL IVP ONE ×2 (09:48→09:54)
--- NOTE | 2017-05-31 10:24 | IR Procedure Note ---
Date of procedure: 05/31/17 Consent Obtained: Verbal consent, Written consent Timeout: Correct patient and procedure verified, Correct site verified, Time out performed, Skin prep completed Local anesthetic: Lidocaine 1% Indications: Pelvic abscess. Ascites Procedure Performed: CT guided pelvic abscess drain. Paracentesis Was there an communications assistant present: No Site/Technique: Pelvis Results/Findings: 10 Fr presacral abscess drain placed. Paracentesis performed Estimated blood loss (cc): 3 Post Procedure Treatment Plan: Continue inpatient care Specimen: 20 cc purulent fluid
[2017-05-31] MEDS: Lactobacillus 1 EACH CAP.SPRINK PO SCH ×2 (11:37→20:15)
[2017-05-31] MEDS: Gabapentin 300 MG CAPSULE PO SCH ×3 (11:37→20:15)
[2017-05-31] MEDS: metroNIDAZOLE 500 MG TABLET PO SCH ×3 (11:37→20:15)
[2017-05-31] MEDS: cefTRIAXone 2,000 MG in Water for inj. (sterile) 20 ML 20 ML IVP SCH (11:37)
[2017-05-31] MEDS: Insulin DETEMIR 100 UNIT/ML X5UNITS SQ SCH ×2 (11:38→21:54)
[2017-05-31] MEDS: Spironolactone 25 MG TABLET PO SCH (11:38)
--- NOTE | 2017-05-31 12:00 | Oncology Inp Progress Note ---
Date of Encounter: 05/31/17 Time of Encounter: 11:45 (1) Abdominal pain Current Visit: Yes Status: Acute Assessment and plan: Paracentesis performed for second time today, awaiting cytology from paracentesis performed 2 days ago. Pain, abd distention and feeling of pressure improved Palliative care consulted for pain control, appreciate recommendations. Patient reports adequate pain control CT A/P on 05/29/17 showed recurrent pelvis abscess measuring 3.3 x 3.1 cm, pelvic abscess RACHANA replaced today with plan to keep for a few weeks, f/u with surgery on d/c. Qualifiers: Abdominal location: generalized Qualified Code(s): R10.84 - Generalized abdominal pain (2) Colon cancer metastasized to liver Current Visit: No Status: Chronic Assessment and plan: Stage IV adenocarcinoma rectum s/p APR on 04/03/17. CT Abdomen/Pelvis shows progression of liver lesions. Awaiting cytology from paracentesis CEA has increased more than 850 from 450 on February Some of the increase could be related other abdominal process Treatment options are limited, goals of care discussion with palliative team appreciated, he continues to wish to pursue treatment once acute issues resolved /pain controlled, continue full code status. Would consider resuming lonsurf once acute issues resolved Anemia, stable. On oral iron. Iron levels okay, he has needed IV iron in past, may consider again on outpatient basis. Chronic mild thrombocytopenia secondary to cirrhosis. Currently his blood glucose is fairly well-controlled at 150 Oncology: Subj Interval history: Patient slightly drowsy from IR procedure, states his pain under much better control and in fact has been in no pain for the past 2 mornings upon waking. Paracentesis performed again today along with RACHANA drain placement for pelvic abscess, reports paracentesis has helped to relieve a lot of his pain - Constitutional Vitals: Vital Signs Temp Pulse Resp BP Pulse Ox 05/31/17 10:00 110 14 95/63 97 05/31/17 09:58 111 8 91/67 97 05/31/17 04:52 98.5 F 109 14 102/62 92 05/30/17 21:43 97 05/30/17 21:09 98.7 F 100 14 123/84 97 05/30/17 16:35 98.1 F 106 12 117/79 94 Intake and Output 05/30/17 05/31/17 05/31/17 23:59 07:59 15:59 Intake Total 970 / 970 0 / 0 Output Total 825 / 825 300 / 300 Balance 145 / 145 -300 / -300 0 / 0 Intake: IV Fluids 250 / 250 Vancocin 1,250 MG In Dextrose 5 250 / 250 % 250 ML @ 166.667 mls/hr IVPB Q24H [facility] Rx#:[id number] Oral 720 / 720 0 / 0 Output: Urine 825 / 825 200 / 200 Stool 100 / 100 Other: Meal Dinner NPO Percent of Meal Consumed 50% 0% Stool Consistency soft Stool Characteristics Normal for Patient Stool Color Brown Weight 105.92 kg Blood Glucose* 248 124 Patient Weight 05/31/17 23:59 Weight 105.92 kg General appearance: cooperative, no acute distress, no febrile - Respiratory Respiratory exam: Present: CTAB. Absent: respiratory distress - Cardiovascular Cardiovascular exam: Present: RRR, +S1, +S2 - GI/Abdominal GI/Abdominal exam: Present: normal bowel sounds, soft. Absent: tenderness Additional comments: colostomy left abdomen, no bloody drainage in colostomy - Extremities Exam Extremities exam: Present: pedal edema Additional comments: 1+ BLE edema - Neurological Exam Neurological exam: Present: alert, oriented X3, strengths equal and symetr throughout. Absent: no focal deficits - Skin Skin exam: Present: normal color Oncology: Obj Data - Labs CBC & Chem 7: 05/31/17 05:17 05/31/17 05:17 - Impressions Impressions Abdomen/Pelvis CT 05/29/17 20:43 IMPRESSION: 1. Moderate to large amount of diffuse abdominal ascites, similar to previous CT. No hemorrhagic component or free intraperitoneal air. Anasarca with diffuse infiltration of the peritoneal fat consistent with third-spacing of fluid. 2. Interval removal of drainage catheter within the pelvis. Recurrent abscess measuring 3.3 x 3.1 cm. 3. The hepatic metastatic disease is less well defined on the current study. Moderate splenomegaly. 4. No acute bowel findings. Small bowel distention persists, similar to the previous study, possibly an ileus. 5. Small left pleural effusion with dependent left basilar atelectasis. 6. Left ureteral stent with no hydronephrosis. Nonobstructive right-sided nephrolithiasis. D/ / 05/30/2017 07:03:20 Bhanu Nevarez MD / [facility] Interpreting Provider: Bhanu Nevarez MD Needle Aspiration CT 05/31/17 00:00 IMPRESSION: 1. Successful CT-guided placement of a 10 [place] pelvic abscess drain. 2. Therapeutic CT-guided paracentesis performed. D/ / Federico Jensen MD / Federico Jensen MD Interpreting Provider: Federico Jensen MD Retroperitoneal Abscess Drainage 05/31/17 00:00 IMPRESSION: 1. Successful CT-guided placement of a 10 [place] pelvic abscess drain. 2. Therapeutic CT-guided paracentesis performed. D/ / Federico Jensen MD / Federico Jensen MD Interpreting Provider: Federico Jensen MD - ABG Interpretation ABG results: PT/INR, D-dimer PT 15.0 Seconds (9.4-12.1) H 05/28/17 05:03 Consult Discharge Plan - Plan Referrals: Ander Patel MD [Primary Care Provider] -
--- NOTE | 2017-05-31 13:49 | Infectious Disease Progress No ---
Date of Encounter: 05/31/17 Time of Encounter: 13:47 - Assessment and Plan (1) Tachycardia Current Visit: Yes Status: Acute Likely secondary to infectious process, but consider non-infectious etiologies. Consider thyroid workup considering the patient's history of hypothyroidism. (2) Pelvic abscess Current Visit: Yes Status: Acute Causative organism E. coli, K. pneumoniae, GBS, and E. faecalis. Likely secondary to recent surgical procedure. CT scan showed findings consistent with fluid collection in the rectum. Status post CT-guided drain placement by IR 05/20/17. 30ml of pus removed and drain placed. Repeat CT scan showed resolution of the abscess and drain removed 05/27/17. Repeat CT scan 05/29/16 post-paracentesis shows recurrence of abscess. Blood cultures drawn 05/18/17 are negative 2/2 sets. Per surgery, no surgical intervention at this time. Consider discussing with the patient's surgeon in [place] to make sure she is aware of the situation. Status post drain re-placement this morning. IR report not available at this time so I'm not sure what type of fluid was removed (pus, serous, etc.). Continue Rocephin 2 grams IV daily. Continue Flagyl 500mg IV TID. Can switch to PO when ready for discharge. Continue Vancomycin IV. Pharmacy to dose. Goal trough ~15. Duration of treatment depends on the clinical picture, but likely 2-4 weeks. We will repeat imaging at the patient's office visit to evaluate for resolution before stopping antibiotics and/or removing the drain. Monitor renal function and for drug toxicity and dose-adjust antibiotics. Will plan on using the patient's a-port for IV antibiotics. Will need weekly CBC, BUN/Cr, ESR, CRP, and Vanc trough every Sunday. Will need weekly a-port care per protocol. Follow up with ID two weeks post-discharge. (3) Colitis Current Visit: Yes Status: Acute CT scan of the abdomen and pelvis showed bowel wall thickening consistent with colitis vs. malignancy. Due to recent surgery, it is difficult to tell if the findings are post-op changes vs. colitis. Clinically, the patient is improved. C. diff was negative. Continue antibiotics as above. (4) Ascites Current Visit: Yes Status: Acute Likely multifactorial: malignancy + liver cirrhosis. MELD score 11. CT scan showed findings consistent with moderate ascites on admission, but paracentesis not done until 05/29/16. 4500ml cloudy green-tinged fluid removed 05/29/16. Another 4.5 liters removed . Cell count and preliminary culture does not indicate SBP, likely malignant, but cytology is pending. Qualifiers: Ascites type: malignant Qualified Code(s): R18.0 - Malignant ascites (5) Ileus Current Visit: Yes Status: Acute CT scan showed findings consistent with mild post-op ileus. Management per the primary team. (6) Left ureteral stone Current Visit: Yes Status: Acute CT scan showed findings consistent with left ureteral stone with mild hydronephrosis. Urology consulted. Status post cystoscopy with ureteral stent placement. Additional urology follow-up as an outpatient. (7) Anemia Current Visit: Yes Status: Chronic Hgb 8 today. No evidence of active bleeding noted. Further workup and management per the primary team. Qualifiers: Anemia type: other cause Other causes of anemia: chronic disease, neoplastic Qualified Code(s): D63.0 - Anemia in neoplastic disease (8) Colostomy in place Current Visit: Yes Status: Chronic Status post APR with diverting colostomy 04/03/17. (9) Hypothyroidism Current Visit: Yes Status: Chronic Check TSH. Qualifiers: Hypothyroidism type: acquired Qualified Code(s): E03.9 - Hypothyroidism, unspecified (10) Type 2 diabetes mellitus Current Visit: Yes Status: Chronic Controlled. HgbA1C 6.4%. Recommend aggressive glucose monitoring and control to promote wound healing and prevent re-infection. Management per the primary team. Qualifiers: Diabetes mellitus complication status: with unspecified complications Diabetes mellitus residential insulin use: without residential use Qualified Code( s): E11.8 - Type 2 diabetes mellitus with unspecified complications (11) Rectal cancer metastasized to liver Current Visit: Yes Status: Chronic Diagnosed in 2012. Status post APR 03/2017. Follows with [facility] at [place]. Hem/Onc consulted and following. - Subjective Interval history: Patient seen and examined. No acute events noted overnight. Status post annita- rectal abscess drain placement and paracentesis this morning. Patient states that overall he feels well today. He denies any fevers or chills or rigors. He denies any chest pain, shortness of breath, or cough. He denies any abdominal pain, nausea, vomiting, or increased output from his colostomy. He denies any urinary complaints or appetite changes. He denies urinary complaints. Denies any oral thrush or new skin lesions. Reports some discomfort at the site of the abscess drain. States he also had another 4 liters removed from his abdomen. Infect Dis PN-Objective Data - Labs CBC & Chem 7: 05/31/17 05:17 05/31/17 05:17 Labs: Laboratory Results - last 24 hr 05/30/17 05/30/17 05/31/17 16:31 21:07 04:56 WBC RBC Hgb Hct MCV MCH MCHC RDW Plt Count MPV Immature Gran % Seg Neutrophils % Lymphocytes % Monocytes % Eosinophils % Basophils % Neutrophils # Lymphocytes # Monocytes # Eosinophils # Basophils # Sodium Potassium Chloride Carbon Dioxide BUN Creatinine Est GFR ( Amer) Est GFR (Non-Af Amer) BUN/Creatinine Ratio Glucose POC Glucose 186 H 248 H 149 H Calculated Osmolality Calcium 05/31/17 05/31/17 05/31/17 05:17 05:17 07:53 WBC 4.7 RBC 2.92 L Hgb 8.0 L Hct 26.3 L MCV 90.1 MCH 27.4 L MCHC 30.4 L RDW 15.9 H Plt Count 116 L MPV 11.1 Immature Gran % 0.4 Seg Neutrophils % 73.5 Lymphocytes % 12.2 Monocytes % 12.0 Eosinophils % 1.5 Basophils % 0.4 Neutrophils # 3.4 Lymphocytes # 0.6 Monocytes # 0.6 Eosinophils # 0.1 Basophils # 0.0 Sodium 136 Potassium 3.9 Chloride 101 Carbon Dioxide 30 H BUN 13 Creatinine 0.99 Est GFR ( Amer) > 60 Est GFR (Non-Af Amer) > 60 BUN/Creatinine Ratio 13 Glucose 137 H POC Glucose 124 H Calculated Osmolality 284 Calcium 8.8 Cultures: Cultures 05/29/17 12:35 Gram Stain - Final Peritoneal Fluid Body Fluid Culture - Preliminary 05/20/17 Unknown Body Fluid Culture - Final Other-Specify in Comments Escherichia coli Klebsiella pneu.ssp pneumoniae Enterococcus faecalis Strep agalactiae - (Group B) 05/20/17 Unknown Anaerobic Culture - Final Abdomen No anaerobes were recovered. Serology 05/29/17 05/19/17 05/18/17 Range/Units 12:35 13:12 19:35 Urine Color Dark Yellow (Yellow) Urine Clarity Clear (Clear) Urine pH 6.0 (5.0-8.0) pH Units Ur Specific [place] > 1.030 H (1.010-1.025) Urine Protein 30 H (Neg-Trace) mg/dL Urine Glucose (UA) Normal (Normal) mg/dL Urine Ketones Negative (Negative) mg/dL Urine Blood Negative (Negative) Urine Nitrite Negative (Negative) Urine Bilirubin Small H (Negative) Urine Urobilinogen Normal (Normal) mg/dL Ur Leukocyte Esterase Trace H (Negative) Urine Microscopic RBC 3-5 H (0-3) per hpf Urine Microscopic WBC 30-50 H (0-3) per hpf Ur Squamous Epith Cells Many H (None-Few) per lpf Urine Bacteria None Seen (None-Few) per hpf Hyaline Casts Moderate H (None-Few) per lpf Ur Culture Indicated? NO (NO) Peritoneal Appearance CLEAR (Clear) Peritoneal Volume 5000.0 mL Peritoneal pH 8.00 (No Ref Range) pH Units Peritoneal RBC < 0.002 (0.000 - 0.002) M/mcL Periton Tot Nuc Cells 112 (0-300) TNC/mcL Periton Neutrophils 44.2 % Periton Band Neuts TNP Peritoneal Eosinophils TNP Peritoneal Basophils TNP Periton Lymphocytes % 51.2 % Periton Monocytes % TNP Periton Other Cells % 4.7 % Peritoneal Tot Protein < 3.0 (No Ref Range) g/dL Peritoneal Albumin < 1.5 (No Ref Range) g/dL Peritoneal LDH 87 (No Ref Range) Units/L Stl C. diff Tox B Gene Negative (Negative) - Impressions Impressions Needle Aspiration CT 05/31/17 00:[address]: 1[address] Successful CT-guided placement of a 10 English pelvic abscess drain. 2. Therapeutic CT-guided paracentesis performed. D/ / Federico Jensen MD / Federico Jensen MD Interpreting Provider: Federico Jensen MD Retroperitoneal Abscess Drainage 05/31/17 00:00 IMPRESSION: 1. Successful CT-guided placement of a 10 English pelvic abscess drain. 2. Therapeutic CT-guided paracentesis performed. D/ / Federico Jensen MD / Federico Jensen MD Interpreting Provider: Federico Jensen MD Exam - Constitutional Vitals: Temp Pulse Resp BP Pulse Ox 98.0 F 103 16 116/79 95 05/31/17 12:47 05/31/17 12:47 05/31/17 12:47 05/31/17 12:47 05/31/17 12:47 General appearance: average body habitus, cooperative, no acute distress - Head Head exam: Present: atraumatic, normal inspection, normocephalic - Eye Eye exam: Present: EOMI, normal appearance, PERRL Pupils: Present: normal accommodation - ENT ENT exam: Present: mucous membranes moist - Neck Neck exam: Present: normal inspection - Respiratory Respiratory exam: Present: CTAB. Absent: rales, respiratory distress, rhonchi, wheezes - Cardiovascular Cardiovascular exam: Present: +S1, +S2, tachycardia. Absent: irregular rhythm - GI/Abdominal GI/Abdominal exam: Present: normal bowel sounds, soft. Absent: distended, tenderness Additional comments: Colostomy with small amount of brown liquid stool noted in the collection device. Stoma is pink and moist without bleeding. Annita-rectal abscess drain in place with small amount of serosanguinous drainage noted. - Extremities Exam Extremities exam: Present: normal inspection, pedal edema (trace BLE). Absent: joint swelling, tenderness - Neurological Exam Neurological exam: Present: alert, oriented X3, no focal deficits - Psychiatric Psychiatric exam: Present: normal affect, normal mood - Skin Skin exam: Present: dry, intact, normal color, warm - VTE Documentation of Mechanical Device: Intermittent pneumatic compression device Consult Discharge Plan - Plan Referrals: Ander Patel MD [Primary Care Provider] - - Attending Attestation I examined this patient and my medical decision-making was reviewed with the Resident Physician. I agree with the documented findings, disposition and treatment plan as described except to the extent set forth below.
--- NOTE | 2017-05-31 15:17 | Palliative Progress Note ---
Date of Encounter: 05/31/17 Time of Encounter: 14:45 - Assessment and plan (1) Ascites Current Visit: Yes Status: Acute Assessment and plan: S/p paracentesis with removal 4.5 liters. MELD score 11. CT guided pelvic abscess drain placement. Reports feeling better. Qualifiers: Ascites type: malignant Qualified Code(s): R18.0 - Malignant ascites (2) Cancer related pain Current Visit: No Status: Acute Assessment and plan: Patient comfortable. Current plan with Fentanyl patch, percocet and IV Dilaudid. Patient had one po dose of percocet and 2 doses IV dilaudid. (3) Metastatic cancer Current Visit: Yes Status: Chronic Assessment and plan: Oncology following - Time Spent With Patient Total time spent is greater than 50% in coordination of care (as documented) at patient's floor/unit and/or counseling patient: 25 - 35 minutes - Subjective Interval history: Patient s/p paracentesis and CT guided pelvis abscess drain. Patient awake, denies pain at present. Family at bedside. - Constitutional Vitals: Abnormal lab results RBC 2.92 M/mcL (4.19-5.50) L 05/31/17 05:17 Hgb 8.0 g/dL (12.9-16.9) L 05/31/17 05:17 Hct 26.3 % (37.5-50.1) L 05/31/17 05:17 MCH 27.4 pg (28.0-33.3) L 05/31/17 05:17 MCHC 30.4 g/dL (31.6-35.5) L 05/31/17 05:17 RDW 15.9 % (11.5-14.5) H 05/31/17 05:17 Plt Count 116 K/mcL (140-400) L 05/31/17 05:17 Nucleated RBCs/100 WBC 0.6 /100 WBC (0) H 05/30/17 06:41 Platelet Estimate Slight Decrease (Normal) L 05/30/17 06:41 PT 15.0 Seconds (9.4-12.1) H 05/28/17 05:03 Carbon Dioxide 30 mEq/L (23-29) H 05/31/17 05:17 Glucose 137 mg/dL (70-105) H 05/31/17 05:17 POC Glucose 124 (58-89) H 05/31/17 07:53 Hemoglobin A1c 6.4 % (-5.6) H 05/19/17 05:43 Alkaline Phosphatase 163 Units/L (34-104) H 05/23/17 04:58 C-Reactive Protein 137 mg/L (Less than 10) H 05/20/17 04:29 Albumin 2.5 g/dL (3.5-5.7) L 05/23/17 04:58 Globulin 4.1 g/dL (2.4-3.5) H 05/23/17 04:58 Albumin/Globulin Ratio 0.6 (1.1-2.2) L 05/23/17 04:58 Lipase 5 Units/L (11-82) L 05/18/17 11:06 Ur Specific [place] > 1.030 (1.010-1.025) H 05/18/17 19:35 Urine Protein 30 mg/dL (Neg-Trace) H 05/18/17 19:35 Urine Bilirubin Small (Negative) H 05/18/17 19:35 Ur Leukocyte Esterase Trace (Negative) H 05/18/17 19:35 Urine Microscopic RBC 3-5 per hpf (0-3) H 05/18/17 19:35 Urine Microscopic WBC 30-50 per hpf (0-3) H 05/18/17 19:35 Ur Squamous Epith Cells Many per lpf (None-Few) H 05/18/17 19:35 Hyaline Casts Moderate per lpf (None-Few) H 05/18/17 19:35 - Head Head exam: Present: atraumatic, normal inspection, normocephalic - Eye Eye exam: Present: PERRL Pupils: Present: PERRL - ENT ENT exam: Present: mucous membranes moist - Neck Neck exam: Present: full ROM - Respiratory Respiratory exam: Present: decreased breath sounds - Expanded Respiratory Exam Location: decreased breath sounds: Left, Right, Lower - Cardiovascular Cardiovascular exam: Present: RRR, +S1, +S2, tachycardia - GI/Abdominal GI/Abdominal exam: Present: distended, firm, normal bowel sounds, tenderness Additional comments: RACHANA drain with scant pink drainage. Ostomy intact - Rectal Rectal exam: Present: deferred - Extremities Exam Extremities exam: Present: full ROM - Back Exam Back exam: Present: full ROM - Neurological Exam Neurological exam: Present: alert, CN II-XII intact, oriented X3 - Psychiatric Psychiatric exam: Present: normal affect - Skin Skin exam: Present: pallor, warm Palliative Quality Palliative Quality: Screen for Code Status: Yes, Screen for Goals of Care: Yes, Screen for Pain: Yes, If Pain Regimen Started, Initiate Bowel Regimen: Yes, Screen for Nausea/Vomitting: Yes Code Status: 05/18/17 14:26 Resuscitation Status: Active [RES] Routine Comment: Resuscitation Status: Full Code - Labs CBC & Chem 7: 05/31/17 05:17 05/31/17 05:17 Labs: Laboratory Results - last 24 hr 05/30/17 05/30/17 05/31/17 16:31 21:07 04:56 WBC RBC Hgb Hct MCV MCH MCHC RDW Plt Count MPV Immature Gran % Seg Neutrophils % Lymphocytes % Monocytes % Eosinophils % Basophils % Neutrophils # Lymphocytes # Monocytes # Eosinophils # Basophils # Sodium Potassium Chloride Carbon Dioxide BUN Creatinine Est GFR ( Amer) Est GFR (Non-Af Amer) BUN/Creatinine Ratio Glucose POC Glucose 186 H 248 H 149 H Calculated Osmolality Calcium 05/31/17 05/31/17 05/31/17 05:17 05:17 07:53 WBC 4.7 RBC 2.92 L Hgb 8.0 L Hct 26.3 L MCV 90.1 MCH 27.4 L MCHC 30.4 L RDW 15.9 H Plt Count 116 L MPV 11.1 Immature Gran % 0.4 Seg Neutrophils % 73.5 Lymphocytes % 12.2 Monocytes % 12.0 Eosinophils % 1.5 Basophils % 0.4 Neutrophils # 3.4 Lymphocytes # 0.6 Monocytes # 0.6 Eosinophils # 0.1 Basophils # 0.0 Sodium 136 Potassium 3.9 Chloride 101 Carbon Dioxide 30 H BUN 13 Creatinine 0.99 Est GFR ( Amer) > 60 Est GFR (Non-Af Amer) > 60 BUN/Creatinine Ratio 13 Glucose 137 H POC Glucose 124 H Calculated Osmolality 284 Calcium 8.8 - Impressions Impressions Needle Aspiration CT 05/31/17 00:00 IMPRESSION: 1. Successful CT-guided placement of a 10 [place] pelvic abscess drain. 2. Therapeutic CT-guided paracentesis performed. D/ / Federico Jensen MD / Federico Jensen MD Interpreting Provider: Federico Jensen MD Retroperitoneal Abscess Drainage 05/31/17 00:00 IMPRESSION: 1. Successful CT-guided placement of a 10 [place] pelvic abscess drain. 2. Therapeutic CT-guided paracentesis performed. D/ / Federico Jensen MD / Federico Jensen MD Interpreting Provider: Federico Jensen MD - ABG Interpretation ABG results: PT/INR, D-dimer PT 15.0 Seconds (9.4-12.1) H 05/28/17 05:03 Consult Discharge Plan - Plan Referrals: Ander Patel MD [Primary Care Provider] -
[2017-05-31] MEDS: *HR* OxyCODONE/APAP 10/325 TABLET PO PRN ×2 (16:09→20:20)
[2017-05-31] MEDS: Vancomycin 1,250 MG in D5% in Water 250 ML IVPB SCH (16:10)
[2017-06-01] MEDS: *HR* HYDROmorphone 2 MG/ML SYRINGE IVP PRN ×4 (05:10→17:26)
[2017-06-01 06:46] LABS: Hematocrit 29.7 % (37.5-50.1); Hemoglobin 8.8 g/dL (12.9-16.9); Mean Corpuscular HGB Conc 29.6 g/dL (31.6-35.5); Mean Corpuscular Hemoglobin 27.4 pg (28.0-33.3); Mean Corpuscular Volume 92.5 fL (83.0-100.0); Mean Platelet Volume 11.2 fL (9.4-12.4); Platelet Count 140 K/mcL (140-400); Red Blood Count 3.21 M/mcL (4.19-5.50)
[2017-06-01 07:12] LABS: BUN/Creatinine Ratio 11 (6-26); Blood Urea Nitrogen 13 mg/dL (6-20); Calcium 8.9 mg/dL (8.6-10.3); Carbon Dioxide 28 mEq/L (23-29); Chloride 102 mEq/L (98-107); Glucose 141 mg/dL (70-105); Osmolality,Calculated 286 (280-300); Potassium 4.3 mEq/L (3.5-5.1); Sodium 137 mEq/L (136-145); eGFR For African Americans > 60 (> 60); eGFR For Non-African Americans > 60 (> 60)
[2017-06-01 07:28] LABS: Thyroid Stimulating Hormone 24.551 mcIU/mL (0.340-5.600)
[2017-06-01] MEDS: metroNIDAZOLE 500 MG TABLET PO SCH ×2 (08:07→14:07)
[2017-06-01] MEDS: Gabapentin 300 MG CAPSULE PO SCH ×2 (08:08→14:07)
[2017-06-01] MEDS: Lactobacillus 1 EACH CAP.SPRINK PO SCH (08:08)
[2017-06-01] MEDS: Spironolactone 25 MG TABLET PO SCH (08:08)
[2017-06-01] MEDS: cefTRIAXone 2,000 MG in Water for inj. (sterile) 20 ML 20 ML IVP SCH (08:09)
[2017-06-01] MEDS: Insulin LISPRO 300 UNITS/3 ML VIAL SQ SCH ×3 (08:11→16:42)
--- NOTE | 2017-06-01 08:35 | Discharge Summary ---
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 Priority: Secondary Status: Chronic (5) Anemia Priority: Secondary Status: Chronic Qualifiers: Anemia type: iron deficiency Iron deficiency anemia type: chronic blood loss Qualified Code(s): D50.0 - Iron deficiency anemia secondary to blood loss (chronic) (6) Type 2 diabetes mellitus Priority: Secondary Status: Chronic Qualifiers: Diabetes mellitus complication status: with unspecified complications Diabetes mellitus regional intermodal truck driver insulin use: without regional intermodal truck driver use Qualified Code( s): E11.8 - Type 2 diabetes mellitus with unspecified complications - Discharge Medications Prescriptions: Ceftriaxone Na/Dextrose,Iso [Ceftriaxone 2 gm-D5w Bag] 2 gm IV Q24H #14 piggyback Fentanyl [Duragesic] 50 mcg TD Q72H #6 patch Ferrous Sulfate 325 mg PO BIDWM #60 tablet Lactobacillus [Culturelle] 1 each PO BID #60 cap.sprink metroNIDAZOLE [Flagyl] 500 mg PO TID #42 tablet OxyCODONE Immed Rel [Roxicodone 5 MG] 10 mg PO Q2H PRN #60 tablet PRN Reason: pain or sob Potassium Chloride 20 meq PO DAILY #30 tab.er.prt Spironolactone [Aldactone] 100 mg PO DAILY #120 tablet Vancomycin HCl in Dextrose 5 % [Vancomycin-D5w 1.25 Gram/250Ml] 1.25 gm IV Q24H #14 plast..bag Home Medications: Metformin HCl [Glucophage Xr] 1,000 mg PO BID 02/23/15 [History] Acetaminophen/Butalbital/Caffe [Fioricet] 1 each PO TID PRN #90 tablet 04/13/15 [Rx] Cyclobenzaprine [Flexeril] 10 mg PO TID PRN 07/16/15 [History] Prochlorperazine Maleate [Compazine] 10 mg PO Q6HR PRN #120 tablet 02/07/16 [Rx] Ondansetron HCl [Zofran] 4 mg PO Q6H PRN #30 tablet 03/24/16 [Rx] Zolpidem [Ambien] 10 mg PO HS PRN 10/03/16 [History] Citalopram Hydrobromide [Celexa] 20 mg PO DAILY #90 tablet 11/20/16 [Rx] Atorvastatin [Lipitor] 10 mg PO HS 11/27/16 [History] Levothyroxine [Synthroid] 75 mcg PO 0630 11/27/16 [History] Omeprazole [PriLOSEC] 40 mg PO DAILY 11/27/16 [History] Pioglitazone HCl [Actos] 30 mg PO DAILY 11/27/16 [History] Docusate [Colace] 100 mg PO BID 05/15/17 [History] Gabapentin [Neurontin] 300 mg PO TID 05/15/17 [History] Methocarbamol [Robaxin] 500 mg PO Q8HR PRN 05/15/17 [History] Ceftriaxone Na/Dextrose,Iso [Ceftriaxone 2 gm-D5w Bag] 2 gm IV Q24H #14 piggyback 06/01/17 [Rx] Fentanyl [Duragesic] 50 mcg TD Q72H #6 patch 06/01/17 [Rx] Ferrous Sulfate 325 mg PO BIDWM #60 tablet 06/01/17 [Rx] Lactobacillus [Culturelle] 1 each PO BID #60 cap.sprink 06/01/17 [Rx] OxyCODONE Immed Rel [Roxicodone 5 MG] 10 mg PO Q2H PRN #60 tablet 06/01/17 [Rx] Potassium Chloride 20 meq PO DAILY #30 tab.er.prt 06/01/17 [Rx] Spironolactone [Aldactone] 100 mg PO DAILY #120 tablet 06/01/17 [Rx] Vancomycin HCl in Dextrose 5 % [Vancomycin-D5w 1.25 Gram/250Ml] 1.25 gm IV Q24H #14 plast..bag 06/01/17 [Rx] metroNIDAZOLE [Flagyl] 500 mg PO TID #42 tablet 06/01/17 [Rx] Allergies/Adverse Reactions: 3 Allergy/AdvReac Type Severity Reaction Status Date / Time capecitabine [From Xeloda] AdvReac Hallucinati Verified 05/18/17 13:17 ng Procedures/tests Complete & Pending: Procedures Performed prior 72 hours Category Date Time Status CT abd pelvis wo no iv no oral [CT] Stat Cat Scan 05/29/17 20:[address] drain abd/retro with cath [CT] Routine Cat Scan 05/31/[address] guided aspiration [CT] Routine Cat Scan 05/31/17 Completed Date of admission: 05/18/17 13:55 Primary care physician: Ander Patel MD Consults: 05/30/17 09:28 Consult to Interventional Radiology [CONS] Routine Consulting Provider: Radiology Interventional [facility] Reason for Consult: Recurrent pelvis abscess measuring 3.3 x 3.[address] A/ P yesterday. Appreciate percutaneous abscess drainage. Call Completed: Yes 05/18/17 14:33 Consult to Powerhouse Mechanic Supervisor [CONS] Routine Reason for SW Consult: Please assess for possible home needs for post- discharge planning. 05/18/17 14:34 Consult to Occupational Therapy [CONS] Routine Comment: Evaluate, develop and implement POC Reason for Consult: Patient reports some instability and stumbling w/ ambulation. Please assess patient for ambulation strength, stability, safety, and possible home assistive needs for post-discharge planning. 05/18/17 14:35 Consult to Physical Therapy [CONS] Routine Comment: Evaluate, develop and implement POC Reason for Consult: Patient reports some instability and stumbling w/ ambulation. Please assess patient for ambulation strength, stability, safety, and possible home assistive needs for post-discharge planning. 05/18/17 14:41 Consult to Oncology [CONS] Routine Consulting Provider: [facility] Reason for Consult: Abdominal pain w/increased ascites of the abdomen. Pt. has hx of colorectal cancer w/colostomy. Also has metasttic liver cancer and adenocarcinoma of the rectum. Current dx is acute colitis versus metastatic disease. Last chemotherapy tx was three months ago. Dr. Melchor saw pt. on 05/15. Call Completed: Yes 05/18/17 14:52 Consult to Nutrition [CONS] Routine Comment: Consulting Provider: NUTRITION Reason for Dietary Consult: PO Supplementation 05/18/17 15:00 Consult Oncology Dietitian/Nutrtition [CONS] ONCE 05/18/17 15:40 Consult to Urology [CONS] Routine Consulting Provider: Urology [place] Reason for Consult: Patient being admitted for abdominal pain and ascites w/ hx of metastatic cancer of the liver, adenocarcinoma of the rectum, and colorectal cancer. CT today shows interval migration of left lower pole renal calculus now with proximal ureter resulting in mild hydronephrosis. Call Completed: Yes 05/18/17 17:09 Consult to Surgery [CONS] Routine Consulting Provider: Surgery [facility] Reason for Consult: Patient admitted today for abdominal pain and ascites. Pt. has hx of colorectal cancer, metastatic liver cancer, and adenocarcinoma of the rectum. Pt. had colostomy done April 03, [address] [facility] [address] Chavis. Pt. reported bright blood on colostomy yesterday x1. Today, has more blood in colostomy bag. Pts. Hgb is currently 9.7 and Hct is 32.2. Trending H/H Q6. Call Completed: Yes 05/23/17 08:12 Consult to Infectious Diseases [CONS] Routine Consulting Provider: Infectious Disease [place] Reason for Consult: Multiorganism pelvic abscess Call Completed: No 05/25/17 10:25 Consult to Invasive Line Access Team [CONS] Routine Reason for Consult: Picc Line Insertion Line Type: PICC 05/25/17 14:01 Consult to Palliative Care [CONS] Routine Comment: Consulting Provider: Palliative Care [place] Reason for Consult: Pain management Time Notified: 14:02 Call Completed: Yes 05/26/17 16:42 Consult to Interventional Radiology [CONS] Routine Consulting Provider: Radiology Interventional [facility] Reason for Consult: paracentesis Call Completed: Yes Discharging clinician: Luisa Maki Anticipated date of discharge: 06/01/17 - Patient Status Disposition: Home Health Service Condition: Fair Functional capacity at discharge: independent ambulation Overall status at discharge: patient is progressing back to baseline - Discharge Instructions Instructions: Colorectal Cancer (DC) Follow Up With: Renan Melchor MD [Partnered Physician] - 06/12/17 4:00 pm Josefa Ernst CNP [Advanced Practice Nurse] - 06/14/17 9:00 am (Within 1-2 weeks) Brenda Rogers CNP [Advanced Practice Nurse] - 06/28/17 10:45 am (Within 4 wks to evaluate for possible pelvis abscess drain removal.) Ander Patel MD [Primary Care Provider] - 06/08/17 3:00 pm (Within a week) Additional Instructions: Please continue IV vancomycin and ceftriaxone via the port and PO metronidazole. 14-day supply of IV vancomycin, IV ceftriaxone and PO metronidazole were prescribed. Please follow up with [facility] within 1-2 weeks regarding continuation of your IV antibiotics. If you don't get infectious diseases appointment within 2 weeks, please contact [facility] regarding prescription for more IV antibiotics. Please follow up with your primary care physician Dr. Patel within a week regarding your hospitalization. Please follow up with [facility] within 4 weeks to evaluate for possible pelvis abscess drain removal. - Diet and Activity Activity: increase activity as tolerated Diet: diabetic diet Hospital course: Mr. 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 Patient was noted to be tachycardic in ED with significant abdominal distension. CT A/P in ED found left ureteral stone, colitis of the ascending/proximal transverse colon, [id number] ascites and pelvic fluid collection concerning of abscess. Patient was admitted on 05/18/17 for pelvic abscess, ascites, colitis and left ureteral stone and started on IV vancomycin and Zosyn. Cystoscopy and left ureteral stent placement were performed by urologist on 05/19/17. Patient had RACHANA drain placed on 05/20/17 and perirectal drainage culture grew Ecoli, Klebsiella, Enterococcus faecalis, and Strep agalactiae. Patient's antibiotic regimen was changed to IV vancomycin, ceftriaxone and metronidazole on . CT A/P on 05/22/17 and 05/25/17 found no significant measurable remaining fluid collection in the presacral space therefore RACHANA drain was discontinued on 05/25/17. Patient's abdominal pain was not well-controlled so palliative care was consulted regarding pain management. Given patient's persistent abdominal distension and pain, US-guided paracentesis was done by IR on 05/31/17 with removal of 4.4L of ascitic fluid. The ascitic fluid does not meet criteria of SBP. It's more likely malignant ascites and cytology pending. Patient reported significant abdominal pain relief after paracentesis. CT A/P on 05/29/17 showed recurrent pelvis abscess measuring 3.3 x 3.1 cm. Case was discussed with interventional radiologist and surgery. Patient had drain placement by IR on 05/31 and will likely need to keep the drain for few weeks before considering removal per surgery. Per infectious diseases, duration of antibiotic treatment depends on the clinical picture, but likely 2-4 weeks. Infectious diseases will repeat imaging at the patient's office visit to evaluate for resolution before stopping antibiotics and/or removing the drain. On 06/01/17, patient's abdominal pain is well-controlled with the pain regimen recommended by palliative care. Given patient improves clinically and remains hemodynamically stable, patient can be discharged home with home health. Patient will continue IV vancomycin and ceftriaxone via the port. 14-day supply of IV vancomycin and ceftriaxone were prescribed. Patient will follow up with [facility] within 1-2 weeks regarding continuation of your IV antibiotics. Patient was instructed that if he does not get infectious diseases appointment within 2 weeks, he should contact [facility] regarding prescription for more IV antibiotics. Patient will also follow up with his primary care physician Dr. Patel within a week regarding hospitalization. Patient will likely also need follow-up with [facility] to evaluate for possible pelvis abscess drain removal after discharge. Patient can use pain medications prescribed by palliative care for his pain control. Patient expressed his understanding and agreement with the plan. All questions were answered. - Time Spent with Patient Total time spent providing and/or coordinating discharge services: Greater than 30 minutes (46 minutes) - Constitutional Vitals: Temp Pulse Resp BP Pulse Ox 98.1 F 108 16 128/86 96 06/01/17 07:58 06/01/17 07:58 06/01/17 07:58 06/01/17 07:58 06/01/17 07:58 General appearance: Present: cooperative, A&O X 3, pleasant, no acute distress, answers questions appropriately - Head Head exam: Present: normal inspection - Eye Eye exam: Present: EOMI, conjuntiva pink, sclera anicteric - Neck Neck exam general surgery: Present: normal inspection, supple, trachea midline - Respiratory Respiratory exam: Present: CTAB. Absent: accessory muscle use, rales, rhonchi, wheezes - Cardiovascular Cardiovascular exam: Present: RRR, +S1, +S2 - GI/Abdominal GI/Abdominal exam: Present: normal bowel sounds, soft, no peritoneal signs. Absent: tenderness - Extremities Exam Extremities exam: Present: pedal edema ([id number]-gd-dutwsbzy BLE edema, improves compared to yesterday.), warm. Absent: cyanotic - Neurological Exam Neurological exam: Present: alert, no focal deficits. Absent: facial droop, speech deficit - Skin Skin exam: Present: dry, warm Additional comments: Minimal serosanguinous noted in the RACHANA drain for pelvis abscess. 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 Status: Chronic (3) Ascites Status: Acute Qualifiers: Ascites type: malignant Qualified Code(s): R18.0 - Malignant ascites (4) Cancer related pain Priority: Secondary Status: Chronic (5) Anemia Priority: Secondary Status: Chronic Qualifiers: Anemia type: other cause Other causes of anemia: chronic disease, neoplastic Qualified Code(s): D63.0 - Anemia in neoplastic disease (6) Hypothyroidism Priority: Secondary Status: Chronic Qualifiers: Hypothyroidism type: acquired Qualified Code(s): E03.9 - Hypothyroidism, unspecified (7) DC (obstructive sleep apnea) Priority: Secondary Status: Chronic (8) Diabetes mellitus Priority: Secondary Status: Chronic Qualifiers: Diabetes mellitus type: type 2 Diabetes mellitus complication status: with hyperglycemia Diabetes mellitus regional intermodal truck driver insulin use: with regional intermodal truck driver use Qualified Code(s): E11.65 - Type 2 diabetes mellitus with hyperglycemia; Z79.4 - terminal makeup operator (current) use of insulin (9) Sepsis Priority: Secondary Status: Ruled-out Qualifiers: Sepsis type: sepsis due to unspecified organism Qualified Code(s): A41.9 - Sepsis, unspecified organism Procedures/tests Complete & Pending: Procedures Performed prior 72 hours Category Date Time Status CT abd pelvis wo no iv no oral [CT] Stat Cat Scan 05/29/17 20:[address] drain abd/retro with cath [CT] Routine Cat Scan 05/31/[address] guided aspiration [CT] Routine Cat Scan 05/31/17 Completed Date of admission: 05/18/17 13:55 Primary care physician: Ander Patel MD Consults: 05/30/17 09:28 Consult to Interventional Radiology [CONS] Routine Consulting Provider: Radiology Interventional [facility]s Reason for Consult: Recurrent pelvis abscess measuring 3.3 x 3.[address] A/ P yesterday. Appreciate percutaneous abscess drainage. Call Completed: Yes 05/18/17 14:33 Consult to Powerhouse Mechanic Supervisor [CONS] Routine Reason for SW Consult: Please assess for possible home needs for post- discharge planning. 05/18/17 14:34 Consult to Occupational Therapy [CONS] Routine Comment: Evaluate, develop and implement POC Reason for Consult: Patient reports some instability and stumbling w/ ambulation. Please assess patient for ambulation strength, stability, safety, and possible home assistive needs for post-discharge planning. 05/18/17 14:35 Consult to Physical Therapy [CONS] Routine Comment: Evaluate, develop and implement POC Reason for Consult: Patient reports some instability and stumbling w/ ambulation. Please assess patient for ambulation strength, stability, safety, and possible home assistive needs for post-discharge planning. 05/18/17 14:41 Consult to Oncology [CONS] Routine Consulting Provider: [facility] Reason for Consult: Abdominal pain w/increased ascites of the abdomen. Pt. has hx of colorectal cancer w/colostomy. Also has metasttic liver cancer and adenocarcinoma of the rectum. Current dx is acute colitis versus metastatic disease. Last chemotherapy tx was three months ago. Dr. Melchor saw pt. on 05/15. Call Completed: Yes 05/18/17 14:52 Consult to Nutrition [CONS] Routine Comment: Consulting Provider: NUTRITION Reason for Dietary Consult: PO Supplementation 05/18/17 15:00 Consult Oncology Dietitian/Nutrtition [CONS] ONCE 05/18/17 15:40 Consult to Urology [CONS] Routine Consulting Provider: Urology [place] Reason for Consult: Patient being admitted for abdominal pain and ascites w/ hx of metastatic cancer of the liver, adenocarcinoma of the rectum, and colorectal cancer. CT today shows interval migration of left lower pole renal calculus now with proximal ureter resulting in mild hydronephrosis. Call Completed: Yes 05/18/17 17:09 Consult to Surgery [CONS] Routine Consulting Provider: Surgery [facility] Reason for Consult: Patient admitted today for abdominal pain and ascites. Pt. has hx of colorectal cancer, metastatic liver cancer, and adenocarcinoma of the rectum. Pt. had colostomy done April 03, [address] [facility] [address] Chavis. Pt. reported bright blood on colostomy yesterday x1. Today, has more blood in colostomy bag. Pts. Hgb is currently 9.7 and Hct is 32.2. Trending H/H Q6. Call Completed: Yes 05/23/17 08:12 Consult to Infectious Diseases [CONS] Routine Consulting Provider: Infectious Disease [place] Reason for Consult: Multiorganism pelvic abscess Call Completed: No 05/25/17 10:25 Consult to Invasive Line Access Team [CONS] Routine Reason for Consult: Picc Line Insertion Line Type: PICC 05/25/17 14:01 Consult to Palliative Care [CONS] Routine Comment: Consulting Provider: [facility] Reason for Consult: Pain management Time Notified: 14:02 Call Completed: Yes 05/26/17 16:42 Consult to Interventional Radiology [CONS] Routine Consulting Provider: Radiology Inter[facility] Reason for Consult: paracentesis Call Completed: Yes Hospital course: Mr. Chaidez is a 46 year old male - Time Spent with Patient Total time spent providing and/or coordinating discharge services: - Constitutional Vitals: Temp Pulse Resp BP Pulse Ox 97.8 F 107 14 108/70 95 06/01/17 15:00 06/01/17 15:00 06/01/17 15:00 06/01/17 15:00 06/01/17 15:00 - Attending Attestation I examined this patient and my medical decision-making was reviewed with the Resident Physician on 06/01/17. I agree with the documented findings, disposition and treatment plan as described except to the extent set forth below. Mr Chaidez has been admitted for ascites and pelvic abscess. He is now afebirle with stable vitals. He is to complete a course of IV abx and had drain in place to go home. His pain is better controlled and he is ready for discharge home. Exam Alert. Comfortable Mucus membranes dry Heart not tachy Lungs clear Abd soft Plan D/C home today Complete abx Follow up with PCP and ID
--- NOTE | 2017-06-01 08:42 | Physician Discharge Referral ---
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 For more information, call the [facility] Quit Line at [phone]-NOW. - Dressing/Wound Care Site: Pelvic abscess drain care. - Diet/Nutrition Diet/Nutrition Orders: No Concentrated Sweets - Activity Activity Orders: Ambulate - Services Needed Following services are medically necessary services: Nursing, Home Health Aide, Home Infusion (IV antibiotics) - Transfer Medications Prescriptions: Ceftriaxone Na/Dextrose,Iso [Ceftriaxone 2 gm-D5w Bag] 2 gm IV Q24H #14 piggyback Fentanyl [Duragesic] 50 mcg TD Q72H #6 patch Ferrous Sulfate 325 mg PO BIDWM #60 tablet Lactobacillus [Culturelle] 1 each PO BID #60 cap.sprink metroNIDAZOLE [Flagyl] 500 mg PO TID #42 tablet OxyCODONE Immed Rel [Roxicodone 5 MG] 10 mg PO Q2H PRN #60 tablet PRN Reason: pain or sob Potassium Chloride 20 meq PO DAILY #30 tab.er.prt Spironolactone [Aldactone] 100 mg PO DAILY #120 tablet Vancomycin HCl in Dextrose 5 % [Vancomycin-D5w 1.25 Gram/250Ml] 1.25 gm IV Q24H #14 plast..bag Home Medications: Metformin HCl [Glucophage Xr] 1,000 mg PO BID 02/23/15 [History] Acetaminophen/Butalbital/Caffe [Fioricet] 1 each PO TID PRN #90 tablet 04/13/15 [Rx] Cyclobenzaprine [Flexeril] 10 mg PO TID PRN 07/16/15 [History] Prochlorperazine Maleate [Compazine] 10 mg PO Q6HR PRN #120 tablet 02/07/16 [Rx] Ondansetron HCl [Zofran] 4 mg PO Q6H PRN #30 tablet 03/24/16 [Rx] Zolpidem [Ambien] 10 mg PO HS PRN 10/03/16 [History] Citalopram Hydrobromide [Celexa] 20 mg PO DAILY #90 tablet 11/20/16 [Rx] Atorvastatin [Lipitor] 10 mg PO HS 11/27/16 [History] Levothyroxine [Synthroid] 75 mcg PO 0630 11/27/16 [History] Omeprazole [PriLOSEC] 40 mg PO DAILY 11/27/16 [History] Pioglitazone HCl [Actos] 30 mg PO DAILY 11/27/16 [History] Docusate [Colace] 100 mg PO BID 05/15/17 [History] Gabapentin [Neurontin] 300 mg PO TID 05/15/17 [History] Methocarbamol [Robaxin] 500 mg PO Q8HR PRN 05/15/17 [History] Ceftriaxone Na/Dextrose,Iso [Ceftriaxone 2 gm-D5w Bag] 2 gm IV Q24H #14 piggyback 06/01/17 [Rx] Fentanyl [Duragesic] 50 mcg TD Q72H #6 patch 06/01/17 [Rx] Ferrous Sulfate 325 mg PO BIDWM #60 tablet 06/01/17 [Rx] Lactobacillus [Culturelle] 1 each PO BID #60 cap.sprink 06/01/17 [Rx] OxyCODONE Immed Rel [Roxicodone 5 MG] 10 mg PO Q2H PRN #60 tablet 06/01/17 [Rx] Potassium Chloride 20 meq PO DAILY #30 tab.er.prt 06/01/17 [Rx] Spironolactone [Aldactone] 100 mg PO DAILY #120 tablet 06/01/17 [Rx] Vancomycin HCl in Dextrose 5 % [Vancomycin-D5w 1.25 Gram/250Ml] 1.25 gm IV Q24H #14 plast..bag 06/01/17 [Rx] metroNIDAZOLE [Flagyl] 500 mg PO TID #42 tablet 06/01/17 [Rx] Allergies/Adverse Reactions: 3 Allergy/AdvReac Type Severity Reaction Status Date / Time capecitabine [From Xeloda] AdvReac Hallucinati Verified 05/18/17 13:17 ng Certification: Further, I certify that my clinical findings support that this patient is homebound (i.e. absences from home require considerable and taxing effort and are for medical reasons or jehovah's witness services or infrequently or short duration when for other reasons) because: Homebound Reason: Patient requires assistance of a person or device to safely leave home Attestation: My signature below is to certify that this patient is under my care and that I, or nurse practitioner, or a physician's benefits assistant working with me, has a face-to -face encounter with this patient.
[2017-06-01] MEDS: Insulin DETEMIR 100 UNIT/ML X5UNITS SQ SCH (08:58)
--- NOTE | 2017-06-01 09:49 | Infectious Disease Progress No ---
Date of Encounter: 06/01/17 Time of Encounter: 09:47 - Assessment and Plan (1) Tachycardia Current Visit: Yes Status: Acute Improved. (2) Pelvic abscess Current Visit: Yes Status: Acute Causative organism E. coli, K. pneumoniae, GBS, and E. faecalis. Likely secondary to recent surgical procedure. CT scan showed findings consistent with fluid collection in the rectum. Status post CT-guided drain placement by IR 05/20/17. 30ml of pus removed and drain placed. Repeat CT scan showed resolution of the abscess and drain removed 05/27/17. Repeat CT scan 05/29/16 post-paracentesis shows recurrence of abscess. Blood cultures drawn 05/18/17 are negative 2/2 sets. Per surgery, no surgical intervention at this time. Consider discussing with the patient's surgeon in [place] to make sure she is aware of the situation. Status post drain re-placement 05/31/17. 20ml pus removed. Continue Rocephin 2 grams IV daily. Continue Flagyl 500mg IV TID. Can switch to PO when ready for discharge. Continue Vancomycin IV. Pharmacy to dose. Goal trough ~15. Duration of treatment depends on the clinical picture, but likely 2-4 weeks. We will repeat imaging at the patient's office visit to evaluate for resolution before stopping antibiotics and/or removing the drain. Monitor renal function and for drug toxicity and dose-adjust antibiotics. Will plan on using the patient's a-port for IV antibiotics. Will need weekly CBC, BUN/Cr, ESR, CRP, and Vanc trough every Sunday. Will need weekly a-port care per protocol. Follow up with ID 06/14/17 at 0900. (3) Colitis Current Visit: Yes Status: Suspected CT scan of the abdomen and pelvis showed bowel wall thickening consistent with colitis vs. malignancy. Due to recent surgery, it is difficult to tell if the findings are post-op changes vs. colitis. Clinically, the patient is improved. C. diff was negative. Continue antibiotics as above. (4) Ascites Current Visit: Yes Status: Acute Likely multifactorial: malignancy + liver cirrhosis. MELD score 11. CT scan showed findings consistent with moderate ascites on admission, but paracentesis not done until 05/29/16. 4500ml cloudy green-tinged fluid removed 05/29/16. Another 4 liters removed . Cell count and preliminary culture does not indicate SBP. Cytology negative for malignancy. Qualifiers: Ascites type: malignant Qualified Code(s): R18.0 - Malignant ascites (5) Ileus Current Visit: Yes Status: Acute CT scan showed findings consistent with mild post-op ileus. Management per the primary team. (6) Left ureteral stone Current Visit: Yes Status: Acute CT scan showed findings consistent with left ureteral stone with mild hydronephrosis. Urology consulted. Status post cystoscopy with ureteral stent placement. Additional urology follow-up as an outpatient. (7) Anemia Current Visit: Yes Status: Chronic Hgb 8.8 today. No evidence of active bleeding noted. Further workup and management per the primary team. Qualifiers: Anemia type: other cause Other causes of anemia: chronic disease, neoplastic Qualified Code(s): D63.0 - Anemia in neoplastic disease (8) Colostomy in place Current Visit: Yes Status: Chronic Status post APR with diverting colostomy 04/03/17. (9) Hypothyroidism Current Visit: Yes Status: Chronic TSH elevated. Management per the primary team. Qualifiers: Hypothyroidism type: acquired Qualified Code(s): E03.9 - Hypothyroidism, unspecified (10) Type 2 diabetes mellitus Current Visit: Yes Status: Chronic Controlled. HgbA1C 6.4%. Recommend aggressive glucose monitoring and control to promote wound healing and prevent re-infection. Management per the primary team. Qualifiers: Diabetes mellitus complication status: with unspecified complications Diabetes mellitus group home insulin use: without long term care social worker use Qualified Code( s): E11.8 - Type 2 diabetes mellitus with unspecified complications (11) Rectal cancer metastasized to liver Current Visit: Yes Status: Chronic Diagnosed in 2012. Status post SEP 0503/2017. Follow[facility] with [facility] and [facility] at [place]. Hem/Onc consulted and following. - Subjective Interval history: Patient seen and examined. No acute events noted overnight. Patient states that overall he feels well today. He denies any fevers or chills or rigors. He denies any chest pain, shortness of breath, or cough. He denies any abdominal pain, nausea, vomiting, or increased output from his colostomy. He denies any urinary complaints or appetite changes. Denies any oral thrush or new skin lesions. Denies pain at this time. Infect Dis PN-Objective Data - Labs CBC & Chem 7: 06/01/17 05:37 06/01/17 05:37 Labs: Laboratory Results - last 24 hr 05/31/17 05/31/17 05/31/17 12:42 14:40 17:29 WBC RBC Hgb Hct MCV MCH MCHC RDW Plt Count MPV Sodium Potassium Chloride Carbon Dioxide BUN Creatinine Est GFR ( Amer) Est GFR (Non-Af Amer) BUN/Creatinine Ratio Glucose POC Glucose 116 H 157 H Calculated Osmolality Calcium TSH Free T4 Vancomycin Trough 13.5 05/31/17 06/01/17 06/01/17 21:27 05:37 05:37 WBC 5.0 RBC 3.21 L Hgb 8.8 L Hct 29.7 L MCV 92.5 MCH 27.4 L MCHC 29.6 L RDW 16.0 H Plt Count 140 MPV 11.2 Sodium Potassium Chloride Carbon Dioxide BUN Creatinine Est GFR ( Amer) Est GFR (Non-Af Amer) BUN/Creatinine Ratio Glucose POC Glucose 190 H Calculated Osmolality Calcium TSH 24.551 H Free T4 0.98 Vancomycin Trough 06/01/17 06/01/17 05:37 08:01 WBC RBC Hgb Hct MCV MCH MCHC RDW Plt Count MPV Sodium 137 Potassium 4.3 Chloride 102 Carbon Dioxide 28 BUN 13 Creatinine 1.17 Est GFR ( Amer) > 60 Est GFR (Non-Af Amer) > 60 BUN/Creatinine Ratio 11 Glucose 141 H POC Glucose 149 H Calculated Osmolality 286 Calcium 8.9 TSH Free T4 Vancomycin Trough Cultures: Cultures 05/29/17 12:35 Gram Stain - Final Peritoneal Fluid Body Fluid Culture - Preliminary 05/20/17 Unknown Body Fluid Culture - Final Other-Specify in Comments Escherichia coli Klebsiella pneu.ssp pneumoniae Enterococcus faecalis Strep agalactiae - (Group B) 05/20/17 Unknown Anaerobic Culture - Final Abdomen No anaerobes were recovered. Serology 05/29/17 05/19/17 05/18/17 Range/Units 12:35 13:12 19:35 Urine Color Dark Yellow (Yellow) Urine Clarity Clear (Clear) Urine pH 6.0 (5.0-8.0) pH Units Ur Specific [place] > 1.030 H (1.010-1.025) Urine Protein 30 H (Neg-Trace) mg/dL Urine Glucose (UA) Normal (Normal) mg/dL Urine Ketones Negative (Negative) mg/dL Urine Blood Negative (Negative) Urine Nitrite Negative (Negative) Urine Bilirubin Small H (Negative) Urine Urobilinogen Normal (Normal) mg/dL Ur Leukocyte Esterase Trace H (Negative) Urine Microscopic RBC 3-5 H (0-3) per hpf Urine Microscopic WBC 30-50 H (0-3) per hpf Ur Squamous Epith Cells Many H (None-Few) per lpf Urine Bacteria None Seen (None-Few) per hpf Hyaline Casts Moderate H (None-Few) per lpf Ur Culture Indicated? NO (NO) Peritoneal Appearance CLEAR (Clear) Peritoneal Volume 5000.0 mL Peritoneal pH 8.00 (No Ref Range) pH Units Peritoneal RBC < 0.002 (0.000 - 0.002) M/mcL Periton Tot Nuc Cells 112 (0-300) TNC/mcL Periton Neutrophils 44.2 % Periton Band Neuts TNP Peritoneal Eosinophils TNP Peritoneal Basophils TNP Periton Lymphocytes % 51.2 % Periton Monocytes % TNP Periton Other Cells % 4.7 % Peritoneal Tot Protein < 3.0 (No Ref Range) g/dL Peritoneal Albumin < 1.5 (No Ref Range) g/dL Peritoneal LDH 87 (No Ref Range) Units/L Stl C. diff Tox B Gene Negative (Negative) - Impressions Impressions Needle Aspiration CT 05/31/17 00:[address]: 1[address] Successful CT-guided placement of a 10 [place] pelvic abscess drain. 2. Therapeutic CT-guided paracentesis performed. D/ / Federico Jensen MD / Federico Jensen MD Interpreting Provider: Federico Jensen MD Retroperitoneal Abscess Drainage 05/31/17 00:[address] IMPRESSION: 1[address] Successful CT-guided placement of a 10 [place] pelvic abscess drain. 2. Therapeutic CT-guided paracentesis performed. D/ / Federico Jensen MD / Federico Jensen MD Interpreting Provider: Federico Jensen MD Exam - Constitutional Vitals: Temp Pulse Resp BP Pulse Ox 98.1 F 108 16 128/86 96 06/01/17 07:58 06/01/17 07:58 06/01/17 07:58 06/01/17 07:58 06/01/17 07:58 General appearance: average body habitus, cooperative, no acute distress - Head Head exam: Present: atraumatic, normal inspection, normocephalic - Eye Eye exam: Present: EOMI, normal appearance, PERRL Pupils: Present: normal accommodation - ENT ENT exam: Present: mucous membranes moist - Neck Neck exam: Present: normal inspection - Respiratory Respiratory exam: Present: CTAB. Absent: rales, respiratory distress, rhonchi, wheezes - Cardiovascular Cardiovascular exam: Present: +S1, +S2, tachycardia - GI/Abdominal GI/Abdominal exam: Present: distended (mildly), normal bowel sounds, soft. Absent: tenderness Additional comments: Colostomy noted to the RLQ with small amount of brown liquid stool noted. Trace blood noted around the stoma. Stoma is beefy red and moist. - Rectal Additional comments: Nelia-rectal abscess drain with small amount of serosanguinous drainage noted. - Extremities Exam Extremities exam: Present: normal inspection. Absent: joint swelling, pedal edema, tenderness - Back Exam Back exam: Present: normal inspection. Absent: paraspinal tenderness, vertebral tenderness - Neurological Exam Neurological exam: Present: alert, oriented X3, no focal deficits - Psychiatric Psychiatric exam: Present: normal affect, normal mood - Skin Skin exam: Present: dry, intact, normal color, warm - Additional findings Additional findings: A-port noted to the left upper chest with transparent dressing C/D/I. - VTE Documentation of Mechanical Device: Intermittent pneumatic compression device Consult Discharge Plan - Plan Additional Instructions: Please continue IV vancomycin and ceftriaxone via the port and PO metronidazole. 14-day supply of IV vancomycin, IV ceftriaxone and PO metronidazole were prescribed. Please follow up with [place] [facility] within 1-2 weeks regarding continuation of your IV antibiotics. If you don't get infectious diseases appointment within 2 weeks, please contact [place] [facility] regarding prescription for more IV antibiotics. Please follow up with your primary care physician Dr. Patel within a week regarding your hospitalization. Please follow up with [place] [facility] within 4 weeks to evaluate for possible pelvis abscess drain removal. Referrals: Renan Melchor MD [Partnered Physician] - 06/12/17 4:00 pm Josefa Ernst CNP [Advanced Practice Nurse] - 06/14/17 9:00 am (Within 1-2 weeks) Brenda Rogers CNP [Advanced Practice Nurse] - 06/28/17 10:45 am (Within 4 wks to evaluate for possible pelvis abscess drain removal.) Ander Patel MD [Primary Care Provider] - 06/08/17 3:00 pm (Within a week) Prescriptions: Ceftriaxone Na/Dextrose,Iso [Ceftriaxone 2 gm-D5w Bag] 2 gm IV Q24H #14 piggyback Fentanyl [Duragesic] 50 mcg TD Q72H #6 patch Ferrous Sulfate 325 mg PO BIDWM #60 tablet Lactobacillus [Culturelle] 1 each PO BID #60 cap.sprink metroNIDAZOLE [Flagyl] 500 mg PO TID #42 tablet OxyCODONE Immed Rel [Roxicodone 5 MG] 10 mg PO Q2H PRN #60 tablet PRN Reason: pain or sob Potassium Chloride 20 meq PO DAILY #30 tab.er.prt Spironolactone [Aldactone] 100 mg PO DAILY #120 tablet Vancomycin HCl in Dextrose 5 % [Vancomycin-D5w 1.25 Gram/250Ml] 1.25 gm IV Q24H #14 plast..bag - Attending Attestation I examined this patient and my medical decision-making was reviewed with the Resident Physician. I agree with the documented findings, disposition and treatment plan as described except to the extent set forth below.
[2017-06-01] MEDS: *HR* OxyCODONE/APAP 10/325 TABLET PO PRN (12:03)
[2017-06-01] MEDS: *HR* FentaNYL PATCH 50 MCG PATCH TD SCH (12:04)
[2017-06-01] MEDS ORDERED: Vancomycin 1,250 MG in D5% in Water 250 ML IVPB SCH (14:00)
[2017-06-01 15:01] VITALS: BP 108/70
--- NOTE | 2017-06-01 15:28 | Palliative Progress Note ---
Date of Encounter: 06/01/17 Time of Encounter: 07:50 - Assessment and plan (1) Ascites Current Visit: Yes Status: Acute Assessment and plan: Reported 4200 mL removed yesterday. Patient feels much improved. Noted that they found an another abscess last night. May continue to impact pain for now the pain medications appear to be adequate. Qualifiers: Ascites type: malignant Qualified Code(s): R18.0 - Malignant ascites (2) Cancer related pain Current Visit: No Status: Acute Assessment and plan: Noted that patient's oxycodone has been changed, yesterday. I have now encouraged the patient to use that preferentially over the IV Dilaudid. Back the fentanyl patch take full effect by the end of the day today. May be able to fully switch over to oral meds tomorrow. pt feels he can do well with oral meds will d/c fentanyl and oral oxycodone scripts done (3) Colon cancer metastasized to liver Current Visit: No Status: Chronic Assessment and plan: Patient wishes to avail himself of any and all available treatments and remained aggressive at this point in time. (4) Goals of care, counseling/discussion Current Visit: Yes Status: Acute Assessment and plan: Full code, patient wishes to avail himself all treatments available for his cancer. Continue with the cancer Center for this. No changes, to this patient continues to confirm - Time Spent With Patient Total time spent is greater than 50% in coordination of care (as documented) at patient's floor/unit and/or counseling patient: - Subjective Interval history: Patient states medications working much much better since the paracentesis and addition of the fentanyl patch. He also states his bowels are moving well. using dilaudid only for dressing changes will not change meds - Constitutional Vitals: Abnormal lab results RBC 3.21 M/mcL (4.19-5.50) L 06/01/17 05:37 Hgb 8.8 g/dL (12.9-16.9) L 06/01/17 05:37 Hct 29.7 % (37.5-50.1) L 06/01/17 05:37 MCH 27.4 pg (28.0-33.3) L 06/01/17 05:37 MCHC 29.6 g/dL (31.6-35.5) L 06/01/17 05:37 RDW 16.0 % (11.5-14.5) H 06/01/17 05:37 Nucleated RBCs/100 WBC 0.6 /100 WBC (0) H 05/30/17 06:41 Platelet Estimate Slight Decrease (Normal) L 05/30/17 06:41 PT 15.0 Seconds (9.4-12.1) H 05/28/17 05:03 Glucose 141 mg/dL (70-105) H 06/01/17 05:37 POC Glucose 149 (58-89) H 06/01/17 08:01 Hemoglobin A1c 6.4 % (-5.6) H 05/19/17 05:43 Alkaline Phosphatase 163 Units/L (34-104) H 05/23/17 04:58 C-Reactive Protein 137 mg/L (Less than 10) H 05/20/17 04:29 Albumin 2.5 g/dL (3.5-5.7) L 05/23/17 04:58 Globulin 4.1 g/dL (2.4-3.5) H 05/23/17 04:58 Albumin/Globulin Ratio 0.6 (1.1-2.2) L 05/23/17 04:58 Lipase 5 Units/L (11-82) L 05/18/17 11:06 TSH 24.551 mcIU/mL (0.340-5.600) H 06/01/17 05:37 Ur Specific [place] > 1.030 (1.010-1.025) H 05/18/17 19:35 Urine Protein 30 mg/dL (Neg-Trace) H 05/18/17 19:35 Urine Bilirubin Small (Negative) H 05/18/17 19:35 Ur Leukocyte Esterase Trace (Negative) H 05/18/17 19:35 Urine Microscopic RBC 3-5 per hpf (0-3) H 05/18/17 19:35 Urine Microscopic WBC 30-50 per hpf (0-3) H 05/18/17 19:35 Ur Squamous Epith Cells Many per lpf (None-Few) H 05/18/17 19:35 Hyaline Casts Moderate per lpf (None-Few) H 05/18/17 19:35 General appearance: Present: no acute distress - Head Head exam: Present: atraumatic, normal inspection - Eye Eye exam: Present: normal appearance - Respiratory Respiratory exam: Present: CTAB - Cardiovascular Cardiovascular exam: Present: RRR - GI/Abdominal GI/Abdominal exam: Present: normal bowel sounds, soft. Absent: tenderness - Extremities Exam Extremities exam: Present: normal inspection. Absent: pedal edema, tenderness - Neurological Exam Neurological exam: Present: alert, oriented X3 - Psychiatric Psychiatric exam: Present: agitated, anxious - Skin Skin exam: Present: dry, warm Palliative Quality Palliative Quality: Screen for Code Status: Yes, Screen for Goals of Care: Yes, Screen for Pain: Yes, If Pain Regimen Started, Initiate Bowel Regimen: Yes, Screen for Nausea/Vomitting: Yes Code Status: 05/18/17 14:26 Resuscitation Status: Active [RES] Routine Comment: Resuscitation Status: Full Code - Labs CBC & Chem 7: 06/01/17 05:37 06/01/17 05:37 Labs: Laboratory Results - last 24 hr 05/31/17 05/31/17 05/31/17 12:42 17:29 21:27 WBC RBC Hgb Hct MCV MCH MCHC RDW Plt Count MPV Sodium Potassium Chloride Carbon Dioxide BUN Creatinine Est GFR ( Amer) Est GFR (Non-Af Amer) BUN/Creatinine Ratio Glucose POC Glucose 116 H 157 H 190 H Calculated Osmolality Calcium TSH Free T4 06/01/17 06/01/17 06/01/17 05:37 05:37 05:37 WBC 5.0 RBC 3.21 L Hgb 8.8 L Hct 29.7 L MCV 92.5 MCH 27.4 L MCHC 29.6 L RDW 16.0 H Plt Count 140 MPV 11.2 Sodium 137 Potassium 4.3 Chloride 102 Carbon Dioxide 28 BUN 13 Creatinine 1.17 Est GFR ( Amer) > 60 Est GFR (Non-Af Amer) > 60 BUN/Creatinine Ratio 11 Glucose 141 H POC Glucose Calculated Osmolality 286 Calcium 8.9 TSH 24.551 H Free T4 0.98 06/01/17 08:01 WBC RBC Hgb Hct MCV MCH MCHC RDW Plt Count MPV Sodium Potassium Chloride Carbon Dioxide BUN Creatinine Est GFR ( Amer) Est GFR (Non-Af Amer) BUN/Creatinine Ratio Glucose POC Glucose 149 H Calculated Osmolality Calcium TSH Free T4 - ABG Interpretation ABG results: PT/INR, D-dimer PT 15.0 Seconds (9.4-12.1) H 05/28/17 05:03 Consult Discharge Plan - Plan Additional Instructions: Please continue IV vancomycin and ceftriaxone via the port and PO metronidazole. 14-day supply of IV vancomycin, IV ceftriaxone and PO metronidazole were prescribed. Please follow up with [place] [facility] within 1-2 weeks regarding continuation of your IV antibiotics. If you don't get infectious diseases appointment within 2 weeks, please contact [place] [facility] regarding prescription for more IV antibiotics. Please follow up with your primary care physician Dr. Patel within a week regarding your hospitalization. Please follow up with [place] [facility] within 4 weeks to evaluate for possible pelvis abscess drain removal. Referrals: Renan Melchor MD [Partnered Physician] - 06/12/17 4:00 pm Josefa Ernst CNP [Advanced Practice Nurse] - 06/14/17 9:00 am (Within 1-2 weeks) Brenda Rogers CNP [Advanced Practice Nurse] - 06/28/17 10:45 am (Within 4 wks to evaluate for possible pelvis abscess drain removal.) Ander Patel MD [Primary Care Provider] - 06/08/17 3:00 pm (Within a week) Prescriptions: Ceftriaxone Na/Dextrose,Iso [Ceftriaxone 2 gm-D5w Bag] 2 gm IV Q24H #14 piggyback Fentanyl [Duragesic] 50 mcg TD Q72H #6 patch Ferrous Sulfate 325 mg PO BIDWM #60 tablet Lactobacillus [Culturelle] 1 each PO BID #60 cap.sprink metroNIDAZOLE [Flagyl] 500 mg PO TID #42 tablet OxyCODONE Immed Rel [Roxicodone 5 MG] 10 mg PO Q2H PRN #60 tablet PRN Reason: pain or sob Potassium Chloride 20 meq PO DAILY #30 tab.er.prt Spironolactone [Aldactone] 100 mg PO DAILY #120 tablet Vancomycin HCl in Dextrose 5 % [Vancomycin-D5w 1.25 Gram/250Ml] 1.25 gm IV Q24H #14 plast..bag
[2017-06-01] MEDS ORDERED: Aminoglycoside Consult 1 EACH MC ONE (17:51)
== END 2017-06-01 17:52 | disposition home health service (06) | DRG 372 ==
LOC: EMEROO 10:07 → 3ANU 13:55 → SUATTDRO 13:55 → 3ANU 14:50
PROVIDERS: ADMIT Hospitalist; ATTEND Internal Medicine
PROC: IRDRAIN (2017-05-20 09:00)

== ENCOUNTER 2017-07-27 17:02 | Inpatient (IN) ==
[2017-07-27] MEDS ORDERED: 0.9 % Sodium Chloride 1,000 ML IVC ONE (17:10)
--- NOTE | 2017-07-27 17:16 | Emergency Department Note ---
Disposition Clinical Impression: Lower gastrointestinal hemorrhage, H/O colon cancer, stage IV Disposition: Admitted As Inpatient Condition: Serious Referrals: Ander Patel MD [Primary Care Provider] - Time of Disposition: 18:46 GI Bleed HPI - General Stated complaint: Bleeding from colostomy Time Seen by Provider: 07/27/17 17:14 Source: patient, EMS Mode of arrival: EMS Limitations: no limitations Nursing Notes Reviewed: Yes Vital Signs Reviewed: Yes - History of Present Illness HPI Narrative: 46-year-old male with a history of stage IV colon cancer who had a colostomy whose had intermittent bleeding from his colostomy for quite some time. states that she normally cauterize this of the area and and usually it stops. She cauterized at this morning and he developed additional bleeding today. Says he fills the colostomy bag 3 times. Pt Subjective Complaint: gross bloody stools Onset (ago): Just [employer] Consistency: constant Severity: moderate Improves with: nothing Worsens with: nothing Context: history of GI bleed, liver disease (Metastatic colon cancer with metastases to the liver) - Related Data Home Medications Medication Instructions Recorded Confirmed Cyclobenzaprine [Flexeril] 10 mg PO TID PRN 07/16/15 07/17/17 Atorvastatin [Lipitor] 10 mg PO HS 11/27/16 07/17/17 Levothyroxine [Synthroid] 75 mcg PO 0630 11/27/16 07/17/17 Omeprazole [PriLOSEC] 40 mg PO DAILY 11/27/16 07/17/17 Pioglitazone HCl [Actos] 30 mg PO DAILY 11/27/16 07/17/17 Docusate [Colace] 100 mg PO BID 05/15/17 07/17/17 Furosemide [Lasix] 20 mg PO BID 07/17/17 07/17/17 Megestrol Acetate [Megace] 80 mg PO BID 07/17/17 07/17/17 Previous Rx's Medication Instructions Recorded Acetaminophen/Butalbital/Caffe 1 each PO TID PRN #90 tablet 04/13/15 [Fioricet] Prochlorperazine Maleate 10 mg PO Q6HR PRN #120 tablet 02/07/16 [Compazine] Ondansetron HCl [Zofran] 4 mg PO Q6H PRN #30 tablet 10/28/16 Citalopram Hydrobromide [Celexa] 20 mg PO DAILY #90 tablet 11/20/16 Fentanyl [Duragesic] 50 mcg TD Q72H #6 patch 06/01/17 OxyCODONE Immed Rel [Roxicodone 5 10 mg PO Q2H PRN #60 tablet 06/01/17 MG] Potassium Chloride 20 meq PO DAILY #30 tab.er.prt 06/01/17 Spironolactone [Aldactone] 100 mg PO DAILY #120 tablet 06/01/17 Allergies Allergy/AdvReac Type Severity Reaction Status Date / Time capecitabine [From Xeloda] AdvReac Hallucinati Verified 07/17/17 08:24 ng All systems ED: reviewed and negative except as stated. Constitutional: Denies: fever, chills, weakness, weight change Eyes: Denies: eye pain, eye discharge, vision change ENT ED: Denies: ear pain, throat pain, dental pain, hearing loss, epistaxis, congestion, dysphagia Cardiovascular: Denies: chest pain, palpitations, dyspnea on exertion, edema, syncope Respiratory: Denies: cough, dyspnea, wheezes, hemoptysis, stridor Gastrointestinal: Reports: hematochezia. Denies: abdominal pain, nausea, vomiting, diarrhea, constipation, hematemesis, melena Genitourinary: Denies: urgency, dysuria, frequency, hematuria Musculoskeletal: Denies: back pain, neck pain, arthralgia, myalgia Integumentary: Denies: rash, abrasion, lesions Neurological: Denies: headache, weakness, numbness, paresthesias, confusion, abnormal gait, vertigo Psychiatric: Denies: anxiety, depression, suicidal thoughts, homicidal thoughts , auditory hallucinations, visual hallucinations Endocrine: Denies: fatigue Hematological/Lymphatic: Denies: easy bleeding, easy bruising Allergic/Immunologic: Denies: facial swelling, urticaria Past Medical History - Past Medical History Medical history: Reports: arthritis, cancer, diabetes, GERD, thyroid disease, other Surgical history: Reports: colostomy, other (04/03/17) Psychiatric history: Reports: anxiety, depression - Social History Smoking Status: Former smoker Smokeless Tobacco Status: No Alcohol use: Reports: none Drug use: Reports: none Physical Exam - General Limitations: no limitations General appearance: alert, in no apparent distress - Head Head exam: atraumatic, normocephalic, normal inspection - Eye Eye exam: Present: normal appearance, PERRL, EOMI - ENT ENT exam: normal exam, normal oropharynx, mucous membranes moist - Neck Neck exam: Present: normal inspection, full ROM, trachea midline - Chest Chest inspection: Present: normal inspection - Respiratory Respiratory exam: Present: normal lung sounds bilaterally - Cardiovascular Cardiovascular exam: Present: regular rate, normal rhythm, normal heart sounds - Abdominal Exam Abdominal exam: Present: soft, other (Dark blood in the colostomy bag) - Extremities Exam Extremities exam: Present: normal inspection, full ROM. Absent: tenderness, pedal edema - Expanded Lower Extremity Exam Neurovascular/Tendon exam: Absent: motor deficit, sensory deficit, tendon deficit Gait: observed and normal - Back Exam Back exam: Present: normal inspection - Neurological Exam Neurological exam: Present: alert, oriented X3 - Psychiatric Psychiatric exam: Present: normal affect, normal mood - Skin Skin exam: Present: warm, dry, intact, normal color Course - Reevaluation(s) Reevaluation #1: 46-year-old with a history of stage IV colon cancer whose had episodes of recurrent GI bleeding. states she normally cauterize is at the ostomy site and this usually takes care of it although today's had 3 large bloody bowel movements. Patient's hemoglobin is 7.6 chloride admit to get blood because he has ongoing loss and consultation was obtained with surgery who will be in to see the patient. Time: 18:45 - Consultations Consultation #1: Discussed with who will see the patient in consult. Time: 17:40 Consultation #2: Discussed with , admit Time: 18:44 Vital Signs Temperature 0 F L 07/27/17 17:16 Pulse Rate 132 07/27/17 17:16 Respiratory Rate 18 07/27/17 17:16 Blood Pressure 108/76 07/27/17 17:16 O2 Sat by Pulse Oximetry 100 07/27/17 17:16 Temperature 0 F L 07/27/17 17:16 Pulse Rate 132 07/27/17 17:16 Respiratory Rate 18 07/27/17 17:16 Blood Pressure 108/76 07/27/17 17:16 O2 Sat by Pulse Oximetry 100 07/27/17 17:16 Oxygen Delivery Oxygen Delivery Room Air GI Bleed - Lab Data Lab results reviewed: Yes I reviewed the patient's lab results. Result diagrams: 07/27/17 17:10 07/27/17 17:10 Lab Results 07/27/17 07/27/17 07/27/17 Range/Units 17:10 17:10 17:10 WBC 6.4 (4.3-11.1) K/mcL RBC 2.77 L (4.19-5.50) M/mcL Hgb 7.6 L (12.9-16.9) g/dL Hct 25.0 L (37.5-50.1) % MCV 90.3 (83.0-100.0) fL MCH 27.4 L (28.0-33.3) pg MCHC 30.4 L (31.6-35.5) g/dL RDW 19.1 H (11.5-14.5) % Plt Count 161 (140-400) K/mcL MPV 10.9 (9.4-12.4) fL Immature Gran % 1.7 (0-4) % Seg Neutrophils % 77.5 % Lymphocytes % 9.1 % Monocytes % 10.5 % Eosinophils % 0.9 % Basophils % 0.3 % Neutrophils # 5.0 (1.6-8.9) K/mcL Lymphocytes # 0.6 (0.6-4.6) K/mcL Monocytes # 0.7 (0.0-1.3) K/mcL Eosinophils # 0.1 (0.0-0.6) K/mcL Basophils # 0.0 (0.0-0.2) K/mcL PT 14.9 H (9.4-12.1) Seconds INR 1.4 APTT 28.9 (26.0-36.0) Seconds Sodium 129 L (136-145) mEq/L Potassium 3.5 (3.5-5.1) mEq/L Chloride 96 L (98-107) mEq/L Carbon Dioxide 22 L (23-29) mEq/L BUN 23 H (6-20) mg/dL Creatinine 0.91 (0.70-1.30) mg/dL Est GFR ( Amer) > 60 (> 60) Est GFR (Non-Af Amer) > 60 (> 60) BUN/Creatinine Ratio 25 (6-26) Glucose 240 H (70-105) mg/dL Calculated Osmolality 280 (280-300) Calcium 8.9 (8.6-10.3) mg/dL Troponin I 0.04 H* (< 0.04) ng/mL Blood Type Antibody Screen Crossmatch 07/27/17 Range/Units 17:10 WBC (4.3-11.1) K/mcL RBC (4.19-5.50) M/mcL Hgb (12.9-16.9) g/dL Hct (37.5-50.1) % MCV (83.0-100.0) fL MCH (28.0-33.3) pg MCHC (31.6-35.5) g/dL RDW (11.5-14.5) % Plt Count (140-400) K/mcL MPV (9.4-12.4) fL Immature Gran % (0-4) % Seg Neutrophils % % Lymphocytes % % Monocytes % % Eosinophils % % Basophils % % Neutrophils # (1.6-8.9) K/mcL Lymphocytes # (0.6-4.6) K/mcL Monocytes # (0.0-1.3) K/mcL Eosinophils # (0.0-0.6) K/mcL Basophils # (0.0-0.2) K/mcL PT (9.4-12.1) Seconds INR APTT (26.0-36.0) Seconds Sodium (136-145) mEq/L Potassium (3.5-5.1) mEq/L Chloride (98-107) mEq/L Carbon Dioxide (23-29) mEq/L BUN (6-20) mg/dL Creatinine (0.70-1.30) mg/dL Est GFR ( Amer) (> 60) Est GFR (Non-Af Amer) (> 60) BUN/Creatinine Ratio (6-26) Glucose (70-105) mg/dL Calculated Osmolality (280-300) Calcium (8.6-10.3) mg/dL Troponin I (< 0.04) ng/mL Blood Type O POSITIVE Antibody Screen NEGATIVE Crossmatch See Detail - EKG Data EKG attestation: Yes I reviewed and interpreted this EKG. EKG shows normal: sinus rhythm Rate: tachycardia Rhythm: NSR [place]/QRS: normal Interpretation: no acute changes Critical Care Time Critical Care Time: Yes Total Critical Care Time: 30 Attestation: The high probability of a clinically significant, sudden or life threatening deterioration of the [gastrointestinal] system(s) required my full and direct attention, intervention and personal management. The aggregate critical care time was [30] minutes. This time is in addition to time spent performing reported procedures but includes the following: [x] Data Review and interpretation [x] Patient assessment and monitoring of vital signs [x] Documentation [x] Medication orders and management
[2017-07-27] MEDS ORDERED: *HR* OxyCODONE Immed Rel 5 MG TABLET PO ONE (17:23)
[2017-07-27 17:34] LABS: Basophils % 0.3 %; Eosinophils # 0.1 K/mcL (0.0-0.6); Eosinophils % 0.9 %; Immature Granulocytes % 1.7 % (0-4); Lymphocytes # 0.6 K/mcL (0.6-4.6); Lymphocytes % 9.1 %; Mean Corpuscular HGB Conc 30.4 g/dL (31.6-35.5); Mean Corpuscular Hemoglobin 27.4 pg (28.0-33.3); Mean Corpuscular Volume 90.3 fL (83.0-100.0); Mean Platelet Volume 10.9 fL (9.4-12.4); Monocytes # 0.7 K/mcL (0.0-1.3); Monocytes % 10.5 %; Platelet Count 161 K/mcL (140-400); Red Blood Count 2.77 M/mcL (4.19-5.50); Red Cell Distribution Width 19.1 % (11.5-14.5); Segmented Neutrophils % 77.5 %
[2017-07-27 17:41] LABS: INR 1.4; Prothrombin Time 14.9 Seconds (9.4-12.1)
[2017-07-27 17:43] LABS: Activated Partial Thrombo Time 28.9 Seconds (26.0-36.0)
[2017-07-27 17:54] LABS: BUN/Creatinine Ratio 25 (6-26); Blood Urea Nitrogen 23 mg/dL (6-20); Calcium 8.9 mg/dL (8.6-10.3); Carbon Dioxide 22 mEq/L (23-29); Chloride 96 mEq/L (98-107); Glucose 240 mg/dL (70-105); Osmolality,Calculated 280 (280-300); Potassium 3.5 mEq/L (3.5-5.1); Sodium 129 mEq/L (136-145); eGFR For African Americans > 60 (> 60); eGFR For Non-African Americans > 60 (> 60)
[2017-07-27 17:56] LABS: Hemoglobin 7.6 g/dL (12.9-16.9); Troponin I 0.04 ng/mL (< 0.04)
[2017-07-27] MEDS ORDERED: 0.9 % Sodium Chloride 250 ML ONE ×2 (18:35→21:24)
[2017-07-27] MEDS ORDERED: Naloxone 0.4 MG/ML INJ IVP PRN (21:56)
[2017-07-27] MEDS ORDERED: Acetaminophen 325 MG TABLET PO PRN (21:56)
[2017-07-27] MEDS ORDERED: Dextrose Gel 15 GM/37.5 ML TUBE PO PRN ×2 (21:59)
[2017-07-27] MEDS ORDERED: D5% in Water 1,000 ML IVC PRN (21:59)
[2017-07-27] MEDS ORDERED: *HR* Dextrose 50 % in Water (Syg) 50 ML SYRINGE IVP PRN (21:59)
--- NOTE | 2017-07-27 22:07 | Internal Med History&Physical ---
Date of Encounter: 07/27/17 Time of Encounter: 20:00 Internal Medicine - H&P: HPI Chief complaint: GI bleed Admitted From: Home Plans for Post Hospital Care: Home History of present illness: Mr. Chaidez is a 46 year old male with history of diabetes, hypothyroidism, colorectal cancer S/P surgery with colostomy and with liver metastases, presented to ER for bleeding in the colostomy bag since today. Patient said he usually has a chronic small amount bleeding in the colostomy bag. However, today he has noticed a large amount of bleeding with 3 and 1/2 bags of blood come out. Patient feels lightheaded. No nausea, no vomiting. Patient has a chronic abdominal pain, which is not changed. Patient denies a fever or shortness of breath. Patient has a generalized weakness. When I saw patient, the bleeding has been stopped as colostomy bag is almost empathy with only trace of bloody fluid. A/P: 1. GI bleed: - Place patient on nothing by mouth, IV fluid, IV PPI. 2 units of PRBC ordered by ER already. - Closely monitor vitals and H&H - Surgical consult 2. Diabetes: - Place patient on sliding scale insulin 3. Hypothyroidism: - will resume home med synthroid when diet resumed. 4. Stage IV colorectal cancer: - cont f/u with oncology as outpatient. 5. DVT prophylaxis: - EPCD, no AC due to GI bleed. Past Med Surg Social Fam HX - Past Medical History Medical history: arthritis, cancer, diabetes, GERD, thyroid disease, other Psychiatric history: anxiety, depression - Past Surgical History Surgical History: colostomy, other - Social History Smoking Status: Former smoker Smokeless Tobacco Status: No Alcohol use: none Drug use: none - Family History Father Adopted: Yes Sister Family Member Ethnicity: Non- Living Status: Still Living Mother Adopted: Yes Hx Family Cardiac Disorders: Yes Internal Medicine - H&P: Meds Acetaminophen/Butalbital/Caffe [Fioricet] 1 each PO TID PRN #90 tablet 04/13/15 [Rx] Cyclobenzaprine [Flexeril] 10 mg PO TID PRN 07/16/15 [History] Prochlorperazine Maleate [Compazine] 10 mg PO Q6HR PRN #120 tablet 02/07/16 [Rx] Ondansetron HCl [Zofran] 4 mg PO Q6H PRN #30 tablet 03/24/16 [Rx] Citalopram Hydrobromide [Celexa] 20 mg PO DAILY #90 tablet 11/20/16 [Rx] Atorvastatin [Lipitor] 10 mg PO HS 11/27/16 [History] Levothyroxine [Synthroid] 75 mcg PO 0630 11/27/16 [History] Omeprazole [PriLOSEC] 40 mg PO DAILY 11/27/16 [History] Pioglitazone HCl [Actos] 30 mg PO DAILY 11/27/16 [History] Docusate [Colace] 100 mg PO BID 05/15/17 [History] Furosemide [Lasix] 40 mg PO BID 07/17/17 [History] Megestrol Acetate [Megace] 40 mg PO BID 07/17/17 [History] OxyCODONE Immed Rel [Roxicodone 5 MG] 10 mg PO Q4H PRN 07/27/17 [History] Polyethylene Glycol 3350 [MiraLAX] 17 gm PO DAILY PRN 07/27/17 [History] Spironolactone [Aldactone] 100 mg PO DAILY 07/27/17 [History] fentaNYL [Fentanyl] 75 mcg TD Q72H 07/27/17 [History] 3 Allergy/AdvReac Type Severity Reaction Status Date / Time capecitabine [From Xeloda] AdvReac Hallucinati Verified 07/17/17 08:24 ng All Systems PM: A 10-system review of systems was performed and is negative for pertinent findings except as documented above in the HPI. - Constitutional Vitals: Temp Pulse Resp BP Pulse Ox 97.9 F 120 16 98/56 97 07/27/17 21:56 07/27/17 21:56 07/27/17 21:56 07/27/17 21:56 07/27/17 21:56 General appearance: Present: A&O X 3, no acute distress, answers questions appropriately - Head Head exam: Present: atraumatic, normocephalic - Eye Eye exam: Present: PERRL, conjuntiva pink, sclera anicteric Pupils: Present: PERRL - Neck Neck exam general surgery: Present: supple, trachea midline. Absent: lymphadenopathy - Respiratory Respiratory exam: Present: CTAB. Absent: accessory muscle use, rales, rhonchi, wheezes - Cardiovascular Cardiovascular exam: Present: RRR, +S1, +S2, tachycardia. Absent: diastolic murmur, gallop, rubs, systolic murmur - GI/Abdominal GI/Abdominal exam: Present: normal bowel sounds, soft, no peritoneal signs. Absent: distended, tenderness Additional comments: Colostomy bag in place. No significant active bleeding. - Extremities Exam Extremities exam: Present: warm, radial pulses palpable and symmetrical. Absent : calf tenderness, cyanotic, pedal edema - Neurological Exam Neurological exam: Present: CN II-XII intact, oriented X3, no focal deficits. Absent: pronater drift, facial droop, speech deficit - Skin Skin exam: Present: dry, intact Internal Med - H&P Results - Labs CBC & Chem 7: 07/27/17 17:10 07/27/17 17:10
--- NOTE | 2017-07-27 22:09 | General Surgery Consult Note ---
Date of Encounter: 07/27/17 Time of Encounter: 21:58 Assessment and Plan (1) Lower gastrointestinal hemorrhage Current Visit: Yes Status: Acute 46M stage IV rectal cancer s/p APR now with LGiB; CLD tonight; NPO at midnight bowel prep serial h/h; transfuse per primary team plan for EGD colonoscopy in AM plan for CT with PO and IV contrast tonight cares per primary team History of Present Illness Consult date: 07/27/17 Reason for consult: other (LGIB) History of present illness: 46M h/o stage IV rectal cancer with metastasis to the liver complicated by ascites s/p robotic APR (Mar 2017 in [place]) presents with bleeding from his colostomy. The patient states that it has been on going since about April, but over the last 24 hours has gotten progressively worse with associated lightheadedness. Per the patient's , the amount of blood coming from the colostomy is profuse, but intermittent. At present he is not actively bleeding. No reports of fevers, chills, nausea, vomiting; he still galeas an appetite and his last meal was at about lunch time. Surgery was consulted for management recommendations. Past Med Surg Social Fam HX - Past Medical History Medical history: arthritis, cancer, diabetes, GERD, thyroid disease, other Psychiatric history: anxiety, depression - Past Surgical History Surgical History: colostomy, other - Social History Smoking Status: Former smoker Smokeless Tobacco Status: No Alcohol use: none Drug use: none - Family History Father Adopted: Yes Sister Family Member Ethnicity: Non- Living Status: Still Living Mother Adopted: Yes Hx Family Cardiac Disorders: Yes Medications and Allergies Acetaminophen/Butalbital/Caffe [Fioricet] 1 each PO TID PRN #90 tablet 04/13/15 [Rx] Cyclobenzaprine [Flexeril] 10 mg PO TID PRN 07/16/15 [History] Prochlorperazine Maleate [Compazine] 10 mg PO Q6HR PRN #120 tablet 02/07/16 [Rx] Ondansetron HCl [Zofran] 4 mg PO Q6H PRN #30 tablet 03/24/16 [Rx] Citalopram Hydrobromide [Celexa] 20 mg PO DAILY #90 tablet 11/20/16 [Rx] Atorvastatin [Lipitor] 10 mg PO HS 11/27/16 [History] Levothyroxine [Synthroid] 75 mcg PO 0630 11/27/16 [History] Omeprazole [PriLOSEC] 40 mg PO DAILY 11/27/16 [History] Pioglitazone HCl [Actos] 30 mg PO DAILY 11/27/16 [History] Docusate [Colace] 100 mg PO BID 05/15/17 [History] Furosemide [Lasix] 40 mg PO BID 07/17/17 [History] Megestrol Acetate [Megace] 40 mg PO BID 07/17/17 [History] OxyCODONE Immed Rel [Roxicodone 5 MG] 10 mg PO Q4H PRN 07/27/17 [History] Polyethylene Glycol 3350 [MiraLAX] 17 gm PO DAILY PRN 07/27/17 [History] Spironolactone [Aldactone] 100 mg PO DAILY 07/27/17 [History] fentaNYL [Fentanyl] 75 mcg TD Q72H 07/27/17 [History] 3 Allergy/AdvReac Type Severity Reaction Status Date / Time capecitabine [From Xeloda] AdvReac Hallucinati Verified 07/17/17 08:24 ng Review of Systems All systems PM: The remainder of the systems were reviewed and are negative General Surgery Exam Initial Vital Signs Temp Pulse Resp BP Pulse Ox 0 F L 132 18 108/76 100 07/27/17 17:16 07/27/17 17:16 07/27/17 17:16 07/27/17 17:16 07/27/17 17:16 - General physical appearance no distress - Eyes normal ocular movement - ENT normocephalic - Neck no lymphadectomy - Respiratory normal expansion, normal respiratory effort - Cardiovascular Cardiovascular exam: Present: RRR - Abdomen Abdomen general surgery: Present: soft, non tender, surgical scars - Incision Incision: Present: clean and dry - Rectum Rectum: Present: other (colostomy; old blood within colostomy) - Integumentary Integumentary general surgery: Present: warm and dry - Neurologic Present: CN 2-12 grossly intact - Psychiatric Psychiatric general surgery: Present: A&Ox3 Exam Initial Vital Signs Temp Pulse Resp BP Pulse Ox 0 F L 132 18 108/76 100 07/27/17 17:16 07/27/17 17:16 07/27/17 17:16 07/27/17 17:16 07/27/17 17:16 Results - Labs 07/27/17 17:10 07/27/17 17:10 Abnormal lab results RBC 2.77 M/mcL (4.19-5.50) L 07/27/17 17:10 Hgb 7.6 g/dL (12.9-16.9) L 07/27/17 17:10 Hct 25.0 % (37.5-50.1) L 07/27/17 17:10 MCH 27.4 pg (28.0-33.3) L 07/27/17 17:10 MCHC 30.4 g/dL (31.6-35.5) L 07/27/17 17:10 RDW 19.1 % (11.5-14.5) H 07/27/17 17:10 PT 14.9 Seconds (9.4-12.1) H 07/27/17 17:10 Sodium 129 mEq/L (136-145) L 07/27/17 17:10 Chloride 96 mEq/L (98-107) L 07/27/17 17:10 Carbon Dioxide 22 mEq/L (23-29) L 07/27/17 17:10 BUN 23 mg/dL (6-20) H 07/27/17 17:10 Glucose 240 mg/dL (70-105) H 07/27/17 17:10 Troponin I 0.04 ng/mL (< 0.04) H* 07/27/17 17:10 All other labs normal. Consult Discharge Plan - Plan
[2017-07-27] MEDS ORDERED: Polyethylene Glycol 3350 255 GM POWDER PO ONE (22:27)
[2017-07-27] MEDS: *HR* OxyCODONE Immed Rel 5 MG TABLET PO PRN (22:42)
[2017-07-28] MEDS: Insulin LISPRO 300 UNITS/3 ML VIAL SQ SCH ×5 (01:07→23:52)
[2017-07-28] MEDS: 0.9 % Sodium Chloride 1,000 ML IVC SCH ×2 (01:07→09:42)
[2017-07-28] MEDS: Pantoprazole 40 MG VIAL IVP SCH ×3 (01:07→19:03)
[2017-07-28 01:53] LABS: Basophils % 0.2 %; Eosinophils # 0.1 K/mcL (0.0-0.6); Eosinophils % 1.1 %; Hematocrit 24.1 % (37.5-50.1); Hemoglobin 7.8 g/dL (12.9-16.9); Immature Granulocytes % 2.1 % (0-4); Lymphocytes # 0.5 K/mcL (0.6-4.6); Lymphocytes % 9.9 %; Mean Corpuscular HGB Conc 32.4 g/dL (31.6-35.5); Mean Corpuscular Hemoglobin 28.4 pg (28.0-33.3); Mean Corpuscular Volume 87.6 fL (83.0-100.0); Mean Platelet Volume 10.5 fL (9.4-12.4); Monocytes # 0.7 K/mcL (0.0-1.3); Monocytes % 12.4 %; Platelet Count 121 K/mcL (140-400); Red Blood Count 2.75 M/mcL (4.19-5.50); Segmented Neutrophils % 74.3 %
[2017-07-28 02:15] LABS: BUN/Creatinine Ratio 28 (6-26); Blood Urea Nitrogen 23 mg/dL (6-20); Calcium 8.4 mg/dL (8.6-10.3); Carbon Dioxide 22 mEq/L (23-29); Chloride 99 mEq/L (98-107); Glucose 167 mg/dL (70-105); Magnesium 1.6 mg/dL (1.6-2.6); Osmolality,Calculated 275 (280-300); Potassium 3.6 mEq/L (3.5-5.1); Sodium 129 mEq/L (136-145); eGFR For African Americans > 60 (> 60); eGFR For Non-African Americans > 60 (> 60)
[2017-07-28 02:18] LABS: Troponin I 0.04 ng/mL (< 0.04)
[2017-07-28] MEDS: *HR* OxyCODONE Immed Rel 5 MG TABLET PO PRN ×3 (09:43→21:50)
--- NOTE | 2017-07-28 12:01 | General Surgery Progress Note ---
<Radha Sethi H - Last Filed: 07/28/17 11:57> Date of Encounter: 07/28/17 Time of Encounter: 09:00 - Assessment and Plan (1) Lower gastrointestinal hemorrhage Current Visit: Yes Status: Acute 46-year-old male with stage IV rectal cancer status post abdominoperineal resection presenting with lower gastrointestinal bleed. CT abdomen and pelvis on 07/28/2017 demonstrates colonic stool burden, metastatic disease throughout the liver, serena hepatis lymphadenopathy, moderate ascites and subcutaneous edema, and intraureteral stent. -Continue bowel prep as patient with sustained output into his ostomy bag. -We will add ducolax every 6 hours for 3 doses. -Clear liquid diet today, NPO At midnight. -Serial H&H; transfuse per primary team (s/p transfusion 2 units PRBC yesterday) . -No endoscopy today due to sustained ostomy output, will plan for EGD and colonoscopy tomorrow. Subjective Patient reports: no new complaints, still having pain, tolerating liquids well, voiding w/o difficulty, flatus (In ostomy bag), bowel movement (Ostomy bag full with light brown stool. No blood visualized in the ostomy bag for the last 24 hours.), afebrile Objective Vital Signs - Last 8 Hours Temp Pulse Resp BP Pulse Ox 07/28/17 10:41 98.0 F 115 16 98/60 95 07/28/17 06:45 98.5 F 121 14 100/62 95 Intake and Output 07/27/17 07/28/17 07/28/17 23:59 07:59 15:59 Intake Total 350 / 350 1000 / 1000 Output Total 0 / 0 800 / 800 Balance 350 / 350 200 / 200 Intake: IV Fluids 1000 / 1000 0.9 % Sodium Chloride 1,000 ML 1000 / 1000 @ 125 mls/hr IVC .Q8H [facility] Rx#: [id number] Blood Product 350 / 350 Rbcs Leuko Poor As-1 Unit 350 / 350 [id number] Output: Urine 0 / 0 200 / 200 Stool 600 / 600 Other: Stool Color Brown Weight 91.716 kg Blood Glucose* 218 Patient Weight 07/28/17 23:59 Weight 91.716 kg - General physical appearance no distress, chronically ill, jaundice - Eyes normal ocular movement - Respiratory normal expansion, normal respiratory effort, clear to auscultation - Cardiovascular Cardiovascular exam: Present: RRR, no murmurs/rubs/gallops - Abdomen Abdomen: Present: bowel sounds present, soft, organomegaly (Fluid wave present consistent with ascites). Absent: guarding, rebound, rigid Abdominal Tenderness: diffusely Hernia: none Additional Comments: Ostomy bag with light brown stool. Ostomy site pink and moist - Neurologic CN 2-12 grossly intact, normal coordination - Psychiatric oriented to time, oriented to person, oriented to place, speech is normal, memory intact - Labs 07/28/17 01:43 07/28/17 01:43 Diabetes panel 07/28/17 Range/Units 01:43 Sodium 129 L (136-145) mEq/L Potassium 3.6 (3.5-5.1) mEq/L Chloride 99 (98-107) mEq/L Carbon Dioxide 22 L (23-29) mEq/L BUN 23 H (6-20) mg/dL Creatinine 0.82 (0.70-1.30) mg/dL Glucose 167 H (70-105) mg/dL Calcium 8.4 L (8.6-10.3) mg/dL Calcium panel 07/28/17 Range/Units 01:43 Calcium 8.4 L (8.6-10.3) mg/dL Pituitary panel 07/28/17 Range/Units 01:43 Sodium 129 L (136-145) mEq/L Potassium 3.6 (3.5-5.1) mEq/L Chloride 99 (98-107) mEq/L Carbon Dioxide 22 L (23-29) mEq/L BUN 23 H (6-20) mg/dL Creatinine 0.82 (0.70-1.30) mg/dL Glucose 167 H (70-105) mg/dL Calcium 8.4 L (8.6-10.3) mg/dL Adrenal panel 07/28/17 Range/Units 01:43 Sodium 129 L (136-145) mEq/L Potassium 3.6 (3.5-5.1) mEq/L Chloride 99 (98-107) mEq/L Carbon Dioxide 22 L (23-29) mEq/L BUN 23 H (6-20) mg/dL Creatinine 0.82 (0.70-1.30) mg/dL Glucose 167 H (70-105) mg/dL Calcium 8.4 L (8.6-10.3) mg/dL Consult Discharge Plan - Plan Referrals: Ander Patel MD [Primary Care Provider] - <James Franco Joselin - Last Filed: 07/28/17 13:25> Date of Encounter: 07/28/17 - Assessment and Plan (1) Lower gastrointestinal hemorrhage Current Visit: Yes Status: Acute Objective Vital Signs - Last 8 Hours Temp Pulse Resp BP Pulse Ox 07/28/17 10:41 98.0 F 115 16 98/60 95 07/28/17 06:45 98.5 F 121 14 100/62 95 Intake and Output 07/27/17 07/28/17 07/28/17 23:59 07:59 15:59 Intake Total 350 / 350 1000 / 1000 Output Total 0 / 0 800 / 800 Balance 350 / 350 200 / 200 Intake: IV Fluids 1000 / 1000 0.9 % Sodium Chloride 1,000 ML 1000 / 1000 @ 125 mls/hr IVC .Q8H [facility] Rx#: [id number] Blood Product 350 / 350 Rbcs Leuko Poor As-1 Unit 350 / 350 [id number] Output: Urine 0 / 0 200 / 200 Stool 600 / 600 Other: Stool Color Brown Weight 91.716 kg Blood Glucose* 218 199 Patient Weight 07/28/17 23:59 Weight 91.716 kg - Labs 07/28/17 01:43 07/28/17 01:43 Diabetes panel 07/28/17 Range/Units 01:43 Sodium 129 L (136-145) mEq/L Potassium 3.6 (3.5-5.1) mEq/L Chloride 99 (98-107) mEq/L Carbon Dioxide 22 L (23-29) mEq/L BUN 23 H (6-20) mg/dL Creatinine 0.82 (0.70-1.30) mg/dL Glucose 167 H (70-105) mg/dL Calcium 8.4 L (8.6-10.3) mg/dL Calcium panel 07/28/17 Range/Units 01:43 Calcium 8.4 L (8.6-10.3) mg/dL Pituitary panel 07/28/17 Range/Units 01:43 Sodium 129 L (136-145) mEq/L Potassium 3.6 (3.5-5.1) mEq/L Chloride 99 (98-107) mEq/L Carbon Dioxide 22 L (23-29) mEq/L BUN 23 H (6-20) mg/dL Creatinine 0.82 (0.70-1.30) mg/dL Glucose 167 H (70-105) mg/dL Calcium 8.4 L (8.6-10.3) mg/dL Adrenal panel 07/28/17 Range/Units 01:43 Sodium 129 L (136-145) mEq/L Potassium 3.6 (3.5-5.1) mEq/L Chloride 99 (98-107) mEq/L Carbon Dioxide 22 L (23-29) mEq/L BUN 23 H (6-20) mg/dL Creatinine 0.82 (0.70-1.30) mg/dL Glucose 167 H (70-105) mg/dL Calcium 8.4 L (8.6-10.3) mg/dL - Attending Attestation I have personally seen and examined the patient. I have reviewed pertinent labs , imaging, progress notes, including this one. I agree with the above assessment and plan and wish to include the following... 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
[2017-07-28 17:03] LABS: Basophils % 0.3 %; Eosinophils # 0.1 K/mcL (0.0-0.6); Hemoglobin 7.8 g/dL (12.9-16.9); Immature Granulocytes % 2.2 % (0-4); Lymphocytes # 0.5 K/mcL (0.6-4.6); Lymphocytes % 8.3 %; Mean Corpuscular HGB Conc 32.5 g/dL (31.6-35.5); Mean Corpuscular Hemoglobin 28.7 pg (28.0-33.3); Mean Corpuscular Volume 88.2 fL (83.0-100.0); Mean Platelet Volume 11.2 fL (9.4-12.4); Monocytes # 0.7 K/mcL (0.0-1.3); Monocytes % 12.1 %; Neutrophils # 4.5 K/mcL (1.6-8.9); Platelet Count 143 K/mcL (140-400); Red Blood Count 2.72 M/mcL (4.19-5.50); Red Cell Distribution Width 18.6 % (11.5-14.5); Segmented Neutrophils % 76.1 %
[2017-07-28] MEDS ORDERED: 0.9 % Sodium Chloride 250 ML ONE (18:47)
--- NOTE | 2017-07-28 19:06 | Internal Med Progress Note ---
Date of Encounter: 07/28/17 Time of Encounter: 19:04 - Assessment and plan (1) Lower gastrointestinal hemorrhage Current Visit: Yes Status: Acute Assessment and plan: Surgery consulted; appreciate input. Plan for EGD/colonscopy tomorrow. Looks to be improving clinically; no visible blood in stool. H/H with minimal improvement after transfusion of 2 units PRBC. Will transfuse 2 more units PRBCs due to symptomatic anemia. Continue clear liquid diet; NPO after midnight for EGD/colonoscopy tomorrow. Continue IV PPI. Repeat H/H post- transfusion. Recheck CBC in AM. (2) Colon cancer metastasized to liver Current Visit: Yes Status: Chronic Assessment and plan: Continue follow up with oncology as outpatient. (3) Hypothyroidism Current Visit: Yes Status: Chronic Assessment and plan: Continue home synthroid. Qualifiers: Hypothyroidism type: acquired Qualified Code(s): E03.9 - Hypothyroidism, unspecified (4) Diabetes mellitus Current Visit: Yes Status: Chronic Assessment and plan: Continue accuchecks and SSI QID AC/HS. 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 No anticoagulation due to GI bleed. - Time Spent With Patient less than 15 minutes - Subjective Interval history: Patient had no acute events overnight. He states that he is feeling somewhat better today. He states that EGD/colonscopy deferred due to poor bowel preparation. He has no new complaints. - Constitutional Vitals: Temp Pulse Resp BP Pulse Ox 98.2 F 112 16 109/66 96 07/28/17 14:49 07/28/17 17:00 07/28/17 14:49 07/28/17 17:00 07/28/17 14:49 General appearance: Present: A&O X 3, pleasant, no acute distress, answers questions appropriately - Respiratory Respiratory exam: Present: CTAB. Absent: accessory muscle use, rales, rhonchi, wheezes Additional comments: Normal WOB - Cardiovascular Cardiovascular exam: Present: RRR, +S1, +S2. Absent: diastolic murmur, gallop, rubs, systolic murmur - GI/Abdominal GI/Abdominal exam: Present: normal bowel sounds, soft. Absent: guarding, mass, rigid, tenderness Additional comments: Positive fluid wave. Ostomy bag in place with yellow stool. - Psychiatric Psychiatric exam: Present: normal affect, normal mood. Absent: anxious, depressed - Skin Skin exam: Present: dry, warm. Absent: cyanosis, rash Additional comments: Ostomy site pink without moist. Internal Medicine: Result - Labs CBC & Chem 7: 07/28/17 16:45 07/28/17 01:43 Labs: Short CBC 07/28/17 07/28/17 Range/Units 01:43 16:45 WBC 5.3 5.9 (4.3-11.1) K/mcL Hgb 7.8 L 7.8 L (12.9-16.9) g/dL Hct 24.1 L 24.0 L (37.5-50.1) % Plt Count 121 L 143 (140-400) K/mcL Neutrophils # 4.0 4.5 (1.6-8.9) K/mcL BMP 07/28/17 01:43 Sodium 129 L Potassium 3.6 Chloride 99 Carbon Dioxide 22 L BUN 23 H Creatinine 0.82 Glucose 167 H Calcium 8.4 L Cardiac Enzymes 07/28/17 Range/Units 01:43 Troponin I 0.04 H* (< 0.04) ng/mL - ABG Interpretation ABG results: PT/INR, D-dimer PT 14.9 Seconds (9.4-12.1) H 07/27/17 17:10 - Impressions Impressions Abdomen/Pelvis CT 07/28/17 23:46 IMPRESSION: 1. Moderate colonic stool burden proximal to the left lower quadrant ostomy. 2. Metastatic disease throughout the liver, involving most of the right hepatic lobe. It is difficult to directly compare to the prior CT scan 06/02/2017 due to lack of intravenous contrast. 3. Hailey hepatis lymphadenopathy is likely metastatic. 4. Small left pleural effusion and moderate ascites. Subcutaneous edema. 5. Left intraureteral stent. D/ / Roland Murdock MD / Roland Murdock MD Interpreting Provider: Roland Murdock MD - VTE Documentation of Mechanical Device: Intermittent pneumatic compression device Consult Discharge Plan - Plan Referrals: Ander Patel MD [Primary Care Provider] -
[2017-07-29] MEDS ORDERED: 0.9 % Sodium Chloride 250 ML ONE (00:27)
[2017-07-29] MEDS: Pantoprazole 40 MG VIAL IVP SCH ×2 (05:35→17:48)
[2017-07-29] MEDS: Insulin LISPRO 300 UNITS/3 ML VIAL SQ SCH ×3 (05:38→17:47)
[2017-07-29] MEDS ORDERED: Acetaminophen IV 1,000 MG/100 ML INFUS..BTL IVPB ONE ×3 (05:57→21:39)
[2017-07-29 07:01] LABS: Basophils % 0.3 %; Eosinophils # 0.1 K/mcL (0.0-0.6); Eosinophils % 0.8 %; Hematocrit 28.7 % (37.5-50.1); Immature Granulocytes % 1.8 % (0-4); Lymphocytes # 0.6 K/mcL (0.6-4.6); Lymphocytes % 8.4 %; Mean Corpuscular HGB Conc 33.8 g/dL (31.6-35.5); Mean Corpuscular Volume 85.9 fL (83.0-100.0); Mean Platelet Volume 12.6 fL (9.4-12.4); Monocytes # 0.9 K/mcL (0.0-1.3); Monocytes % 12.9 %; Neutrophils # 5.4 K/mcL (1.6-8.9); Nucleated Red Blood Cells 0.3 /100 WBC (0); Platelet Count 106 K/mcL (140-400); Red Blood Count 3.34 M/mcL (4.19-5.50); Red Cell Distribution Width 17.7 % (11.5-14.5); Segmented Neutrophils % 75.8 %
[2017-07-29 07:02] LABS: BUN/Creatinine Ratio 26 (6-26); Blood Urea Nitrogen 26 mg/dL (6-20); Calcium 8.8 mg/dL (8.6-10.3); Carbon Dioxide 17 mEq/L (23-29); Chloride 100 mEq/L (98-107); Glucose 147 mg/dL (70-105); Osmolality,Calculated 267 (280-300); Potassium 4.7 mEq/L (3.5-5.1); Sodium 125 mEq/L (136-145); eGFR For African Americans > 60 (> 60); eGFR For Non-African Americans > 60 (> 60)
[2017-07-29 08:59] LABS: Hemoglobin 9.7 g/dL (12.9-16.9)
[2017-07-29 09:00] LABS: Platelet Estimate Slight Decrease (Normal)
[2017-07-29] MEDS: 0.9 % Sodium Chloride 1,000 ML IVC SCH ×3 (10:53→22:35)
[2017-07-29] MEDS ORDERED: *HR* Midazolam HCl 5 MG/5 ML VIAL IVP ONE (11:22)
[2017-07-29] MEDS ORDERED: *HR* FentaNYL (PF) 100 MCG/2 ML VIAL ONE (11:23)
--- NOTE | 2017-07-29 11:48 | General Surgery Progress Note ---
Date of Encounter: 07/29/17 Time of Encounter: 11:46 - Assessment and Plan (1) Lower gastrointestinal hemorrhage Current Visit: Yes Status: Acute 46M stage IV rectal cancer s/p APR now with LGiB, currently resolved; h/h improved; cont to trend h/h EGD, colonoscopy at noon Subjective Patient reports: no new complaints, flatus, bowel movement, other (no visible blood seen) Objective Vital Signs - Last 8 Hours Temp Pulse Resp BP Pulse Ox 07/29/17 11:19 98.0 F 109 14 99/62 99 07/29/17 05:41 98.2 F 117 14 105/70 100 Intake and Output 07/28/17 07/29/17 07/29/17 23:59 07:59 15:59 Intake Total 120 / 120 800 / 800 Output Total 575 / 575 850 / 850 100 / 100 Balance -455 / -455 -50 / -50 -100 / -100 Intake: IV Fluids 100 / 100 Ofirmev 1,000 mg/100 ml 1,000 100 / 100 mg In 100 ml @ 400 mls/hr IVPB ONCE ONE Rx#:[id number] Oral 120 / 120 0 / 0 Blood Product 0 / 0 700 / 700 Rbcs Leuko Poor As-1 Unit 0 / 0 350 / 350 [id number] Rbcs Leuko Poor As-3 Ph Unit 350 / 350 [id number] Output: Urine 0 / 0 350 / 350 0 / 0 Stool 575 / 575 500 / 500 100 / 100 Other: Meal Dinner NPO BREAKFAST Stool Consistency liquid liquid liquid Stool Color Yellow Yellow Green Green Green Ramón Colored # Voids 1 Weight 91.58 kg Blood Glucose* 165 160 Patient Weight 07/29/17 23:59 Weight 91.58 kg - General physical appearance well developed, no distress - Respiratory normal expansion, normal respiratory effort - Cardiovascular Cardiovascular exam: Present: RRR - Abdomen Abdomen: Present: soft, non tender - Neurologic CN 2-12 grossly intact - Psychiatric oriented to time, oriented to person, oriented to place - Labs 07/29/17 05:47 07/29/17 05:47 Diabetes panel 07/29/17 Range/Units 05:47 Sodium 125 L (136-145) mEq/L Potassium 4.7 (3.5-5.1) mEq/L Chloride 100 (98-107) mEq/L Carbon Dioxide 17 L (23-29) mEq/L BUN 26 H (6-20) mg/dL Creatinine 1.00 (0.70-1.30) mg/dL Glucose 147 H (70-105) mg/dL Calcium 8.8 (8.6-10.3) mg/dL Calcium panel 07/29/17 Range/Units 05:47 Calcium 8.8 (8.6-10.3) mg/dL Pituitary panel 07/29/17 Range/Units 05:47 Sodium 125 L (136-145) mEq/L Potassium 4.7 (3.5-5.1) mEq/L Chloride 100 (98-107) mEq/L Carbon Dioxide 17 L (23-29) mEq/L BUN 26 H (6-20) mg/dL Creatinine 1.00 (0.70-1.30) mg/dL Glucose 147 H (70-105) mg/dL Calcium 8.8 (8.6-10.3) mg/dL Adrenal panel 07/29/17 Range/Units 05:47 Sodium 125 L (136-145) mEq/L Potassium 4.7 (3.5-5.1) mEq/L Chloride 100 (98-107) mEq/L Carbon Dioxide 17 L (23-29) mEq/L BUN 26 H (6-20) mg/dL Creatinine 1.00 (0.70-1.30) mg/dL Glucose 147 H (70-105) mg/dL Calcium 8.8 (8.6-10.3) mg/dL - VTE Documentation of Mechanical Device: Intermittent pneumatic compression device Consult Discharge Plan - Plan Referrals: Ander Patel MD [Primary Care Provider] -
[2017-07-29] MEDS ORDERED: *HR* FentaNYL (PF) 100 MCG/2 ML VIAL IVP ONE (11:49)
[2017-07-29] MEDS ORDERED: *HR* Promethazine 25 MG/ML VIAL IVP ONE (11:49)
--- NOTE | 2017-07-29 11:50 | Pre-Sedation Evaluation ---
Pre-sedation evaluation - Pre-sedation checklist Date of procedure: 07/29/17 Procedure: EGD, colonoscopy Recent Vitals: Last Vital Signs Temp 98.0 F 07/29/17 11:19 Pulse 109 07/29/17 11:19 Resp 14 07/29/17 11:19 BP 99/62 07/29/17 11:19 Pulse Ox 99 07/29/17 11:19 H&P (including ROS) documented in medical record: Yes Previous reaction to sedatives/anesthetics: No Dietary Status: NPO after Midnight Dentition: No loose teeth or bridges ASA Classification *see protocol: CLASS II-Mild systemic disease Plan of Care: Pt appropriate candidate for procedure/moderate/conscious sedation , Risks/benefits of procedure/sedation discussed w/ patient/family
[2017-07-29] MEDS: *HR* Midazolam HCl 2 MG/2 ML VIAL IVP ONE ×2 (12:00→12:28)
--- NOTE | 2017-07-29 13:11 | General Surgery Progress Note ---
<Radha Sethi H - Last Filed: 07/29/17 13:09> Date of Encounter: 07/29/17 Time of Encounter: 11:00 - Assessment and Plan (1) Lower gastrointestinal hemorrhage Current Visit: Yes Status: Acute 46-year-old male with stage IV rectal cancer status post abdominoperineal resection presenting with lower gastrointestinal bleed. CT abdomen and pelvis on 07/28/2017 demonstrates colonic stool burden, metastatic disease throughout the liver, serena hepatis lymphadenopathy, moderate ascites and subcutaneous edema, and intraureteral stent. -Serial H&H; transfuse per primary team (s/p transfusion 2 units PRBC 07/27/2017 ). -We will take for EGD and possible colonoscopy today Subjective Patient reports: no new complaints, feels better, pain is less, voiding w/o difficulty, flatus, bowel movement, afebrile (Patient's colostomy output clear. States he handled the bowel prep well.) Objective Vital Signs - Last 8 Hours Temp Pulse Resp BP Pulse Ox 07/29/17 12:45 114 16 115/70 98 07/29/17 12:40 112 16 113/69 98 07/29/17 12:35 114 16 110/70 98 07/29/17 12:30 115 16 109/73 97 07/29/17 12:25 115 16 104/68 97 07/29/17 12:20 122 16 123/81 97 07/29/17 12:15 120 16 120/81 93 07/29/17 12:10 118 16 123/81 95 07/29/17 12:05 115 16 122/80 97 07/29/17 12:00 112 16 126/77 95 07/29/17 11:50 98.0 F 107 14 128/81 98 07/29/17 11:45 98.0 F 112 14 128/81 95 07/29/17 11:19 98.0 F 109 14 99/62 99 07/29/17 05:41 98.2 F 117 14 105/70 100 Intake and Output 07/28/17 07/29/17 07/29/17 23:59 07:59 15:59 Intake Total 120 / 120 800 / 800 900 / 900 Output Total 575 / 575 850 / 850 100 / 100 Balance -455 / -455 -50 / -50 800 / 800 Intake: IV Fluids 100 / 100 900 / 900 0.9 % Sodium Chloride 1,000 ML 900 / 900 @ 125 mls/hr IVC .Q8H [facility] Rx#: [id number] Ofirmev 1,000 mg/100 ml 1,000 100 / 100 mg In 100 ml @ 400 mls/hr IVPB ONCE ONE Rx#:[id number] Oral 120 / 120 0 / 0 Blood Product 0 / 0 700 / 700 Rbcs Leuko Poor As-1 Unit 0 / 0 350 / 350 [id number] Rbcs Leuko Poor As-3 Ph Unit 350 / 350 [id number] Output: Urine 0 / 0 350 / 350 0 / 0 Stool 575 / 575 500 / 500 100 / 100 Other: Meal Dinner NPO BREAKFAST Stool Consistency liquid liquid liquid Stool Color Yellow Yellow Green Green Green Ramón Colored # Voids 1 1 Weight 91.58 kg Blood Glucose* 165 160 Patient Weight 07/29/17 23:59 Weight 91.58 kg - General physical appearance well developed, no distress, jaundice, other (Muscular wasting.) - Eyes normal ocular movement - Respiratory normal expansion, normal respiratory effort, clear to percussion, clear to auscultation - Cardiovascular Cardiovascular exam: Present: RRR, no murmurs/rubs/gallops - Abdomen Abdomen: Present: bowel sounds present, soft, organomegaly (Patient with a fluid wave and obvious ascites.). Absent: guarding, rebound Hernia: none Additional Comments: Colostomy bag with liquidy stool. Colostomy site pink and moist. - Neurologic CN 2-12 grossly intact, normal coordination - Musculoskeletal normal gait, normal posture - Psychiatric oriented to time, oriented to person, oriented to place, speech is normal, memory intact - Labs 07/29/17 05:47 07/29/17 05:47 Diabetes panel 07/29/17 Range/Units 05:47 Sodium 125 L (136-145) mEq/L Potassium 4.7 (3.5-5.1) mEq/L Chloride 100 (98-107) mEq/L Carbon Dioxide 17 L (23-29) mEq/L BUN 26 H (6-20) mg/dL Creatinine 1.00 (0.70-1.30) mg/dL Glucose 147 H (70-105) mg/dL Calcium 8.8 (8.6-10.3) mg/dL Calcium panel 07/29/17 Range/Units 05:47 Calcium 8.8 (8.6-10.3) mg/dL Pituitary panel 07/29/17 Range/Units 05:47 Sodium 125 L (136-145) mEq/L Potassium 4.7 (3.5-5.1) mEq/L Chloride 100 (98-107) mEq/L Carbon Dioxide 17 L (23-29) mEq/L BUN 26 H (6-20) mg/dL Creatinine 1.00 (0.70-1.30) mg/dL Glucose 147 H (70-105) mg/dL Calcium 8.8 (8.6-10.3) mg/dL Adrenal panel 07/29/17 Range/Units 05:47 Sodium 125 L (136-145) mEq/L Potassium 4.7 (3.5-5.1) mEq/L Chloride 100 (98-107) mEq/L Carbon Dioxide 17 L (23-29) mEq/L BUN 26 H (6-20) mg/dL Creatinine 1.00 (0.70-1.30) mg/dL Glucose 147 H (70-105) mg/dL Calcium 8.8 (8.6-10.3) mg/dL - VTE Documentation of Mechanical Device: Intermittent pneumatic compression device Consult Discharge Plan - Plan Referrals: Ander Patel MD [Primary Care Provider] - <James Franco - Last Filed: 07/29/17 14:26> Date of Encounter: 07/29/17 - Assessment and Plan (1) Lower gastrointestinal hemorrhage Current Visit: Yes Status: Acute Objective Vital Signs - Last 8 Hours Temp Pulse Resp BP Pulse Ox 07/29/17 13:45 98.0 F 109 14 104/69 97 07/29/17 13:15 98.1 F 107 14 110/76 99 07/29/17 12:45 114 16 115/70 98 07/29/17 12:40 112 16 113/69 98 07/29/17 12:35 114 16 110/70 98 07/29/17 12:30 115 16 109/73 97 07/29/17 12:25 115 16 104/68 97 07/29/17 12:20 122 16 123/81 97 07/29/17 12:15 120 16 120/81 93 07/29/17 12:10 118 16 123/81 95 07/29/17 12:05 115 16 122/80 97 07/29/17 12:00 112 16 126/77 95 07/29/17 11:50 98.0 F 107 14 128/81 98 07/29/17 11:45 98.0 F 112 14 128/81 95 07/29/17 11:19 98.0 F 109 14 99/62 99 Intake and Output 07/28/17 07/29/17 07/29/17 23:59 07:59 15:59 Intake Total 120 / 120 800 / 800 900 / 900 Output Total 575 / 575 850 / 850 100 / 100 Balance -455 / -455 -50 / -50 800 / 800 Intake: IV Fluids 100 / 100 900 / 900 0.9 % Sodium Chloride 1,000 ML 900 / 900 @ 125 mls/hr IVC .Q8H [facility] Rx#: [id number] Ofirmev 1,000 mg/100 ml 1,000 100 / 100 mg In 100 ml @ 400 mls/hr IVPB ONCE ONE Rx#:[id number] Oral 120 / 120 0 / 0 0 / 0 Blood Product 0 / 0 700 / 700 Rbcs Leuko Poor As-1 Unit 0 / 0 350 / 350 [id number] Rbcs Leuko Poor As-3 Ph Unit 350 / 350 [id number] Output: Urine 0 / 0 350 / 350 0 / 0 Stool 575 / 575 500 / 500 100 / 100 Other: Meal Dinner NPO Percent of Meal Consumed 0% Stool Consistency liquid liquid liquid Stool Color Yellow Yellow Green Green Green Ramón Colored # Voids 1 1 Weight 91.58 kg Blood Glucose* 165 160 Patient Weight 07/29/17 23:59 Weight 91.58 kg - Labs 07/29/17 05:47 07/29/17 05:47 Diabetes panel 07/29/17 Range/Units 05:47 Sodium 125 L (136-145) mEq/L Potassium 4.7 (3.5-5.1) mEq/L Chloride 100 (98-107) mEq/L Carbon Dioxide 17 L (23-29) mEq/L BUN 26 H (6-20) mg/dL Creatinine 1.00 (0.70-1.30) mg/dL Glucose 147 H (70-105) mg/dL Calcium 8.8 (8.6-10.3) mg/dL Calcium panel 07/29/17 Range/Units 05:47 Calcium 8.8 (8.6-10.3) mg/dL Pituitary panel 07/29/17 Range/Units 05:47 Sodium 125 L (136-145) mEq/L Potassium 4.7 (3.5-5.1) mEq/L Chloride 100 (98-107) mEq/L Carbon Dioxide 17 L (23-29) mEq/L BUN 26 H (6-20) mg/dL Creatinine 1.00 (0.70-1.30) mg/dL Glucose 147 H (70-105) mg/dL Calcium 8.8 (8.6-10.3) mg/dL Adrenal panel 07/29/17 Range/Units 05:47 Sodium 125 L (136-145) mEq/L Potassium 4.7 (3.5-5.1) mEq/L Chloride 100 (98-107) mEq/L Carbon Dioxide 17 L (23-29) mEq/L BUN 26 H (6-20) mg/dL Creatinine 1.00 (0.70-1.30) mg/dL Glucose 147 H (70-105) mg/dL Calcium 8.8 (8.6-10.3) mg/dL - Attending Attestation I have personally seen and examined the patient. I have reviewed pertinent labs , imaging, progress notes, including this one. I agree with the above assessment and plan and wish to include the following... 46M h/o stage IV rectal cancer s/p APR now with LGIB; s/p EGD and found to have duodenal ulcer with adherent clot; not actively bleeding; PPI, awaiting results from [facility] test; add carafate to treat ulcer; trend h/h; if stable then can likely d/c in AM
[2017-07-29] MEDS: Sucralfate 1 GM TABLET PO SCH ×2 (17:46→21:35)
--- NOTE | 2017-07-29 17:58 | Internal Med Progress Note ---
Date of Encounter: 07/29/17 Time of Encounter: 17:55 - Assessment and plan (1) Lower gastrointestinal hemorrhage Current Visit: Yes Status: Acute Assessment and plan: Surgery consulted; appreciate input. S/P EGD and colonscopy today. Looks to be improving clinically; no visible blood in stool. Hgb improved to 9.7 after transfusion of 2 more units PRBC yesterday (total 4 units PRBCs transfused this hospitalization). Continue serial H/H. Continue clear liquid diet. Continue IV PPI. (2) Colon cancer metastasized to liver Current Visit: Yes Status: Chronic Assessment and plan: Continue follow up with oncology as outpatient. (3) Hypothyroidism Current Visit: Yes Status: Chronic Assessment and plan: Continue home synthroid. Qualifiers: Hypothyroidism type: acquired Qualified Code(s): E03.9 - Hypothyroidism, unspecified (4) Diabetes mellitus Current Visit: Yes Status: Chronic Assessment and plan: Continue accuchecks and SSI QID AC/HS. 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 No anticoagulation due to GI bleed. - Time Spent With Patient less than 15 minutes - Subjective Interval history: Patient had no acute events overnight. He is s/p EGD and colonscopy this afternoon. states everything went well. He is resting peacefully in bed. He has no new complaints. - Constitutional Vitals: Temp Pulse Resp BP Pulse Ox 98.1 F 108 14 107/69 97 07/29/17 16:00 07/29/17 16:00 07/29/17 16:00 07/29/17 16:00 07/29/17 16:00 General appearance: Present: A&O X 3, pleasant, no acute distress, answers questions appropriately - Respiratory Respiratory exam: Present: CTAB. Absent: accessory muscle use, rales, rhonchi, wheezes Additional comments: Normal WOB - Cardiovascular Cardiovascular exam: Present: RRR, +S1, +S2. Absent: diastolic murmur, gallop, rubs, systolic murmur Additional comments: No BLE edema - GI/Abdominal GI/Abdominal exam: Present: firm, normal bowel sounds. Absent: guarding, hepatomegaly, mass, tenderness Additional comments: Positive fluid wave. Ostomy bag in place with yellow stool. - Psychiatric Psychiatric exam: Present: normal affect, normal mood. Absent: anxious, depressed - Skin Skin exam: Present: dry, warm. Absent: cyanosis, rash Additional comments: Ostomy site pink and moist Internal Medicine: Result - Labs CBC & Chem 7: 07/29/17 05:47 07/29/17 05:47 Labs: Short CBC 07/29/17 Range/Units 05:47 WBC 7.1 (4.3-11.1) K/mcL Hgb 9.7 L D (12.9-16.9) g/dL Hct 28.7 L (37.5-50.1) % Plt Count 106 L (140-400) K/mcL Neutrophils # 5.4 (1.6-8.9) K/mcL BMP 07/29/17 05:47 Sodium 125 L Potassium 4.7 Chloride 100 Carbon Dioxide 17 L BUN 26 H Creatinine 1.00 Glucose 147 H Calcium 8.8 - ABG Interpretation ABG results: PT/INR, D-dimer PT 14.9 Seconds (9.4-12.1) H 07/27/17 17:10 - VTE Documentation of Mechanical Device: Intermittent pneumatic compression device Consult Discharge Plan - Plan Referrals: Ander Patel MD [Primary Care Provider] -
[2017-07-30] MEDS: Insulin LISPRO 300 UNITS/3 ML VIAL SQ SCH ×4 (00:10→21:12)
[2017-07-30] MEDS: Pantoprazole 40 MG VIAL IVP SCH ×2 (05:06→18:26)
[2017-07-30] MEDS: *HR* OxyCODONE Immed Rel 5 MG TABLET PO PRN ×3 (05:09→16:29)
[2017-07-30 07:14] LABS: BUN/Creatinine Ratio 26 (6-26); Blood Urea Nitrogen 26 mg/dL (6-20); Calcium 8.6 mg/dL (8.6-10.3); Carbon Dioxide 21 mEq/L (23-29); Chloride 98 mEq/L (98-107); Glucose 150 mg/dL (70-105); Osmolality,Calculated 272 (280-300); Potassium 3.6 mEq/L (3.5-5.1); Sodium 127 mEq/L (136-145); eGFR For African Americans > 60 (> 60); eGFR For Non-African Americans > 60 (> 60)
[2017-07-30] MEDS: Sucralfate 1 GM TABLET PO SCH ×4 (08:17→21:14)
[2017-07-30] MEDS: 0.9 % Sodium Chloride 1,000 ML IVC SCH ×3 (08:18→21:17)
[2017-07-30 08:21] LABS: Basophils % 0.3 %; Lymphocytes % 5.3 %
[2017-07-30 08:23] LABS: Eosinophils % 0.5 %; Hemoglobin 8.7 g/dL (12.9-16.9); Immature Granulocytes % 2.2 % (0-4); Immature Platelets 6.7 % (1.1-6.1); Lymphocytes # 0.3 K/mcL (0.6-4.6); Mean Corpuscular HGB Conc 32.2 g/dL (31.6-35.5); Mean Corpuscular Hemoglobin 28.6 pg (28.0-33.3); Mean Corpuscular Volume 88.8 fL (83.0-100.0); Mean Platelet Volume 11.7 fL (9.4-12.4); Monocytes # 0.6 K/mcL (0.0-1.3); Nucleated Red Blood Cells 0.3 /100 WBC (0); Platelet Count 110 K/mcL (140-400); Red Blood Count 3.04 M/mcL (4.19-5.50); Red Cell Distribution Width 18.4 % (11.5-14.5); Segmented Neutrophils % 81.7 %
[2017-07-30] MEDS: *HR* FentaNYL PATCH 75 MCG PATCH TD SCH (09:06)
[2017-07-30] MEDS: Furosemide 40 MG TABLET PO SCH (09:06)
[2017-07-30] MEDS: Ondansetron 4 MG/2 ML VIAL IVP PRN (09:07)
[2017-07-30 09:23] LABS: Neutrophils # 5.2 K/mcL (1.6-8.9)
[2017-07-30 09:35] LABS: Platelet Estimate Slight Decrease (Normal); Toxic Granulation Present (Not Present)
[2017-07-30 09:36] LABS: Basophils % 0.3 %; Eosinophils % 0.6 %; Hematocrit 27.5 % (37.5-50.1); Hemoglobin 8.8 g/dL (12.9-16.9); Immature Granulocytes % 1.6 % (0-4); Lymphocytes # 0.5 K/mcL (0.6-4.6); Lymphocytes % 6.7 %; Mean Corpuscular Hemoglobin 28.4 pg (28.0-33.3); Mean Corpuscular Volume 88.7 fL (83.0-100.0); Monocytes # 0.7 K/mcL (0.0-1.3); Monocytes % 10.6 %; Neutrophils # 5.6 K/mcL (1.6-8.9); Nucleated Red Blood Cells 0.6 /100 WBC (0); Platelet Count 117 K/mcL (140-400); Red Cell Distribution Width 18.5 % (11.5-14.5); Segmented Neutrophils % 80.2 %
--- NOTE | 2017-07-30 11:07 | General Surgery Progress Note ---
<Donaldmary joRadha ivory H - Last Filed: 07/30/17 11:17> Date of Encounter: 07/30/17 Time of Encounter: 10:00 - Assessment and Plan (1) Lower gastrointestinal hemorrhage Current Visit: Yes Status: Acute 46-year-old male with stage IV rectal cancer status post abdominoperineal resection presenting with lower gastrointestinal bleed. CT abdomen and pelvis on 07/28/2017 demonstrates colonic stool burden, metastatic disease throughout the liver, serena hepatis lymphadenopathy, moderate ascites and subcutaneous edema, and intraureteral stent. -Endoscopy yesterday 07/29/2017 indicates esophageal candidiasis, portal hypertensive gastropathy, multiple nonbleeding duodenal ulcers with adherent clot, and one nonobstructing, nonbleeding duodenal ulcer with adherent clot suspicious for H pylori. -Follow-up pathology results from biopsied area during EGD. -Patient this morning with ostomy bag partially full with dark red blood. -Continue to trend H&H. -Transfuse per primary team (SP transfusion 2 units PRBC on 07/27/2017). -Continue Carafate. -We will discuss with Dr. Franco further management. Subjective Patient reports: no new complaints, feels better, pain is less, tolerating liquids well, voiding w/o difficulty, flatus, blood in stool (Patient with a significant amount of benjamin red blood in colostomy bag. He denies lightheadedness or dizziness. ) Objective Vital Signs - Last 8 Hours Temp Pulse Resp BP Pulse Ox 07/30/17 10:59 97.5 F L 121 16 109/71 98 07/30/17 07:44 97.5 F L 119 14 119/78 98 07/30/17 03:57 97.5 F L 116 14 114/72 99 Intake and Output 07/29/17 07/30/17 07/30/17 23:59 07:59 15:59 Intake Total 1340 / 1340 1000 / 1000 Output Total 0 / 0 350 / 350 Balance 1340 / 1340 650 / 650 Intake: IV Fluids 1100 / 1100 1000 / 1000 0.9 % Sodium Chloride 1,000 ML 1000 / 1000 1000 / 1000 @ 125 mls/hr IVC .Q8H [facility] Rx#: [id number] Ofirmev 1,000 mg/100 ml 1,000 100 / 100 mg In 100 ml @ 400 mls/hr IVPB ONCE ONE Rx#:[id number] Oral 240 / 240 0 / 0 Output: Urine 0 / 0 200 / 200 Stool 150 / 150 Other: Meal Dinner Percent of Meal Consumed 75% # Voids 1 1 Weight 91.444 kg Blood Glucose* 152 149 Patient Weight 07/30/17 23:59 Weight 91.444 kg - General physical appearance no distress, cachectic, chronically ill, jaundice - Respiratory normal expansion, normal respiratory effort, clear to auscultation - Cardiovascular Cardiovascular exam: Present: RRR, no murmurs/rubs/gallops - Abdomen Abdomen: Present: bowel sounds present, soft, organomegaly (With obvious ascites ). Absent: guarding, rebound, rigid Additional Comments: Ostomy bag approximately half full with dark red blood. - Integumentary no rash - Neurologic CN 2-12 grossly intact, normal coordination - Musculoskeletal normal posture - Psychiatric oriented to time, oriented to person, oriented to place, speech is normal, memory intact - Labs 07/30/17 08:29 07/30/17 05:21 Diabetes panel 07/30/17 Range/Units 05:21 Sodium 127 L (136-145) mEq/L Potassium 3.6 (3.5-5.1) mEq/L Chloride 98 (98-107) mEq/L Carbon Dioxide 21 L (23-29) mEq/L BUN 26 H (6-20) mg/dL Creatinine 1.00 (0.70-1.30) mg/dL Glucose 150 H (70-105) mg/dL Calcium 8.6 (8.6-10.3) mg/dL Calcium panel 07/30/17 Range/Units 05:21 Calcium 8.6 (8.6-10.3) mg/dL Pituitary panel 07/30/17 Range/Units 05:21 Sodium 127 L (136-145) mEq/L Potassium 3.6 (3.5-5.1) mEq/L Chloride 98 (98-107) mEq/L Carbon Dioxide 21 L (23-29) mEq/L BUN 26 H (6-20) mg/dL Creatinine 1.00 (0.70-1.30) mg/dL Glucose 150 H (70-105) mg/dL Calcium 8.6 (8.6-10.3) mg/dL Adrenal panel 07/30/17 Range/Units 05:21 Sodium 127 L (136-145) mEq/L Potassium 3.6 (3.5-5.1) mEq/L Chloride 98 (98-107) mEq/L Carbon Dioxide 21 L (23-29) mEq/L BUN 26 H (6-20) mg/dL Creatinine 1.00 (0.70-1.30) mg/dL Glucose 150 H (70-105) mg/dL Calcium 8.6 (8.6-10.3) mg/dL - VTE Documentation of Mechanical Device: Intermittent pneumatic compression device Consult Discharge Plan - Plan Referrals: Ander Patel MD [Primary Care Provider] - <James Franco - Last Filed: 07/30/17 12:33> Date of Encounter: 07/30/17 - Assessment and Plan (1) Lower gastrointestinal hemorrhage Current Visit: Yes Status: Acute Objective Vital Signs - Last 8 Hours Temp Pulse Resp BP Pulse Ox 07/30/17 10:59 97.5 F L 121 16 109/71 98 07/30/17 07:44 97.5 F L 119 14 119/78 98 Intake and Output 07/29/17 07/30/17 07/30/17 23:59 07:59 15:59 Intake Total 1340 / 1340 1000 / 1000 Output Total 0 / 0 350 / 350 Balance 1340 / 1340 650 / 650 Intake: IV Fluids 1100 / 1100 1000 / 1000 0.9 % Sodium Chloride 1,000 ML 1000 / 1000 1000 / 1000 @ 125 mls/hr IVC .Q8H [facility] [place] Rx#: [id number] Ofirmev 1,000 mg/100 ml 1,000 100 / 100 mg In 100 ml @ 400 mls/hr IVPB ONCE ONE Rx#:[id number] Oral 240 / 240 0 / 0 Output: Urine 0 / 0 200 / 200 Stool 150 / 150 Other: Meal Dinner Percent of Meal Consumed 75% # Voids 1 1 Weight 91.444 kg Blood Glucose* 152 149 Patient Weight 07/30/17 23:59 Weight 91.444 kg - Labs 07/30/17 08:29 07/30/17 05:21 Diabetes panel 07/30/17 Range/Units 05:21 Sodium 127 L (136-145) mEq/L Potassium 3.6 (3.5-5.1) mEq/L Chloride 98 (98-107) mEq/L Carbon Dioxide 21 L (23-29) mEq/L BUN 26 H (6-20) mg/dL Creatinine 1.00 (0.70-1.30) mg/dL Glucose 150 H (70-105) mg/dL Calcium 8.6 (8.6-10.3) mg/dL Calcium panel 07/30/17 Range/Units 05:21 Calcium 8.6 (8.6-10.3) mg/dL Pituitary panel 07/30/17 Range/Units 05:21 Sodium 127 L (136-145) mEq/L Potassium 3.6 (3.5-5.1) mEq/L Chloride 98 (98-107) mEq/L Carbon Dioxide 21 L (23-29) mEq/L BUN 26 H (6-20) mg/dL Creatinine 1.00 (0.70-1.30) mg/dL Glucose 150 H (70-105) mg/dL Calcium 8.6 (8.6-10.3) mg/dL Adrenal panel 07/30/17 Range/Units 05:21 Sodium 127 L (136-145) mEq/L Potassium 3.6 (3.5-5.1) mEq/L Chloride 98 (98-107) mEq/L Carbon Dioxide 21 L (23-29) mEq/L BUN 26 H (6-20) mg/dL Creatinine 1.00 (0.70-1.30) mg/dL Glucose 150 H (70-105) mg/dL Calcium 8.6 (8.6-10.3) mg/dL - Attending Attestation I have personally seen and examined the patient. I have reviewed pertinent labs , imaging, progress notes, including this one. I agree with the above assessment and plan and wish to include the following... 46M with stage IV liver cancer s/p APR who presented with LGIB, found to have adherent clot on duodenal ulcer (normal colon). h/h stable; patient does not report any symptoms; started having bloody stools again today; will cont with PPi and carafate; awaiting biopsy results; will keep patient one more day prior to discharge.
[2017-07-30 13:51] LABS: Hemoglobin 9.6 g/dL (12.9-16.9)
[2017-07-30 19:07] LABS: Hematocrit 26.8 % (37.5-50.1); Hemoglobin 8.8 g/dL (12.9-16.9)
--- NOTE | 2017-07-30 19:11 | Internal Med Progress Note ---
Date of Encounter: 07/30/17 Time of Encounter: 19:09 - Assessment and plan (1) Lower gastrointestinal hemorrhage Current Visit: Yes Status: Acute Assessment and plan: Surgery consulted; appreciate input. S/P EGD and colonscopy. Looks to be improving clinically. Interval development of red blood in ostomy. Hgb stable at 9.6 today (total 4 units PRBCs transfused this hospitalization). Continue serial H/H. Continue soft diet. Continue IV PPI. H. pylori pending. (2) Colon cancer metastasized to liver Current Visit: Yes Status: Chronic Assessment and plan: Continue follow up with oncology as outpatient. (3) Hypothyroidism Current Visit: Yes Status: Chronic Assessment and plan: Continue home synthroid. Qualifiers: Hypothyroidism type: acquired Qualified Code(s): E03.9 - Hypothyroidism, unspecified (4) Diabetes mellitus Current Visit: Yes Status: Chronic Assessment and plan: Continue accuchecks and SSI QID AC/HS. 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 No anticoagulation due to GI bleed. - Time Spent With Patient less than 15 minutes - Subjective Interval history: Patient had no acute events overnight. He states that he is doing well today. He denies abdominal pain, nausea, and vomiting. He is sitting up in chair. He states that he has worsening red blood in ostomy. He denies dizziness and lightheadedness. He has no new complaints. - Constitutional Vitals: Temp Pulse Resp BP Pulse Ox 98.5 F 110 14 98/64 98 07/30/17 18:45 07/30/17 18:45 07/30/17 18:45 07/30/17 18:45 07/30/17 18:45 General appearance: Present: A&O X 3, pleasant, no acute distress, answers questions appropriately - Respiratory Respiratory exam: Present: CTAB. Absent: accessory muscle use, rales, rhonchi, wheezes Additional comments: Normal WOB - Cardiovascular Cardiovascular exam: Present: RRR, +S1, +S2. Absent: diastolic murmur, gallop, rubs, systolic murmur Additional comments: No BLE edema - GI/Abdominal GI/Abdominal exam: Present: firm, normal bowel sounds. Absent: guarding, hepatomegaly, mass, splenomegaly, tenderness Additional comments: Positive fluid wave. Ostomy bag in place with yellow stool. - Psychiatric Psychiatric exam: Present: normal affect, normal mood. Absent: anxious, depressed - Skin Skin exam: Present: dry, warm. Absent: cyanosis, rash Internal Medicine: Result - Labs CBC & Chem 7: 07/30/17 12:56 07/30/17 05:21 Labs: Short CBC 07/30/17 07/30/17 07/30/17 Range/Units 05:21 08:29 12:56 WBC 6.3 7.0 (4.3-11.1) K/mcL Hgb 8.7 L 8.8 L 9.6 L (12.9-16.9) g/dL Hct 27.0 L 27.5 L 30.0 L (37.5-50.1) % Plt Count 110 L 117 L (140-400) K/mcL Neutrophils # 5.2 5.6 (1.6-8.9) K/mcL BMP 07/30/17 05:21 Sodium 127 L Potassium 3.6 Chloride 98 Carbon Dioxide 21 L BUN 26 H Creatinine 1.00 Glucose 150 H Calcium 8.6 - ABG Interpretation ABG results: PT/INR, D-dimer PT 14.9 Seconds (9.4-12.1) H 07/27/17 17:10 - VTE Documentation of Mechanical Device: Intermittent pneumatic compression device Consult Discharge Plan - Plan Referrals: Ander Patel MD [Primary Care Provider] -
[2017-07-31] MEDS: *HR* OxyCODONE Immed Rel 5 MG TABLET PO PRN ×4 (03:45→21:33)
[2017-07-31] MEDS: Pantoprazole 40 MG VIAL IVP SCH ×2 (05:34→16:45)
[2017-07-31] MEDS ORDERED: *HR* OxyCODONE Immed Rel 5 MG TABLET PO ONE (05:55)
[2017-07-31 06:55] LABS: Basophils % 0.3 %; Eosinophils # 0.1 K/mcL (0.0-0.6); Eosinophils % 0.8 %; Hematocrit 27.1 % (37.5-50.1); Hemoglobin 8.6 g/dL (12.9-16.9); Immature Granulocytes % 2.9 % (0-4); Lymphocytes # 0.4 K/mcL (0.6-4.6); Lymphocytes % 6.7 %; Mean Corpuscular HGB Conc 31.7 g/dL (31.6-35.5); Mean Corpuscular Hemoglobin 28.2 pg (28.0-33.3); Mean Corpuscular Volume 88.9 fL (83.0-100.0); Mean Platelet Volume 10.5 fL (9.4-12.4); Monocytes # 0.6 K/mcL (0.0-1.3); Monocytes % 9.5 %; Neutrophils # 4.9 K/mcL (1.6-8.9); Nucleated Red Blood Cells 0.3 /100 WBC (0); Platelet Count 116 K/mcL (140-400); Red Blood Count 3.05 M/mcL (4.19-5.50); Red Cell Distribution Width 18.5 % (11.5-14.5); Segmented Neutrophils % 79.8 %
[2017-07-31] MEDS: Furosemide 40 MG TABLET PO SCH ×2 (08:05→16:46)
[2017-07-31] MEDS: Sucralfate 1 GM TABLET PO SCH ×4 (08:05→21:29)
[2017-07-31] MEDS: Insulin LISPRO 300 UNITS/3 ML VIAL SQ SCH ×4 (08:05→21:18)
[2017-07-31 08:09] LABS: BUN/Creatinine Ratio 28 (6-26); Blood Urea Nitrogen 25 mg/dL (6-20); Calcium 8.8 mg/dL (8.6-10.3); Carbon Dioxide 19 mEq/L (23-29); Chloride 101 mEq/L (98-107); Glucose 165 mg/dL (70-105); Osmolality,Calculated 272 (280-300); Potassium 3.6 mEq/L (3.5-5.1); Sodium 127 mEq/L (136-145); eGFR For African Americans > 60 (> 60); eGFR For Non-African Americans > 60 (> 60)
--- NOTE | 2017-07-31 08:45 | Electrocardiograph Report ---
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
--- NOTE | 2017-07-31 09:32 | General Surgery Progress Note ---
<Radha Sethi H - Last Filed: 07/31/17 09:38> Date of Encounter: 07/31/17 Time of Encounter: 09:30 - Assessment and Plan (1) Lower gastrointestinal hemorrhage Current Visit: Yes Status: Acute 46-year-old male with stage IV rectal cancer status post abdominoperineal resection presenting with lower gastrointestinal bleed. CT abdomen and pelvis on 07/28/2017 demonstrates colonic stool burden, metastatic disease throughout the liver, serena hepatis lymphadenopathy, moderate ascites and subcutaneous edema, and intraureteral stent. -Endoscopy yesterday 07/29/2017 indicates esophageal candidiasis, portal hypertensive gastropathy, multiple nonbleeding duodenal ulcers with adherent clot, and one nonobstructing, nonbleeding duodenal ulcer with adherent clot suspicious for H pylori. -Follow-up pathology results from biopsied area during EGD. -Patient this morning with ostomy bag partially full with dark red blood- stable from yesterday, likely residual blood in small intestine after EGD. No need blood. -Hgb stable. May continue to trend H&H. -Transfuse per primary team (SP transfusion 2 units PRBC on 07/27/2017). -Continue Carafate. -Surgery to sign off. Please feel free to reach out with any further questions or concerns. Thank you for involving us in the care of this patient. FU scheduled with Dr. Franco 08/30 at 10AM. (2) Esophageal candidiasis Current Visit: Yes Status: Acute EGD suggestive of esopahgeal candidiasis. -Have started patient on fluconazole. Patient given one time loading dose of 400mg. -Recommend daily fluconazole 200mg for 14-21 days. Subjective Patient reports: no new complaints, tolerating liquids well, voiding w/o difficulty, bowel movement (Patient's says ostomy output has not changed since 830PM last night. No new blood. Patient complaining of left sided flank pain secondary to kidney stone. ), blood in stool, afebrile Objective Vital Signs - Last 8 Hours Temp Pulse Resp BP Pulse Ox 07/31/17 07:07 97.9 F 114 14 102/62 96 07/31/17 03:02 97.8 F 109 14 95/63 96 Intake and Output 07/30/17 07/31/17 07/31/17 23:59 07:59 15:59 Intake Total 240 / 240 0 / 0 841 / 841 Output Total 1000 / 1000 0 / 0 Balance -760 / -760 0 / 0 Intake: IV Fluids Oral 240 / 240 0 / 0 Output: Urine 0 / 0 0 / 0 Stool 0 / 0 Wound Drainage 1000 / 1000 Ascites Shunt 1000 / 1000 Other: Meal Dinner Percent of Meal Consumed 50% # Voids 1 Blood Glucose* 184 152 - General physical appearance moderate pain, cachectic, chronically ill, jaundice - ENT normocephalic, CN 2-12 grossly intact - Respiratory normal expansion, normal respiratory effort, clear to auscultation - Cardiovascular Cardiovascular exam: Present: RRR, no murmurs/rubs/gallops - Abdomen Abdomen: Present: bowel sounds present, soft, organomegaly (with ascites and fluid wave). Absent: guarding, rebound, rigid, peritoneal Abdominal Tenderness: diffusely (mild) Additional Comments: Ostomy bag with dark red blood present. - Integumentary other (jaundice) - Neurologic CN 2-12 grossly intact, normal coordination - Psychiatric oriented to time, oriented to person, oriented to place, speech is normal, memory intact - Labs 07/31/17 06:20 07/31/17 06:20 Diabetes panel 07/31/17 Range/Units 06:20 Sodium 127 L (136-145) mEq/L Potassium 3.6 (3.5-5.1) mEq/L Chloride 101 (98-107) mEq/L Carbon Dioxide 19 L (23-29) mEq/L BUN 25 H (6-20) mg/dL Creatinine 0.90 (0.70-1.30) mg/dL Glucose 165 H (70-105) mg/dL Calcium 8.8 (8.6-10.3) mg/dL Calcium panel 07/31/17 Range/Units 06:20 Calcium 8.8 (8.6-10.3) mg/dL Pituitary panel 07/31/17 Range/Units 06:20 Sodium 127 L (136-145) mEq/L Potassium 3.6 (3.5-5.1) mEq/L Chloride 101 (98-107) mEq/L Carbon Dioxide 19 L (23-29) mEq/L BUN 25 H (6-20) mg/dL Creatinine 0.90 (0.70-1.30) mg/dL Glucose 165 H (70-105) mg/dL Calcium 8.8 (8.6-10.3) mg/dL Adrenal panel 07/31/17 Range/Units 06:20 Sodium 127 L (136-145) mEq/L Potassium 3.6 (3.5-5.1) mEq/L Chloride 101 (98-107) mEq/L Carbon Dioxide 19 L (23-29) mEq/L BUN 25 H (6-20) mg/dL Creatinine 0.90 (0.70-1.30) mg/dL Glucose 165 H (70-105) mg/dL Calcium 8.8 (8.6-10.3) mg/dL - VTE Documentation of Mechanical Device: Intermittent pneumatic compression device Consult Discharge Plan - Plan Referrals: James Franco MD [Non-Partnered Physician] - 08/30/17 10:00 am Ander Patel MD [Primary Care Provider] - <James Franco - Last Filed: 07/31/17 11:38> Date of Encounter: 07/31/17 - Assessment and Plan (1) Lower gastrointestinal hemorrhage Current Visit: Yes Status: Acute Objective Vital Signs - Last 8 Hours Temp Pulse Resp BP Pulse Ox 07/31/17 07:07 97.9 F 114 14 102/62 96 Intake and Output 07/30/17 07/31/17 07/31/17 23:59 07:59 15:59 Intake Total 240 / 240 0 / 0 841 / 841 Output Total 1000 / 1000 0 / 0 Balance -760 / -760 0 / 0 841 / 841 Intake: IV Fluids 841 / 841 Oral 240 / 240 0 / 0 Output: Urine 0 / 0 0 / 0 Stool 0 / 0 Wound Drainage 1000 / 1000 Ascites Shunt 1000 / 1000 Other: Meal Dinner Percent of Meal Consumed 50% # Voids 1 Blood Glucose* 184 152 - Labs 07/31/17 06:20 07/31/17 06:20 Diabetes panel 07/31/17 Range/Units 06:20 Sodium 127 L (136-145) mEq/L Potassium 3.6 (3.5-5.1) mEq/L Chloride 101 (98-107) mEq/L Carbon Dioxide 19 L (23-29) mEq/L BUN 25 H (6-20) mg/dL Creatinine 0.90 (0.70-1.30) mg/dL Glucose 165 H (70-105) mg/dL Calcium 8.8 (8.6-10.3) mg/dL Calcium panel 07/31/17 Range/Units 06:20 Calcium 8.8 (8.6-10.3) mg/dL Pituitary panel 07/31/17 Range/Units 06:20 Sodium 127 L (136-145) mEq/L Potassium 3.6 (3.5-5.1) mEq/L Chloride 101 (98-107) mEq/L Carbon Dioxide 19 L (23-29) mEq/L BUN 25 H (6-20) mg/dL Creatinine 0.90 (0.70-1.30) mg/dL Glucose 165 H (70-105) mg/dL Calcium 8.8 (8.6-10.3) mg/dL Adrenal panel 07/31/17 Range/Units 06:20 Sodium 127 L (136-145) mEq/L Potassium 3.6 (3.5-5.1) mEq/L Chloride 101 (98-107) mEq/L Carbon Dioxide 19 L (23-29) mEq/L BUN 25 H (6-20) mg/dL Creatinine 0.90 (0.70-1.30) mg/dL Glucose 165 H (70-105) mg/dL Calcium 8.8 (8.6-10.3) mg/dL - Attending Attestation I have personally seen and examined the patient. I have reviewed pertinent labs , imaging, progress notes, including this one. I agree with the above assessment and plan and wish to include the following... h/h stable; patient is not lightheaded, nor experiencing any symptoms related to acute blood loss anemia; no further blood stools; path was negative for h. pylori; cont PPI, carafate; follow up with oncology; General surgery will sign off; please call with any questions or new concerns.
--- NOTE | 2017-07-31 10:20 | Event Note ---
Date of Encounter: 07/31/17 Time of Encounter: 10:17 Patient with esophageal candidias. Will initiate fluconazole treatment. 400 mg loading dose IV today then 200 mg daily IV for 13 days. Total fluconazole treatment 14 days. May transition to PO when patient is DC'd H. Pylori results pending. Suspected per EGD. Will need treatment initiated pending results.
[2017-07-31] MEDS ORDERED: Fluconazole 400 MG/200 ML 400 MG/200 ML BAG IVPB ONE (10:30)
--- NOTE | 2017-07-31 12:42 | Internal Med Progress Note ---
Date of Encounter: 07/31/17 Time of Encounter: 12:38 - Assessment and plan (1) Anemia Current Visit: Yes Status: Acute Assessment and plan: acute on chronic, acute due to LGIB Continue to monitor s/p 4 units RBCs Qualifiers: Anemia type: other cause Other causes of anemia: acute posthemorrhagic Qualified Code(s): D62 - Acute posthemorrhagic anemia (2) DVT prophylaxis Current Visit: Yes Status: Acute Assessment and plan: Continue SCDs. No medical anticoagulation due to GI bleed. (3) Esophageal candidiasis Current Visit: Yes Status: Acute Assessment and plan: found on EGD Continue Fluconazole 200mg daily Monitor LFTs, check with morning labs (4) Lower gastrointestinal hemorrhage Current Visit: Yes Status: Acute Assessment and plan: Surgery consulted; appreciate input. S/P EGD Interval development of red blood in ostomy. Hb today is 8.6 (total 4 units PRBCs transfused this hospitalization). Continue serial H/H. Continue soft diet. Continue IV PPI. H. pylori culture negative Patient is full code, he was on home hospice prior to this hospitalization. Consider palliative eval (5) Colon cancer metastasized to liver Current Visit: Yes Status: Chronic Assessment and plan: Continue follow up with oncology as outpatient. (6) Diabetes mellitus Current Visit: Yes Status: Chronic Assessment and plan: Continue accuchecks and SSI QID AC/HS. 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 Qualifiers: Hypothyroidism type: acquired Qualified Code(s): E03.9 - Hypothyroidism, unspecified (8) DC (obstructive sleep apnea) Current Visit: Yes Status: Chronic Assessment and plan: CPAP at night (9) Thrombocytopenia Current Visit: Yes Status: Chronic Assessment and plan: PLT count stable (10) Portal hypertension Current Visit: Yes Status: Chronic Assessment and plan: With ascites, decompensated chronic liver disease with jaundice and ascites on imaging Patient also has pedal edema Check ammonia level and coagulation panel Patient has a peritoneal catheter for possible drainage - Subjective Interval history: 46-year-old male with stage IV rectal cancer status post abdominoperineal resection presenting with lower gastrointestinal bleed. CT abdomen and pelvis on 07/28/2017 demonstrates colonic stool burden, metastatic disease throughout the liver, serena hepatis lymphadenopathy, moderate ascites and subcutaneous edema, and intraureteral stent. s/p EGD 07/29/17 which revealed esophageal candidiasis, portal hypertensive gastropathy, multiple nonbleeding duodenal ulcers with adherent clot, and one nonobstructing, nonbleeding duodenal ulcer with adherent clot suspicious for H pylori-biopsy report is pending H.pylori and urease culture is however negative He is s/p 4 units RBC transfusion since admission Patient was seen and evaluated at bedside with family members He is very drowsy but able to answer basic questions, he is not confused He complains of Left flank pain, where he has a ureteral stent. Abd CT on admission showed well perfused kidneys without hydronephrosis - Constitutional Vitals: Temp Pulse Resp BP Pulse Ox 98.0 F 112 14 117/80 97 07/31/17 11:27 07/31/17 11:27 07/31/17 11:27 07/31/17 11:27 07/31/17 11:27 General appearance: Present: A&O X 3 (drowsy but rousable), pleasant, no acute distress, answers questions appropriately - Head Head exam: Present: atraumatic, normocephalic - Eye Eye exam: Present: scleral icterus - ENT ENT exam: Present: mucous membranes dry - Neck Neck exam general surgery: Present: full ROM - Respiratory Respiratory exam: Present: CTAB - Cardiovascular Cardiovascular exam: Present: RRR, +S1, +S2. Absent: systolic murmur - GI/Abdominal GI/Abdominal exam: Present: soft. Absent: tenderness Additional comments: Left ostomy bag with dark red blood, no stool present - Extremities Exam Extremities exam: Present: pedal edema (2+ pitting pedal edema) - Neurological Exam Neurological exam: Present: alert, oriented X3, no focal deficits - Skin Skin exam: Present: dry. Absent: normal color Internal Medicine: Result - Labs CBC & Chem 7: 07/31/17 06:20 07/31/17 06:20 Labs: Short CBC 07/30/17 07/30/17 07/31/17 Range/Units 12:56 18:33 06:20 WBC 6.1 (4.3-11.1) K/mcL Hgb 9.6 L 8.8 L 8.6 L (12.9-16.9) g/dL Hct 30.0 L 26.8 L 27.1 L (37.5-50.1) % Plt Count 116 L (140-400) K/mcL Neutrophils # 4.9 (1.6-8.9) K/mcL BMP 07/31/17 06:20 Sodium 127 L Potassium 3.6 Chloride 101 Carbon Dioxide 19 L BUN 25 H Creatinine 0.90 Glucose 165 H Calcium 8.8 - ABG Interpretation ABG results: PT/INR, D-dimer PT 14.9 Seconds (9.4-12.1) H 07/27/17 17:10 - VTE Documentation of Mechanical Device: Intermittent pneumatic compression device Consult Discharge Plan - Plan Referrals: James Franco MD [Non-Partnered Physician] - 08/30/17 10:00 am Ander Patel MD [Primary Care Provider] -
[2017-07-31 13:27] LABS: Basophils % 0.3 %; Eosinophils # 0.1 K/mcL (0.0-0.6); Eosinophils % 0.7 %; Hematocrit 24.6 % (37.5-50.1); Hemoglobin 7.8 g/dL (12.9-16.9); Immature Granulocytes % 2.2 % (0-4); Lymphocytes # 0.3 K/mcL (0.6-4.6); Lymphocytes % 4.4 %; Mean Corpuscular HGB Conc 31.7 g/dL (31.6-35.5); Mean Corpuscular Hemoglobin 28.5 pg (28.0-33.3); Mean Corpuscular Volume 89.8 fL (83.0-100.0); Mean Platelet Volume 11.2 fL (9.4-12.4); Monocytes # 0.8 K/mcL (0.0-1.3); Monocytes % 9.9 %; Neutrophils # 6.3 K/mcL (1.6-8.9); Platelet Count 134 K/mcL (140-400); Red Blood Count 2.74 M/mcL (4.19-5.50); Red Cell Distribution Width 18.7 % (11.5-14.5); Segmented Neutrophils % 82.5 %
[2017-07-31 13:33] LABS: INR 1.5; Prothrombin Time 16.6 Seconds (9.4-12.1)
[2017-07-31 19:40] LABS: Hematocrit 30.1 % (37.5-50.1)
[2017-07-31 19:48] LABS: Hemoglobin 9.5 g/dL (12.9-16.9)
[2017-08-01] MEDS: *HR* OxyCODONE Immed Rel 5 MG TABLET PO PRN ×4 (04:50→21:21)
[2017-08-01] MEDS: Pantoprazole 40 MG VIAL IVP SCH ×2 (04:50→16:42)
[2017-08-01 05:31] LABS: Basophils % 0.2 %; Eosinophils # 0.1 K/mcL (0.0-0.6); Eosinophils % 1.2 %; Hematocrit 25.8 % (37.5-50.1); Hemoglobin 8.3 g/dL (12.9-16.9); Immature Granulocytes % 4.3 % (0-4); Lymphocytes # 0.5 K/mcL (0.6-4.6); Lymphocytes % 8.9 %; Mean Corpuscular HGB Conc 32.2 g/dL (31.6-35.5); Mean Corpuscular Hemoglobin 28.5 pg (28.0-33.3); Mean Corpuscular Volume 88.7 fL (83.0-100.0); Monocytes # 0.6 K/mcL (0.0-1.3); Neutrophils # 4.3 K/mcL (1.6-8.9); Platelet Count 131 K/mcL (140-400); Red Blood Count 2.91 M/mcL (4.19-5.50); Red Cell Distribution Width 18.4 % (11.5-14.5); Segmented Neutrophils % 74.4 %
[2017-08-01 05:47] LABS: Albumin/Globulin Ratio 0.5 (1.1-2.2); Bilirubin,Direct 9.3 mg/dL (0.0-0.2); Bilirubin,Indirect 4.5 mg/dL (0.0-1.2); Bilirubin,Total 13.8 mg/dL (0.3-1.0); Globulin 4.2 g/dL (2.4-3.5); Total Protein 6.2 g/dL (6.4-8.9)
[2017-08-01 05:52] LABS: BUN/Creatinine Ratio 27 (6-26); Blood Urea Nitrogen 26 mg/dL (6-20); Calcium 8.9 mg/dL (8.6-10.3); Carbon Dioxide 19 mEq/L (23-29); Chloride 100 mEq/L (98-107); Glucose 135 mg/dL (70-105); Osmolality,Calculated 273 (280-300); Potassium 3.7 mEq/L (3.5-5.1); Sodium 128 mEq/L (136-145); eGFR For African Americans > 60 (> 60); eGFR For Non-African Americans > 60 (> 60)
[2017-08-01] MEDS ORDERED: Fluconazole 40 MG/ML UDC PO SCH (09:00)
[2017-08-01] MEDS: Furosemide 40 MG TABLET PO SCH ×2 (09:01→16:42)
[2017-08-01] MEDS: Sucralfate 1 GM TABLET PO SCH ×4 (09:01→21:22)
[2017-08-01] MEDS: Insulin LISPRO 300 UNITS/3 ML VIAL SQ SCH ×4 (09:01→21:15)
[2017-08-01] MEDS: Fluconazole 200 MG/100 ML 200 MG/100 ML BAG IVPB SCH (09:02)
--- NOTE | 2017-08-01 10:09 | Internal Med Progress Note ---
Date of Encounter: 08/01/17 Time of Encounter: 10:08 - Assessment and plan (1) Anemia Current Visit: Yes Status: Acute Assessment and plan: acute on chronic, acute due to LGIB Continue to monitor Hb stable between 8 and 8.5 s/p 4 units RBCs Qualifiers: Anemia type: other cause Other causes of anemia: acute posthemorrhagic Qualified Code(s): D62 - Acute posthemorrhagic anemia (2) DVT prophylaxis Current Visit: Yes Status: Acute Assessment and plan: Continue SCDs. No medical anticoagulation due to GI bleed. (3) Esophageal candidiasis Current Visit: Yes Status: Acute Assessment and plan: found on EGD Continue Fluconazole 200mg daily Monitor LFTs, -hyperbilirubinemia noted, elevated ALP is chronic, due to liver mets (4) Lower gastrointestinal hemorrhage Current Visit: Yes Status: Acute Assessment and plan: Surgery consulted; appreciate input. S/P EGD Interval development of red blood in ostomy. Hb today is 8.3 (total 4 units PRBCs transfused this hospitalization). Continue serial H/H. Continue soft diet. Continue PPI H. pylori culture negative Patient is full code, he was on home hospice prior to this hospitalization. Discussed with palliative, patient has opted to remain full code and wants to be discharged home with home health when hes ready (5) Colon cancer metastasized to liver Current Visit: Yes Status: Chronic Assessment and plan: Continue follow up with oncology as outpatient. (6) Diabetes mellitus Current Visit: Yes Status: Chronic Assessment and plan: Continue accuchecks and SSI QID AC/HS. 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 Qualifiers: Hypothyroidism type: acquired Qualified Code(s): E03.9 - Hypothyroidism, unspecified (8) DC (obstructive sleep apnea) Current Visit: Yes Status: Chronic Assessment and plan: CPAP at night (9) Thrombocytopenia Current Visit: Yes Status: Chronic Assessment and plan: PLT count stable (10) Portal hypertension Current Visit: Yes Status: Chronic Assessment and plan: With ascites, decompensated s/p drainage of 2L asciic fluid chronic liver disease with jaundice and ascites on imaging Patient also has pedal edema ammonia and INR acceptable Patient has a peritoneal catheter for possible drainage - Subjective Interval history: 46-year-old male with stage IV rectal cancer status post abdominoperineal resection presenting with lower gastrointestinal bleed. CT abdomen and pelvis on 07/28/2017 demonstrates colonic stool burden, metastatic disease throughout the liver, serena hepatis lymphadenopathy, moderate ascites and subcutaneous edema, and intraureteral stent. s/p EGD 07/29/17 which revealed esophageal candidiasis, portal hypertensive gastropathy, multiple nonbleeding duodenal ulcers with adherent clot, and one nonobstructing, nonbleeding duodenal ulcer with adherent clot suspicious for H pylori-biopsy report is pending H.pylori and urease culture is however negative He is s/p 4 units RBC transfusion since admission Patient was seen and evaluated at bedside this morning Looking some clinical improvement He also reports feeling more comfortable after 2L of ascites was drained 07/31 I will request a palliative eval today , as patient was on home hospice prior to this admission - Constitutional Vitals: Temp Pulse Resp BP Pulse Ox 98.2 F 115 14 96/62 96 08/01/17 07:34 08/01/17 07:34 08/01/17 07:34 08/01/17 07:34 08/01/17 07:34 General appearance: Present: A&O X 3 (drowsy but rousable), pleasant, no acute distress, answers questions appropriately - Head Head exam: Present: atraumatic - Eye Eye exam: Present: scleral icterus - ENT ENT exam: Present: mucous membranes moist - Neck Neck exam general surgery: Present: normal inspection - Respiratory Respiratory exam: Present: CTAB - Cardiovascular Cardiovascular exam: Present: RRR, +S1, +S2. Absent: systolic murmur - GI/Abdominal GI/Abdominal exam: Present: distended (but improved significantly.), soft, no peritoneal signs. Absent: tenderness Additional comments: distended abdominal wall veins - Extremities Exam Extremities exam: Present: pedal edema (1+ Pitting pedal edema), warm, radial pulses palpable and symmetrical. Absent: calf tenderness, cyanotic - Neurological Exam Neurological exam: Present: alert, CN II-XII intact, oriented X3, no focal deficits. Absent: pronater drift, facial droop, speech deficit - Skin Skin exam: Present: dry Internal Medicine: Result - Labs CBC & Chem 7: 08/01/17 04:36 08/01/17 04:36 Labs: Short CBC 07/31/17 07/31/17 08/01/17 Range/Units 13:08 19:25 04:36 WBC 7.7 5.8 (4.3-11.1) K/mcL Hgb 7.8 L 9.5 L D 8.3 L (12.9-16.9) g/dL Hct 24.6 L 30.1 L 25.8 L (37.5-50.1) % Plt Count 134 L 131 L (140-400) K/mcL Neutrophils # 6.3 4.3 (1.6-8.9) K/mcL BMP 08/01/17 04:36 Sodium 128 L Potassium 3.7 Chloride 100 Carbon Dioxide 19 L BUN 26 H Creatinine 0.95 Glucose 135 H Calcium 8.9 Liver Function 08/01/17 Range/Units 04:36 Total Bilirubin 13.8 H (0.3-1.0) mg/dL Direct Bilirubin 9.3 H (0.0-0.2) mg/dL AST 66 H (13-39) Units/L ALT 34 (7-52) Units/L Alkaline Phosphatase 592 H (34-104) Units/L Albumin 2.0 L (3.5-5.7) g/dL - ABG Interpretation ABG results: PT/INR, D-dimer PT 16.6 Seconds (9.4-12.1) H 07/31/17 13:08 - VTE Documentation of Mechanical Device: Intermittent pneumatic compression device Consult Discharge Plan - Plan Referrals: James Franco MD [Non-Partnered Physician] - 08/30/17 10:00 am Ander Patle MD [Primary Care Provider] -
--- NOTE | 2017-08-01 13:24 | Palliative - Consult Note ---
Date of Encounter: 08/01/17 Time of Encounter: 12:40 - Assessment and Plan (1) Metastatic cancer Current Visit: No Status: Chronic Assessment and plan: He patient is still following up with oncology and continues to wish to do so. (2) Colostomy in place Current Visit: No Status: Chronic Assessment and plan: Colostomy in place has slowed, however the patient is still having some active bleeding. This and is following surgery has signed off, a may need to be reconsult them. H&H's have been trending. Hemoglobin as high as 9.5 yesterday now down to 8.3. (3) Cancer related pain Current Visit: No Status: Chronic Assessment and plan: Patient describes the pain is generalized throughout the abdomen but well- controlled with medications. (4) Goals of care, counseling/discussion Current Visit: No Status: Acute Assessment and plan: When last I spoke to this patient he wishes to remain a full code, he has never wavered from this. Wishes to continue to get aggressive care when he feels it is necessary. His only reason for going into hospice and always to have additional help at home. He understands and hospice will revoke him as they are not going to pay for this hospitalization. Even before I explained that to him he asked that he be switched back to home health care. (5) Lower gastrointestinal hemorrhage Current Visit: Yes Status: Acute Assessment and plan: Hemoglobin 8.3 today I know that medicine has been following this. Patient does have blood in the bag right now. Palliative-CN HPI - Data of Consult Patient: known to practice within the last 3 years Requesting Physician: Maik Hale MD Primary Care Provider: Ander Patel MD - Consult Narrative Palliative Care/Comfort Measures: Palliative care History of present illness: Mr. Chaidez is a 46 year old male With a history of metastatic colon cancer in May of this year he was seen at that time wish to have full aggressive care. He is transitioned out of the hospital [facility] and they due to need for additional help at home he transition to hospice. The patient he never had planned on February suing aggressive care. And when he visited oncology in June of this year actively discussing the possibility of immune therapy. He has remained a full code throughout. The day of admission patient came in with persistent bleeding from his stoma that increased from a small chronic believe that he had. During the time that he has been years been followed by surgery has had no further significant bleeding ,although right now he is having a fair amount of blood in the bag. Surgery has been following. he is not interested in hospice at this time please see the assessment and plan. CC: Maik Hale MD Bleeding from stoma Past Med Surg Social Fam HX - Past Medical History Medical history: arthritis, cancer, diabetes, GERD, thyroid disease, other Psychiatric history: anxiety, depression - Past Surgical History Surgical History: colostomy, other - Social History Smoking Status: Former smoker Smokeless Tobacco Status: No Alcohol use: none Drug use: none - Family History Father Adopted: Yes Sister Family Member Ethnicity: Non- Living Status: Still Living Mother Adopted: Yes Hx Family Cardiac Disorders: Yes Medications and Allergies Acetaminophen/Butalbital/Caffe [Fioricet] 1 each PO TID PRN #90 tablet 04/13/15 [Rx] Cyclobenzaprine [Flexeril] 10 mg PO TID PRN 07/16/15 [History] Prochlorperazine Maleate [Compazine] 10 mg PO Q6HR PRN #120 tablet 02/07/16 [Rx] Ondansetron HCl [Zofran] 4 mg PO Q6H PRN #30 tablet 03/24/16 [Rx] Citalopram Hydrobromide [Celexa] 20 mg PO DAILY #90 tablet 11/20/16 [Rx] Atorvastatin [Lipitor] 10 mg PO HS 11/27/16 [History] Levothyroxine [Synthroid] 75 mcg PO 0630 11/27/16 [History] Omeprazole [PriLOSEC] 40 mg PO DAILY 11/27/16 [History] Pioglitazone HCl [Actos] 30 mg PO DAILY 11/27/16 [History] Docusate [Colace] 100 mg PO BID 05/15/17 [History] Furosemide [Lasix] 40 mg PO BID 07/17/17 [History] Megestrol Acetate [Megace] 40 mg PO BID 07/17/17 [History] OxyCODONE Immed Rel [Roxicodone 5 MG] 10 mg PO Q4H PRN 07/27/17 [History] Polyethylene Glycol 3350 [MiraLAX] 17 gm PO DAILY PRN 07/27/17 [History] Spironolactone [Aldactone] 100 mg PO DAILY 07/27/17 [History] fentaNYL [Fentanyl] 75 mcg TD Q72H 07/27/17 [History] 3 Allergy/AdvReac Type Severity Reaction Status Date / Time capecitabine [From Xeloda] AdvReac Hallucinati Verified 07/17/17 08:24 ng - Constitutional Constitutional ROS PAL: decreased appetite - EENT Eyes: no discharge, no pain Ears: no ear discharge, no ear pain Ears, nose, mouth, throat: no facial pain, no hoarseness - Cardiovascular Cardiovascular ROS: no chest pain, no chest pain at rest - Respiratory Respiratory: no cough, no dyspnea, no hemoptysis - Gastrointestinal Gastrointestinal: abdominal pain, constipation, hematochezia (Leading is frankly from the stoma.), nausea - Genitourinary Genitourinary ROS male: no urinary frequency, no urinary hesitancy, no urinary incontinence - Musculoskeletal Musculoskeletal ROS IM: no arthralgias, no back pain - Integumentary ROS Integumentary: no rash, no skin pain - Neurological Neurological ROS: no burning sensations, no confusion, no convulsions - Psychiatric Psychiatric general PM: no depression, no difficulty concentrating, no homicidal ideation, no suicidal ideation - Endocrine Endocrine IM: other (Positive for diabetes) Palliative Care-Exam - Constitutional Vitals: Temp Pulse Resp BP Pulse Ox 98.2 F 114 15 101/61 95 08/01/17 11:39 08/01/17 11:39 08/01/17 11:39 08/01/17 11:39 08/01/17 11:39 General appearance: Present: no acute distress - Head Head Exam: Present: atraumatic, normal inspection - Eye Eye exam: Present: normal appearance - ENT ENT exam: Present: mucous membranes moist, normal exam - Respiratory Respiratory exam: Present: CTAB - Cardiovascular Cardiovascular exam: Present: RRR - GI/Abdominal Exam GI/Abdominal exam: Present: normal bowel sounds, soft. Absent: tenderness ( There is blood benjamin blood, and his ostomy bag. Bag is not full) - Extremities Exam Extremities exam: Present: pedal edema. Absent: normal inspection, tenderness - Neurological Exam Neurological exam: Present: alert, oriented X3 - Psychiatric Psychiatric exam: Absent: agitated, anxious - Skin Skin exam: Present: dry, warm Internal Medicine - CN: Reslt - Labs CBC & Chem 7: 08/01/17 04:36 08/01/17 04:36 Labs: Short CBC 07/31/17 07/31/17 08/01/17 Range/Units 13:08 19:25 04:36 WBC 7.7 5.8 (4.3-11.1) K/mcL Hgb 7.8 L 9.5 L D 8.3 L (12.9-16.9) g/dL Hct 24.6 L 30.1 L 25.8 L (37.5-50.1) % Plt Count 134 L 131 L (140-400) K/mcL Neutrophils # 6.3 4.3 (1.6-8.9) K/mcL BMP 08/01/17 04:36 Sodium 128 L Potassium 3.7 Chloride 100 Carbon Dioxide 19 L BUN 26 H Creatinine 0.95 Glucose 135 H Calcium 8.9 Liver Function 08/01/17 Range/Units 04:36 Total Bilirubin 13.8 H (0.3-1.0) mg/dL Direct Bilirubin 9.3 H (0.0-0.2) mg/dL AST 66 H (13-39) Units/L ALT 34 (7-52) Units/L Alkaline Phosphatase 592 H (34-104) Units/L Albumin 2.0 L (3.5-5.7) g/dL - ABG Interpretation ABG results: PT/INR, D-dimer PT 16.6 Seconds (9.4-12.1) H 07/31/17 13:08 Consult Discharge Plan - Plan Referrals: James Franco MD [Non-Partnered Physician] - 08/30/17 10:00 am Ander Patel MD [Primary Care Provider] - Palliative Quality Palliative Quality: Screen for Code Status: Yes, Screen for Goals of Care: Yes, Screen for Pain: Yes, If Pain Regimen Started, Initiate Bowel Regimen: Yes, Screen for Nausea/Vomitting: Yes
[2017-08-01 19:35] LABS: Hematocrit 27.9 % (37.5-50.1); Hemoglobin 8.9 g/dL (12.9-16.9)
[2017-08-02] MEDS: *HR* OxyCODONE Immed Rel 5 MG TABLET PO PRN ×3 (01:29→22:29)
[2017-08-02 04:52] LABS: Basophils % 0.6 %; Eosinophils # 0.1 K/mcL (0.0-0.6); Eosinophils % 0.8 %; Hematocrit 23.2 % (37.5-50.1); Hemoglobin 7.6 g/dL (12.9-16.9); Immature Granulocytes % 5.4 % (0-4); Lymphocytes # 0.7 K/mcL (0.6-4.6); Lymphocytes % 10.1 %; Mean Corpuscular HGB Conc 32.8 g/dL (31.6-35.5); Mean Corpuscular Hemoglobin 29.1 pg (28.0-33.3); Mean Corpuscular Volume 88.9 fL (83.0-100.0); Mean Platelet Volume 10.8 fL (9.4-12.4); Monocytes # 0.8 K/mcL (0.0-1.3); Monocytes % 11.6 %; Neutrophils # 4.8 K/mcL (1.6-8.9); Platelet Count 146 K/mcL (140-400); Red Blood Count 2.61 M/mcL (4.19-5.50); Red Cell Distribution Width 18.7 % (11.5-14.5); Segmented Neutrophils % 71.5 %
[2017-08-02 05:19] LABS: Alanine Aminotransferase 35 Units/L (7-52); Albumin 1.9 g/dL (3.5-5.7); Albumin/Globulin Ratio 0.5 (1.1-2.2); Alkaline Phosphatase 688 Units/L (34-104); Aspartate Amino Transferase 77 Units/L (13-39); BUN/Creatinine Ratio 27 (6-26); Bilirubin,Direct 8.9 mg/dL (0.0-0.2); Bilirubin,Indirect 4.9 mg/dL (0.0-1.2); Bilirubin,Total 13.8 mg/dL (0.3-1.0); Blood Urea Nitrogen 31 mg/dL (6-20); Calcium 8.9 mg/dL (8.6-10.3); Carbon Dioxide 19 mEq/L (23-29); Chloride 101 mEq/L (98-107); Globulin 3.9 g/dL (2.4-3.5); Glucose 154 mg/dL (70-105); Osmolality,Calculated 276 (280-300); Potassium 3.9 mEq/L (3.5-5.1); Sodium 128 mEq/L (136-145); Total Protein 5.8 g/dL (6.4-8.9); eGFR For African Americans > 60 (> 60); eGFR For Non-African Americans > 60 (> 60)
[2017-08-02 05:44] LABS: Platelet Estimate Normal (Normal); Toxic Granulation Present (Not Present)
[2017-08-02 05:45] LABS: Anisocytosis 1+ (Not Present); Hypochromasia Present (Not Present); Macrocytosis Present (Not Present)
[2017-08-02] MEDS: Furosemide 40 MG TABLET PO SCH ×2 (08:13→16:28)
[2017-08-02] MEDS: Sucralfate 1 GM TABLET PO SCH (08:15)
[2017-08-02] MEDS: Insulin LISPRO 300 UNITS/3 ML VIAL SQ SCH ×4 (08:15→21:48)
[2017-08-02] MEDS: *HR* FentaNYL PATCH 75 MCG PATCH TD SCH (08:15)
[2017-08-02] MEDS ORDERED: 0.9 % Sodium Chloride 250 ML ONE (08:41)
[2017-08-02] MEDS ORDERED: Pantoprazole 40 MG VIAL IVP SCH (09:00)
--- NOTE | 2017-08-02 09:31 | Event Note ---
Date of Encounter: 08/02/17 Time of Encounter: 09:28 Noted call to on-call surgeon (Dr. Head) on 08/01/2017 for bright red blood per colostomy. Hemoglobin currently 7.6, down from 8.9 on 08/01/2017. He is been transfused 4/5 units of packed red blood cells since admission. His heart rate remains elevated at 111. His his lowest heart rate this admission has been 102 bpm and highest at 132 bpm within average in the 120s. He is been borderline hypotensive this entire mission ranging in the 90s to low 1teens systolic. Transfusions have managed per the primary team. Noted palliative care consult and patient wishes to remain full-code and aggressive treatment options while available. Per review of EGD on 07/29/[address] Franco patient is noted to have esophageal candidiasis (treated with diflucan), multiple non-bleeding duodenal ulcers with adherent clot, hypertensive portal Gastropathy, and sigmoid colon diverticulosis (detailed below) treated with IV PPI and carafate tabs Likely reports of continued blood per ostomy related to adherent clots sloughing off and bleeding as a result. Noted patient is NPO except medications. Given his known duodenal ulcers and relatively unchanged vital signs, would recommend increasing Protonix to 80 mg BID for 4 doses then returned to 40 mg BID IV; continue IV Diflucan; change Carafate from PO tablets to slurry. Continue to monitor and transfuse as indicated per primary team. There is no indication to rescope patient at this time. Reviewed with Dr. Franco. Surgery will continue to follow from a distance. Please call with any urgent needs or questions. EGD 07/29/17 patchy white plaques in the upper 3rd of the esophagus consistent with esophageal candidiasis mild portal hypertensive Gastropathy in the entire examined stomach 4 non-bleeding duodenal ulcers with an adherent clot were found in the 2nd portion of the duodenum in the largest measuring 6 mm. No specimens were collected. A verito test was performed as there was suspicion for H. pylori which is subsequently negative. He was recommended to continue medications and await pathology. Colonoscopy 07/29/17 His colonoscopy completed on the same day revealed diverticulosis and the sigmoid colon the proximal a sending: was normal.
--- NOTE | 2017-08-02 11:39 | Internal Med Progress Note ---
Date of Encounter: 08/02/17 Time of Encounter: 11:36 - Assessment and plan (1) Anemia Current Visit: Yes Status: Acute Assessment and plan: acute on chronic, acute due to LGIB Continue to monitor Hb stable between 8 and 8.5 till 08/02/17 a.m when Hb dropped to 7.6 s/p 4 units RBCs Due to tachycardia and low blood pressure and patient more lethargic, given an additional unit of blood Qualifiers: Anemia type: other cause Other causes of anemia: acute posthemorrhagic Qualified Code(s): D62 - Acute posthemorrhagic anemia (2) DVT prophylaxis Current Visit: Yes Status: Acute Assessment and plan: Continue SCDs. No medical anticoagulation due to GI bleed. (3) Esophageal candidiasis Current Visit: Yes Status: Acute Assessment and plan: found on EGD Continue Fluconazole 200mg daily Monitor LFTs, -hyperbilirubinemia noted, elevated ALP is chronic, due to liver mets (4) Lower gastrointestinal hemorrhage Current Visit: Yes Status: Acute Assessment and plan: Surgery consulted; appreciate input. S/P EGD Interval development of red blood in ostomy. Hb today is 7.6(total 4 units PRBCs transfused this hospitalization). Another unit today Continue serial H/H. Continue soft diet. Continue PPI H. pylori culture negative Patient is full code, Palliative eval noted and appreciated (5) Colon cancer metastasized to liver Current Visit: Yes Status: Chronic Assessment and plan: Continue follow up with oncology as outpatient. (6) Diabetes mellitus Current Visit: Yes Status: Chronic Assessment and plan: Continue accuchecks and SSI QID AC/HS. 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 Qualifiers: Hypothyroidism type: acquired Qualified Code(s): E03.9 - Hypothyroidism, unspecified (8) DC (obstructive sleep apnea) Current Visit: Yes Status: Chronic Assessment and plan: CPAP at night (9) Thrombocytopenia Current Visit: Yes Status: Chronic Assessment and plan: PLT count stable (10) Portal hypertension Current Visit: Yes Status: Chronic Assessment and plan: With ascites, decompensated s/p drainage of 2L asciic fluid 07/31 chronic liver disease with jaundice and ascites on imaging Patient also has pedal edema ammonia and INR acceptable Patient has a peritoneal catheter for possible drainage, continue to monitor Lactulose for at least 2BM daily, however, patient is on clears only for now and having only bloody effluent from his stoma (11) Obstructive jaundice due to cancer Current Visit: Yes Status: Acute Assessment and plan: due to liver mets s/p ERCP 08/02 with sphincterotomy and stent placement Monitor LFTS - Subjective Interval history: 46-year-old male with stage IV rectal cancer status post abdominoperineal resection presenting with lower gastrointestinal bleed. CT abdomen and pelvis on 07/28/2017 demonstrates colonic stool burden, metastatic disease throughout the liver, serena hepatis lymphadenopathy, moderate ascites and subcutaneous edema, and intraureteral stent. s/p EGD 07/29/17 which revealed esophageal candidiasis, portal hypertensive gastropathy, multiple nonbleeding duodenal ulcers with adherent clot, and one nonobstructing, nonbleeding duodenal ulcer with adherent clot suspicious for H pylori-biopsy report is pending H.pylori and urease culture is however negative He is s/p 4 units RBC transfusion since admission Patient was seen and evaluated at bedside this morning He also reports feeling more comfortable after 2L of ascites was drained 07/31 Palliative eval noted 08/01-patient opted for home health Last night, he had about 800cc of bloody output in his stoma, associated with clots. His HB dropped to 7.6 this morning, he is receiving blood at this time His hyperbilirubinemia and ALP continues to worsen He is awake and disoriented to time, but oriented to place and person Per surgery, there is no indication for rescoping the patient, medications have been adjusted Patient is tachycardic, hypotensive, possibly from blood loss, we cannot give fluid due to hx of CHF and portal HTN Will give additional unit of blood Gastroenterology consulted, for ERCP This patient will require need for hospital bed upon return to home, due to requiring frequent changes of position to alleviate pain from metastatic colon cancer. - Constitutional Vitals: Temp Pulse Resp BP Pulse Ox 97.7 F 111 16 95/60 94 08/02/17 08:56 08/02/17 08:56 08/02/17 08:56 08/02/17 08:56 08/02/17 08:51 General appearance: Present: A&O X 2, pleasant, no acute distress, answers questions appropriately - Head Head exam: Present: atraumatic, normocephalic - Eye Eye exam: Present: PERRL, scleral icterus, conjuntiva pink Pupils: Present: PERRL - Neck Neck exam general surgery: Present: supple, trachea midline. Absent: lymphadenopathy - Respiratory Respiratory exam: Present: CTAB. Absent: accessory muscle use, rales, rhonchi, wheezes - Cardiovascular Cardiovascular exam: Present: RRR, +S1, +S2. Absent: diastolic murmur, gallop, rubs, systolic murmur - GI/Abdominal GI/Abdominal exam: Present: distended, soft, no peritoneal signs. Absent: tenderness Additional comments: stoma bag with some bloody effluent, minimal - Extremities Exam Extremities exam: Present: warm, radial pulses palpable and symmetrical. Absent : calf tenderness, cyanotic, pedal edema - Neurological Exam Neurological exam: Present: alert, CN II-XII intact, no focal deficits. Absent : oriented X3, pronater drift, facial droop, speech deficit - Skin Skin exam: Present: dry, intact Internal Medicine: Result - Labs CBC & Chem 7: 08/02/17 15:45 08/02/17 04:02 Labs: Short CBC 08/01/17 08/02/17 Range/Units 19:00 04:02 WBC 6.7 (4.3-11.1) K/mcL Hgb 8.9 L 7.6 L (12.9-16.9) g/dL Hct 27.9 L 23.2 L (37.5-50.1) % Plt Count 146 (140-400) K/mcL Neutrophils # 4.8 (1.6-8.9) K/mcL BMP 08/02/17 04:02 Sodium 128 L Potassium 3.9 Chloride 101 Carbon Dioxide 19 L BUN 31 H Creatinine 1.13 Glucose 154 H Calcium 8.9 Liver Function 08/02/17 Range/Units 04:02 Total Bilirubin 13.8 H (0.3-1.0) mg/dL Direct Bilirubin 8.9 H (0.0-0.2) mg/dL AST 77 H (13-39) Units/L ALT 35 (7-52) Units/L Alkaline Phosphatase 688 H (34-104) Units/L Albumin 1.9 L (3.5-5.7) g/dL - ABG Interpretation ABG results: PT/INR, D-dimer PT 16.6 Seconds (9.4-12.1) H 07/31/17 13:08 - VTE Documentation of Mechanical Device: Intermittent pneumatic compression device Consult Discharge Plan - Plan Referrals: James Franco MD [Non-Partnered Physician] - 08/30/17 10:00 am Ander Patel MD [Primary Care Provider] -
[2017-08-02] MEDS: Fluconazole 200 MG/100 ML 200 MG/100 ML BAG IVPB SCH (12:16)
--- NOTE | 2017-08-02 13:15 | Anesthesia Evaluation PreOp ---
Date of Encounter: 08/02/17 Time of Encounter: 13:13 - Past History Planned Operation: ERCP Cardiac History: Denies any Significant Hx Pulmonary History: Former smoker, DC Dx PLATEMAN History: Denies Any Significant HX Other Medical History: Hepatic (liver metastases, portal hypertension), Renal ( stones), Bleeding (this admission, patient underwent multiple RBC transfusions for GI bleed), Diabetes Type II (insulin dependent), GERD (portal hypertensive gastropathy), Other (stage IV rectal cancer, thrombocytopenia) Anesthesia History: No Prior Anesthetic Complications Alcohol Use: none Drug use: none Medications and Allergies Acetaminophen/Butalbital/Caffe [Fioricet] 1 each PO TID PRN #90 tablet 04/13/15 [Rx] Cyclobenzaprine [Flexeril] 10 mg PO TID PRN 07/16/15 [History] Prochlorperazine Maleate [Compazine] 10 mg PO Q6HR PRN #120 tablet 02/07/16 [Rx] Ondansetron HCl [Zofran] 4 mg PO Q6H PRN #30 tablet 03/24/16 [Rx] Citalopram Hydrobromide [Celexa] 20 mg PO DAILY #90 tablet 11/20/16 [Rx] Atorvastatin [Lipitor] 10 mg PO HS 11/27/16 [History] Levothyroxine [Synthroid] 75 mcg PO 0630 11/27/16 [History] Omeprazole [PriLOSEC] 40 mg PO DAILY 11/27/16 [History] Pioglitazone HCl [Actos] 30 mg PO DAILY 11/27/16 [History] Docusate [Colace] 100 mg PO BID 05/15/17 [History] Furosemide [Lasix] 40 mg PO BID 07/17/17 [History] Megestrol Acetate [Megace] 40 mg PO BID 07/17/17 [History] OxyCODONE Immed Rel [Roxicodone 5 MG] 10 mg PO Q4H PRN 07/27/17 [History] Polyethylene Glycol 3350 [MiraLAX] 17 gm PO DAILY PRN 07/27/17 [History] Spironolactone [Aldactone] 100 mg PO DAILY 07/27/17 [History] fentaNYL [Fentanyl] 75 mcg TD Q72H 07/27/17 [History] 3 Allergy/AdvReac Type Severity Reaction Status Date / Time capecitabine [From Xeloda] AdvReac Hallucinati Verified 07/17/17 08:24 ng - Meds/Allergy Pre-op Review Medications Reviewed: Yes Allergies Reviewed: Yes Beta Blockers on Current Med List: No Anesthesia Results - Labs 08/02/17 04:02 08/02/17 04:02 - Imaging EKG: report reviewed, image reviewed (SINUS TACHYCARDIA Borderline ST depression diffuse leads INTERPRETATION BASED ON A DEFAULT AGE OF 40 YEARS) Additional studies: TTE: Impressions: LVEF 60-65%. Normal LV chamber size, wall thickness and function. Mild left ventricular diastolic dysfunction. Normal right ventricular structure and function. No evidence of PFO with agitated saline contrast. No evidence of pulmonary hypertension. No significant valvular dysfunction. Anesthesia Exam Last Vital Signs Temp 97.9 F 08/02/17 11:39 Pulse 109 08/02/17 11:39 Resp 16 08/02/17 11:39 BP 94/54 08/02/17 11:39 Pulse Ox 95 08/02/17 11:39 Weight: 91 kg NPO (# of Hours): > 8 hrs - HEENT Pupil (Motor): Pupils equal, EOMI Mallampati: III Teeth: Poor dentition Oral Opening: Greater than 3 - PLATEMAN LOC: Oriented - Cardiac Rhythm: Regular Murmur: None - Pulmonary Breath Sounds: bilateral Clear Respiratory Effort: Symmetrical Anesthesia Assess/Plan ASA Score: 4 Modified Dario Scale for Level of Consciousness: Cooperative, oriented, and tranquil Anesthetic Plan: General Monitoring Plan: Standard Monitors Recovery Plan: PACU
[2017-08-02] MEDS ORDERED: Lidocaine -MPF 4% 5 ML AMPUL ONE ×2 (13:44→13:46)
[2017-08-02] MEDS ORDERED: *HR* FentaNYL (PF) 100 MCG/2 ML VIAL ONE (13:45)
[2017-08-02] MEDS ORDERED: *HR* Succinylcholine 200 MG/10 ML VIAL IVP ONE (13:46)
[2017-08-02] MEDS ORDERED: *HR* Etomidate 40 MG/20 ML VIAL IVP ONE (13:46)
[2017-08-02] MEDS ORDERED: Ondansetron 4 MG/2 ML VIAL IVP ONE (14:15)
[2017-08-02] MEDS ORDERED: Indomethacin 50 MG SUPP.RECT RC ONE (14:26)
--- NOTE | 2017-08-02 15:12 | Anesthesia Evaluation Post Op ---
Date of Encounter: 08/02/17 Time of Encounter: 15:12 - Vital Signs Vital Signs: Last Vital Signs Temp 98.7 F 08/02/17 14:50 Pulse 112 08/02/17 15:00 Resp 15 08/02/17 15:00 BP 100/67 08/02/17 15:00 Pulse Ox 98 08/02/17 15:00 - Lungs Lungs: Clear Ascult./Percussion - Airway Airway: Non-obstructed - Cardiovascular Regular Rate, Baseline Rhythm - Mental Status Mental Status: Alert & Oriented, Answers Appropriately - Pain Pain Scale: 4 - Nausea Vomiting Nausea Vomiting: Present (mild) - Hydration Hydration: NPO - Discharge PostOp Status: Transfer Patient to floor
[2017-08-02 15:56] LABS: Basophils % 0.3 %; Eosinophils % 0.6 %; Hematocrit 27.2 % (37.5-50.1); Immature Granulocytes % 6.3 % (0-4); Lymphocytes # 0.5 K/mcL (0.6-4.6); Lymphocytes % 6.7 %; Mean Corpuscular HGB Conc 33.1 g/dL (31.6-35.5); Mean Corpuscular Hemoglobin 28.9 pg (28.0-33.3); Mean Corpuscular Volume 87.5 fL (83.0-100.0); Monocytes # 0.7 K/mcL (0.0-1.3); Monocytes % 9.8 %; Neutrophils # 5.2 K/mcL (1.6-8.9); Platelet Count 134 K/mcL (140-400); Red Blood Count 3.11 M/mcL (4.19-5.50); Segmented Neutrophils % 76.3 %
[2017-08-02 16:19] LABS: Platelet Clumps Few (Not Present); Toxic Granulation Present (Not Present)
[2017-08-02] MEDS: Pantoprazole 40 MG VIAL IVP SCH (18:33)
[2017-08-03] MEDS: Pantoprazole 40 MG VIAL IVP SCH ×2 (05:50→17:09)
[2017-08-03 05:57] LABS: Basophils % 0.3 %; Eosinophils % 0.6 %; Hematocrit 24.6 % (37.5-50.1); Hemoglobin 8.1 g/dL (12.9-16.9); Immature Granulocytes % 3.7 % (0-4); Lymphocytes # 0.5 K/mcL (0.6-4.6); Lymphocytes % 8.3 %; Mean Corpuscular HGB Conc 32.9 g/dL (31.6-35.5); Mean Corpuscular Hemoglobin 28.9 pg (28.0-33.3); Mean Corpuscular Volume 87.9 fL (83.0-100.0); Mean Platelet Volume 10.7 fL (9.4-12.4); Monocytes # 0.6 K/mcL (0.0-1.3); Monocytes % 9.4 %; Neutrophils # 4.8 K/mcL (1.6-8.9); Platelet Count 134 K/mcL (140-400); Red Cell Distribution Width 18.1 % (11.5-14.5); Segmented Neutrophils % 77.7 %
[2017-08-03 06:15] LABS: Alanine Aminotransferase 38 Units/L (7-52); Albumin 1.9 g/dL (3.5-5.7); Albumin/Globulin Ratio 0.5 (1.1-2.2); Alkaline Phosphatase 704 Units/L (34-104); Aspartate Amino Transferase 81 Units/L (13-39); BUN/Creatinine Ratio 27 (6-26); Bilirubin,Direct 8.1 mg/dL (0.0-0.2); Bilirubin,Indirect 4.4 mg/dL (0.0-1.2); Bilirubin,Total 12.5 mg/dL (0.3-1.0); Blood Urea Nitrogen 32 mg/dL (6-20); Calcium 8.9 mg/dL (8.6-10.3); Carbon Dioxide 19 mEq/L (23-29); Chloride 101 mEq/L (98-107); Globulin 4.2 g/dL (2.4-3.5); Glucose 128 mg/dL (70-105); Osmolality,Calculated 277 (280-300); Potassium 3.7 mEq/L (3.5-5.1); Sodium 129 mEq/L (136-145); Total Protein 6.1 g/dL (6.4-8.9); eGFR For African Americans > 60 (> 60); eGFR For Non-African Americans > 60 (> 60)
[2017-08-03] MEDS: Insulin LISPRO 300 UNITS/3 ML VIAL SQ SCH ×4 (07:50→21:52)
[2017-08-03] MEDS: Fluconazole 200 MG/100 ML 200 MG/100 ML BAG IVPB SCH (08:07)
[2017-08-03] MEDS: Furosemide 40 MG TABLET PO SCH ×2 (08:08→16:37)
[2017-08-03] MEDS: *HR* OxyCODONE Immed Rel 5 MG TABLET PO PRN ×2 (08:19→17:00)
--- NOTE | 2017-08-03 10:49 | Gastroenterology Consult Note ---
<Jose Alfredo Arreola - Last Filed: 08/03/17 10:46> Date of Encounter: 08/03/17 Time of Encounter: 10:25 - Assessment and plan (1) Obstructive jaundice due to cancer Current Visit: Yes Status: Acute Assessment and plan: On 08/01 TB 13.8, DB 9.3, AST 66, ALT 34, and alk phos 592. ERCP was completed by Dr. Gutierrez biliary sphincterotomy performed, plastic biliary stent placed. Today TB 12.5, DB 8.1, AST 81, ALT 38, and alk phos 704. Continue to monitor hepatic panel daily. (2) Metastatic cancer Current Visit: No Status: Chronic - Time Spent With Patient Total time spent is greater than 50% in coordination of care (as documented) at patient's floor/unit and/or counseling patient: GI History of Present Illness - Data of Consult Patient: new to practice Consult date: 08/03/17 Requesting Physician: Verenice Rowe - Consult Narrative Reason for consult: Obstructive jaundice History of present illness: Mr. Chaidez is a 46 year old male with PMHx of stage IV rectal cancer with metastasis to the liver complicated by ascites s/p robotic APR (Mar 2017 in [place]), DM, GERD, presented with bleeding from his colostomy. He denies fever, chills, nausea, vomiting. CT A/P on 07/28/2017 showed colonic stool burden, metastatic disease throughout the liver, serena hepatis lymphadenopathy, moderate ascites and subcutaneous edema, and intraureteral stent. EGD and colonoscopy completed by Dr. Franco on 07/29. EGD with esophageal plaques suspicious for candidiasis, portal hypertensive gastropathy, multiple nonbleeding duodenal ulcers. Colonoscopy with diverticulosis in sigmoid colon. We were consulted to evaluate obstructive jaundice. On 08/01 TB 13.8, DB 9.3, AST 66, ALT 34, and alk phos 592. ERCP was completed by Dr. Gutierrez yesterday 08/02. Today TB 12.5, DB 8.1, AST 81, ALT 38, and alk phos 704. Family at bedside report jaundice has been present for the past "few weeks". Procedures: Colonoscopy 02/16/2017 Dr. Head: Malignant partially obstucting tumor in the mid-rectum and distal rectum. Colonoscopy 12/13/2016 Dr. Sonido: Likely malignant turmor in the mid-rectum NSAIDs: None Anticoagulation: None Past Med Surg Social Fam HX - Past Medical History Medical history: arthritis, cancer, diabetes, GERD, thyroid disease, other Psychiatric history: anxiety, depression - Past Surgical History Surgical History: colostomy, other - Social History Smoking Status: Former smoker Smokeless Tobacco Status: No Alcohol use: none Drug use: none - Family History Father Adopted: Yes Sister Family Member Ethnicity: Non- Living Status: Still Living Mother Adopted: Yes Hx Family Cardiac Disorders: Yes - Gastrointestinal Gastrointestinal: Present: as per HPI - Constitutional Constitutional: as per HPI - EENT Eyes: as per HPI Ears: Present: as per HPI Nose, mouth and throat: Present: as per HPI - Cardiovascular Cardiovascular ROS: Present: as per HPI - Respiratory Respiratory IM: Present: as per HPI - Genitourinary Genitourinary: Absent: change in color, Urinary frequency - Neurological ROS Neurological GI: Present: as per HPI - Hematologic/Lymphatic Hematologic/Lymphatic pediatric: Present: as per HPI - Musculoskeletal Musculoskeletal ROS GI: Present: as per HPI - Integumentary Integumentary GI: Present: as per HPI - Psychiatric ROS Psychiatric GI: Present: as per HPI - Endocrine Endocrine IM: Present: as per HPI - Constitutional Vitals: Temp Pulse Resp BP Pulse Ox 97.8 F 112 18 97/58 95 08/03/17 09:20 08/03/17 09:20 08/03/17 09:20 08/03/17 09:20 08/03/17 09:20 General appearance: Present: cooperative, A&O X 2, no acute distress, answers questions appropriately - Head Head exam: Present: atraumatic, normocephalic - Eye Eye exam: Present: scleral icterus - ENT ENT exam: Present: mucous membranes dry - Neck Neck exam general surgery: Present: normal inspection, trachea midline - Respiratory Respiratory exam: Present: decreased breath sounds, CTAB. Absent: rales, rhonchi - Cardiovascular Cardiovascular exam: Present: RRR, +S1, +S2 - GI/Abdominal GI/Abdominal exam: Present: soft, no peritoneal signs. Absent: distended, firm , guarding, tenderness Additional comments: Ostomy bag with bloody drainage - Rectal Rectal exam: Present: deferred - Extremities Exam Extremities exam: Present: warm - Neurological Exam Neurological exam: Present: no focal deficits - Psychiatric Psychiatric exam: Present: normal affect, normal mood - Skin Skin exam: Present: dry, intact, warm. Absent: normal color (jaundice) Results - Labs CBC & Chem 7: 08/03/17 05:12 08/03/17 05:12 Labs: Last Result Calcium 8.9 mg/dL (8.6-10.3) 08/03/17 05:12 Troponin I 0.04 ng/mL (< 0.04) H* 07/28/17 01:43 Entire Visit Hgb 8.1 g/dL (12.9-16.9) L 08/03/17 05:12 Hct 24.6 % (37.5-50.1) L 08/03/17 05:12 PT 16.6 Seconds (9.4-12.1) H 07/31/17 13:08 Total Bilirubin 12.5 mg/dL (0.3-1.0) H 08/03/17 05:12 AST 81 Units/L (13-39) H 08/03/17 05:12 ALT 38 Units/L (7-52) 08/03/17 05:12 Ammonia 36 mcmol/L (16-53) 07/31/17 13:08 - ABG ABG results: PT/INR, D-dimer PT 16.6 Seconds (9.4-12.1) H 07/31/17 13:08 - Impressions Impressions Cath/Invasive Procedure 08/02/17 00:00 IMPRESSION: ERCP images as above. Please refer to the procedure report for further details. D/ / Jose Alfredo Mazariegos MD / Jose Alfredo Mazariegos MD Interpreting Provider: Jose Alfredo Mazariegos MD Consult Discharge Plan - Plan Referrals: James Franco MD [Non-Partnered Physician] - 08/30/17 10:00 am Ander Patel MD [Primary Care Provider] - <Alysha Gutierrez - Last Filed: 08/03/17 12:46> Date of Encounter: 08/03/17 - Time Spent With Patient Total time spent is greater than 50% in coordination of care (as documented) at patient's floor/unit and/or counseling patient: GI History of Present Illness - Data of Consult Requesting Physician: Verenice Rowe - Consult Narrative History of present illness: Mr. Chaidez is a 46 year old male - Constitutional Vitals: Temp Pulse Resp BP Pulse Ox 97.6 F 109 16 98/61 95 08/03/17 11:24 08/03/17 11:24 08/03/17 11:24 08/03/17 11:24 08/03/17 11:24 Results - Labs CBC & Chem 7: 08/03/17 05:12 08/03/17 05:12 Labs: Last Result Calcium 8.9 mg/dL (8.6-10.3) 08/03/17 05:12 Troponin I 0.04 ng/mL (< 0.04) H* 07/28/17 01:43 Entire Visit Hgb 8.1 g/dL (12.9-16.9) L 08/03/17 05:12 Hct 24.6 % (37.5-50.1) L 08/03/17 05:12 PT 16.6 Seconds (9.4-12.1) H 07/31/17 13:08 Total Bilirubin 12.5 mg/dL (0.3-1.0) H 08/03/17 05:12 AST 81 Units/L (13-39) H 08/03/17 05:12 ALT 38 Units/L (7-52) 08/03/17 05:12 Ammonia 36 mcmol/L (16-53) 07/31/17 13:08 - ABG ABG results: PT/INR, D-dimer PT 16.6 Seconds (9.4-12.1) H 07/31/17 13:08 - Impressions Impressions Cath/Invasive Procedure 08/02/17 00:00 IMPRESSION: ERCP images as above. Please refer to the procedure report for further details. D/ / Jose Alfredo Mazariegos MD / Jose Alfredo Mazariegos MD Interpreting Provider: Jose Alfredo Mazariegos MD - Attending Attestation I have personally performed a face to face evaluation on this patient. I have reviewed and agree with the care plan. History and Exam by me shows:
--- NOTE | 2017-08-03 15:56 | Internal Med Progress Note ---
Date of Encounter: 08/03/17 Time of Encounter: 15:54 - Assessment and plan (1) Anemia Current Visit: Yes Status: Acute Assessment and plan: acute on chronic, acute due to LGIB Continue to monitor Hb stable between 8 and 8.5 till 08/02/17 a.m when Hb dropped to 7.6 s/p 4 units RBCs Due to tachycardia and low blood pressure and patient more lethargic, given an additional unit of blood 08/03/2017-hemoglobin is improved today we will continue to monitor daily because he did is evidence of ongoing bleeding especially into the stoma bag. According to the family this has decreased. My understanding is also the general surgery is not going to be pursuing further endoscopy at this point. Qualifiers: Anemia type: other cause Other causes of anemia: acute posthemorrhagic Qualified Code(s): D62 - Acute posthemorrhagic anemia (2) DVT prophylaxis Current Visit: Yes Status: Acute Assessment and plan: Continue SCDs. No medical anticoagulation due to GI bleed. (3) Esophageal candidiasis Current Visit: Yes Status: Acute Assessment and plan: found on EGD Continue Fluconazole 200mg daily Monitor LFTs, -hyperbilirubinemia noted, elevated ALP is chronic, due to liver mets (4) Lower gastrointestinal hemorrhage Current Visit: Yes Status: Acute Assessment and plan: Surgery consulted; appreciate input. S/P EGD Interval development of red blood in ostomy. Hb today is 7.6(total 4 units PRBCs transfused this hospitalization). Another unit today Continue serial H/H. Continue soft diet. Continue PPI H. pylori culture negative Patient is full code, Palliative eval noted and appreciated 08/03/2017. I had a long discussion with the and the mother at the bedside given the significant morbidity and mortality associated with the patient's current condition. He is at risk for going into encephalopathy and most likely is hepatic encephalopathy at this point. He does have very poor prognosis and I have encouraged considering hospice/palliative care at this point. They are going to look into this and get back to me over the weekend. (5) Colon cancer metastasized to liver Current Visit: Yes Status: Chronic Assessment and plan: Continue follow up with oncology as outpatient. (6) Diabetes mellitus Current Visit: Yes Status: Chronic Assessment and plan: Continue accuchecks and SSI QID AC/HS. Qualifiers: Diabetes mellitus type: type 2 Diabetes mellitus termite helper insulin use: with termite helper use Diabetes mellitus complication status: with hyperglycemia Qualified Code(s): E11.65 - Type 2 diabetes mellitus with hyperglycemia; Z79.4 - correction (current) use of insulin - Time Spent With Patient Greater than 35 minutes - Subjective Interval history: He continues to feel lethargic and confused. He barely opens his eyes and does not make sense while he is talking to me. Most of the history is obtained by his and mother at the bedside. - Constitutional Vitals: Temp Pulse Resp BP Pulse Ox 97.6 F 109 16 98/61 95 08/03/17 11:24 08/03/17 11:24 08/03/17 11:24 08/03/17 11:24 08/03/17 11:24 General appearance: Present: A&O X 2, pleasant, no acute distress, answers questions appropriately Exam: GENERAL: Alert, grossly jaundiced, does not respond to answers well. EYES: Significant icterus bilaterally EARS: External ears normal, canals clear OROPHARYNX: Lips, mucosa, and tongue dry NECK: No jugulovenous distention, No carotid bruits, Carotid pulse normal contour, Supple LUNGS: Lungs clear to auscultation, Good diaphragmatic excursion CARDIAC: Normal S1 and S2; no rubs, murmurs, or gallops ABDOMEN: Abdomen soft, standard, catheter in place. Stoma site looks erythematous and dark blood is seen in the stoma bag. EXTREMITIES: Extremities normal, no deformities, edema, clubbing or skin discoloration. Good capillary refill., No ulcers NEURO: Could not be tested due to patient condition PULSES: 2+ radial, 2+ carotid Rest of the exam is non contributory Internal Medicine: Result - Labs CBC & Chem 7: 08/03/17 05:12 08/03/17 05:12 Labs: Short CBC 08/02/17 08/03/17 Range/Units 15:45 05:12 WBC 6.8 6.2 (4.3-11.1) K/mcL Hgb 9.0 L 8.1 L (12.9-16.9) g/dL Hct 27.2 L 24.6 L (37.5-50.1) % Plt Count 134 L 134 L (140-400) K/mcL Neutrophils # 5.2 4.8 (1.6-8.9) K/mcL BMP 08/03/17 05:12 Sodium 129 L Potassium 3.7 Chloride 101 Carbon Dioxide 19 L BUN 32 H Creatinine 1.18 Glucose 128 H Calcium 8.9 Liver Function 08/03/17 Range/Units 05:12 Total Bilirubin 12.5 H (0.3-1.0) mg/dL Direct Bilirubin 8.1 H (0.0-0.2) mg/dL AST 81 H (13-39) Units/L ALT 38 (7-52) Units/L Alkaline Phosphatase 704 H (34-104) Units/L Albumin 1.9 L (3.5-5.7) g/dL - ABG Interpretation ABG results: PT/INR, D-dimer PT 16.6 Seconds (9.4-12.1) H 07/31/17 13:08 - VTE Documentation of Mechanical Device: Intermittent pneumatic compression device Consult Discharge Plan - Plan Referrals: James Franco MD [Non-Partnered Physician] - 08/30/17 10:00 am Ander Patel MD [Primary Care Provider] -
[2017-08-03] MEDS: Ondansetron 4 MG/2 ML VIAL IVP PRN (18:14)
[2017-08-03 20:56] LABS: Eosinophils % 0.2 %; Hematocrit 24.1 % (37.5-50.1); Immature Granulocytes % 1.5 % (0-4); Lymphocytes # 0.1 K/mcL (0.6-4.6); Lymphocytes % 3.1 %; Mean Corpuscular HGB Conc 33.2 g/dL (31.6-35.5); Mean Corpuscular Hemoglobin 29.3 pg (28.0-33.3); Mean Corpuscular Volume 88.3 fL (83.0-100.0); Mean Platelet Volume 10.4 fL (9.4-12.4); Monocytes # 0.1 K/mcL (0.0-1.3); Monocytes % 1.3 %; Neutrophils # 4.3 K/mcL (1.6-8.9); Platelet Count 106 K/mcL (140-400); Red Blood Count 2.73 M/mcL (4.19-5.50); Red Cell Distribution Width 18.3 % (11.5-14.5); Segmented Neutrophils % 93.9 %
[2017-08-03 21:11] LABS: BUN/Creatinine Ratio 26 (6-26); Blood Urea Nitrogen 36 mg/dL (6-20); Calcium 8.8 mg/dL (8.6-10.3); Carbon Dioxide 18 mEq/L (23-29); Chloride 100 mEq/L (98-107); Glucose 96 mg/dL (70-105); Osmolality,Calculated 274 (280-300); Potassium 3.4 mEq/L (3.5-5.1); Sodium 128 mEq/L (136-145); eGFR For African Americans > 60 (> 60); eGFR For Non-African Americans 55 (> 60)
[2017-08-03 21:32] LABS: Platelet Estimate Slight Decrease (Normal); Toxic Granulation Present (Not Present)
[2017-08-03 21:33] LABS: Anisocytosis 1+ (Not Present); Polychromasia 1+ (Not Present)
[2017-08-03] MEDS ORDERED: 0.9 % Sodium Chloride 500 ML IV ONE (21:37)
[2017-08-03] MEDS: Lactulose Oral Soln 20 GM/30 ML UDC PO SCH (22:04)
[2017-08-03] MEDS ORDERED: Potassium Chloride Elixir 20 MEQ/15 ML UDC PO SCH (23:45)
[2017-08-04] MEDS: Potassium Chloride Elixir 20 MEQ/15 ML UDC PO SCH ×3 (00:42→20:36)
[2017-08-04] MEDS: Albumin 25% 25gram/100mL 25 GM/100 ML IV.SOLN IVPB SCH ×3 (01:12→16:01)
[2017-08-04] MEDS ORDERED: 0.9 % Sodium Chloride 1,000 ML IVC SCH (01:15)
[2017-08-04 05:13] LABS: Hemoglobin 7.3 g/dL (12.9-16.9)
--- NOTE | 2017-08-04 06:17 | Event Note ---
Date of Encounter: 08/04/17 Time of Encounter: 06:14 Patient has been hypotensive with SBP in the 70-80. Patient remains lethargic but responds to questions. Labs done last night showed elevated ammonia, stable Hgb with MARIO. Ordered IV fluids, albumin. Rechecked H&H- Hgb 7.3. So transfusing 1 unit PRBC. Also poor urine output but bladder scan shows [address] ab[address] Family at bedside and kept updated.
[2017-08-04] MEDS ORDERED: 0.9 % Sodium Chloride 1,000 ML IV ONE (06:18)
[2017-08-04] MEDS: Pantoprazole 40 MG VIAL IVP SCH ×2 (06:28→17:27)
[2017-08-04] MEDS ORDERED: 0.9 % Sodium Chloride 250 ML ONE (06:59)
[2017-08-04] MEDS: Furosemide 40 MG TABLET PO SCH (08:05)
[2017-08-04] MEDS: Fluconazole 200 MG/100 ML 200 MG/100 ML BAG IVPB SCH (08:44)
[2017-08-04] MEDS: Lactulose Oral Soln 20 GM/30 ML UDC PO SCH ×2 (08:45→20:35)
[2017-08-04] MEDS: Sucralfate 1 GM TABLET PO SCH ×3 (08:47→17:28)
[2017-08-04] MEDS: Insulin LISPRO 300 UNITS/3 ML VIAL SQ SCH ×4 (10:10→20:56)
--- NOTE | 2017-08-04 10:43 | Internal Med Progress Note ---
Date of Encounter: 08/04/17 Time of Encounter: 10:39 - Assessment and plan (1) Anemia Current Visit: Yes Status: Acute Assessment and plan: acute on chronic, acute due to LGIB Continue to monitor Hb stable between 8 and 8.5 till 08/02/17 a.m when Hb dropped to 7.6 s/p 4 units RBCs Due to tachycardia and low blood pressure and patient more lethargic, given an additional unit of blood 08/03/2017-hemoglobin is improved today we will continue to monitor daily because he did is evidence of ongoing bleeding especially into the stoma bag. According to the family this has decreased. My understanding is also the general surgery is not going to be pursuing further endoscopy at this point. 08/04/2017- hemoglobin dropped further to 7.3 this morning. 1 unit of PRBCs ordered. Patient has multiple duodenal ulcers that could be contributing to this upper GI bleed. Yesterday he did have blood in the stoma which is not found today. His hemoglobin will be serially monitored. If he continues to drop despite cessation of bleeding into his stoma and I will request general surgery or gastroenterology to potentially be scoped him. Unless the plans change from a course status standpoint which the family is still unwilling to change. I will repeat a CBC and CMP tomorrow morning and follow along. Prognosis remains guarded Qualifiers: Anemia type: other cause Other causes of anemia: acute posthemorrhagic Qualified Code(s): D62 - Acute posthemorrhagic anemia (2) DVT prophylaxis Current Visit: Yes Status: Acute Assessment and plan: Continue SCDs. No medical anticoagulation due to GI bleed. (3) Esophageal candidiasis Current Visit: Yes Status: Acute Assessment and plan: found on EGD Continue Fluconazole 200mg daily Monitor LFTs, -hyperbilirubinemia noted, elevated ALP is chronic, due to liver mets (4) Lower gastrointestinal hemorrhage Current Visit: Yes Status: Acute Assessment and plan: Surgery consulted; appreciate input. S/P EGD Interval development of red blood in ostomy. Hb today is 7.6(total 4 units PRBCs transfused this hospitalization). Another unit today Continue serial H/H. Continue soft diet. Continue PPI H. pylori culture negative Patient is full code, Palliative eval noted and appreciated 08/03/2017. I had a long discussion with the and the mother at the bedside given the significant morbidity and mortality associated with the patient's current condition. He is at risk for going into encephalopathy and most likely is hepatic encephalopathy at this point. He does have very poor prognosis and I have encouraged considering hospice/palliative care at this point. They are going to look into this and get back to me over the weekend. 08/04/2017-family still not decided about palliative care. For now the patient remains full code. I did again bring up his extremely poor prognosis at this point and they would like to think about it for another day . As discussed .above prognosis remains extremely guarded. For now we will continue to monitor him hemodynamically and check serial CBCs. Continue PPIs (5) Colon cancer metastasized to liver Current Visit: Yes Status: Chronic Assessment and plan: Continue follow up with oncology as outpatient. (6) Diabetes mellitus Current Visit: Yes Status: Chronic Assessment and plan: Continue accuchecks and SSI QID AC/HS. Qualifiers: Diabetes mellitus type: type 2 Diabetes mellitus terminal operations manager insulin use: with terminal operations manager use Diabetes mellitus complication status: with hyperglycemia Qualified Code(s): E11.65 - Type 2 diabetes mellitus with hyperglycemia; Z79.4 - care home (current) use of insulin (7) ARF (acute renal failure) Current Visit: Yes Status: Acute Assessment and plan: Acute renal failure creatinine has increased from 1.18-1.40. The patient has remained hypotensive overall with his baseline blood pressure in the low 90s. He has gotten an IV fluid bolus with resultant improvement of his blood pressures today. I will continue to closely monitor his creatinine. Prognosis remains extremely guarded Qualifiers: Acute renal failure type: unspecified Qualified Code(s): N17.9 - Acute kidney failure, unspecified - Time Spent With Patient Greater than 35 minutes (More than 50% of the time was discussed in face-to- face counseling) - Subjective Interval history: Patient is more awake and alert today. He does continue to have feeling of diffuse weakness. His at the bedside still continues to state that his mental status is still cloudy - Constitutional Vitals: Temp Pulse Resp BP Pulse Ox 98.8 F 112 12 93/57 95 08/04/17 10:32 08/04/17 10:32 08/04/17 10:32 08/04/17 10:32 08/04/17 10:32 General appearance: Present: A&O X 2, pleasant, no acute distress, answers questions appropriately Exam: GENERAL: Alert, grossly jaundiced, confused but does answer some questions whether or not EYES: Significant icterus bilaterally EARS: External ears normal, canals clear OROPHARYNX: Lips, mucosa, and tongue dry NECK: No jugulovenous distention, No carotid bruits, Carotid pulse normal contour, Supple LUNGS: Lungs clear to auscultation, Good diaphragmatic excursion CARDIAC: Normal S1 and S2; no rubs, murmurs, or gallops ABDOMEN: Abdomen soft, standard, catheter in place. Stoma site looks erythematous , no more blood but fecal matter now seen in the stoma bag EXTREMITIES: Extremities normal, no deformities, edema, clubbing or skin discoloration. Good capillary refill., No ulcers NEURO: Could not be tested due to patient condition PULSES: 2+ radial, 2+ carotid Rest of the exam is non contributory Internal Medicine: Result - Labs CBC & Chem 7: 08/04/17 05:01 08/03/17 20:40 Labs: Short CBC 08/03/17 08/04/17 Range/Units 20:40 05:01 WBC 4.6 (4.3-11.1) K/mcL Hgb 8.0 L 7.3 L (12.9-16.9) g/dL Hct 24.1 L 22.0 L (37.5-50.1) % Plt Count 106 L (140-400) K/mcL Neutrophils # 4.3 (1.6-8.9) K/mcL BMP 08/03/17 20:40 Sodium 128 L Potassium 3.4 L Chloride 100 Carbon Dioxide 18 L BUN 36 H Creatinine 1.40 H Glucose 96 Calcium 8.8 - ABG Interpretation ABG results: PT/INR, D-dimer PT 16.6 Seconds (9.4-12.1) H 07/31/17 13:08 - VTE Documentation of Mechanical Device: Intermittent pneumatic compression device Consult Discharge Plan - Plan Referrals: James Franco MD [Non-Partnered Physician] - 08/30/17 10:00 am Ander Patel MD [Primary Care Provider] -
[2017-08-04] MEDS: *HR* OxyCODONE Immed Rel 5 MG TABLET PO PRN ×2 (15:59→20:34)
[2017-08-04] MEDS: Ondansetron 4 MG/2 ML VIAL IVP PRN (20:46)
[2017-08-05] MEDS: Sucralfate 1 GM TABLET PO SCH ×3 (00:08→12:19)
[2017-08-05] MEDS ORDERED: *HR* HYDROmorphone (PF) 1 MG/ML SYRINGE IVP PRN (00:54)
[2017-08-05] MEDS ORDERED: *HR* LORazepam 2 MG/ML VIAL IVP PRN (00:55)
--- NOTE | 2017-08-05 01:02 | Event Note ---
Date of Encounter: 08/05/17 Time of Encounter: 00:56 Called by RN earlier for concerns of low BP and patient suffering. I reviewed patient chart and met with and mother. I assessed patient as well. Patient awakens to voice and drifts back to sleep. He is unable to converse and /or comprehend anything. He is jaundiced, has some respiratory difficulty, and appears to be in some bit of pain. I had a long heart to heart talk with patient's and mother. They wish to proceed with comfort measures now. They wish and agree to change code status to DNR-CC. I will D/C telemetry and pulse oximetry. I will order low dose IV Dilaudid and Ativan to be used as needed for pain and suffering per RN and family discretion. If necessary, we can titrate dose and frequency. I explained to and mother that I do not anticipate he will survive the next 24-48 hours.
[2017-08-05] MEDS: Pantoprazole 40 MG VIAL IVP SCH (06:45)
[2017-08-05 08:31] LABS: Albumin 2.3 g/dL (3.5-5.7); Albumin/Globulin Ratio 0.7 (1.1-2.2); Bilirubin,Total 11.8 mg/dL (0.3-1.0); Calcium 8.8 mg/dL (8.6-10.3); Globulin 3.5 g/dL (2.4-3.5); Potassium 3.6 mEq/L (3.5-5.1); Total Protein 5.8 g/dL (6.4-8.9)
[2017-08-05 08:40] LABS: Hematocrit 22.3 % (37.5-50.1); Hemoglobin 7.5 g/dL (12.9-16.9); Mean Corpuscular HGB Conc 33.6 g/dL (31.6-35.5); Mean Corpuscular Hemoglobin 29.5 pg (28.0-33.3); Mean Corpuscular Volume 87.8 fL (83.0-100.0); Mean Platelet Volume 11.4 fL (9.4-12.4); Red Blood Count 2.54 M/mcL (4.19-5.50); Red Cell Distribution Width 18.4 % (11.5-14.5)
[2017-08-05] MEDS: Potassium Chloride Elixir 20 MEQ/15 ML UDC PO SCH (09:36)
[2017-08-05] MEDS: Lactulose Oral Soln 20 GM/30 ML UDC PO SCH (09:36)
[2017-08-05] MEDS: *HR* FentaNYL PATCH 75 MCG PATCH TD SCH (09:36)
[2017-08-05] MEDS: Fluconazole 200 MG/100 ML 200 MG/100 ML BAG IVPB SCH (09:38)
[2017-08-05] MEDS: Insulin LISPRO 300 UNITS/3 ML VIAL SQ SCH (10:18)
[2017-08-05 10:35] VITALS: BP 91/56
--- NOTE | 2017-08-05 11:02 | Internal Med Progress Note ---
Date of Encounter: 08/05/17 Time of Encounter: 11:00 - Assessment and plan (1) Anemia Current Visit: Yes Status: Acute Assessment and plan: acute on chronic, acute due to LGIB Continue to monitor Hb stable between 8 and 8.5 till 08/02/17 a.m when Hb dropped to 7.6 s/p 4 units RBCs Due to tachycardia and low blood pressure and patient more lethargic, given an additional unit of blood 08/03/2017-hemoglobin is improved today we will continue to monitor daily because he did is evidence of ongoing bleeding especially into the stoma bag. According to the family this has decreased. My understanding is also the general surgery is not going to be pursuing further endoscopy at this point. 08/04/2017- hemoglobin dropped further to 7.3 this morning. 1 unit of PRBCs ordered. Patient has multiple duodenal ulcers that could be contributing to this upper GI bleed. Yesterday he did have blood in the stoma which is not found today. His hemoglobin will be serially monitored. If he continues to drop despite cessation of bleeding into his stoma and I will request general surgery or gastroenterology to potentially be scoped him. Unless the plans change from a course status standpoint which the family is still unwilling to change. I will repeat a CBC and CMP tomorrow morning and follow along. Prognosis remains guarded 08/05/2017-hemoglobin only improved to 7.5 after 1 unit of PRBC yesterday. Like already mentioned patient has had multiple duodenal ulcers. He did have more solid and formed stooling from his ostomy with mild blood tinged as per the nursing staff. As per the discussion yesterday the patient has now been made DNR comfort care. We will be reaching out again to palliative medicine for further orders. The patient most likely will need inpatient hospice-done on Sunday. Would defer to the primary team Qualifiers: Anemia type: other cause Other causes of anemia: acute posthemorrhagic Qualified Code(s): D62 - Acute posthemorrhagic anemia (2) DVT prophylaxis Current Visit: Yes Status: Acute Assessment and plan: Continue SCDs. No medical anticoagulation due to GI bleed. (3) Esophageal candidiasis Current Visit: Yes Status: Acute Assessment and plan: found on EGD Continue Fluconazole 200mg daily Monitor LFTs, -hyperbilirubinemia noted, elevated ALP is chronic, due to liver mets (4) Lower gastrointestinal hemorrhage Current Visit: Yes Status: Acute Assessment and plan: Surgery consulted; appreciate input. S/P EGD Interval development of red blood in ostomy. Hb today is 7.6(total 4 units PRBCs transfused this hospitalization). Another unit today Continue serial H/H. Continue soft diet. Continue PPI H. pylori culture negative Patient is full code, Palliative eval noted and appreciated 08/03/2017. I had a long discussion with the and the mother at the bedside given the significant morbidity and mortality associated with the patient's current condition. He is at risk for going into encephalopathy and most likely is hepatic encephalopathy at this point. He does have very poor prognosis and I have encouraged considering hospice/palliative care at this point. They are going to look into this and get back to me over the weekend. 08/04/2017-family still not decided about palliative care. For now the patient remains full code. I did again bring up his extremely poor prognosis at this point and they would like to think about it for another day . As discussed .above prognosis remains extremely guarded. For now we will continue to monitor him hemodynamically and check serial CBCs. Continue PPIs (5) Colon cancer metastasized to liver Current Visit: Yes Status: Chronic Assessment and plan: Continue follow up with oncology as outpatient. (6) Diabetes mellitus Current Visit: Yes Status: Chronic Assessment and plan: Continue accuchecks and SSI QID AC/HS. Qualifiers: Diabetes mellitus type: type 2 Diabetes mellitus terminal computer operator insulin use: with terminal computer operator use Diabetes mellitus complication status: with hyperglycemia Qualified Code(s): E11.65 - Type 2 diabetes mellitus with hyperglycemia; Z79.4 - group home (current) use of insulin (7) ARF (acute renal failure) Current Visit: Yes Status: Acute Assessment and plan: Acute renal failure creatinine has increased from 1.18-1.40. The patient has remained hypotensive overall with his baseline blood pressure in the low 90s. He has gotten an IV fluid bolus with resultant improvement of his blood pressures today. I will continue to closely monitor his creatinine. Prognosis remains extremely guarded Qualifiers: Acute renal failure type: unspecified Qualified Code(s): N17.9 - Acute kidney failure, unspecified - Time Spent With Patient 25 - 35 minutes - Subjective Interval history: Patient is more awake and alert today. He does continue to have feeling of diffuse weakness. - Constitutional Vitals: Temp Pulse Resp BP Pulse Ox 99.0 F 117 14 91/56 95 08/05/17 10:19 08/05/17 10:19 08/05/17 10:19 08/05/17 10:19 08/05/17 10:19 General appearance: Present: A&O X 2, pleasant, no acute distress, answers questions appropriately Exam: GENERAL: Alert, grossly jaundiced, confused but does answer some questions whether or not EYES: Significant icterus bilaterally EARS: External ears normal, canals clear OROPHARYNX: Lips, mucosa, and tongue dry NECK: No jugulovenous distention, No carotid bruits, Carotid pulse normal contour, Supple LUNGS: Lungs clear to auscultation, Good diaphragmatic excursion CARDIAC: Normal S1 and S2; no rubs, murmurs, or gallops ABDOMEN: Abdomen soft, standard, catheter in place. Stoma site looks erythematous , no more blood but fecal matter now seen in the stoma bag EXTREMITIES: Extremities normal, no deformities, edema, clubbing or skin discoloration. Good capillary refill., No ulcers NEURO: Could not be tested due to patient condition PULSES: 2+ radial, 2+ carotid Internal Medicine: Result - Labs CBC & Chem 7: 08/05/17 06:55 08/05/17 06:55 Labs: Short CBC 08/05/17 Range/Units 06:55 WBC 6.8 (4.3-11.1) K/mcL Hgb 7.5 L (12.9-16.9) g/dL Hct 22.3 L (37.5-50.1) % Plt Count 90 L (140-400) K/mcL BMP 08/05/17 06:55 Sodium 126 L Potassium 3.6 Chloride 99 Carbon Dioxide 17 L BUN 47 H Creatinine 1.88 H Glucose 101 Calcium 8.8 Liver Function 08/05/17 Range/Units 06:55 Total Bilirubin 11.8 H (0.3-1.0) mg/dL AST 151 H (13-39) Units/L ALT 45 (7-52) Units/L Alkaline Phosphatase 457 H (34-104) Units/L Albumin 2.3 L (3.5-5.7) g/dL - ABG Interpretation ABG results: PT/INR, D-dimer PT 16.6 Seconds (9.4-12.1) H 07/31/17 13:08 - VTE Documentation of Mechanical Device: Intermittent pneumatic compression device Consult Discharge Plan - Plan Referrals: James Franco MD [Non-Partnered Physician] - 08/30/17 10:00 am Ander Patel MD [Primary Care Provider] -
--- NOTE | 2017-08-05 11:59 | Event Note ---
Date of Encounter: 08/05/17 Time of Encounter: 11:50 Reconsulted for this patient - had marked deterioration over the last 24 hours. D/W /pt mother at bedside. He may be appropriate for inpt hospice transition. Notified Johnny Arellano construction equipment mechanic for [facility] and she will be checking with lieutenant shift supervisor for approval. Awaiting return call. He will transition to 2A 45 Palliative bed. I will D/W hospitalist when I receive word if he will be inpt hospice or remain under hospitalist care.
--- NOTE | 2017-08-05 13:46 | Discharge Summary ---
- NOTES TO OUTPATIENT PROVIDER Notes to Outpatient Provider: none. Patient is being Dced to INpatient hospice Date of Encounter: 08/05/17 Time of Encounter: 13:43 - Discharge Diagnosis (1) Colon cancer metastasized to liver Priority: Primary Status: Chronic (2) Anemia Priority: Secondary Status: Acute Qualifiers: Anemia type: other cause Other causes of anemia: acute posthemorrhagic Qualified Code(s): D62 - Acute posthemorrhagic anemia (3) DVT prophylaxis Priority: Secondary Status: Acute (4) Esophageal candidiasis Priority: Secondary Status: Acute (5) Lower gastrointestinal hemorrhage Priority: Secondary Status: Acute (6) Diabetes mellitus Priority: Secondary Status: Chronic Qualifiers: Diabetes mellitus type: type 2 Diabetes mellitus halfway insulin use: with halfway use Diabetes mellitus complication status: with hyperglycemia Qualified Code(s): E11.65 - Type 2 diabetes mellitus with hyperglycemia; Z79.4 - terminal worker (current) use of insulin (7) ARF (acute renal failure) Priority: Secondary Status: Acute Qualifiers: Acute renal failure type: unspecified Qualified Code(s): N17.9 - Acute kidney failure, unspecified Hospital course: 46-year-old with metastatic colorectal carcinoma to the liver initially presented with bleeding per ostomy and had multiple duodenal ulcers on EGD. He does have a stoma and the bleeding from the site has been decreasing. He also is massively jaundiced. Recently had an ERCP done on August 02 with a sphincterotomy and stent placement as per gastroenterology. He had extremely poor prognosis and family has decided to pursue hospice. I spoke to palliative medicine team just a few min ago and hospice would like to move him to inpatient Hospice. He has already landen made DNR last night by hospitalist after discussion w family. - Time Spent with Patient Total time spent providing and/or coordinating discharge services: - Discharge Medications Home Medications: Acetaminophen/Butalbital/Caffe [Fioricet] 1 each PO TID PRN #90 tablet 04/13/15 [Rx] Cyclobenzaprine [Flexeril] 10 mg PO TID PRN 07/16/15 [History] Prochlorperazine Maleate [Compazine] 10 mg PO Q6HR PRN #120 tablet 02/07/16 [Rx] Ondansetron HCl [Zofran] 4 mg PO Q6H PRN #30 tablet 10/28/16 [Rx] Citalopram Hydrobromide [Celexa] 20 mg PO DAILY #90 tablet 11/20/16 [Rx] Atorvastatin [Lipitor] 10 mg PO HS 11/27/16 [History] Levothyroxine [Synthroid] 75 mcg PO 0630 11/27/16 [History] Omeprazole [PriLOSEC] 40 mg PO DAILY 11/27/16 [History] Pioglitazone HCl [Actos] 30 mg PO DAILY 11/27/16 [History] Docusate [Colace] 100 mg PO BID 05/15/17 [History] Furosemide [Lasix] 40 mg PO BID 07/17/17 [History] Megestrol Acetate [Megace] 40 mg PO BID 07/17/17 [History] OxyCODONE Immed Rel [Roxicodone 5 MG] 10 mg PO Q4H PRN 07/27/17 [History] Polyethylene Glycol 3350 [MiraLAX] 17 gm PO DAILY PRN 07/27/17 [History] Spironolactone [Aldactone] 100 mg PO DAILY 07/27/17 [History] fentaNYL [Fentanyl] 75 mcg TD Q72H 07/27/17 [History] Allergies/Adverse Reactions: 3 Allergy/AdvReac Type Severity Reaction Status Date / Time capecitabine [From Xeloda] AdvReac Hallucinati Verified 07/17/17 08:24 ng Date of admission: 07/27/17 21:56 Primary care physician: Ander Patel MD Consults: 07/30/17 16:59 Consult to Interventional Radiology [CONS] Routine Consulting Provider: Radiology Interventional Cols Reason for Consult: ascites Call Completed: No 08/01/17 13:31 Consult to Palliative Care [CONS] Routine Comment: Consulting Provider: Palliative Care [place] Reason for Consult: Home hospice Call Completed: Yes 08/02/17 11:44 Consult to Gastroenterology [CONS] Routine Consulting Provider: Gastroenterology [place] Reason for Consult: obstructive jaundice Call Completed: Yes 08/04/17 23:22 Consult to Palliative Care [CONS] Stat Comment: To notify in Am when pallative is in Consulting Provider: Palliative Care [place] Reason for Consult: patient conditioning worsening and family willing to consider pallative care Call Completed: No - Constitutional Vitals: Temp Pulse Resp BP Pulse Ox 99.0 F 117 14 91/56 95 08/05/17 10:19 08/05/17 10:19 08/05/17 10:19 08/05/17 10:19 08/05/17 10:19 General appearance: Present: A&O X 2, pleasant, no acute distress, answers questions appropriately Exam: please see my Progress note from earlier today - Patient Status Disposition: Hospice - Medical Facility Condition: Critical Functional capacity at discharge: bed bound Overall status at discharge: other (extremely poor prognosis) - Discharge Instructions Follow Up With: James Franco MD [Non-Partnered Physician] - 08/30/17 10:00 am Ander Patel MD [Primary Care Provider] - Forms: ED Satisfaction Letter - VTE Documentation of Mechanical Device: Intermittent pneumatic compression device
== END 2017-08-05 15:15 | disposition hospice, inpatient (51) | DRG 377 ==
LOC: EMEROO 17:02 → 3ANU 17:02 → SUATTDRO 21:56 → 3ANU 08-03 18:12
PROVIDERS: ADMIT Pediatrics; ATTEND Internal Medicine
PROC: ENDOEBX (2017-07-29 12:00)

== ENCOUNTER 2017-08-05 13:39 | Inpatient (IN) ==
[2017-08-05] MEDS ORDERED: Bisacodyl 10 MG RECTAL SUPPOSITORY RC PRN (13:53)
[2017-08-05] MEDS ORDERED: Ondansetron 4 MG/2 ML VIAL IVP PRN (13:53)
[2017-08-05] MEDS ORDERED: Scopolamine Patch 1.5 MG PATCH.TD72 TD PRN (13:53)
[2017-08-05] MEDS ORDERED: Acetaminophen 650 MG RECTAL SUPP RC PRN (13:57)
[2017-08-05] MEDS ORDERED: *HR* FentaNYL PATCH 75 MCG PATCH TD SCH (14:00)
--- NOTE | 2017-08-05 14:09 | Palliative - Consult Note ---
Date of Encounter: 08/05/17 Time of Encounter: 14:10 - Assessment and Plan (1) Cancer associated pain Status: Acute Assessment and plan: Continue Fentanyl patch at 75mcg/hr - with IV Fentanyl for breakthrough pain til more comfortable (2) Anxiety Status: Acute Assessment and plan: IV Lorazepam PRN and monitor. Titrate as necessary (3) Congestion of upper airway Status: Acute Assessment and plan: Atropine drops ordered. Can add Scopolamine patch PRN. (4) Goals of care, counseling/discussion Status: Acute Assessment and plan: D/W , mother at bedside. He had rough night and they are desiring to keep him here for symptom management. Admitted for GIP. Did discuss that if symptoms were well managed and pt was stable later in the week, would need to establish discharge plan. Family verbalized understanding (5) H/O colon cancer, stage IV Status: Acute (6) Lower gastrointestinal hemorrhage Status: Acute (7) Obstructive jaundice due to cancer Status: Acute Palliative-CN HPI - Data of Consult Consult date: 08/05/17 Requesting Physician: Jeffrey Parmar MD - Consult Narrative Palliative Care/Comfort Measures: Hospice care History of present illness: Mr. Chaidez is a 46 year old male with a history of metastatic colorectal cancer with liver metastasis who was admitted originally to the hospital with bleeding from ostomy. He had prolonged 9 day hospital course, and yesterday, his condition declined. Hospitalist was called in the middle of night and spoke with family. Patient previously was enrolled with [facility], however , when came to hospital, decided he wanted fairly aggressive management and was FULL CODE. With yesterday's events, discussion was held with hospitalist and he was transitioned to DNRCC. Met with family earlier today - they are aware that he has greatly declined and likely may not survive hospital stay. They would like to re-enroll with hospice care. Discussed GIP transition for symptom management and they would like to proceed. D/W Dr. Parmar as well as [facility] Maci Franco and Johnny Arellano. Patient will be transitioned to palliative unit under Hospice care. CC: Jeffrey Parmar MD Past Med Surg Social Fam HX - Past Medical History Medical history: arthritis, cancer, diabetes, GERD, thyroid disease, other Psychiatric history: anxiety, depression - Past Surgical History Surgical History: colostomy, other - Social History Smoking Status: Former smoker Smokeless Tobacco Status: No Alcohol use: none Drug use: none - Family History Father Adopted: Yes Sister Family Member Ethnicity: Non- Living Status: Still Living Mother Adopted: Yes Hx Family Cardiac Disorders: Yes Medications and Allergies Acetaminophen/Butalbital/Caffe [Fioricet] 1 each PO TID PRN #90 tablet 04/13/15 [Rx] Cyclobenzaprine [Flexeril] 10 mg PO TID PRN 07/16/15 [History] Prochlorperazine Maleate [Compazine] 10 mg PO Q6HR PRN #120 tablet 02/07/16 [Rx] Ondansetron HCl [Zofran] 4 mg PO Q6H PRN #30 tablet 03/24/16 [Rx] Citalopram Hydrobromide [Celexa] 20 mg PO DAILY #90 tablet 11/20/16 [Rx] Atorvastatin [Lipitor] 10 mg PO HS 11/27/16 [History] Levothyroxine [Synthroid] 75 mcg PO 0630 11/27/16 [History] Omeprazole [PriLOSEC] 40 mg PO DAILY 11/27/16 [History] Pioglitazone HCl [Actos] 30 mg PO DAILY 11/27/16 [History] Docusate [Colace] 100 mg PO BID 05/15/17 [History] Furosemide [Lasix] 40 mg PO BID 07/17/17 [History] Megestrol Acetate [Megace] 40 mg PO BID 07/17/17 [History] OxyCODONE Immed Rel [Roxicodone 5 MG] 10 mg PO Q4H PRN 07/27/17 [History] Polyethylene Glycol 3350 [MiraLAX] 17 gm PO DAILY PRN 07/27/17 [History] Spironolactone [Aldactone] 100 mg PO DAILY 07/27/17 [History] fentaNYL [Fentanyl] 75 mcg TD Q72H 07/27/17 [History] 3 Allergy/AdvReac Type Severity Reaction Status Date / Time capecitabine [From Xeloda] AdvReac Hallucinati Verified 07/17/17 08:24 ng ROS unobtainable: due to mental status Palliative Care-Exam - Constitutional General appearance: Present: no acute distress - Head Head Exam: Present: normal inspection, normocephalic - Eye Eye exam: Present: scleral icterus - Respiratory Respiratory exam: Present: decreased breath sounds, CTAB Additional comments: Respirations irreg/shallow at times - Cardiovascular Cardiovascular exam: Present: +S1, +S2, tachycardia Additional comments: 2+ edema all extremities - GI/Abdominal Exam GI/Abdominal exam: Present: diminished bowel sounds, distended additional comments: Pleurx drain present RLQ/ LLQ ostomy with brown liquid stool - Catheter Type: Urethral (Elizabeth) Additional comments: Urine dk bogdan - Extremities Exam Extremities exam: Present: normal capillary refill, normal inspection - Neurological Exam Neurological exam: Present: altered Additional comments: Patient lethargic - awakens at times. Does not follow commands for me. - Skin Additional comments: Jaundiced Palliative Quality Palliative Quality: Screen for Code Status: Yes, Screen for Goals of Care: Yes, Screen for Pain: Yes, If Pain Regimen Started, Initiate Bowel Regimen: Yes, Screen for Nausea/Vomitting: Yes Code Status: 08/05/17 13:53 Resuscitation Status: Active [RES] Routine Comment: Resuscitation Status: DNR-Comfort Care
[2017-08-05] MEDS: Furosemide 40 MG/4 ML VIAL IVP SCH (20:47)
[2017-08-05] MEDS: Lactulose Oral Soln 20 GM/30 ML UDC PO SCH (20:49)
[2017-08-05] MEDS: *HR* FentaNYL (PF) 100 MCG/2 ML VIAL IVP PRN (22:59)
[2017-08-06] MEDS: *HR* FentaNYL (PF) 100 MCG/2 ML VIAL IVP PRN ×5 (05:23→21:23)
--- NOTE | 2017-08-06 07:36 | Pallative History & Physical ---
Date of Encounter: 08/06/17 Time of Encounter: 07:20 Assessment and Plan (1) Cancer associated pain Current visit: No Status: Acute Doing well at this time is only required a few breakthrough doses continue to watch closely. (2) Goals of care, counseling/discussion Current visit: No Status: Acute DNR CC, he is now on [facility] hospice [facility] return home with the patient does survive. (3) H/O colon cancer, stage IV Current visit: No Status: Acute Early no further treatment is available for this. Patient has now opted for complete comfort care the hospice diagnosis. Patient will be maintained on general inpatient while we adjust medications for his symptoms. (4) Lower gastrointestinal hemorrhage Current visit: No Status: Acute Based on previous labs it appears the patient continues to bleed, however there is not a lot of output in the ostomy bag today. Internal Medicine - H&P: HPI Admitted From: Intrahospital Transfer Plans for Post Hospital Care: Hospice - Home History of present illness: Mr. Chaidez is a 46 year old male Patient with metastatic colon cancer well known to the palliative care service from previous dictations and patient was admitted to hospice. Patient had rescinded hospice come to the hospital for GI bleed. He changed his CODE STATUS back to full code. He should not has taken a very bad turn, so appears to be continuing to bleed and patient and family have now opted to fully embrace comfort care only. Patient is now comfort care is being brought under the general inpatient service for him to management and stabilization as the patient is looking preeminent. he denies any nausea or vomiting is having abdominal pain which can be quite severe up to an 8 or 9/10 out the abdomen controlled well with medication provoked usually by people poking and prodding anymore moving around. Past Med Surg Social Fam HX - Past Medical History Medical history: arthritis, cancer, diabetes, GERD, thyroid disease, other Psychiatric history: anxiety, depression - Past Surgical History Surgical History: colostomy, other - Social History Smoking Status: Former smoker Smokeless Tobacco Status: No Alcohol use: none Drug use: none - Family History Father Adopted: Yes Sister Family Member Ethnicity: Non- Living Status: Still Living Mother Adopted: Yes Hx Family Cardiac Disorders: Yes Internal Medicine - H&P: Meds Acetaminophen/Butalbital/Caffe [Fioricet] 1 each PO TID PRN #90 tablet 04/13/15 [Rx] Cyclobenzaprine [Flexeril] 10 mg PO TID PRN 07/16/15 [History] Prochlorperazine Maleate [Compazine] 10 mg PO Q6HR PRN #120 tablet 02/07/16 [Rx] Ondansetron HCl [Zofran] 4 mg PO Q6H PRN #30 tablet 03/24/16 [Rx] Citalopram Hydrobromide [Celexa] 20 mg PO DAILY #90 tablet 11/20/16 [Rx] Atorvastatin [Lipitor] 10 mg PO HS 11/27/16 [History] Levothyroxine [Synthroid] 75 mcg PO 0630 11/27/16 [History] Omeprazole [PriLOSEC] 40 mg PO DAILY 11/27/16 [History] Pioglitazone HCl [Actos] 30 mg PO DAILY 11/27/16 [History] Docusate [Colace] 100 mg PO BID 05/15/17 [History] Furosemide [Lasix] 40 mg PO BID 07/17/17 [History] Megestrol Acetate [Megace] 40 mg PO BID 07/17/17 [History] OxyCODONE Immed Rel [Roxicodone 5 MG] 10 mg PO Q4H PRN 07/27/17 [History] Polyethylene Glycol 3350 [MiraLAX] 17 gm PO DAILY PRN 07/27/17 [History] Spironolactone [Aldactone] 100 mg PO DAILY 07/27/17 [History] fentaNYL [Fentanyl] 75 mcg TD Q72H 07/27/17 [History] 3 Allergy/AdvReac Type Severity Reaction Status Date / Time capecitabine [From Xeloda] AdvReac Hallucinati Verified 07/17/17 08:24 ng All systems: reviewed and no additional remarkable complaints except as stated ( As noted in the present illness) Palliative Care-Exam - Constitutional Vitals: Temp Pulse Resp BP Pulse Ox 99.8 F H 128 18 99/54 94 08/06/17 01:45 08/06/17 01:45 08/05/17 19:56 08/06/17 01:45 08/06/17 01:45 General appearance: Present: no acute distress - Head Head Exam: Present: atraumatic, normal inspection - Eye Eye exam: Present: EOMI - Respiratory Respiratory exam: Present: CTAB - Cardiovascular Cardiovascular exam: Present: RRR, tachycardia - GI/Abdominal Exam GI/Abdominal exam: Present: normal bowel sounds, soft, tenderness (Somewhat) - Catheter Type: Urethral (Elizabeth) - Extremities Exam Extremities exam: Present: normal inspection. Absent: pedal edema, tenderness - Neurological Exam Neurological exam: Present: alert (But not talkative.) - Psychiatric Psychiatric exam: Absent: agitated, anxious - Skin Skin exam: Present: dry, warm Palliative Quality Palliative Quality: Screen for Code Status: Yes, Screen for Goals of Care: Yes, Screen for Pain: Yes, If Pain Regimen Started, Initiate Bowel Regimen: Yes, Screen for Nausea/Vomitting: Yes Code Status: 08/05/17 13:53 Resuscitation Status: Active [RES] Routine Comment: Resuscitation Status: DNR-Comfort Care
--- NOTE | 2017-08-06 07:48 | Event Note ---
Date of Encounter: 08/06/17 Time of Encounter: 07:46 This event note will function as a [id number] encounter. Will be attached to the face to face sheet from hospice. She was very recently in hospice and revoked recently as last week. She does had further deterioration of his condition, continued GI bleeding lavation of liver functions and the patient continues to have metastatic colon cancer she was eligible for hospice in the first place. This point in time the patient has opted for comfort care. He is unstable in vital signs [place] the past very soon. Family have now embraced comfort care only, the patient in addition to having metastatic colon cancer also appears to have an active GI bleed still be no further therapy. The patient is appropriate for hospice life expectancy of less than 6 months. I have examined this patient personally this morning attests to same.
[2017-08-06] MEDS: Lactulose Oral Soln 20 GM/30 ML UDC PO SCH ×2 (10:32→21:51)
[2017-08-06] MEDS: Furosemide 40 MG/4 ML VIAL IVP SCH ×2 (10:57→21:51)
[2017-08-06] MEDS ORDERED: *HR* FentaNYL (PF) 100 MCG/2 ML VIAL IVP ONE (14:43)
[2017-08-07] MEDS: *HR* FentaNYL (PF) 100 MCG/2 ML VIAL IVP PRN ×6 (08:54→14:31)
[2017-08-07] MEDS: Lactulose Oral Soln 20 GM/30 ML UDC PO SCH (09:18)
[2017-08-07] MEDS: Furosemide 40 MG/4 ML VIAL IVP SCH (09:19)
--- NOTE | 2017-08-07 09:44 | Palliative Progress Note ---
Date of Encounter: 08/07/17 Time of Encounter: 09:00 - Assessment and plan (1) Cancer associated pain Current Visit: No Status: Acute Assessment and plan: Patient resting. Eyes closed. Respirations easy. Tolerating Fentanyl patch and BTP fentanyl for pain. Nursing and reports that patient resting well last night. Discomfort with positioning. (2) Anxiety Current Visit: No Status: Acute Assessment and plan: Ativan PRN. Currently no request for it. (3) Goals of care, counseling/discussion Current Visit: Yes Status: Acute Assessment and plan: Conducted bedside assessment. Patient resting. appears tired and exhausted. Offered support and called Manager Transportation Planning Angela Pringle. Conducted bedside prayer. Patient with poor prognosis with terminal illness stage IV colon cancer. 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 at bedside. Patient just medicated with BTP fentanyl. Respirations easy. reports that patient had a restful night. - Constitutional General appearance: Present: no acute distress - Head Head exam: Present: atraumatic, normal inspection - Eye Eye exam: Present: PERRL - ENT ENT exam: Present: mucous membranes moist - Respiratory Respiratory exam: Present: CTAB - Expanded Cardiovascular Exam Peripheral pulses: 1+: Femoral (L) PM, Femoral (R) PM, Posterior Tibialis (L), Posterior Tibialis (R), 2+: Carotid (L) PM, Carotid (R) PM, Radial (L), Radial ( R), Dorsalis Pedis (L) PM, Dorsalis Pedis (R) PM - GI/Abdominal GI/Abdominal exam: Present: diminished bowel sounds, soft Additional comments: Colostomy - Additional comments: Elizabeth - Extremities Exam Extremities exam: Present: tenderness - Neurological Exam Neurological exam: Present: altered - Psychiatric Psychiatric exam: Present: flat affect - Skin Skin exam: Present: warm Palliative Quality Palliative Quality: Screen for Code Status: Yes, Screen for Goals of Care: Yes, Screen for Pain: Yes, If Pain Regimen Started, Initiate Bowel Regimen: Yes, Screen for Nausea/Vomitting: Yes Code Status: 08/05/17 13:53 Resuscitation Status: Active [RES] Routine Comment: Resuscitation Status: DNR-Comfort Care Resuscitation Status: Active [RES] Routine Comment: dnr cc Resuscitation Status: DNR-Comfort Care Consult Discharge Plan - Plan Referrals: Ander Patel MD [Primary Care Provider] -
[2017-08-07] MEDS: *HR* LORazepam 2 MG/ML VIAL IVP PRN ×5 (11:14→21:49)
[2017-08-07] MEDS ORDERED: *HR* FentaNYL PATCH 100 MCG PATCH TD SCH (13:00)
[2017-08-07] MEDS: OXYCODONE Oral CONC 10 MG/0.5 ML ORAL.SYG SL PRN ×2 (13:49→17:27)
[2017-08-07] MEDS ORDERED: FentaNYL (PF) 1,000 MCG in 0.9 % Sodium Chloride 80 ML IVC SCH (15:00)
[2017-08-07] MEDS: Atropine Sulfate 1% 40 DROP/2 ML BOTTLE SL PRN ×3 (15:35→21:49)
[2017-08-07] MEDS ORDERED: OXYCODONE Oral CONC 10 MG/0.5 ML ORAL.SYG SL SCH (16:00)
[2017-08-07 20:31] VITALS: BP 80/50
[2017-08-08] MEDS: Atropine Sulfate 1% 40 DROP/2 ML BOTTLE SL PRN (00:10)
[2017-08-08] MEDS: OXYCODONE Oral CONC 10 MG/0.5 ML ORAL.SYG SL PRN (00:17)
--- NOTE | 2017-08-08 09:23 | Death Note ---
Discharge Sum: Summary - Date and Time Date of admission: 08/05/17 18:42 Date of : 08/08/17 Time of : 04:08 - Summary Details: Mr. Chaidez is a 46 year old male with a history of metastatic colorectal cancer with liver metastasis who was admitted originally to the hospital with bleeding from ostomy. Patient desired transition to comfort care and was admitted to [facility]patient [facility] care. The patient received comfort medications and care. remained at bedside and family support was provided. The patient on 08/08/17 @ 0408. - Additional Data Confirmation of as documented by pronouncing clinician: no pulse, no respirations, no heart sounds Family: at bedside Attending/PCP notified?: Yes ([facility]) Attending physician: Jeffrey Parmar MD Was code activated?: No Autopsy requested?: No commercial title examiner notified?: No Organ bank notified?: Yes Advance directives: Yes Hospice patient?: Yes Discharge Sum: Diag - PCOD Probable Cause of : Respiratory arrest (Metastatic Colon Cancer enrolled in hospice) - Contributing Factors (1) Cancer associated pain Metastatic Colon Cancer (3) Goals of care, counseling/discussion Comfort Care. Enrolled in hospice care Discharge Sum: Prov - Provider Primary care physician: Ander Patel MD Admitting clinician: Jeffrey Parmar Attending physician on admission: Jeffrey Parmar Consults: 08/05/17 13:53 Consult to Palliative Care [CONS] Routine Comment: Consulting Provider: Palliative Care [facility] Reason for Consult: GIP Call Completed: No Pronouncing clinician: Jeffrey Parmar
== END 2017-08-08 04:08 | disposition expired | DRG 951 ==
LOC: 2ANU 18:42
PROVIDERS: ADMIT Family Medicine Hospice and Palliative Medicine; ATTEND Family Medicine Hospice and Palliative Medicine